=== PATIENT | male | born 1945 | race Caucasian/White ===

== ENCOUNTER 2019-07-03 08:02 | Outpatient (CLI) | payer MEDICARE, SELFPAY ==
--- NOTE | ~2019-07-03 | CT_ITS ---
EXAMINATION: CT abdomen pelvis w con DATE: 07/03/2019 08:37 INDICATION: Hematuria TECHNIQUE: Computed tomography (CT) of the abdomen and pelvis was performed with 100 mL Omnipaque-350 intravenous contrast. Automated exposure control and iterative reconstruction technique were employe d. The dose-length product was 1084.45 mGy-cm. COMPARISON: None FINDINGS: Calcified left lower lobe nodule and calcified paraesophageal lymph nodes consistent with old granulo matous disease. Heart size is normal. Atherosclerotic coronary artery calcification. No pericardial o r pleural effusion. Liver, gallbladder, spleen, pancreas and bilateral adrenal glands are normal. The re are atherosclerotic Calcination is along the gastroduodenal artery. 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 No other urolithiasis or hydronephrosis. There are a fe w phleboliths in the pelvis. Bladder is normal. Bowels including the appendix are normal. No free int raperitoneal gas or fluid. No pathologically enlarged abdominal or pelvic lymphadenopathy. Bipolar ty pe left hip hemiarthroplasty. Lumbar dextroscoliosis with moderate to severe spondylosis. There are b ridging osteophytes at multiple levels in the lower thoracic spine consistent with diffuse idiopathic skeletal hyperostosis (DISH). IMPRESSION: 1. 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 Reviewed, dictated and finalized at location A.
[2019-07-03 08:29] LABS: Estimated Glomerular Filt Rate > 60
== END 2019-07-03 08:03 | disposition home or self-care (01) ==
PROVIDERS: PCP Family Medicine; Visit Provider Family Medicine
DX: Q63.1 Lobulated, fused and horseshoe kidney (principal); N20.0 Calculus of kidney
CPT/HCPCS: 36415; 74177; Q9967

== ENCOUNTER 2019-07-20 09:31 | Outpatient (CLI) | payer MEDICARE, SELFPAY ==
[2019-07-20 11:08] LABS: Hematocrit 42.5 % (42.0-52.0); Hemoglobin 13.5 g/dL (14.0-18.0)
[2019-07-20 11:18] LABS: Prothrombin Time 13.1 Seconds (11.1-14.7)
[2019-07-20 11:19] LABS: Blood Urea Nitrogen 17 mg/dL (9-20); Calcium 8.8 mg/dL (8.4-10.2); Carbon Dioxide 30 mmol/L (22-30); Chloride 104 mmol/L (98-107); Estimated Glomerular Filt Rate > 60; Glucose 126 mg/dL (75-110); Partial Thromboplastin Time 28.8 SECONDS (22.3-36.8); Potassium 4.4 mmol/L (3.4-5.0); Sodium 140 mmol/L (137-145)
== END 2019-07-20 09:32 | disposition home or self-care (01) ==
PROVIDERS: Anesthesiology; PCP Family Medicine; Visit Provider Urology
DX: E11.65 Type 2 diabetes mellitus with hyperglycemia (principal); N20.0 Calculus of kidney; D64.9 Anemia, unspecified; R31.0 Gross hematuria
CPT/HCPCS: 36415; 80048; 85014; 85018; 85610; 85730; 87086; 87088

== ENCOUNTER 2019-07-21 05:46 | Outpatient (CLI) | payer MEDICARE, SELFPAY ==
[2019-07-21 18:34] LABS: SARS-CoV-2 RNA PCR Negative
== END 2019-07-21 05:47 | disposition home or self-care (01) ==
LOC: ANHCOVIDDT 05:46
PROVIDERS: PCP Family Medicine; Visit Provider Urology
DX: Z01.818 Encounter for other preprocedural examination (principal); Z11.59 Encounter for screening for other viral diseases
CPT/HCPCS: 87635; U0003

== ENCOUNTER 2019-07-23 02:52 | Day surgery (SDC) | payer MEDICARE, SELFPAY ==
[2019-07-17 15:17] VITALS: BMI 34.4
[2019-07-23] VITALS (8 sets, daily range): BP systolic 136–180; BP diastolic 66–95; PULSE 53–66; RESP 14–20; TEMP 36.4–36.8; O2SAT 98–99
--- NOTE | ~2019-07-23 | XR_ITS ---
EXAMINATION: XR abdomen/kub 1V DATE: 07/23/2019 09:35 INDICATION: Kidney stone. TECHNIQUE: A supine view of the abdomen on 2 radiographs was obtained. COMPARISON: CT abdomen and pelvis 07/03/2019 FINDINGS: There are no dilated loops of bowel. There are phleboliths in the pelvis. There are vascula r calcifications in right abdomen. There is an 11 mm stone in right kidney. There is a left hip bipol ar hemiarthroplasty. IMPRESSION: 1. 11 mm stone in right kidney. Reviewed, dictated and finalized at location A.
--- NOTE | 2019-07-23 07:08 | WPDHPUPDATE1 ---
History and Physical Update Update Date/Time: 07/23/19 07:08 History and Physical has been reviewed, including an updated exam of the patient. There are NO changes in the patient's condition. Risks, benefits, and alternatives have been discussed and questions answered. Patient agrees to proceed with procedure.
--- NOTE | 2019-07-23 09:59 | WPDANESEPPF ---
Anes - Initial Pre Proc Eval Procedure: Operation Date: 07/23/19 11:30 Proposed Procedures p Right Renal Extracorporeal Shock Wave Lithotripsy - Munir Mcdonnell MD s Flexible Cystoscopy - Munir Mcdonnell MD Date/Time: 07/23/19 09:59 Surgeon: Munir Mcdonnell MD Pre Op Diagnosis: Right Renal Stone Patient Data Age: 73 Gender: M Height: 5 ft 10 in Weight: 107.7 kg Allergies Allergy/AdvReac Type Severity Reaction Status Date / Time hydrochlorothiazide Allergy Mild headache Verified 07/23/19 09:43 [Zestoretic] lisinopril Allergy Mild headache Verified 07/23/19 09:43 Home Medications Medication Instructions Recorded Confirmed Type apixaban 5 mg tablet 5 mg PO BID 02/02/19 07/23/19 History finasteride 5 mg tablet 5 mg PO DAILY 02/02/19 07/23/19 History metformin 500 mg tablet,extended 500 mg PO DAILY 02/02/19 07/23/19 History release 24hr simvastatin 10 mg tablet 10 mg PO DAILY #90 tablet 02/25/19 07/23/19 Rx amiodarone 200 mg tablet 200 mg PO DAILY tablet 06/24/19 07/23/19 History docusate sodium 100 mg capsule 100 mg PO DAILY 06/24/19 07/23/19 History ferrous sulfate 325 mg (65 mg 325 mg PO DAILY 06/24/19 07/23/19 History iron) tablet hydrocodone 10 mg-acetaminophen 1 tablet PO Q12H PRN #60 tablet 06/24/19 07/23/19 Rx 325 mg tablet lisinopril 20 mg tablet 20 mg PO DAILY #90 tablet 06/24/19 07/23/19 Rx naproxen sodium 220 mg capsule 220 mg PO BID cap 06/24/19 07/23/19 History furosemide 40 mg tablet 40 mg PO QAM #90 tablet 07/08/19 07/23/19 Rx multivitamin 1 tablet PO DAILY 07/17/19 07/23/19 History Patient hx anesthesia problems: none Family hx anesthesia problems: none PMFSH Past Medical History Medical History History of femur fracture Hyperlipidemia Hypertension EMILI (obstructive sleep apnea) Quadriceps tendon rupture Surgical History Surgical History H/O arthroscopy of knee History of hip replacement History of knee replacement Family History Family History Father Diabetes mellitus, Onset Age: 66 Acute myocardial infarction, Onset Age: 66 Sibling Diabetes mellitus Family history of malignant neoplasm of breast in first degree relative Mother Family history of coronary artery disease, Onset Age: 95 Family history of congestive heart failure, Onset Age: 95 Social History Social History Smoking status: Never smoker Alcohol intake: current Anes - Eval Final PreProcedure Day of Procedure 07/23/19 09:59 Patient weight: obese Heart: regular rate and rhythm Lungs: decreased breath sounds Airway: Mallampati scale class III Neurological: other (alert) Last oral intake: >/= 8 hours ASA classification: III Emergent: no Anesthetic plan: proceed Anesthesia type and monitoring: general LMA and standard monitoring Informed Consent: The patient's anesthetic plan and its attendant risks and benefits were discussed with the patient/family/POA. Questions were solicited and answers provided to the satisfaction of the patient/family/POA.
[2019-07-23] MEDS: LACTATED RINGERS 1,000 ML 30 ML IV CONT ×2 (10:05→13:20)
[2019-07-23 10:14] LABS: Glucose Point of Care 115 (65-105)
--- NOTE | 2019-07-23 11:14 | SUR.PREOP ---
Resting without needs or complaints.
--- NOTE | 2019-07-23 11:38 | SUR.PREOP ---
Discussed delay probably about another hour with patient. Voices understanding.
[2019-07-23] MEDS: ceFAZolin 2 GM/D5W 50 ML 2 GM/50 ML BAG IVPB (12:15)
[2019-07-23] MEDS: LIDOCAINE HCL 2% GEL UROJET 10 ML PKG MUCOUS MEM (12:19)
[2019-07-23 13:19] LABS: Glucose Point of Care 103 (65-105)
--- NOTE | 2019-08-04 06:12 | P.OP_ITS ---
Procedure Note - Detailed Date of procedure: 08/04/19 Pre-op diagnosis: Right Renal Stone Post-op diagnosis: same Procedure performed: 1. Cystoscopy 2. Right ESWL Description of procedure: The patient was brought to the operative suite where he was placed in the supine position on the Dornier lithotripter table. Flexible cystoscopy was undertaken with a 16F flexible cystoscopy. There were no urethral strictures. The prostatic uretehral estimated lenght was 1.5cm. There was mildmoderate obstruction of the prostatic urethra with no median lobe enlargement. The bladder mucosa was normal and there was a single, orthotopic ureteral orifice bilaterally. The patient was then repositioned in the supine position with the focal point of the lithotriptor on a 10mm rightmid-ureteral calculus. A total of 2500 shocks were delivered at a power setting of 7. There appeared to be good fragmentation of the stone. The patient tolerated the procedure well and was taken to the recovery room in good condition. Anesthesia: GLMA Surgeon: Munir Mcdonnell MD Mechanical Assembler: None Estimated blood loss (mL): 0 Drains: No Packing: No Pathology: none sent Complications: No immediate complications Condition: stable Disposition: PACU
== END 2019-07-23 14:58 | disposition home or self-care (01) ==
PROVIDERS: PCP Family Medicine; Visit Provider Urology
PROC: (CPT 50590; principal; 2019-07-23 11:30)
PROC: 0TJB8ZZ Inspection of Bladder, Via Natural or Artificial Opening Endoscopic (ICD-10-PCS; CPT 52000; 2019-07-23 11:30)
DX: N20.0 Calculus of kidney (principal); I10 Essential (primary) hypertension; E78.5 Hyperlipidemia, unspecified; G47.33 Obstructive sleep apnea (adult) (pediatric); E66.9 Obesity, unspecified; Z68.34 Body mass index [BMI] 34.0-34.9, adult; Z79.84 Long term (current) use of oral hypoglycemic drugs; Z79.01 Long term (current) use of anticoagulants
CPT/HCPCS: 50590; 74018; 87635; A9270; J0690; J2405; J2704; J3010; J7030; J7120; U0003

== ENCOUNTER 2019-08-04 10:38 | Outpatient (CLI) | payer MEDICARE, SELFPAY ==
--- NOTE | ~2019-08-04 | XR_ITS ---
XR abdomen/kub 1V 08/04/2019 10:56 Indication: Right ureteral stone Procedure: KUB Comparison: 07/23/2019 Findings: No suspected urolithiasis. There are pelvic phleboliths. Bowel pattern nonobstructive. Mild dextroscoliosis with moderate lumbar spondylosis. There is a left femoral bipolar hemiarthroplasty. Impression: 1: No acute abdominal abnormality. Reviewed, dictated and finalized at location A. Impression: 1: No acute abdominal abnormality.
== END 2019-08-04 10:39 | disposition home or self-care (01) ==
LOC: ANHIMG 10:41
PROVIDERS: PCP Family Medicine; Visit Provider Urology
DX: N20.1 Calculus of ureter (principal)
CPT/HCPCS: 74018

== ENCOUNTER 2019-09-10 15:56 | Outpatient (CLI) | payer MEDICARE, SELFPAY ==
--- NOTE | ~2019-09-10 | XR_ITS ---
EXAMINATION: XR abdomen/kub 1V INDICATION: Gross hematuria TECHNIQUE: Supine views of the abdomen were obtained on 2 radiographs. COMPARISON: 08/04/2019 FINDINGS: Bowel contents project over the kidneys limiting sensitivity for renal stones. No urinary t ract calculi are identified. There are phleboliths of the pelvis. A moderate volume of colonic stool is present. Changes of left hip arthroplasty are noted. IMPRESSION: 1. No urinary tract calculi identified. Reviewed, dictated and finalized at location A.
== END 2019-09-10 15:57 | disposition home or self-care (01) ==
PROVIDERS: PCP Family Medicine; Visit Provider Nurse Practitioner Family
DX: R31.0 Gross hematuria (principal)
CPT/HCPCS: 74018

== ENCOUNTER 2019-11-14 12:08 | Emergency (ER) | payer MEDICARE, SELFPAY ==
[2019-11-14 12:26] VITALS: BP 138/97; PULSE 80; RESP 20; TEMP 36.7; O2SAT 97
[2019-11-14] MEDS: LIDOCAINE HCL 2% GEL UROJET 10 ML PKG MUCOUS MEM (13:58)
--- NOTE | 2019-11-14 14:04 | ED.MALEGU ---
HPI - Male Genitourinary General Chief complaint: Urogenital-Male Stated complaint: cant urinate Time Seen by Provider: 11/14/19 12:20 Source: patient and family Mode of arrival: ambulatory Limitations: no limitations History of Present Illness HPI Narrative: 74-year-old with a history of hypertension, BPH, arthritis here with complaints of lower abdominal pain, unable to urinate since 530 this morning. Patient states that he usually takes the Lasix in the morning which will help him to urinate however it still is unable to do. He complains of low back pain and lower abdominal pain. No history of fever or chills. He states that he sees Dr. Kecia Oden MD Complaint: other (unable to urinate) Onset (ago): hour(s) (4) Duration: constant Location: abdomen Severity: moderate Severity scale (1-10): 6 Exacerbating factors: none Related Data Home Medications Medication Instructions Recorded Confirmed metformin 500 mg tablet,extended 500 mg PO DAILY 02/02/19 08/12/19 release 24hr amiodarone 200 mg tablet 200 mg PO DAILY tablet 06/24/19 08/12/19 docusate sodium 100 mg capsule 100 mg PO DAILY 06/24/19 08/12/19 ferrous sulfate 325 mg (65 mg 325 mg PO DAILY 06/24/19 08/12/19 iron) tablet naproxen sodium 220 mg capsule 220 mg PO BID cap 06/24/19 08/12/19 multivitamin 1 tablet PO DAILY 07/17/19 08/12/19 Allergies Allergy/AdvReac Type Severity Reaction Status Date / Time hydrochlorothiazide Allergy Mild headache Verified 09/24/19 11:34 [Zestoretic] lisinopril Allergy Mild headache Verified 09/24/19 11:34 Review of Systems Review of Systems: All systems reviewed & are unremarkable except as noted in HPI and below Constitutional: Constitutional: Reports no additional constitutional complaints Eyes: Eyes: Reports no additional eye complaints ENT: Reports system reviewed and no additional complaints, except as documented Cardiovascular: Cardiovascular: Reports no additional cardiovascular complaints Respiratory: Respiratory: Reports no additional respiratory complaints Gastrointestinal: Gastrointestinal: Reports abdominal pain Genitourinary: Genitourinary: Reports oliguria Musculoskeletal: Musculoskeletal: Reports back pain Integumentary/Breasts: Skin/Breast: Reports system reviewed and no additional complaints, except as docu Neurologic: Reports system reviewed and no additional complaints, except as documented PMFSH Past Medical History Medical History History of femur fracture Hyperlipidemia Hypertension Kidney stone EMILI (obstructive sleep apnea) Quadriceps tendon rupture Surgical History Surgical History H/O arthroscopy of knee History of hip replacement History of knee replacement Family History Family History Father Diabetes mellitus, Onset Age: 66 Acute myocardial infarction, Onset Age: 66 Sibling Diabetes mellitus Family history of malignant neoplasm of breast in first degree relative Mother Family history of coronary artery disease, Onset Age: 95 Family history of congestive heart failure, Onset Age: 95 Social History Social History Smoking status: Never smoker Alcohol intake: current Exam Narrative: Exam Narrative: GENERAL: Well-appearing, well-nourished, and in no acute distress. HEAD: Normocephalic, atraumatic. EYES: PERRLA and EOMI. ENT: Nares clear, no rhinorrhea or epistaxis. Mucous membranes moist. NECK: Supple. CHEST: Clear to auscultation. No respiratory distress. HEART: Regular rate and rhythm. No murmur heard. Normal peripheral pulses. ABDOMEN: Soft, Supra Pubic tenderness, nondistended, normal active bowel sounds. EXTREMITIES: Normal range of motion. No edema. SKIN: Warm, dry, no rash. NEURO: No focal deficits. Alert and or
[2019-11-14 15:05] VITALS: BP 159/100; PULSE 61; RESP 16; O2SAT 98
== END 2019-11-14 15:08 | disposition home or self-care (01) ==
PROVIDERS: Emergency Provider Family Medicine; PCP Family Medicine
DX: N40.1 Benign prostatic hyperplasia with lower urinary tract symptoms (principal); R33.8 Other retention of urine; I10 Essential (primary) hypertension; M19.90 Unspecified osteoarthritis, unspecified site; G47.33 Obstructive sleep apnea (adult) (pediatric); E78.5 Hyperlipidemia, unspecified; Z87.442 Personal history of urinary calculi; Z79.84 Long term (current) use of oral hypoglycemic drugs; Z96.659 Presence of unspecified artificial knee joint; Z96.649 Presence of unspecified artificial hip joint
CPT/HCPCS: 51702; 99283

== ENCOUNTER → 2019-12-09 08:40 | Outpatient (CLI) | payer MEDICARE, SELFPAY ==
--- NOTE | ~2019-12-09 | XR_ITS ---
XR abdomen/kub 1V DATE: 12/09/2019 09:30 INDICATION: Gross hematuria TECHNIQUE: AP projection, 2 views COMPARISON: 09/10/2019 KUB FINDINGS: There is mild rotatory dextroscoliosis and multi-level degenerative disc disease of the lum bar spine. Diffuse idiopathic skeletal hyperostosis of the thoracic spine. Left bipolar hip prosthesis. There is a moderately large amount of feces in the colon; no bowel obstruction. The psoas shadows ar e intact. No visceromegaly or significant abnormal calcification is detected . IMPRESSION: Prominent amount of feces in colon; no bowel obstruction Reviewed, dictated and finalized at Location A. Reviewed, dictated and finalized at location B.
--- NOTE | ~2019-12-09 | CT_ITS ---
EXAMINATION: CT abdomen pelvis wo/w con DATE: 12/09/2019 09:30 INDICATION: Gross hematuria. Nausea, constipation, diarrhea. TECHNIQUE: Computed tomography (CT) of the abdomen and pelvis was performed without and subsequently with 130 cc Omnipaque 350 intravenous contrast. Automated exposure control and iterative reconstructi on technique were employed. Exam dose: 2298.94 mGy-cm total exam DLP. COMPARISON: 07/03/2019 CT abdomen pelvis 12/09/2019 KUB FINDINGS: The lung bases are clear of infiltrate or consolidation. Coronary artery calcification. Mild cardiomegaly. No pericardial or pleural effusion. The liver, gallbladder, bile ducts, spleen, pancreas, pancreatic duct and adrenal glands are unremark able. There is a horseshoe kidney. No renal mass lesion is noted. There is an 8.3 x 9.5 x 13.4 mm right ureteropelvic calculus (583 Hounsfield units) with prominent ri ght hydronephrosis. There is a nonobstructing 6 mm lower pole right renal calculus or collection of calculi. No other urinary tract calculus is noted. No left hydroureteronephrosis. There are prostate calcifications and prostate enlargement. The urinary bladder is evacuated and not optimally evaluated as a result. There is extensive streak artifact from left hip replacement, limiting evaluation of the lower pelvis . Normal appendix. There is a prominent amount of fecal material within the colon but no bowel obstruct ion, bowel wall thickening, pneumatosis or intraperitoneal free air. Normal caliber of the abdominal aorta. Is atherosclerotic calcification of the abdominal aorta and il iac and femoral arteries. Small fat-containing left inguinal hernia. Left bipolar hip prosthesis. 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 Diffuse osteopenia. IMPRESSION: 8.3 x 9.5 x 13.4 mm right ureteropelvic calculus with prominent right hydronephrosis Mild nonobstructive bilateral nephrolithiasis Horseshoe kidney Prostate calcifications, prostate enlargement Reviewed, dictated and finalized at Location A. Reviewed, dictated and finalized at location B. IMPRESSION: 8.3 x 9.5 x 13.4 mm right ureteropelvic calculus with prominent ri ght hydronephrosis Mild nonobstructive bilateral nephrolithiasis Horseshoe kidney Prostate calcifications, prostate enlargement
[2019-12-09 09:03] LABS: Estimated Glomerular Filt Rate 35
== END ==
PROVIDERS: Visit Provider Nurse Practitioner Adult Health
DX: R31.0 Gross hematuria (principal); N13.2 Hydronephrosis with renal and ureteral calculous obstruction; Q63.1 Lobulated, fused and horseshoe kidney
CPT/HCPCS: 74018; 74178; Q9967

== ENCOUNTER 2019-12-16 01:06 | Outpatient (CLI) | payer MEDICARE, SELFPAY ==
[2019-12-16 19:18] LABS: SARS-CoV-2 RNA PCR Negative
== END 2019-12-16 01:07 | disposition home or self-care (01) ==
LOC: ANHCOVIDDT 01:07
PROVIDERS: PCP Family Medicine; Visit Provider Urology
DX: Z01.812 Encounter for preprocedural laboratory examination (principal); Z20.828 Contact with and (suspected) exposure to other viral communicable diseases
CPT/HCPCS: 87635; C9803; U0003

== ENCOUNTER 2019-12-16 09:48 | Outpatient (CLI) | payer MEDICARE, SELFPAY ==
[2019-12-16 10:22] LABS: INR 1.2; Prothrombin Time 14.6 Seconds (11.1-14.7)
[2019-12-16 10:23] LABS: Partial Thromboplastin Time 32.6 SECONDS (22.3-36.8)
[2019-12-16 10:26] LABS: Anion Gap 9 mmol/L (8-16); Blood Urea Nitrogen 28 mg/dL (9-20); Calcium 8.6 mg/dL (8.4-10.2); Carbon Dioxide 28 mmol/L (22-30); Chloride 104 mmol/L (98-107); Estimated Glomerular Filt Rate 37; Glucose 133 mg/dL (75-110); Potassium 4.5 mmol/L (3.4-5.0); Sodium 141 mmol/L (137-145)
== END 2019-12-16 09:49 | disposition home or self-care (01) ==
LOC: ANHSURGERY 09:51
PROVIDERS: Anesthesiology; PCP Family Medicine; Visit Provider Urology
DX: E11.65 Type 2 diabetes mellitus with hyperglycemia (principal); N20.0 Calculus of kidney
CPT/HCPCS: 36415; 80048; 85610; 85730

== ENCOUNTER 2019-12-18 00:36 | Day surgery (SDC) | payer MEDICARE, SELFPAY ==
[2019-12-15 16:18] VITALS: BMI 33.7
[2019-12-18] VITALS (9 sets, daily range): BP systolic 145–187; BP diastolic 68–90; PULSE 50–58; RESP 16–20; TEMP 36.4; O2SAT 96–100
--- NOTE | ~2019-12-18 | XR_ITS ---
XR abdomen/kub 1V DATE: 12/18/2019 08:59 INDICATION: Preoperative evaluation for lithotripsy TECHNIQUE: AP projection, 2 views 12/09/2019 COMPARISON: CT abdomen pelvis FINDINGS: There is a moderately prominent amount fecal material within the colon but no evidence of b owel obstruction. The psoas shadows are intact. No reproducible urinary tract calcification is identified radiographically. There is rotatory dextroscoliosis and multilevel degenerative disc disease of the lumbar spine. There is iliolumbar ligament ossification on the left. Left bipolar hip prosthesis. IMPRESSION: No reproducible urinary tract calcification is identified radiographically; faintly calci fied or noncalcified urinary tract calculi are not excluded. Reviewed, dictated and finalized at Location A. Reviewed, dictated and finalized at location A. IMPRESSION: No reproducible urinary tract calcification is identified radiograp hically; faintly calcified or noncalcified urinary tract calculi are not exclud ed.
--- NOTE | 2019-12-18 07:05 | WPDHPUPDATE1 ---
History and Physical Update Update Date/Time: 12/18/19 07:05 History and Physical has been reviewed, including an updated exam of the patient. There are NO changes in the patient's condition. Risks, benefits, and alternatives have been discussed and questions answered. Patient agrees to proceed with procedure.
[2019-12-18] MEDS: LACTATED RINGERS 1,000 ML 30 ML IV CONT ×2 (09:35→11:49)
[2019-12-18 09:39] LABS: Glucose Point of Care 119 (65-105)
--- NOTE | 2019-12-18 09:39 | WPDANESEPPF ---
Anes - Initial Pre Proc Eval Procedure: Operation Date: 12/18/19 10:30 Proposed Procedures p Right Ureteral Extracorporeal Shock Wave Lithotripsy - Munir Mcdonnell MD s Cystoscopy, Possible Right Retrograde Pyelogram Possible Right Stent Placement - Munir Mcdonnell MD Date/Time: 12/18/19 09:39 Surgeon: Munir Mcdonnell MD Pre Op Diagnosis: right ureteral stone Patient Data Age: 74 Gender: M Height: 5 ft 10 in Weight: 106.8 kg Allergies Allergy/AdvReac Type Severity Reaction Status Date / Time hydrochlorothiazide Allergy Mild headache Verified 12/15/19 16:16 [Zestoretic] lisinopril Allergy Mild headache Verified 12/15/19 16:16 Home Medications Medication Instructions Recorded Confirmed Type metformin 500 mg tablet,extended 500 mg PO DAILY 02/02/19 12/15/19 History release 24hr simvastatin 10 mg tablet 10 mg PO DAILY #90 tablet 02/25/19 12/15/19 Rx amiodarone 200 mg tablet 200 mg PO DAILY tablet 06/24/19 12/15/19 History docusate sodium 100 mg capsule 100 mg PO DAILY 06/24/19 12/15/19 History ferrous sulfate 325 mg (65 mg 325 mg PO DAILY 06/24/19 12/15/19 History iron) tablet naproxen sodium 220 mg capsule 220 mg PO BID cap 06/24/19 12/15/19 History multivitamin 1 tablet PO DAILY 07/17/19 12/15/19 History finasteride 5 mg tablet 5 mg PO DAILY #90 tablet 08/05/19 12/15/19 Rx lisinopril 20 mg tablet 40 mg PO DAILY #90 tablet 08/27/19 12/15/19 Rx apixaban 5 mg tablet 5 mg PO BID #180 tablet 10/22/19 12/15/19 Rx furosemide 40 mg tablet 40 mg PO QAM #90 tablet 10/22/19 12/15/19 Rx hydrocodone 10 mg-acetaminophen 1 tablet PO Q12H PRN #60 tablet 11/30/19 12/15/19 Rx 325 mg tablet cephalexin 500 mg tablet 500 mg PO Q8H #21 tablet 12/15/19 12/15/19 Rx Patient hx anesthesia problems: none Family hx anesthesia problems: none PMFSH Past Medical History Medical History History of femur fracture Hyperlipidemia Hypertension Kidney stone EMILI (obstructive sleep apnea) Quadriceps tendon rupture Surgical History Surgical History H/O arthroscopy of knee History of hip replacement History of knee replacement Family History Family History Father Diabetes mellitus, Onset Age: 66 Acute myocardial infarction, Onset Age: 66 Sibling Diabetes mellitus Family history of malignant neoplasm of breast in first degree relative Mother Family history of coronary artery disease, Onset Age: 95 Family history of congestive heart failure, Onset Age: 95 Social History Social History Smoking status: Never smoker Second hand tobacco smoke exposure: No Alcohol intake: current Drinks per week: 1 Substance use: never Living arrangements: alone Spiritual care concerns: No Anes - Eval Final PreProcedure Day of Procedure 12/18/19 09:39 Patient weight: obese Heart: regular rate and rhythm Lungs: clear to auscultation Airway: Mallampati scale class III Neurological: alert and oriented Last oral intake: >/= 8 hours ASA classification: III Emergent: no Anesthetic plan: proceed Anesthesia type and monitoring: general LMA and standard monitoring Informed Consent: The patient's anesthetic plan and its attendant risks and benefits were discussed with the patient/family/POA. Questions were solicited and answers provided to the satisfaction of the patient/family/POA.
[2019-12-18] MEDS: ceFAZolin 2 GM/D5W 50 ML 2 GM/50 ML BAG IVPB (10:31)
[2019-12-18] MEDS: LIDOCAINE HCL 2% GEL UROJET 10 ML PKG MUCOUS MEM (10:48)
--- NOTE | 2019-12-18 11:17 | PM.PROC ---
Procedure Note - Detailed Date of procedure: 12/18/19 Pre-op diagnosis: right ureteral stone Post-op diagnosis: same Procedure performed: 1. Cysto, right retrograde pyelogram. 2. Right urteroscopy. 3. Right ESWL. 4. Right stent placement. Description of procedure: The patient was brought to the operative suite where he was placed in the supine position on the Dornier lithotripter table. Flexible cystoscopy was undertaken with a 16F flexible cystoscopy. There were no urethral strictures. The prostatic uretehral estimated lenght was 2.0cm. There was mild obstruction of the prostatic urethra with no median lobe enlargement. The bladder mucosa was normal and there was a single, orthotopic ureteral orifice bilaterally. A 0.035 glidewire was advanced into the renal pelvis under fluoroscopy. Retrograde pyelography demonstrated a filling defect in the right mid-ureter, not in the renal pelvis as expected. A 7.5F flexible ureteroscope was place to confirm that that was, indeed, his 1cm stone. A total of 3000 shocks were delivered at a power setting of 6. A 4.8F J-J ureteral stent was positioned with the proximal coil in the renal pelvis and the distal coil in the bladder. TThe patient tolerated the procedure well and was taken to the recovery room in good condition. Anesthesia: GLMA Surgeon: Munir Mcdonnell MD Drains: Yes (4.8F right ureteral stent) Packing: No Pathology: yes Complications: No immediate complications Condition: stable Disposition: PACU
[2019-12-18 12:01] LABS: Glucose Point of Care 134 (65-105)
--- NOTE | 2019-12-18 12:57 | SUR.PHASEII ---
C/O dizziness when moves. Denies any nausea or pain.
--- NOTE | 2019-12-18 14:36 | SUR.PHASEII ---
PT REPORTED HE FELT BETTER AFTER VOIDING.
== END 2019-12-18 14:05 | disposition home or self-care (01) ==
PROVIDERS: PCP Family Medicine; Visit Provider Urology
PROC: (CPT 50590; principal; 2019-12-18 10:30)
PROC: (CPT 52352; 2019-12-18 10:30)
DX: N20.1 Calculus of ureter (principal); I10 Essential (primary) hypertension; E78.5 Hyperlipidemia, unspecified; G47.33 Obstructive sleep apnea (adult) (pediatric); Z79.01 Long term (current) use of anticoagulants; Z79.84 Long term (current) use of oral hypoglycemic drugs; E66.9 Obesity, unspecified; Z68.33 Body mass index [BMI] 33.0-33.9, adult
CPT/HCPCS: 50590; 52332; 36415; 74018; 80048; 85610; 85730; 87635; A9270; C1769; C1887; C2617; C9803; J0690; J1100; J2405; J2704; J7030; J7120; Q9966; U0003

== ENCOUNTER 2020-01-01 13:01 | Outpatient (CLI) | payer MEDICARE, SELFPAY ==
--- NOTE | ~2020-01-01 | XR_ITS ---
XR abdomen/kub 1V 01/01/2020 13:26 Indication: Gross hematuria Procedure: KUB Comparison: Comparison to multiple prior studies sequentially, with oldest reviewed study dated 08/03. Findings: Bowel gas pattern is nonobstructive. Large amount of retained fecal material throughout the colon. There is a right internal ureteral stent in expected position. No definite renal stones are i dentified, although the kidneys are obscured by bowel content. There is a left hip arthroplasty. Mode rate lumbar spondylosis. Impression: 1: No acute abdominal abnormality. Right internal ureteral stent in expected position. Reviewed, dictated and finalized at location B. Impression: 1: No acute abdominal abnormality. Right internal ureteral stent in expected po sition.
== END 2020-01-01 13:02 | disposition home or self-care (01) ==
LOC: ANHIMG 13:07
PROVIDERS: PCP Family Medicine; Visit Provider Nurse Practitioner Adult Health
DX: R31.0 Gross hematuria (principal)
CPT/HCPCS: 74018

== ENCOUNTER 2020-01-05 18:47 | Inpatient (IN) | payer MEDICARE, SELFPAY ==
[2020-01-05] VITALS (9 sets, daily range): BP systolic 91–176; BP diastolic 54–76; PULSE 83–96; RESP 19–29; TEMP 37.4–37.9; O2SAT 94–97
--- NOTE | ~2020-01-05 | XR_ITS ---
EXAMINATION: XR chest 2V 01/05/2020 20:35 INDICATION: Fever. Generalized pain. Hypertension. PROCEDURE: AP and lateral views of the chest COMPARISON: No prior studies for comparison. FINDINGS: The lungs are clear. The cardiomediastinal silhouette is within normal limits. There are no pleural effusions. There is no pneumothorax suspected. Shallow inspiration with crowding of the pulmonary vessels. IMPRESSION: 1: NO ACUTE CARDIOPULMONARY DISEASE. Reviewed, dictated and finalized at location A.
--- NOTE | ~2020-01-05 | XR_ITS ---
EXAMINATION: XR retrograde pyelo w/stent RT DATE: 01/05/2020 23:29 INDICATION: Right internal ureteral stent placement TECHNIQUE: Fluoroscopic images from a right internal ureteral stent placement are submitted for sterling menendez 29 seconds of fluoroscopy time. 6 fluoroscopic images. FINDINGS: There is a right double-J internal ureteral stent projecting in expected position, with proximal [place] loop at the level of the renal pelvis and distal loop in the pelvis within the bladder lumen. IMPRESSION: 1. Right internal ureteral stent placement. Please refer to real-time procedural findings for rickie dee. Reviewed, dictated and finalized at location A. IMPRESSION: 1. Right internal ureteral stent placement. Please refer to real-time procedu ral findings for details.
--- NOTE | ~2020-01-05 | CT_ITS ---
EXAMINATION: CT abdomen pelvis w con DATE: 01/05/2020 20:29 INDICATION: Bilateral flank pain. History of kidney stones. TECHNIQUE: Computed tomography (CT) of the abdomen and pelvis was performed with 100 cc Omnipaque 350 intravenous contrast. The dose-length product was 1270.26 mGy-cm. Automated exposure control and ite rative reconstruction technique were employed. COMPARISON: CT dated 12/09/2019 FINDINGS: Lung bases are unremarkable. No significant pleural or pericardial effusion. Study limited by motion artifact. There is horseshoe kidney. There are bilateral renal stones in both moieties. There is moderate right hydroureteronephrosis secondary to distally obstructing ureteral stone measuring 9 mm greatest axial dimension, axial image 147. 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 Prostate gland is enlarged. The liver, spleen, pancreas, adrenal glands are unremarkable. There is moderate lumbar spondylosis. N o acute osseous abnormality. Nonobstructive bowel gas pattern. There is a left hip arthroplasty. IMPRESSION: 1. Distal right ureteral stone causing moderate hydroureteronephrosis. 2: Horseshoe kidney with renal stones on both moieties of the kidney. Reviewed, dictated and finalized at location A.
--- NOTE | 2020-01-05 19:10 | ED.GENADULT ---
HPI - General Adult General Chief complaint: Back Pain/Injury Stated complaint: abd pain Time Seen by Provider: 01/05/20 18:56 Source: patient and family History of Present Illness HPI narrative: 74-year-old male presents to emergency department for multiple complaints that started earlier this morning. Patient reports feeling nauseous, vomiting, lower abdominal pain, low back pain, and chills. Patient states he has had this in the past before, unknown cause. He has not take anything for his symptoms so far. No chest pain or shortness of breath at this time. Patient does have a history of stent placed due to kidney stone, and it was removed on . Related Data Home Medications Medication Instructions Recorded Confirmed metformin 500 mg tablet,extended 500 mg PO DAILY 02/02/19 01/06/20 release 24hr amiodarone 200 mg tablet 200 mg PO DAILY tablet 06/24/19 01/06/20 ferrous sulfate 325 mg (65 mg 325 mg PO DAILY 06/24/19 01/06/20 iron) tablet multivitamin 1 tablet PO DAILY 07/17/19 01/06/20 Allergies Allergy/AdvReac Type Severity Reaction Status Date / Time hydrochlorothiazide Allergy Mild headache Verified 01/05/20 19:41 [Zestoretic] Review of Systems Review of Systems: Narrative: CONSTITUTIONAL: Denies fever, chills, or sweats. EYES: Denies visual changes, redness, or discharge. ENT: Denies rhinorrhea, congestion, sore throat, or otalgia. CARDIOVASCULAR: Denies chest pain, palpitations, or edema. RESPIRATORY: Denies cough or dyspnea. GASTROINTESTINAL: Reports lower abdominal pain, nausea, and vomiting. GENITOURINARY: Denies dysuria or hematuria. SKIN: Denies rash or itching. MUSCULOSKELETAL: Low back pain. NEUROLOGIC: Denies headache, numbness, dizziness, or weakness. PSYCHIATRIC: Denies anxiety or depression. 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 Chronic pain syndrome Gastro-esophageal reflux disease without esophagitis History of femur fracture Hyperlipidemia Hypertension Kidney stone Lumbar spondylosis Obesity EMILI (obstructive sleep apnea) Paronychia Persistent atrial fibrillation Quadriceps tendon rupture Type 2 diabetes mellitus with hyperglycemia Surgical History Surgical History H/O arthroscopy of knee History of hip replacement History of knee replacement Family History Family History Father Diabetes mellitus, Onset Age: 66 Acute myocardial infarction, Onset Age: 66 Sibling Diabetes mellitus Family history of malignant neoplasm of breast in first degree relative Mother Family history of coronary artery disease, Onset Age: 95 Family history of congestive heart failure, Onset Age: 95 Social History Social History Smoking status: Never smoker Second hand tobacco smoke exposure: No Alcohol intake: current Drinks per week: 1 Substance use: never Gender identity (if verbalized by the patient): Male Sexual Orientation (if Verbalized by the Patient): Straight or Heterosexual Spiritual care concerns: No Exam Narrative: Exam Narrative: GENERAL: Well-appearing, well-nourished, and in no acute distress. HEAD: Normocephalic, atraumatic. EYES: PERRLA and EOMI. ENT: Nares clear, no rhinorrhea or epistaxis. Mucous membranes moist. NECK: Supple. CHEST: Clear to auscultation. No respiratory distress. HEART: Regular rate and rhythm. No murmur heard. Normal peripheral pulses. ABDOMEN: Mild lower abdominal TTP, nondistended EXTREMITIES: Normal range of motion. No edema. SKIN: Warm, dry, no rash. NEURO: No focal deficits. Alert and oriented x3. PSYCH: Mild distress Course Reevalua
[2020-01-05 19:40] LABS: Basophils Percent Auto 0.3 % (0.2-1.2); Eosinophils Percent Auto 0.2 % (0-4.4); Hematocrit 39.9 % (42.0-52.0); Hemoglobin 13.1 g/dL (14.0-18.0); Immature Granulocyte Absolute 0.21 K/mm3 (0.00-0.031); Immature Granulocyte Percent A 1.5 % (0-0.5); Lymphocytes Absolute Auto 0.78 K/mm3 (0.9-3.2); Lymphocytes Percent Auto 5.6 % (18.3-44.2); Mean Corpuscular HGB Conc 32.8 g/dl (32-36); Mean Corpuscular Hemoglobin 30.3 pg (26-34); Mean Corpuscular Volume 92.1 fl (80-100); Mean Platelet Volume 11.5 fl (7.4-10.4); Monocytes Absolute Auto 0.4 K/mm3 (0.1-0.6); Monocytes Percent Auto 2.5 % (2.6-8.5); Neutrophils Absolute Auto 12.6 K/mm3 (1.3-6.7); Neutrophils Percent Auto 89.9 % (45.5-73.1); Platelet Count Result 227 k/mm3 (150-375); Red Blood Count 4.33 M/mm3 (4.6-6.20); Red Cell Distribution Width 13.9 % (11.5-14.5)
[2020-01-05] MEDS: SODIUM CHLORIDE 0.9% IV 1,000 ML 999 ML IV CONT (19:42)
[2020-01-05] MEDS: ONDANSETRON INJ 4 MG/2 ML VIAL IV PUSH (19:43)
[2020-01-05] MEDS: KETOROLAC 15 MG/ML VIAL (*BKC) IV PUSH (19:43)
[2020-01-05 20:16] LABS: Lipase 60 U/L (23-300)
[2020-01-05 20:18] LABS: Alanine Aminotransferase 27 U/L (4-50); Albumin Level 3.6 g/dL (3.5-5.1); Alkaline Phosphatase 79 U/L (38-126); Anion Gap 7 mmol/L (8-16); Aspartate Amino Transferase 31 U/L (17-59); Bilirubin,Total 0.6 mg/dL (0.2-1.3); Blood Urea Nitrogen 38 mg/dL (9-20); Calcium 8.3 mg/dL (8.4-10.2); Carbon Dioxide 25 mmol/L (22-30); Chloride 103 mmol/L (98-107); Estimated CRCL calculation 40 ml/min; Estimated Glomerular Filt Rate 39; Glucose 188 mg/dL (75-110); Potassium 4.7 mmol/L (3.4-5.0); Sodium 135 mmol/L (137-145)
[2020-01-05 20:20] LABS: Estimated CRCL calculation 38 ml/min; Estimated Glomerular Filt Rate 37
[2020-01-05 20:22] LABS: Lactic Acid Reflex 2.5 mmol/L (0.7-2.1)
[2020-01-05 20:39] LABS: Add Urine Microscopic? YES; Appearance Urine Clear (Clear); Bilirubin Urine Negative (Negative); Blood Urine 3+ (Negative); Color Urine Yellow (Yellow); Glucose Urine UA Negative (Negative); Ketones Urine Negative (Negative); Leukocyte Esterase Ur Trace LEU/UL (Negative); Mucus Urine Rare /lpf; Nitrate Urine Negative (Negative); Protein Urine 1+ mg/dL (Negative); RBC Urine >75 /hpf (0-2); Specific Grav Ur 1.018 (1.001-1.035); Urobilinogen Urine Negative mg/dL (<2.0)
--- NOTE | 2020-01-05 21:09 | PC.NURSE ---
Patient confused and asking repetitive questions. Patient climbing to end of stretcher multiple times requiring assistance getting back up into bed. High fall risk and need to stay in bed for his safety explained to pt. Pt requesting more pain medication and stating he is going to leave. Pt appears confused. Pt assisted back into bed with assistance x2. This RN awaiting MD availability for new orders and direction.
--- NOTE | 2020-01-05 22:33 | WPDURCON ---
Assessment and Plan Assessment and plan (1) Right ureteral stone: Code(s): N20.1 - Calculus of ureter Status: Acute (2) Sepsis: Code(s): A41.9 - Sepsis, unspecified organism Status: Acute Additional Plan 74 year old diabetic man with right ureteral stone s/p ESWL and ureteroscopy with stent placement Tmax in ER 100.2, report of higher fevers at home and tachycardia with worsening confusion. Patient received cefepime and vancomycin in the ER. To OR for cystoscopy and right ureteral stent placement. Admit to Hospital Medicine vs. ICU pending clinical course. Wili Tavarez M.D. [facility] Consult Note HPI Date Seen: 01/05/20 Primary Care Provider: Ramón Cardoza MD Consult Narrative Narrative: Srikanth Patrick is a 74 year old male who underwent Right ESWL and right ureteroscopy with Dr. Mcdonnell on 12/18/2019 with ureteral stent placement. His ureteral stent was removed in clinic last . Since that time he has had flank pain which has progressively worsened. He and his (at the bedside) report that he has had fevers (thermometer registered as high per his ). He has had drive-heaving and nausea that has worsened over the course of the day. He reports his urine has been foul-smelling. His and ER nursing report that he has become progressively more confused over the course of his admission in the ER. Review of Systems Constitutional: Constitutional: Reports anorexia, Reports chills, Reports fatigue, Reports fever(s), Reports headache(s), Reports malaise and Reports night sweats Eyes: Eyes: Reports no additional eye complaints ENT: Reports Normal hearing present Cardiovascular: Cardiovascular: Reports no additional cardiovascular complaints Respiratory: Respiratory: Reports no additional respiratory complaints Gastrointestinal: Gastrointestinal: Reports abdominal pain, Reports nausea and Reports vomiting Genitourinary: Genitourinary: Reports urinary frequency and Reports urinary hesitancy Musculoskeletal: Musculoskeletal: Reports as per HPI Integumentary/Breasts: Skin/Breast: Reports system reviewed and no additional complaints, except as docu and Reports as per HPI Neurologic: Reports as per HPI Psychiatric: Psychiatric: Reports as per HPI Endocrine: Endocrine: Reports as per HPI Hematologic/Lymphatic: Hematologic/Lymphatic: Reports as per HPI Allergic/Immunologic: Allergic/Immunologic: Reports as per HPI [facility] Past Medical History Medical History (Updated 01/05/20 @ 22:41 by Kain Tavarez MD) 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 Chronic pain syndrome Gastro-esophageal reflux disease without esophagitis History of femur fracture Hyperlipidemia Hypertension Kidney stone Lumbar spondylosis Obesity EMILI (obstructive sleep apnea) Paronychia Persistent atrial fibrillation Quadriceps tendon rupture Type 2 diabetes mellitus with hyperglycemia Surgical History Surgical History H/O arthroscopy of knee History of hip replacement History of knee replacement Family History Family History Father Diabetes mellitus, Onset Age: 66 Acute myocardial infarction, Onset Age: 66 Sibling Diabetes mellitus Family history of malignant neoplasm of breast in first degree relative Mother Family history of coronary artery disease, Onset Age: 95 Family history of congestive heart failure, Onset Age: 95 Social History Social History Smoking status: Never smoker Second hand tobacco smoke exposure: No Alcohol intake: current Drinks per week: 1 Substance use: never Spiritual care concerns: No Meds Home Medications and Allergies Home Medications Medication Instructions Recorded Confirmed Type metformin 500 mg
--- NOTE | 2020-01-05 22:36 | WPDANESEPP ---
Anes - Eval Pre Procedure Procedure: Operation Date: 01/05/20 23:00 Proposed Procedures p Cysto, RPG, Stone Ext, Stent Placement - Kain Tavarez MD Date/Time: 01/05/20 22:36 Pre Op Diagnosis: abd pain Patient Data Age: 74 Gender: M Height: 1.78 m Weight: 102.06 kg Last Vital Signs Temp 37.9 C H 01/05/20 19:03 Pulse 83 01/05/20 19:03 Resp 28 H 01/05/20 19:03 BP 176/76 H 01/05/20 19:03 Pulse Ox 95 01/05/20 19:03 Allergies Allergy/AdvReac Type Severity Reaction Status Date / Time hydrochlorothiazide Allergy Mild headache Verified 01/05/20 19:41 [Zestoretic] lisinopril Allergy Mild headache Verified 01/05/20 19:41 Home Medications Medication Instructions Recorded Confirmed Type metformin 500 mg tablet,extended 500 mg PO DAILY 02/02/19 12/18/19 History release 24hr simvastatin 10 mg tablet 10 mg PO DAILY #90 tablet 02/25/19 12/18/19 Rx amiodarone 200 mg tablet 200 mg PO DAILY tablet 06/24/19 12/18/19 History docusate sodium 100 mg capsule 100 mg PO DAILY 06/24/19 12/18/19 History ferrous sulfate 325 mg (65 mg 325 mg PO DAILY 06/24/19 12/18/19 History iron) tablet naproxen sodium 220 mg capsule 220 mg PO BID cap 06/24/19 12/18/19 History multivitamin 1 tablet PO DAILY 07/17/19 12/18/19 History finasteride 5 mg tablet 5 mg PO DAILY #90 tablet 08/05/19 12/18/19 Rx lisinopril 20 mg tablet 40 mg PO DAILY #90 tablet 08/27/19 12/18/19 Rx apixaban 5 mg tablet 5 mg PO BID #180 tablet 10/22/19 12/18/19 Rx furosemide 40 mg tablet 40 mg PO QAM #90 tablet 10/22/19 12/18/19 Rx hydrocodone 10 mg-acetaminophen 1 tablet PO Q12H PRN #60 tablet 11/30/19 12/18/19 Rx 325 mg tablet cephalexin 500 mg tablet 500 mg PO Q8H #21 tablet 12/15/19 12/18/19 Rx cephalexin 500 mg PO Q8H #9 cap 12/18/19 Rx hydrocodone-acetaminophen 1 - 2 tablet PO Q6H PRN #20 tablet 12/18/19 Rx Laboratory Tests 01/05/20 01/05/20 01/05/20 19:27 19:33 19:59 WBC 14.0 K/mm3 H K/mm3 (4.5-10.0) RBC 4.33 M/mm3 L M/mm3 (4.6-6.20) Hgb 13.1 g/dL L g/dL (14.0-18.0) Hct 39.9 % L % (42.0-52.0) MCV 92.1 fl fl (80-100) MCH 30.3 pg pg (26-34) MCHC 32.8 g/dl g/dl (32-36) RDW 13.9 % % (11.5-14.5) Plt Count 227 k/mm3 k/mm3 (150-375) MPV 11.5 fl H fl (7.4-10.4) Immature Gran % (Auto) 1.5 % H % (0-0.5) Neut % (Auto) 89.9 % H % (45.5-73.1) Lymph % (Auto) 5.6 % L % (18.3-44.2) [place] % (Auto) 2.5 % L % (2.6-8.5) Eos % (Auto) 0.2 % % (0-4.4) Baso % (Auto) 0.3 % % (0.2-1.2) Lymph # (Auto) 0.78 K/mm3 L K/mm3 (0.9-3.2) [place] # (Auto) 0.4 K/mm3 K/mm3 (0.1-0.6) Eos # (Auto) 0.0 K/mm3 K/mm3 (0-0.3) Baso # (Auto) 0.0 K/mm3 K/mm3 (0.0-0.1) Abs Immat Gran (auto) 0.21 K/mm3 H K/mm3 (0.00-0.031) Absolute Neuts (auto) 12.6 K/mm3 H K/mm3 (1.3-6.7) Absolute Nucleated RBC 0.0 K/mm3 K/mm3 (0.0-0.012) Nucleated RBC % 0.0 % % (0.0-0.2) Sodium 135 mmol/L L mmol/L (137-145) Potassium 4.7 mmol/L mmol/L (3.4-5.0) Chloride 103 mmol/L mmol/L (98-107) Carbon Dioxide 25 mmol/L mmol/L (22-30) Anion Gap 7 mmol/L L mmol/L (8-16) BUN 38 mg/dL H D mg/dL (9-20) Creatinine 1.70 mg/dL H mg/dL (0.7-1.3) Estim Creat Clear Calc 40 ml/min ml/min Estimated GFR 39 L (59 - ) Glucose 188 mg/dL H mg/dL (75-110) Lactic Acid 2.5 mmol/L H mmol/L (0.7-2.1) Calcium 8.3 mg/dL L mg/dL (8.4-10.2) Total Bilirubin 0.6 mg/dL mg/dL (0.2-1.3) AST 31 U/L U/L (17-59) ALT 27 U/L U/L (4-50) Alkaline Phosphatase 79 U/L U/L (38-126) Total Protein 7.0 g/dL g/dL (6.3-8.2) Albumin 3.6 g/dL g/dL (3.5-5.1) Lipase
--- NOTE | 2020-01-05 22:38 | PM.IMHP ---
H&P: HPI History of Present Illness Date/Time: 01/05/20 22:38 Chief complaint: infected kidney stone Narrative: This is a pleasant diabetic 74 year old male with known history of multiple previous renal stones and a horseshoe kidney who presented to the hospital with a complaint of suprapubic pain, nausea, dry heaving, lower back pain, and chills since this morning. Associated symptoms include decreased urine output. He denies any chest pain, palpitations, cough, shortness of breath or wheezing. The patient was evaluated in the ER tonight and found to have moderate right hydroureteronephrosis secondary to distally obstructing ureteral stone measuring 9 mm. The patient was also found to be severely septic with fever, leukocytosis, tachypnea, tachycardia, and an elevated lactic acid. He was treated with IV fluid bolus, IV antiboitics, and Urology was consulted by ER provider. Urology is planning to take the patient to the OR tonight for stent placement. No other complaints. Review of Systems Review of Systems: All systems reviewed & are unremarkable except as noted in HPI and below PMFSH Past Medical History Medical History 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 Chronic pain syndrome Gastro-esophageal reflux disease without esophagitis History of femur fracture Hyperlipidemia Hypertension Kidney stone Lumbar spondylosis Obesity EMILI (obstructive sleep apnea) Paronychia Persistent atrial fibrillation Quadriceps tendon rupture Type 2 diabetes mellitus with hyperglycemia Surgical History Surgical History H/O arthroscopy of knee History of hip replacement History of knee replacement Family History Family History Father Diabetes mellitus, Onset Age: 66 Acute myocardial infarction, Onset Age: 66 Sibling Diabetes mellitus Family history of malignant neoplasm of breast in first degree relative Mother Family history of coronary artery disease, Onset Age: 95 Family history of congestive heart failure, Onset Age: 95 Social History Social History Smoking status: Never smoker Second hand tobacco smoke exposure: No Alcohol intake: current Drinks per week: 1 Substance use: never Gender identity (if verbalized by the patient): Male Sexual Orientation (if Verbalized by the Patient): Straight or Heterosexual Spiritual care concerns: No Meds Home Medications and Allergies Home Medications Medication Instructions Recorded Confirmed Type metformin 500 mg tablet,extended 500 mg PO DAILY 02/02/19 01/06/20 History release 24hr simvastatin 10 mg tablet 10 mg PO DAILY #90 tablet 02/25/19 01/06/20 Rx amiodarone 200 mg tablet 200 mg PO DAILY tablet 06/24/19 01/06/20 History docusate sodium 100 mg capsule 100 mg PO DAILY 06/24/19 12/18/19 History ferrous sulfate 325 mg (65 mg 325 mg PO DAILY 06/24/19 12/18/19 History iron) tablet naproxen sodium 220 mg capsule 220 mg PO BID cap 06/24/19 12/18/19 History multivitamin 1 tablet PO DAILY 07/17/19 12/18/19 History finasteride 5 mg tablet 5 mg PO DAILY #90 tablet 08/05/19 01/06/20 Rx lisinopril 20 mg tablet 40 mg PO DAILY #90 tablet 08/27/19 12/18/19 Rx apixaban 5 mg tablet 5 mg PO BID #180 tablet 10/22/19 01/06/20 Rx furosemide 40 mg tablet 40 mg PO QAM #90 tablet 10/22/19 01/06/20 Rx Allergies Allergy/AdvReac Type Severity Reaction Status Date / Time hydrochlorothiazide Allergy Mild headache Verified 01/05/20 19:41 [Zestoretic] lisinopril Allergy Mild headache Verified 01/05/20 19:41 Vital Signs Vital Signs - 24 hr 01/05/20 19:03 Temperature 37.9 C H Pulse Rate 83 Respiratory Rate 28 H Blood Pressure 176/76 H Pulse Oximetry 95 Exam Const: General: cooperative, a
--- NOTE | 2020-01-05 22:39 | PC.NURSE ---
Report called to [facility]. Pt updated on plan of care.
[2020-01-05 22:40] LABS: Reflex Lactic Acid Yes or No Add Lactic
--- NOTE | 2020-01-05 22:52 | WPDANESEFPP ---
Anes - Eval Final PreProcedure Day of Procedure 01/05/20 22:52 Patient weight: obese Heart: regular rate and rhythm Lungs: clear to auscultation Airway: Mallampati scale class II Neurological: alert and oriented Last oral intake: >/= 8 hours ASA classification: III Emergent: yes Anesthetic plan: proceed Anesthesia type and monitoring: general GIVS and standard monitoring Informed Consent: The patient's anesthetic plan and its attendant risks and benefits were discussed with the patient/family/POA. Questions were solicited and answers provided to the satisfaction of the patient/family/POA.
[2020-01-05 22:54] LABS: Glucose Point of Care 179 (65-105)
--- NOTE | 2020-01-05 23:07 | PC.NURSE ---
Pt to OR at [id number]
[2020-01-05] MEDS: LIDOCAINE HCL 2% GEL UROJET 10 ML PKG MUCOUS MEM (23:15)
--- NOTE | 2020-01-05 23:29 | P.OP_ITS ---
Procedure Note - Detailed Date of procedure: 01/05/20 Pre-op diagnosis: infected kidney stone Post-op diagnosis: same Procedure performed: 1. Cystoscopy and right ureteral stent placement. 2. Right retrograde pyelogram Description of procedure: After a discussion of the benefits, risks and alternatives the patient offered informed written consent. He was taken to the operating room and placed on the table in the supine position. Anesthesia was induced and he was transferred to the dorsal lithotomy position, he was prepped and draped in the standard sterile fashion. A call to order was made to confirm patient identity and proper procedure. A cystoscope was placed atraumatically and the right ureteral orifice was approached with the cystoscope. A 5F ureteral cathether was advanced to the orifice and a glide wire advanced into the ureter. The glide wire required significant manipulation to traverse the stone. The catheter was advanced to the proximal ureter and a gentle retrograde taken with moderate hydronephrosis noted. Urine was taken from the catheter for culture. The wire was replaced and over the wire a 6F variable length stent was advanced. There was a hydronephrotic drip noted. The scope was removed and an 18F Coude wa s placed. The patient was awoken from anesthesia having suffered no apparent complication. Anesthesia: MAC Surgeon: Kain Tavarez MD Estimated blood loss (mL): 5 Drains: Yes (18F Coude, 6F variable length) Condition: stable Disposition: PACU
[2020-01-05] MEDS: LACTATED RINGERS 1,000 ML 30 ML IV CONT ×2 (23:30)
[2020-01-06] VITALS (16 sets, daily range): BP systolic 100–125; BP diastolic 45–64; PULSE 53–92; RESP 16–21; TEMP 36.1–37; O2SAT 93–100
[2020-01-06 00:10] LABS: Glucose Point of Care 156 (65-105)
--- NOTE | 2020-01-06 00:30 | ADMGEN ---
This patient, Srikanth Patrick, was admitted to Medical Room 346-01. Patient/family oriented to hospital policies and general routines including ID bracelet, bed and alarms, visiting hours, pain management, procedures, bathroom and other care routines, personal items, smoking policy, room service/diet, and visiting hours. Information on how to activate the Rapid Response Team has been discussed. Patient/Family are encouraged to report perceived risks to care and to ask questions if they do not understand what they are told or what they should do.
[2020-01-06] MEDS: SODIUM CHLORIDE 0.9% IV 1,000 ML 140 ML IV CONT ×3 (05:35→20:28)
[2020-01-06 05:53] LABS: Lactic Acid 1.9 mmol/L (0.7-2.1)
[2020-01-06 07:39] LABS: Glucose Point of Care 158 (65-105)
--- NOTE | 2020-01-06 07:48 | WPDANESPN ---
Anes - Prog Note Post-Op Date/Time: 01/06/20 07:48 Cardiovascular status: normal Respiratory status: normal Airway patency: baseline Mental status: baseline Post-Op hydration status: normal Vital Signs: Last Vital Signs Temp 97.1 F L 01/06/20 06:33 Pulse 58 L 01/06/20 06:33 Resp 16 01/06/20 06:33 BP 101/61 01/06/20 06:33 Pulse Ox 95 01/06/20 06:33 Pain Score (VAS): 10 I/O: Intake & Output 01/05/20 01/05/20 01/06/20 15:59 23:59 07:59 Intake Total 1550 1000 Output Total 250 Balance 1550 750 Laboratory Tests 01/05/20 19:27 01/05/20 20:18 01/05/20 01/05/20 01/05/20 19:27 19:33 19:59 WBC 14.0 H RBC 4.33 L Hgb 13.1 L Hct 39.9 L MCV 92.1 MCH 30.3 MCHC 32.8 RDW 13.9 Plt Count 227 MPV 11.5 H Immature Gran % (Auto) 1.5 H Neut % (Auto) 89.9 H Lymph % (Auto) 5.6 L [place] % (Auto) 2.5 L Eos % (Auto) 0.2 Baso % (Auto) 0.3 Lymph # (Auto) 0.78 L [place] # (Auto) 0.4 Eos # (Auto) 0.0 Baso # (Auto) 0.0 Abs Immat Gran (auto) 0.21 H Absolute Neuts (auto) 12.6 H Absolute Nucleated RBC 0.0 Nucleated RBC % 0.0 Sodium 135 L Potassium 4.7 Chloride 103 Carbon Dioxide 25 Anion Gap 7 L BUN 38 H D Creatinine 1.70 H Estim Creat Clear Calc 40 Estimated GFR 39 L Glucose 188 H POC Capillary Glucose Lactic Acid 2.5 H Calcium 8.3 L Total Bilirubin 0.6 AST 31 ALT 27 Alkaline Phosphatase 79 Total Protein 7.0 Albumin 3.6 Lipase Urine Color Urine Appearance Urine pH Ur Specific [place] Urine Protein Urine Glucose (UA) Urine Ketones Ur Blood (Man) Urine Nitrate Urine Bilirubin Urine Urobilinogen Leukocyte Esterase Rfl Urine RBC Urine WBC Urine Mucus 01/05/20 01/05/20 01/05/20 19:59 19:59 20:18 WBC RBC Hgb Hct MCV MCH MCHC RDW Plt Count MPV Immature Gran % (Auto) Neut % (Auto) Lymph % (Auto) [place] % (Auto) Eos % (Auto) Baso % (Auto) Lymph # (Auto) [place] # (Auto) Eos # (Auto) Baso # (Auto) Abs Immat Gran (auto) Absolute Neuts (auto) Absolute Nucleated RBC Nucleated RBC % Sodium Potassium Chloride Carbon Dioxide Anion Gap BUN Creatinine 1.80 Estim Creat Clear Calc 38 Estimated GFR 37 L Glucose POC Capillary Glucose Lactic Acid Calcium Total Bilirubin AST ALT Alkaline Phosphatase Total Protein Albumin Lipase 60 Urine Color Yellow Urine Appearance Clear Urine pH 5.0 Ur Specific [place] 1.018 Urine Protein 1+ H Urine Glucose (UA) Negative Urine Ketones Negative Ur Blood (Man) 3+ H Urine Nitrate Negative Urine Bilirubin Negative Urine Urobilinogen Negative Leukocyte Esterase Rfl Trace H Urine RBC >75 H Urine WBC 10-15 H Urine Mucus Rare 01/05/20 01/06/20 01/06/20 22:51 00:08 05:20 WBC RBC Hgb Hct MCV MCH MCHC RDW Plt Count MPV Immature Gran % (Auto) Neut % (Auto) Lymph % (Auto) [place] % (Auto) Eos % (Auto) Baso % (Auto) Lymph # (Auto) [place] # (Auto) Eos # (Auto) Baso # (Auto) Abs Immat Gran (auto) Absolute Neuts (auto) Absolute Nucleated RBC Nucleated RBC % Sodium Potassium Chloride Carbon Dioxide Anion Gap BUN Creatinine Estim Creat Clear Calc Estimated GFR Glucose POC Capillary Glucose 179 H 156 H Lactic Acid 1.9 Calcium Total Bilirubin AST ALT Alkaline Phosphatase Total Protein Albumin Lipase Urine Color Urine Appearance Urine pH Ur Specific [place] Urine Protein Urine Glucose (UA) Urine Ketones Ur Blood (Man) Urine Nitrate Urine Bilirubin Urine Urobilinogen Leukocyte Esterase Rfl Urine RBC Urine WB
[2020-01-06 08:53] LABS: Hematocrit 35.7 % (42.0-52.0); Hemoglobin 11.6 g/dL (14.0-18.0); Mean Corpuscular HGB Conc 32.5 g/dl (32-36); Mean Corpuscular Hemoglobin 30.8 pg (26-34); Mean Corpuscular Volume 94.7 fl (80-100); Mean Platelet Volume 11.8 fl (7.4-10.4); Platelet Count Result 169 k/mm3 (150-375); Red Blood Count 3.77 M/mm3 (4.6-6.20); Red Cell Distribution Width 14.4 % (11.5-14.5)
[2020-01-06] MEDS: APIXABAN 5 MG TABLET PO ×2 (09:03→17:31)
[2020-01-06] MEDS: FINASTERIDE 5 MG TABLET PO (09:03)
[2020-01-06] MEDS: SIMVASTATIN 10 MG TABLET PO (09:03)
[2020-01-06] MEDS: AMIODARONE HCL 200 MG TABLET PO (09:04)
--- NOTE | 2020-01-06 09:07 | WPDUROPN2 ---
Progress Note: A&P Assessment and Plan (1) Hydroureteronephrosis: Code(s): N13.30 - Unspecified hydronephrosis Status: Acute Assessment and Plan: Creatinine is pending, will monitor. (2) Severe sepsis: Code(s): A41.9 - Sepsis, unspecified organism; R65.20 - Severe sepsis without septic shock Status: Acute Assessment and Plan: WBC doubled, likely a response to surgery/ongoing infection. COntinue IV antibiotics, tailor to cutlure results. Keep swift catheter in until discharge, then do a voiding trial. (3) Right ureteral stone: Code(s): N20.1 - Calculus of ureter Status: Acute Assessment and Plan: Will plan to do a ureteroscopy when infection has resolved. Patient will need to follow up with Dr. Mcdonnell in 1-2 weeks for a repeat culture and to discuss surgical planning. NO further intervention at this time. Subjective Subjective Date/Time Seen: 01/06/20 09:07 POD#1 Cystoscopy, right stent placement, retrograde pyelogram. Patient seems to be doing well, but WBC has doubled from 14.0 to 33.0. He is afebrile. Swift is draining to gravity. No Stent Pain. Review of Systems Cardiovascular: Cardiovascular: Denies chest pain Respiratory: Respiratory: Reports no additional respiratory complaints Gastrointestinal: Gastrointestinal: Denies abdominal pain, Denies nausea and Denies vomiting Genitourinary: Genitourinary: Denies hematuria Exam Resp: Effort & Inspection: normal respiratory effort Cardio: Rate: bradycardic GI: GI Palp: Yes Soft to palpation and No Tenderness to palpation present (GI) : General: Yes no CVA tenderness Urinary Catheter: Urinary Catheter: patent and draining and urine cloudy Extrem: General: no edema Objective Data Vital Signs Vital Signs: Vital Signs - 24 hr 01/05/20 19:03 01/05/20 22:09 01/05/20 22:15 Temperature 100.3 F H Pulse Rate 83 90 95 Respiratory Rate 28 H 24 H 29 H Blood Pressure 176/76 H 116/67 Pulse Oximetry 95 97 96 01/05/20 22:16 01/05/20 22:17 01/05/20 22:30 Temperature Pulse Rate 96 94 94 Respiratory Rate 19 20 22 H Blood Pressure 108/64 Pulse Oximetry 97 97 96 01/05/20 22:31 01/05/20 23:30 01/05/20 23:45 Temperature 99.4 F Pulse Rate 91 91 92 Respiratory Rate 22 H 25 H 27 H Blood Pressure 97/61 L 91/54 L 109/61 Pulse Oximetry 97 94 94 01/06/20 00:00 01/06/20 00:15 01/06/20 00:45 Temperature 98.6 F Pulse Rate 92 92 88 Respiratory Rate 21 H 20 20 Blood Pressure 101/57 L 102/56 L Pulse Oximetry 93 93 93 01/06/20 01:00 01/06/20 01:30 01/06/20 02:30 Temperature 98.4 F 98.4 F 97.8 F Pulse Rate 88 90 73 Respiratory Rate 16 18 18 Blood Pressure 101/45 L 100/46 L 100/48 L Pulse Oximetry 96 98 97 01/06/20 04:00 01/06/20 06:33 01/06/20 08:00 Temperature 97.1 F L Pulse Rate 66 58 L 59 L Respiratory Rate 16 Blood Pressure 101/61 Pulse Oximetry 95 01/06/20 08:33 01/06/20 09:04 Temperature 97.2 F L Pulse Rate 68 60 Respiratory Rate 18 Blood Pressure 105/64 Pulse Oximetry 99 Intake/Output Intake/Output: Intake & Output 01/03/20 01/04/20 01/05/20 01/06/20 23:59 23:59 23:59 23:59 Intake Total 1550 1480 Output Total 250 Balance 1550 1230 Meds/Results Medications: Active Medications Generic Name Dose Route Start Last Admin Trade Name Freq PRN Reason Stop Dose Admin Amiodarone HCl 200 mg 01/06/20 08:00 01/06/20 09:04 Amiodarone Hcl 200 Mg Tablet PO 200 mg DAILY@0800 VERITO Administration Apixaban 5 mg 01/06/20 09:00 01/06/20 09:03 Apixaban 5 Mg Tablet PO 5 mg BID VERITO Administration Finasteride 5 mg 01/06/20 09:00 01/06/20 09:03 Finasteride 5 Mg Tablet PO 5 mg DAILY VERITO Administration Furosemide 40 mg 01/06/20 09:00 Furosemide 40 Mg Tablet PO QAM VERITO Vancomycin HCl 1,500 mg in 500 mls @ 333.333 mls/hr 01/07/20 09:00 Vancomycin 1,500 Mg/D5w 500 Ml IVPB Q36H VERITO Sodium
[2020-01-06 09:08] LABS: Anion Gap 12 mmol/L (8-16); Blood Urea Nitrogen 41 mg/dL (9-20); Calcium 7.7 mg/dL (8.4-10.2); Carbon Dioxide 18 mmol/L (22-30); Chloride 108 mmol/L (98-107); Estimated CRCL calculation 34 ml/min; Estimated Glomerular Filt Rate 33; Glucose 194 mg/dL (75-110); Potassium 5.1 mmol/L (3.4-5.0); Sodium 138 mmol/L (137-145)
[2020-01-06 12:18] LABS: Glucose Point of Care 160 (65-105)
--- NOTE | 2020-01-06 13:52 | PM.IMPN ---
Progress Note: A&P Assessment and Plan (1) Complicated UTI (urinary tract infection): Code(s): N39.0 - Urinary tract infection, site not specified Status: Acute Assessment and Plan: Admit to med-surg, Continue IV vancomycin and IV Rocephin, renal dosed blood cultures x 2, + cocci chains, likely with Staph urine culture pending. (2) Severe sepsis: Code(s): A41.9 - Sepsis, unspecified organism; R65.20 - Severe sepsis without septic shock Status: Acute Assessment and Plan: Source of sepsis appears to be urinary. steroid taper dosing at home prior to admission fever at admission and now resolved tachycardia admission and now resolved positive blood cultures x2 urine cultures pending receiving IV vancomycin and IV Rocephin Monitor vital signs closely, IVFs as needed blood and urine cultures repeated after 48 hours, reflex lactic acid improved from 2.5 to 1.9. (3) Right ureteral stone: Code(s): N20.1 - Calculus of ureter Status: Acute Assessment and Plan: The patinet went to OR last night for stent placement. Urology has been consulted. urinary Smith catheter is in place and patent with patient producing urine output urine output is tea-colored receiving IV antibiotics and fluids monitoring renal function as well as CBC Continue Urology recommendations. (4) Hydroureteronephrosis: Code(s): N13.30 - Unspecified hydronephrosis Status: Acute Assessment and Plan: Continue Urology recommendations. (5) Leukocytosis: Code(s): D72.829 - Elevated white blood cell count, unspecified Status: Acute Assessment and Plan: Secondary to sepsis and UTI. Monitor CBCd. (6) Lactic acidosis: Code(s): E87.2 - Acidosis Status: Acute Assessment and Plan: Secondary to severe sepsis and UTI. improved lactic acid monitor acid-base status. (7) Type 2 diabetes mellitus with hyperglycemia: Code(s): E11.65 - Type 2 diabetes mellitus with hyperglycemia Status: Chronic Assessment and Plan: Accuchecks, SSI Coverage, hypoglycemic protocol. Resume home metformin when the patient is eating again. (8) Persistent atrial fibrillation: Code(s): I48.19 - Other persistent atrial fibrillation Status: Chronic Assessment and Plan: Continue amiodarone and Eliquis. (9) Gastro-esophageal reflux disease without esophagitis: Code(s): K21.9 - Gastro-esophageal reflux disease without esophagitis Status: Chronic Assessment and Plan: Continue PPI therapy. (10) Benign essential hypertension with target blood pressure below 140/90: Code(s): I10 - Essential (primary) hypertension Status: Chronic Assessment and Plan: Monitor blood pressure. Continue lisinopril. (11) Mixed hyperlipidemia: Code(s): E78.2 - Mixed hyperlipidemia Status: Chronic Assessment and Plan: Continue statin therapy. (12) Acute renal failure: Code(s): N17.9 - Acute kidney failure, unspecified Status: Acute Assessment and Plan: creatinine of 2.0 today, with a baseline creatinine of 1.0 in July of 2019 GFR of 33 today, with a baseline GFR of >60 in July of 2019 Acute renal failure likely obstructive and infective in nature, now that obstructing stone has been removed and infection is being treated, Anticipating renal function to improve. avoiding nephrotoxic agents holding naproxen renal dosing medications hemodynamically stable and maintaining maps greater than 65 and systolics greater than 100 and heart rate controlled home Lasix and lisinopril and metformin and simvastatin doses continued - will re-evaluate creatinine in the morning, if not improved through urological interventions and antibiotics, will need to hold these medications for further renal improvement. Subjective Date/time seen: 01/06/20 13:52 Srikanth was sitting up in a chair
[2020-01-06 17:16] LABS: Glucose Point of Care 128 (65-105)
[2020-01-06] MEDS: OXYBUTYNIN CHLORIDE 5 MG TABLET PO (17:31)
[2020-01-06 19:13] LABS: Hematocrit 34.8 % (42.0-52.0); Mean Corpuscular HGB Conc 31.6 g/dl (32-36); Mean Corpuscular Volume 94.8 fl (80-100); Mean Platelet Volume 11.7 fl (7.4-10.4); Platelet Count Result 180 k/mm3 (150-375); Red Blood Count 3.67 M/mm3 (4.6-6.20); Red Cell Distribution Width 14.6 % (11.5-14.5); White Blood Count 29.5 K/mm3 (4.5-10.0)
[2020-01-06 19:24] LABS: Alanine Aminotransferase 26 U/L (4-50); Albumin Level 3.4 g/dL (3.5-5.1); Alkaline Phosphatase 89 U/L (38-126); Anion Gap 7 mmol/L (8-16); Aspartate Amino Transferase 29 U/L (17-59); Bilirubin,Total 0.3 mg/dL (0.2-1.3); Blood Urea Nitrogen 45 mg/dL (9-20); Calcium 7.7 mg/dL (8.4-10.2); Carbon Dioxide 24 mmol/L (22-30); Chloride 107 mmol/L (98-107); Estimated CRCL calculation 36 ml/min; Estimated Glomerular Filt Rate 35; Glucose 174 mg/dL (75-110); Potassium 4.4 mmol/L (3.4-5.0); Sodium 138 mmol/L (137-145)
[2020-01-06 19:34] LABS: Band Neutrophils Percent 21 % (0-6); Lymphocytes Absolute Manual 1.47 K/mm3 (1.1-4.5); Monocytes Absolute Manual 1.18 K/mm3 (0.1-0.90); Monocytes Percent Manual 4 % (3-9); Neutrophils Absolute Manual 26.84 K/mm3 (1.3-6.7); Neutrophils Percent Manual 70 % (46-73); Platelet Estimate Adequate (Adequate); Total Cells Counted 100
[2020-01-06] MEDS: FUROSEMIDE 40 MG TABLET PO (20:30)
[2020-01-06 21:19] LABS: Glucose Point of Care 163 (65-105)
[2020-01-07] VITALS (9 sets, daily range): BP systolic 111–158; BP diastolic 51–71; PULSE 60–65; RESP 16–18; TEMP 36.7–37.4; O2SAT 95–99
[2020-01-07] MEDS: SODIUM CHLORIDE 0.9% IV 1,000 ML 140 ML IV CONT ×2 (03:28→12:34)
[2020-01-07 05:46] LABS: Hematocrit 34.6 % (42.0-52.0); Hemoglobin 11.2 g/dL (14.0-18.0); Mean Corpuscular HGB Conc 32.4 g/dl (32-36); Mean Corpuscular Hemoglobin 30.4 pg (26-34); Mean Corpuscular Volume 93.8 fl (80-100); Mean Platelet Volume 11.2 fl (7.4-10.4); Platelet Count Result 200 k/mm3 (150-375); Red Blood Count 3.69 M/mm3 (4.6-6.20); Red Cell Distribution Width 14.4 % (11.5-14.5); White Blood Count 24.4 K/mm3 (4.5-10.0)
[2020-01-07 05:48] LABS: Anion Gap 2 mmol/L (8-16); Blood Urea Nitrogen 35 mg/dL (9-20); Calcium 7.8 mg/dL (8.4-10.2); Carbon Dioxide 24 mmol/L (22-30); Chloride 111 mmol/L (98-107); Estimated CRCL calculation 45 ml/min; Estimated Glomerular Filt Rate 46; Glucose 138 mg/dL (75-110); Potassium 4.5 mmol/L (3.4-5.0); Sodium 137 mmol/L (137-145)
[2020-01-07 07:45] LABS: Glucose Point of Care 120 (65-105)
[2020-01-07] MEDS: FINASTERIDE 5 MG TABLET PO (08:25)
[2020-01-07] MEDS: APIXABAN 5 MG TABLET PO ×2 (08:25→18:09)
[2020-01-07] MEDS: AMIODARONE HCL 200 MG TABLET PO (08:26)
[2020-01-07] MEDS: SIMVASTATIN 10 MG TABLET PO (08:26)
[2020-01-07 11:43] LABS: Glucose Point of Care 203 (65-105)
[2020-01-07 12:48] LABS: Hemoglobin A1C 6.5 % (<5.7)
--- NOTE | 2020-01-07 16:45 | PM.IMPN ---
Progress Note: A&P Assessment and Plan (1) Complicated UTI (urinary tract infection): Code(s): N39.0 - Urinary tract infection, site not specified Status: Acute Assessment and Plan: Admit to med-surg, Continue IV vancomycin and IV Rocephin, renal dosed blood cultures x 2 are Enterococcus faecalis from aerobic & anaerobic bottles AND Serratia marcescens from aerobic & anaerobic bottles sensitivities remain pending no fevers noted for the past 24 hours, patient is not chilled urine culture pending. (2) Severe sepsis: Code(s): A41.9 - Sepsis, unspecified organism; R65.20 - Severe sepsis without septic shock Status: Acute Assessment and Plan: Source of sepsis appears to be urinary. steroid taper dosing at home prior to admission fever at admission and now resolved tachycardia admission and now resolved positive blood cultures x2 urine cultures pending receiving IV vancomycin and IV Rocephin Monitor vital signs closely, IVFs as needed blood and urine cultures repeated after 48 hours, reflex lactic acid improved from 2.5 to 1.9. (3) Right ureteral stone: Code(s): N20.1 - Calculus of ureter Status: Acute Assessment and Plan: The patinet went to OR at admission for stent placement. Urology has been consulted. urinary Smith catheter is in place and patent with patient producing urine output urine output is tea-colored receiving IV antibiotics and fluids monitoring renal function as well as CBC Continue Urology recommendations. (4) Hydroureteronephrosis: Code(s): N13.30 - Unspecified hydronephrosis Status: Acute Assessment and Plan: Continue Urology recommendations. (5) Leukocytosis: Code(s): D72.829 - Elevated white blood cell count, unspecified Status: Acute Assessment and Plan: Secondary to sepsis and UTI. Monitor CBCd. (6) Lactic acidosis: Code(s): E87.2 - Acidosis Status: Acute Assessment and Plan: Secondary to severe sepsis and UTI. improved lactic acid monitor acid-base status. (7) Type 2 diabetes mellitus with hyperglycemia: Code(s): E11.65 - Type 2 diabetes mellitus with hyperglycemia Status: Chronic Assessment and Plan: Accuchecks, SSI Coverage, hypoglycemic protocol. Resume home metformin when the patient is eating again. (8) Persistent atrial fibrillation: Code(s): I48.19 - Other persistent atrial fibrillation Status: Chronic Assessment and Plan: Continue amiodarone and Eliquis. (9) Gastro-esophageal reflux disease without esophagitis: Code(s): K21.9 - Gastro-esophageal reflux disease without esophagitis Status: Chronic Assessment and Plan: Continue PPI therapy. (10) Benign essential hypertension with target blood pressure below 140/90: Code(s): I10 - Essential (primary) hypertension Status: Chronic Assessment and Plan: Monitor blood pressure. Continue lisinopril. (11) Mixed hyperlipidemia: Code(s): E78.2 - Mixed hyperlipidemia Status: Chronic Assessment and Plan: Continue statin therapy. (12) Acute renal failure: Code(s): N17.9 - Acute kidney failure, unspecified Status: Acute Assessment and Plan: creatinine of 2.0 yesterday improved to 1.5 today with a baseline creatinine of 1.0 in July of 2019 GFR improving too, with a baseline GFR of >60 in July of 2019 continued IV fluids at 100 mL an hour, decreased from the 140 miles an hour Acute renal failure likely obstructive and infective in nature, now that obstructing stone has been removed and infection is being treated, Anticipating renal function to improve. avoiding nephrotoxic agents holding naproxen renal dosing medications hemodynamically stable and maintaining maps greater than 65 and systolics greater than 100 and heart rate controlled home Lasix and lisinopril and metformin
[2020-01-07 18:13] LABS: Glucose Point of Care 168 (65-105)
[2020-01-07] MEDS: SACCHAROMYCES BOULARDII 250 MG CAPSULE PO (18:38)
[2020-01-07] MEDS: OXYBUTYNIN CHLORIDE 5 MG TABLET PO (18:38)
[2020-01-07] MEDS: SODIUM CHLORIDE 0.9% IV 1,000 ML 100 ML IV CONT (20:25)
[2020-01-07] MEDS: FUROSEMIDE 40 MG TABLET PO (20:29)
[2020-01-07] MEDS: SENNA/DOCUSATE SODIUM TABLET 1 TAB PO (20:29)
[2020-01-07 21:14] LABS: Glucose Point of Care 215 (65-105)
[2020-01-08] VITALS (10 sets, daily range): BP systolic 156–161; BP diastolic 71–76; PULSE 53–74; RESP 16–18; TEMP 36–36.9; O2SAT 94–100
[2020-01-08 05:48] LABS: Hematocrit 34.9 % (42.0-52.0); Hemoglobin 11.3 g/dL (14.0-18.0); Mean Corpuscular HGB Conc 32.4 g/dl (32-36); Mean Corpuscular Hemoglobin 30.5 pg (26-34); Mean Corpuscular Volume 94.1 fl (80-100); Mean Platelet Volume 11.2 fl (7.4-10.4); Platelet Count Result 216 k/mm3 (150-375); Red Blood Count 3.71 M/mm3 (4.6-6.20); Red Cell Distribution Width 14.5 % (11.5-14.5); White Blood Count 16.2 K/mm3 (4.5-10.0)
[2020-01-08 06:00] LABS: Anion Gap 4 mmol/L (8-16); Blood Urea Nitrogen 24 mg/dL (9-20); Calcium 7.7 mg/dL (8.4-10.2); Carbon Dioxide 25 mmol/L (22-30); Chloride 111 mmol/L (98-107); Estimated CRCL calculation 56 ml/min; Estimated Glomerular Filt Rate 59; Glucose 137 mg/dL (75-110); Potassium 4.1 mmol/L (3.4-5.0); Sodium 140 mmol/L (137-145)
[2020-01-08] MEDS: SODIUM CHLORIDE 0.9% IV 1,000 ML 100 ML IV CONT (06:44)
--- NOTE | 2020-01-08 07:23 | WPDUROPN2 ---
Progress Note: A&P Assessment and Plan (1) Hydroureteronephrosis: Code(s): N13.30 - Unspecified hydronephrosis Status: Acute (2) Severe sepsis: Code(s): A41.9 - Sepsis, unspecified organism; R65.20 - Severe sepsis without septic shock Status: Acute (3) Right ureteral stone: Code(s): N20.1 - Calculus of ureter Status: Acute Assessment and Plan: Improved today - feeling better/fever and leukocytosis resolving. Urine culture: Serratia / Blood culture pending. Folling thorough treatment of this infection will likely need ureteroscopy with stone fragment extraction in a couple weeks (unless it passes spontaneously). Catheter can come out at anytime but I might suggest another day to give him time to recuperate. Subjective Subjective Date/Time Seen: 01/08/20 07:23 Review of Systems Cardiovascular: Cardiovascular: Denies chest pain, Denies lightheadedness, Denies palpitations and Denies dyspnea Respiratory: Respiratory: Denies dyspnea Gastrointestinal: Gastrointestinal: Denies diarrhea, Denies nausea and Denies vomiting Genitourinary: Genitourinary: Denies hematuria and Denies dysuria Endocrine: Endocrine: Denies palpitations Exam Const: General: no acute distress Resp: Effort & Inspection: normal respiratory effort GI: Inspection: non-distended GI Palp: No abdominal tenderness and No Guarding due to palpation present (GI) Auscultation: normal bowel sounds Objective Data Vital Signs Vital Signs: Vital Signs - 24 hr 01/07/20 08:26 01/07/20 12:00 01/07/20 14:10 Temperature 98.0 F Pulse Rate 64 62 62 Respiratory Rate 18 Blood Pressure 134/61 Pulse Oximetry 99 01/07/20 16:00 01/07/20 19:52 01/07/20 20:00 Temperature 98.1 F Pulse Rate 65 64 63 Respiratory Rate 18 Blood Pressure 158/71 H Pulse Oximetry 97 01/08/20 00:00 01/08/20 04:00 01/08/20 05:26 Temperature 98.4 F Pulse Rate 63 64 66 Respiratory Rate 16 Blood Pressure 156/71 H Pulse Oximetry 94 Intake/Output Intake/Output: Intake & Output 01/05/20 01/06/20 01/07/20 01/08/20 23:59 23:59 23:59 23:59 Intake Total 1550 5350 5020 1550 Output Total 800 3250 2850 Balance 1550 4550 1770 -1300 Meds/Results Medications: Active Medications Generic Name Dose Route Start Last Admin Trade Name Freq PRN Reason Stop Dose Admin Amiodarone HCl 200 mg 01/06/20 08:00 01/07/20 08:26 Amiodarone Hcl 200 Mg Tablet PO 200 mg DAILY@0800 VERITO Administration Apixaban 5 mg 01/06/20 09:00 01/07/20 18:09 Apixaban 5 Mg Tablet PO 5 mg BID VERITO Administration Bisacodyl 5 mg 01/07/20 15:51 Bisacodyl 5 Mg Tablet Ec PO ONCE PRN Constipation Calcium Carbonate 200 mg 01/07/20 15:47 Calcium Carbonate (Tums) 500 Mg (200 Mg Elemental) PO Q6H PRN Indigestion Dextrose 12.5 gm 01/07/20 12:02 Dextrose 50% 25 Gm/50 Ml Syringe IV PUSH PRN PRN Hypoglycemia Protocol Famotidine 20 mg 01/07/20 15:47 Famotidine 20 Mg Tablet PO Q12HR PRN GERD Finasteride 5 mg 01/06/20 09:00 01/07/20 08:25 Finasteride 5 Mg Tablet PO 5 mg DAILY VERITO Administration Furosemide 40 mg 01/06/20 21:00 01/07/20 20:29 Furosemide 40 Mg Tablet PO 40 mg HS VERITO Administration Glucagon 1 mg 01/07/20 12:02 Glucagon For Inj 1 Mg Vial IM PRN PRN Hypoglycemia Protocol Glucose 15 gm 01/07/20 12:02 Glucose Oral Gel 15 Gm Of Glucse In 37.5 Gm Tube PO PRN PRN Hypoglycemia Protocol Sodium Chloride 1,000 mls @ 100 mls/hr 01/06/20 05:30 01/08/20 06:44 Normal Saline Iv IV CONT 100 mls/hr .Q10H VERITO Administration Ceftriaxone Sodium/Dextrose 1 gm in 50 mls @ 100 mls/hr 01/06/20 20:00 01/07/20 20:58 Rocephin 1 Gm/D5w 50 Ml IVPB Infused Q24H VERITO Infusion Vancomycin HCl 1,500 mg in 500 mls @ 333.333 mls/hr 01/08/20 09:00 Vancomycin 1,500 Mg/D5w 500 Ml
--- NOTE | 2020-01-08 07:54 | PM.IMPN ---
Progress Note: A&P Assessment and Plan (1) Complicated UTI (urinary tract infection): Code(s): N39.0 - Urinary tract infection, site not specified Status: Acute Assessment and Plan: Admit to med-surg, Continue IV vancomycin and IV Rocephin, renal dosed urine and blood cultures x 2 are Enterococcus faecalis from aerobic & anaerobic bottles AND Serratia marcescens from aerobic & anaerobic bottles, sensitive to current IV antibiotic regimen sensitivities remain pending From a blood culture yet no fevers noted for the past 24 hours, patient is not chilled (2) Severe sepsis: Code(s): A41.9 - Sepsis, unspecified organism; R65.20 - Severe sepsis without septic shock Status: Acute Assessment and Plan: Source of sepsis appears to be urinary. steroid taper dosing at home prior to admission fever at admission and now resolved tachycardia admission and now resolved positive blood cultures x2 urine cultures pending receiving IV vancomycin and IV Rocephin Monitor vital signs closely, IVFs as needed blood and urine cultures repeated after 48 hours, reflex lactic acid improved from 2.5 to 1.9. resolved (3) Right ureteral stone: Code(s): N20.1 - Calculus of ureter Status: Acute Assessment and Plan: The patinet went to OR at admission for stent placement. Urology has been consulted. urinary Smith catheter is in place and patent with patient producing urine output urine output is tea-colored receiving IV antibiotics and fluids monitoring renal function as well as CBC Continue Urology recommendations. patient still has a stone that may pass on its own or urology may have to do some outpatient intervention patient is expected to follow-up closely with Urology after discharge (4) Hydroureteronephrosis: Code(s): N13.30 - Unspecified hydronephrosis Status: Acute Assessment and Plan: Continue Urology recommendations. see plan above for stone (5) Leukocytosis: Code(s): D72.829 - Elevated white blood cell count, unspecified Status: Acute Assessment and Plan: Secondary to sepsis and UTI. Monitor CBCd. improving every day white count down to 16.2 today from high of 24 no fevers (6) Lactic acidosis: Code(s): E87.2 - Acidosis Status: Acute Assessment and Plan: Secondary to severe sepsis and UTI. improved lactic acid monitor acid-base status. resolved (7) Type 2 diabetes mellitus with hyperglycemia: Code(s): E11.65 - Type 2 diabetes mellitus with hyperglycemia Status: Chronic Assessment and Plan: Accuchecks, SSI Coverage, hypoglycemic protocol. Resume home metformin when the patient is eating again. (8) Persistent atrial fibrillation: Code(s): I48.19 - Other persistent atrial fibrillation Status: Chronic Assessment and Plan: Continue amiodarone and Eliquis. (9) Gastro-esophageal reflux disease without esophagitis: Code(s): K21.9 - Gastro-esophageal reflux disease without esophagitis Status: Chronic Assessment and Plan: Continue PPI therapy. (10) Benign essential hypertension with target blood pressure below 140/90: Code(s): I10 - Essential (primary) hypertension Status: Chronic Assessment and Plan: Monitor blood pressure. Continue lisinopril. (11) Mixed hyperlipidemia: Code(s): E78.2 - Mixed hyperlipidemia Status: Chronic Assessment and Plan: Continue statin therapy. (12) Acute renal failure: Code(s): N17.9 - Acute kidney failure, unspecified Status: Acute Assessment and Plan: creatinine improved to 1.2 today from a high of 2.0 with a baseline creatinine of 1.0 in July of 2019 GFR improving too, with a baseline GFR of >60 in July of 2019 discontinued IV fluids at 100 mL an hour, oral intake reviewed through I and Os, and is quite adequate Acute renal f
[2020-01-08 08:36] LABS: Glucose Point of Care 205 (65-105)
[2020-01-08] MEDS: SACCHAROMYCES BOULARDII 250 MG CAPSULE PO ×2 (09:01→17:06)
[2020-01-08] MEDS: FINASTERIDE 5 MG TABLET PO (09:01)
[2020-01-08] MEDS: SIMVASTATIN 10 MG TABLET PO (09:01)
[2020-01-08] MEDS: PANTOPRAZOLE 40 MG TABLET PO (09:01)
[2020-01-08] MEDS: APIXABAN 5 MG TABLET PO ×2 (09:01→17:06)
[2020-01-08] MEDS: AMIODARONE HCL 200 MG TABLET PO (09:02)
[2020-01-08] MEDS: INSULIN ASPART (*BKC) 100 UNITS/ML SUB-Q (09:03)
[2020-01-08 11:37] LABS: Glucose Point of Care 170 (65-105)
[2020-01-08 16:32] LABS: Glucose Point of Care 116 (65-105)
[2020-01-08] MEDS: SENNA/DOCUSATE SODIUM TABLET 1 TAB PO (20:27)
[2020-01-08] MEDS: FUROSEMIDE 40 MG TABLET PO (20:27)
[2020-01-08 23:26] LABS: Glucose Point of Care 222 (65-105)
[2020-01-09] VITALS (8 sets, daily range): BP systolic 140–172; BP diastolic 64–85; PULSE 58–66; RESP 16; TEMP 36.4–36.8; O2SAT 97–100
[2020-01-09 07:45] LABS: Glucose Point of Care 120 (65-105)
[2020-01-09 08:15] LABS: Hematocrit 37.7 % (42.0-52.0); Hemoglobin 12.2 g/dL (14.0-18.0); Mean Corpuscular HGB Conc 32.4 g/dl (32-36); Mean Corpuscular Hemoglobin 30.2 pg (26-34); Mean Corpuscular Volume 93.3 fl (80-100); Mean Platelet Volume 11.7 fl (7.4-10.4); Platelet Count Result 222 k/mm3 (150-375); Red Blood Count 4.04 M/mm3 (4.6-6.20); Red Cell Distribution Width 14.1 % (11.5-14.5); White Blood Count 13.3 K/mm3 (4.5-10.0)
[2020-01-09 08:24] LABS: Anion Gap 5 mmol/L (8-16); Blood Urea Nitrogen 19 mg/dL (9-20); Calcium 8.5 mg/dL (8.4-10.2); Carbon Dioxide 28 mmol/L (22-30); Chloride 107 mmol/L (98-107); Estimated CRCL calculation 61 ml/min; Estimated Glomerular Filt Rate > 60; Glucose 132 mg/dL (75-110); Potassium 4.1 mmol/L (3.4-5.0); Sodium 140 mmol/L (137-145)
[2020-01-09] MEDS: APIXABAN 5 MG TABLET PO ×2 (08:47→17:26)
[2020-01-09] MEDS: FERROUS SULFATE 324 MG TABLET 325 MG PO (08:47)
[2020-01-09] MEDS: AMIODARONE HCL 200 MG TABLET PO (08:47)
[2020-01-09] MEDS: PANTOPRAZOLE 40 MG TABLET PO (08:48)
[2020-01-09] MEDS: FINASTERIDE 5 MG TABLET PO (08:48)
[2020-01-09] MEDS: metFORMIN HCL XR 500 MG TAB.SR.24H PO (08:48)
[2020-01-09] MEDS: SACCHAROMYCES BOULARDII 250 MG CAPSULE PO ×2 (08:48→17:26)
[2020-01-09] MEDS: SIMVASTATIN 10 MG TABLET PO (08:48)
[2020-01-09] MEDS: MULTIVITAMINS THERAPEUTIC TAB (*BKC) 1 TABLET PO (08:48)
[2020-01-09 08:56] LABS: Vancomycin Trough 7.3 ug/mL (10.0-20.0)
--- NOTE | 2020-01-09 10:44 | PM.IMPN ---
Progress Note: A&P Assessment and Plan (1) Enterococcal bacteremia: Code(s): R78.81 - Bacteremia; B95.2 - Enterococcus as the cause of diseases classified elsewhere Status: Acute Assessment and Plan: Day #4 Vancomycin Blood c/s from 01/07 still pending May discharge to complete 10-14 days total IV+PO antibiotics if negative blood culture (2) Complicated UTI (urinary tract infection): Code(s): N39.0 - Urinary tract infection, site not specified Status: Acute Assessment and Plan: Day #4 Vanc/ceftriaxone for enterococcus and serratia (3) Right ureteral stone: Code(s): N20.1 - Calculus of ureter Status: Acute Assessment and Plan: To f/u as outpatient for removal if not passed spontaneously via stent (4) Hydroureteronephrosis: Code(s): N13.30 - Unspecified hydronephrosis Status: Acute Assessment and Plan: Due to stone, stented (5) Acute renal failure: Qualifiers: Acute renal failure type: unspecified Qualified Code(s): N17.9 - Acute kidney failure, unspecified Code(s): N17.9 - Acute kidney failure, unspecified Status: Acute Assessment and Plan: Creatinine improved to 1.1 today from a high of 2.0 with a baseline creatinine of 1.0 in July of 2019 (6) Type 2 diabetes mellitus with hyperglycemia: Qualifiers: Diabetes mellitus intermodal dispatcher insulin use: unspecified residential insulin use status Qualified Code(s): E11.65 - Type 2 diabetes mellitus with hyperglycemia Code(s): E11.65 - Type 2 diabetes mellitus with hyperglycemia Status: Chronic Assessment and Plan: Continue current regimen (7) Persistent atrial fibrillation: Code(s): I48.19 - Other persistent atrial fibrillation Status: Chronic Assessment and Plan: Continue amiodarone and Eliquis. (8) Gastro-esophageal reflux disease without esophagitis: Code(s): K21.9 - Gastro-esophageal reflux disease without esophagitis Status: Chronic Assessment and Plan: Continue PPI therapy. (9) Benign essential hypertension with target blood pressure below 140/90: Code(s): I10 - Essential (primary) hypertension Status: Chronic Assessment and Plan: Monitor blood pressure. Continue lisinopril. (10) Mixed hyperlipidemia: Code(s): E78.2 - Mixed hyperlipidemia Status: Chronic Assessment and Plan: Continue statin therapy. Subjective Date/time seen: 01/09/20 10:44 Interval history: 01/08: moving about well with walker. Eating well. Denied pain. Urinary frequency. No dysuria. No hematuria. Some constipation. Loose stool after laxative. No abd pain. No cp or sob. Review of Systems Review of Systems: All systems reviewed & are unremarkable except as noted in HPI and below Exam Narrative: Exam Narrative: HEENT: PERRL, sclerae nonicteric, pharyngeal mucosa pink and intact NECK: No JVD CHEST: Clear to auscultation. Normal effort. HEART: NL S1/S2, regular, no murmur ABDOMEN: BS+, soft, nontender, no mass, no bruits EXTREMITIES: No cyanosis. Trace ankle edema NEUROLOGIC: CN intact and symmetric to inspection. MUSCULOSKELETAL: Tone and strength symmetric. Gait stable with walker PSYCH: Alert. Oriented to person, place, and time. Objective Data Vital Signs Vital Signs: Vital Signs - 24 hr 01/08/20 12:00 01/08/20 14:58 01/08/20 16:00 Temperature 96.8 F L Pulse Rate 58 L 53 L 74 Respiratory Rate 18 Blood Pressure 161/76 H Pulse Oximetry 100 01/08/20 20:16 01/08/20 20:30 01/09/20 00:00 Temperature 97.1 F L Pulse Rate 58 L 59 L 59 L Respiratory Rate 18 Blood Pressure 160/74 H Pulse Oximetry 98 01/09/20 04:00 01/09/20 04:42 01/09/20 05:23 Temperature 98.3 F Pulse Rate 58 L 66 Respiratory Rate 16 Blood Pressure 172/85 H 159/76 H Pulse Oximetry 97 01/09/20 08:00 01/09/20 08:47 Temperature Pulse Rate 62 6
[2020-01-09 11:38] LABS: Glucose Point of Care 136 (65-105)
[2020-01-09 16:42] LABS: Glucose Point of Care 127 (65-105)
[2020-01-09] MEDS: SENNA/DOCUSATE SODIUM TABLET 1 TAB PO (20:28)
[2020-01-09] MEDS: FUROSEMIDE 40 MG TABLET PO (20:28)
[2020-01-09 21:22] LABS: Glucose Point of Care 174 (65-105)
--- NOTE | 2020-01-10 01:44 | PC.NURSE ---
Daylight Savings Time For Daylight Savings Time Ending in the Fall - Clocks are moved back. For Daylight Savings Time Beginning in the Spring - Clocks are moved ahead. For [facility], the time of change occurs at 0200 hrs. Time is taken from the [employer] d[employer]. This entry on the patient's chart recognizes the change in time reflected during documentation. Example: 2 entries for vital signs may be charted for 0200 hrs.
[2020-01-10 03:59] VITALS: BP 159/87; PULSE 70; RESP 16; TEMP 36.1; O2SAT 98
[2020-01-10 05:52] LABS: Hematocrit 36.8 % (42.0-52.0); Hemoglobin 12.2 g/dL (14.0-18.0); Mean Corpuscular HGB Conc 33.2 g/dl (32-36); Mean Corpuscular Volume 90.6 fl (80-100); Mean Platelet Volume 11.1 fl (7.4-10.4); Platelet Count Result 266 k/mm3 (150-375); Red Blood Count 4.06 M/mm3 (4.6-6.20); Red Cell Distribution Width 13.7 % (11.5-14.5); White Blood Count 12.6 K/mm3 (4.5-10.0)
[2020-01-10 06:23] LABS: Anion Gap 7 mmol/L (8-16); Blood Urea Nitrogen 17 mg/dL (9-20); Calcium 8.4 mg/dL (8.4-10.2); Carbon Dioxide 28 mmol/L (22-30); Chloride 104 mmol/L (98-107); Estimated CRCL calculation 56 ml/min; Estimated Glomerular Filt Rate 59; Glucose 125 mg/dL (75-110); Potassium 3.6 mmol/L (3.4-5.0); Sodium 139 mmol/L (137-145)
[2020-01-10 07:57] LABS: Glucose Point of Care 105 (65-105)
[2020-01-10 08:34] VITALS: PULSE 57
[2020-01-10] MEDS: AMIODARONE HCL 200 MG TABLET PO (08:34)
[2020-01-10] MEDS: APIXABAN 5 MG TABLET PO (08:35)
[2020-01-10] MEDS: MULTIVITAMINS THERAPEUTIC TAB (*BKC) 1 TABLET PO (08:35)
[2020-01-10] MEDS: FERROUS SULFATE 324 MG TABLET 325 MG PO (08:35)
[2020-01-10] MEDS: PANTOPRAZOLE 40 MG TABLET PO (08:35)
[2020-01-10] MEDS: metFORMIN HCL XR 500 MG TAB.SR.24H PO (08:35)
[2020-01-10] MEDS: FINASTERIDE 5 MG TABLET PO (08:35)
[2020-01-10] MEDS: SACCHAROMYCES BOULARDII 250 MG CAPSULE PO (08:35)
[2020-01-10] MEDS: SIMVASTATIN 10 MG TABLET PO (08:36)
[2020-01-10 11:42] LABS: Glucose Point of Care 146 (65-105)
--- NOTE | 2020-01-10 13:50 | PM.DS ---
DS: Admitting Diagnosis Admitting Diagnosis Admitting Diagnosis: infected kidney stone DS: Discharge Diagnosis Discharge Diagnosis (1) Enterococcal bacteremia: Code(s): R78.81 - Bacteremia; B95.2 - Enterococcus as the cause of diseases classified elsewhere Status: Acute Assessment and Plan: Day #4 Vancomycin Blood c/s from 01/07 still pending May discharge to complete 10-14 days total IV+PO antibiotics if negative blood culture (2) Complicated UTI (urinary tract infection): Code(s): N39.0 - Urinary tract infection, site not specified Status: Acute Assessment and Plan: Day #4 Vanc/ceftriaxone for enterococcus and serratia (3) Right ureteral stone: Code(s): N20.1 - Calculus of ureter Status: Acute Assessment and Plan: To f/u as outpatient for removal if not passed spontaneously via stent (4) Hydroureteronephrosis: Code(s): N13.30 - Unspecified hydronephrosis Status: Acute Assessment and Plan: Due to stone, stented (5) Acute renal failure: Qualifiers: Acute renal failure type: unspecified Qualified Code(s): N17.9 - Acute kidney failure, unspecified Code(s): N17.9 - Acute kidney failure, unspecified Status: Acute Assessment and Plan: Creatinine improved to 1.1 today from a high of 2.0 with a baseline creatinine of 1.0 in July of 2019 (6) Type 2 diabetes mellitus with hyperglycemia: Qualifiers: Diabetes mellitus prison insulin use: unspecified distribution dispatcher insulin use status Qualified Code(s): E11.65 - Type 2 diabetes mellitus with hyperglycemia Code(s): E11.65 - Type 2 diabetes mellitus with hyperglycemia Status: Chronic Assessment and Plan: Continue current regimen (7) Persistent atrial fibrillation: Code(s): I48.19 - Other persistent atrial fibrillation Status: Chronic Assessment and Plan: Continue amiodarone and Eliquis. (8) Gastro-esophageal reflux disease without esophagitis: Code(s): K21.9 - Gastro-esophageal reflux disease without esophagitis Status: Chronic Assessment and Plan: Continue PPI therapy. (9) Benign essential hypertension with target blood pressure below 140/90: Code(s): I10 - Essential (primary) hypertension Status: Chronic Assessment and Plan: Monitor blood pressure. Continue lisinopril. (10) Mixed hyperlipidemia: Code(s): E78.2 - Mixed hyperlipidemia Status: Chronic Assessment and Plan: Continue statin therapy. DS: Summary Time Spent with Patient Time attestation: Total time spent providing and/or coordinating discharge services: Exam Narrative: Exam Narrative: HEENT: PERRL, sclerae nonicteric, pharyngeal mucosa pink and intact NECK: No JVD CHEST: Clear to auscultation. Normal effort. HEART: NL S1/S2, regular, no murmur ABDOMEN: BS+, soft, nontender, no mass, no bruits EXTREMITIES: No cyanosis. Trace ankle edema NEUROLOGIC: CN intact and symmetric to inspection. MUSCULOSKELETAL: Tone and strength symmetric. Gait stable with walker PSYCH: Alert. Oriented to person, place, and time. Const: General: cooperative, healthy appearing, no acute distress, alert, awake, acute distress, anxious and ill appearing; No comfortable or confusion Nutritional Appearance: well nourished, obese and overweight Orientation/consciousness: oriented to person, oriented to place, oriented to time, patient oriented x3 and No confusion Limitations: no limitations HENMT: Head: normal to inspection General nose exam: Normal external nose present Face and sinus: normal facial exam Mouth: Yes Normal oral and palatal mucosa present and Yes oropharynx normal Eyes: General: appearance normal, both eyes and all related structures Pupils: Equal, round and reactive pupils present EOM: EOMs intact bilaterally Neck: Neck: normal visual inspection, supple and no JVD Thyroid: th
== END 2020-01-10 15:25 | disposition home or self-care (01) | DRG 661 ==
LOC: ANHED 23:05 → ANH3MED 01-06 01:28
PROVIDERS: Nurse Practitioner Adult Health; Urology; Admitting Provider Family Medicine; Emergency Provider Emergency Medicine; PCP Family Medicine; Visit Provider Nurse Practitioner
PROC: 0T768DZ Dilation of Right Ureter with Intraluminal Device, Via Natural or Artificial Opening Endoscopic (ICD-10-PCS; CPT 52352; principal; 2020-01-05 23:00)
DX: N13.6 Pyonephrosis (principal); G47.33 Obstructive sleep apnea (adult) (pediatric); I10 Essential (primary) hypertension; E78.5 Hyperlipidemia, unspecified; I48.91 Unspecified atrial fibrillation; E11.65 Type 2 diabetes mellitus with hyperglycemia
CPT/HCPCS: 36415; 71046; 74177; 74420; 80048; 80053; 80202; 81001; 83036; 83605; 83690; 85025; 85027; 87040; 87077; 87086; 87088; 87186; 96365; 96367; 96375; 97110; 97116; 97161; 97165; 97530; 97535; 99285; A9270; C1758; C1769; C2617; J0692; J0696; J1815; J1885; J2405; J2704; J3010; J3370; J7030; J7120; Q9966; Q9967

== ENCOUNTER 2020-02-19 11:27 | Outpatient (CLI) | payer MEDICARE, SELFPAY ==
--- NOTE | 2020-02-19 11:30 | ECG_ITS ---
Measurements Intervals [place] Rate: 66 P: 38 [place]: 199 QRS: -9 QRSD: 98 T: 19 QT: 379 QTc: 398 Interpretive Statements SINUS RHYTHM ANTEROSEPTAL INFARCT, AGE INDETERMINATE CONSIDER INFERIOR INFARCT, AGE INDETERMINATE BASELINE ARTIFACT- I, II, AVR, AVL ABNORMAL ECG Electronically Signed On 02-19-2020 12:16:45 INDUSTRIAL HEALTH ENGINEER by Grady Mirza D.O.
[2020-02-19 12:07] LABS: Prothrombin Time 13.4 Seconds (11.1-14.7)
[2020-02-19 12:08] LABS: Partial Thromboplastin Time 28.7 SECONDS (22.3-36.8)
== END 2020-02-19 11:28 | disposition home or self-care (01) ==
PROVIDERS: Anesthesiology; PCP Family Medicine; Visit Provider Urology
DX: Z01.818 Encounter for other preprocedural examination (principal); I10 Essential (primary) hypertension; N17.9 Acute kidney failure, unspecified; R94.31 Abnormal electrocardiogram [ECG] [EKG]
CPT/HCPCS: 36415; 85610; 85730; 93005

== ENCOUNTER 2020-02-22 02:03 | Outpatient (CLI) | payer MEDICARE, SELFPAY ==
[2020-02-22 18:35] LABS: SARS-CoV-2 RNA PCR Negative
== END 2020-02-22 02:04 | disposition home or self-care (01) ==
LOC: ANHCOVIDDT 02:03
PROVIDERS: PCP Family Medicine; Visit Provider Urology
DX: Z01.812 Encounter for preprocedural laboratory examination (principal); Z20.828 Contact with and (suspected) exposure to other viral communicable diseases
CPT/HCPCS: 87635; C9803; U0003

== ENCOUNTER 2020-02-25 00:37 | Day surgery (SDC) | payer MEDICARE, SELFPAY ==
[2020-02-17 15:02] VITALS: BMI 32.2
--- NOTE | ~2020-02-25 | XR_ITS ---
EXAMINATION: XR stent kub - surgery DATE: 02/25/2020 14:31 INDICATION: Right internal ureteral stent placement TECHNIQUE: Fluoroscopic images from a right internal ureteral stent placement are submitted for sterling menendez 29 seconds of fluoroscopy time. FINDINGS: There is a right double-J internal ureteral stent projecting in expected position, with proximal [place] loop at the level of the renal pelvis and distal loop in the pelvis within the bladder lumen. IMPRESSION: 1. Right internal ureteral stent placement. Please refer to real-time procedural findings for rickie ls. Reviewed, dictated and finalized at location A. NCIAL INVESTMENT MANAGER IMPRESSION: 1. Right internal ureteral stent placement. Please refer to real-time procedu ral findings for details.
--- NOTE | 2020-02-25 06:31 | WPDHPUPDATE1 ---
History and Physical Update Update Date/Time: 02/25/20 06:31 History and Physical has been reviewed, including an updated exam of the patient. There are NO changes in the patient's condition. Risks, benefits, and alternatives have been discussed and questions answered. Patient agrees to proceed with procedure.
[2020-02-25 10:33] VITALS: BP 151/62; PULSE 67; RESP 16; TEMP 36.5; O2SAT 100
[2020-02-25] MEDS: LACTATED RINGERS 1,000 ML 30 ML IV CONT (10:51)
[2020-02-25 10:58] LABS: Glucose Point of Care 143 (65-105)
--- NOTE | 2020-02-25 12:29 | SUR.PREOP ---
discussed delay with patient.
--- NOTE | 2020-02-25 13:04 | SUR.PREOP ---
Updated patient on delay.
--- NOTE | 2020-02-25 13:09 | WPDANESEPPF ---
Anes - Initial Pre Proc Eval Procedure: Operation Date: 02/25/20 12:15 Proposed Procedures p Cystoscopy, Right Ureteroscopy, - Munir Mcdonnell MD s Holmium Laser Lithotripsy, Possible Right Stent Replacement - Munir Mcdonnell MD Date/Time: 02/25/20 13:09 Surgeon: Munir Mcdonnell MD Pre Op Diagnosis: right renal stones Patient Data Age: 74 Gender: M Height: 5 ft 10 in Weight: 101.4 kg Last Vital Signs Temp 36.5 C 02/25/20 10:33 Pulse 67 02/25/20 10:33 Resp 16 02/25/20 10:33 BP 151/62 H 02/25/20 10:33 Pulse Ox 100 02/25/20 10:33 Allergies Allergy/AdvReac Type Severity Reaction Status Date / Time hydrochlorothiazide AdvReac Mild headache Verified 02/17/20 14:53 [Zestoretic] Home Medications Medication Instructions Recorded Confirmed Type amiodarone 200 mg tablet 200 mg PO QAM tablet 06/24/19 02/25/20 History ferrous sulfate 325 mg (65 mg 325 mg PO DAILY 06/24/19 02/25/20 History iron) tablet multivitamin 1 tablet PO DAILY 07/17/19 02/25/20 History finasteride 5 mg tablet 5 mg PO DAILY #90 tablet 08/05/19 02/25/20 Rx apixaban 5 mg tablet 5 mg PO BID #180 tablet 10/22/19 02/25/20 Rx pantoprazole 40 mg PO QAM 90 Days #90 tablet 01/10/20 02/25/20 Rx hydrocodone 5 mg-acetaminophen 325 1 tablet PO Q6H PRN #60 tablet 01/18/20 02/25/20 Rx mg tablet lisinopril 20 mg tablet 20 mg PO DAILY #90 tablet 01/18/20 02/25/20 Rx simvastatin 10 mg tablet 10 mg PO DAILY #90 tablet 01/25/20 02/25/20 Rx docusate sodium [Stool Softener] 100 mg PO EVERY OTHER DAY 02/17/20 02/25/20 History furosemide 40 mg PO DAILY 02/17/20 02/25/20 History metformin 500 mg PO QAM 02/17/20 02/25/20 History Laboratory Tests 02/25/20 10:53 POC Capillary Glucose 143 mg/dl H mg/dl (65-105) Patient hx anesthesia problems: none Family hx anesthesia problems: none PMFSH Past Medical History Medical History 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 Chronic pain syndrome Gastro-esophageal reflux disease without esophagitis History of femur fracture Hyperlipidemia Hypertension Kidney stone Lumbar spondylosis Obesity EMILI (obstructive sleep apnea) Paronychia Persistent atrial fibrillation Quadriceps tendon rupture Type 2 diabetes mellitus with hyperglycemia Surgical History Surgical History H/O arthroscopy of knee History of hip replacement History of knee replacement Family History Family History Father Diabetes mellitus, Onset Age: 66 Acute myocardial infarction, Onset Age: 66 Sibling Diabetes mellitus Family history of malignant neoplasm of breast in first degree relative Mother Family history of coronary artery disease, Onset Age: 95 Family history of congestive heart failure, Onset Age: 95 Social History Social History Smoking status: Never smoker Second hand tobacco smoke exposure: No Alcohol intake: current Drinks per week: 1 Substance use: never Living arrangements: with family Gender identity (if verbalized by the patient): Male Spiritual care concerns: No Anes - Eval Final PreProcedure Day of Procedure 02/25/20 13:09 Patient weight: obese Heart: regular rate and rhythm Lungs: clear to auscultation Airway: Mallampati scale class II Neurological: alert and oriented Last oral intake: >/= 8 hours ASA classification: III Emergent: no Anesthetic plan: proceed Anesthesia type and monitoring: general LMA and standard monitoring Informed Consent: The patient's anesthetic plan and its attendant risks and benefits were discussed with the patient/family/POA. Questions were solicited and answers provided to the satisfaction of the patient/family/POA.
[2020-02-25] MEDS: ceFAZolin 2 GM/D5W 50 ML 2 GM/50 ML BAG IVPB (13:44)
[2020-02-25] MEDS: LIDOCAINE HCL 2% GEL UROJET 10 ML PKG MUCOUS MEM (13:55)
[2020-02-25 14:33] VITALS: BP 170/89; PULSE 76; RESP 16; TEMP 36.1; O2SAT 100
--- NOTE | 2020-02-25 14:42 | PM.PROC ---
Procedure Note - Detailed Date of procedure: 02/25/20 Pre-op diagnosis: right renal stones Post-op diagnosis: other (Right ureteral stone) Procedure performed: Cystoscopy, right ureteral stent removal/replacement, laser lithotripsy with stone extraction. Description of procedure: The patient was brought to the operative suite where he is prepped and draped in a routine sterile fashion while in the dorsal lithotomy position after the uneventful induction of a general LMA anesthetic. A 19F rigid cystoscope was placed in the bladder. There are no urethral strictures. His prostatic urethra measures, approximately, 2.0cm with no median lobe enlargement. The bladder mucosa was endoscopically normal without hyperemia or neoplasm. There was a single, orthotopic ureteral orifice bilaterally. The tip of the indwelling stent was grasped and a 0.035 glidewire was advanced into the right renal pelvis under fluoroscopy. The distal ureter was dilated with an 8F/10F ureteral dilator. Ureteroscopy was undertaken with a short tapered semi-rigid ureteroscope. Using a 273 micron holmium laser fiber a large 9mm right mid-ureteral stone (which had migrated from the kidney) was gractured into multiple tiny little pieces - all of which were removed with a 19F disposable Escape basket. Due to the extent of this manipulation I did place a 4.8F double-J ureteral stent. The proximal coil of the stent was confirmed to be in the renal pelvis and the distal coil in the bladder. The patient's bladder was emptied and he was taken to the recovery room having tolerated this procedure well. Anesthesia: GLMA Surgeon: Munir Mdconnell MD Urine output (mL): 0 Drains: Yes (4.8F right ureteral stent) Packing: No Pathology: yes (Right ureteral stone) Complications: No immediate complications Condition: stable Disposition: PACU
[2020-02-25 14:45] VITALS: BP 164/81; PULSE 76; RESP 19; O2SAT 100
[2020-02-25 15:00] VITALS: BP 140/86; PULSE 73; RESP 14; O2SAT 100
[2020-02-25 15:01] LABS: Glucose Point of Care 125 (65-105)
[2020-02-25 15:03] VITALS: BP 166/88; PULSE 74; RESP 14
[2020-02-25 15:30] VITALS: BP 158/90; PULSE 67; RESP 14
== END 2020-02-25 15:58 | disposition home or self-care (01) ==
PROVIDERS: PCP Family Medicine; Visit Provider Urology
PROC: (CPT 52352; principal; 2020-02-25 12:15)
PROC: (CPT 52356; 2020-02-25 12:15)
DX: N20.0 Calculus of kidney (principal); Z79.84 Long term (current) use of oral hypoglycemic drugs; N40.0 Benign prostatic hyperplasia without lower urinary tract symptoms; K21.9 Gastro-esophageal reflux disease without esophagitis; E78.5 Hyperlipidemia, unspecified; I10 Essential (primary) hypertension; M47.816 Spondylosis without myelopathy or radiculopathy, lumbar region; G47.33 Obstructive sleep apnea (adult) (pediatric); I48.19 Other persistent atrial fibrillation; E11.65 Type 2 diabetes mellitus with hyperglycemia; E66.9 Obesity, unspecified; Z68.32 Body mass index [BMI] 32.0-32.9, adult
CPT/HCPCS: 52356; 36415; 82365; 85610; 85730; 88300; 93005; A9270; C1769; C2617; J0690; J1100; J2405; J2704; J3010; J7120

== ENCOUNTER 2020-06-06 09:09 | Outpatient (CLI) | payer MEDICARE, SELFPAY ==
--- NOTE | ~2020-06-06 | XR_ITS ---
EXAMINATION: XR abdomen/kub 1V EXAM DATE: 06/06/2020 09:28 INDICATION: History of kidney stones. No current complaints. TECHNIQUE: Frontal projection(s) of the abdomen for interpretation. Comparison is made to prior exami nation from 01/01/2020. FINDINGS: There is moderate amount of colonic stool and gas. No small bowel dilation, nonobstructiv e bowel gas pattern. There are no suspicious calcifications identified. There is no organomegaly suspected. Mild to moderate lumbar dextroscoliosis. Moderate lumbar spondylosis. Left hip replaceme nt. Lung bases are clear. IMPRESSION: Unremarkable abdomen x-ray exam. Reviewed, dictated and finalized at location A.
== END 2020-06-06 09:10 | disposition home or self-care (01) ==
LOC: ANHIMG 09:13
PROVIDERS: PCP Family Medicine; Visit Provider Urology
DX: Z87.442 Personal history of urinary calculi (principal)
CPT/HCPCS: 74018

== ENCOUNTER 2020-11-07 07:59 | Outpatient (CLI) | payer MEDICARE, SELFPAY ==
--- NOTE | ~2020-11-07 | US_ITS ---
EXAMINATION: US art doppler w mary lou [facility] EXAM DATE: 11/07/2020 08:47 INDICATION: M79.605 - Pain in left leg. TECHNIQUE: Segmental pressures and plethysmographic and Doppler waveforms of the brachial and lower e xtremity arteries were obtained. There is no prior study for comparison. FINDINGS: Right and left brachial artery pressures of 142 mm Hg and 142 mm Hg, respectively, are concordant (no rmal difference <= 30 mmHg). RIGHT LEG: The ankle-brachial index (ANTONETTE) is 1.14 (normal >= 0.9-1). The great toe-brachial index (TBI) is 0.82 (normal >= 0.65). The lower extremity ratios, segmental pressure gradients as follows; Proximal superficial femoral artery:- Could not obtain ( mmHg). Distal superficial femoral artery: ----- 1.39 (198 mmHg). Popliteal: 1.32 (187 mmHg). Dorsalis pedis: 1.06 (151 mmHg). Posterior tibial: 1.14 (162 mmHg). (Normal gradients <= 20-30 mmHg between adjacent levels on the same leg or the same levels on the two legs). Arterial waveforms are biphasic through popliteal, monophas ic below. LEFT LEG: The ankle-brachial index (ANTONETTE) is 1.11 (normal >= 0.9-1). The great toe-brachial index (TBI) is 1.05 (normal >= 0.65). The lower extremity ratios, segmental pressure gradients as follows; Proximal superficial femoral artery:- Could not obtain ( mmHg). Distal superficial femoral artery: ----- Could not obtain ( mmHg). Popliteal: 1.31 (186 mmHg). Dorsalis pedis: 0.84 (119 mmHg). Posterior tibial: 1.11 (157 mmHg). (Normal gradients <= 20-30 mmHg between adjacent levels on the same leg or the same levels on the two legs). Arterial waveforms are biphasic through popliteal, monophas ic below. IMPRESSION: 1. Right ankle-brachial index 1.14, normal. 2. Left ankle-brachial index 1.11,. 3. Segmental pressures as above. Reviewed, dictated and finalized at location B.
== END 2020-11-07 08:00 | disposition home or self-care (01) ==
PROVIDERS: PCP Family Medicine; Visit Provider Physician Assistant
DX: M79.605 Pain in left leg (principal)
CPT/HCPCS: 93923

== ENCOUNTER 2020-11-18 12:04 | Outpatient (CLI) | payer MEDICARE, SELFPAY ==
--- NOTE | ~2020-11-18 | XR_ITS ---
EXAMINATION: XR tibia fibula LT 2V EXAM DATE: 11/18/2020 12:21 INDICATION: M79.606 - Pain in leg, unspecified . TECHNIQUE: Left tibia/fibula frontal and lateral projections obtained and reviewed. Comparison is mad e to prior examination from 07/11/2005, 11/27/2012. FINDINGS: There is chronic change of the left tibia with mild expansion of the diaphysis, thinning o f the cortex along the inner aspect, regions of sclerosis. 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 No evidence of superimposed pathological fracture. Left knee replacement hardware. IMPRESSION: Chronic benign-appearing left mid and distal tibial bone lesion without pathological fra cture. Reviewed, dictated and finalized at location A. IMPRESSION: Chronic benign-appearing left mid and distal tibial bone lesion wi thout pathological fracture.
== END 2020-11-18 12:05 | disposition home or self-care (01) ==
LOC: ANHIMG 12:07
PROVIDERS: PCP Family Medicine; Visit Provider Family Medicine
DX: M89.8X5 Other specified disorders of bone, thigh (principal)
CPT/HCPCS: 73590

== ENCOUNTER 2020-12-14 16:40 | Outpatient (CLI) | payer MEDICARE, SELFPAY ==
--- NOTE | ~2020-12-14 | US_ITS ---
EXAMINATION: US venous doppler [facility] EXAM DATE: 12/14/2020 17:08 INDICATION: R60.0 - Localized edema. TECHNIQUE: Multiple grayscale, color flow and Doppler images of the left lower extremity deep venous system were obtained and reviewed. There is no prior study for comparison. FINDINGS: The left common femoral, femoral and profunda veins demonstrate normal color flow, respirat ory variation, augmentation and compressibility. Compressibility, color flow confirmed within the le ft popliteal, posterior tibial, peroneal, and greater saphenous veins. IMPRESSION: 1. No left lower extremity deep venous thrombosis. Reviewed, dictated and finalized at location A.
== END 2020-12-14 16:41 | disposition home or self-care (01) ==
LOC: ANHIMG 16:46
PROVIDERS: PCP Family Medicine; Visit Provider Physician Assistant
DX: R60.0 Localized edema (principal)
CPT/HCPCS: 93971

== ENCOUNTER 2020-12-23 11:21 | Outpatient (CLI) | payer MEDICARE, SELFPAY ==
[2020-12-23 12:15] LABS: Alanine Aminotransferase 54 U/L (4-50); Albumin Level 4.6 g/dL (3.5-5.1); Alkaline Phosphatase 79 U/L (38-126); Anion Gap 10 mmol/L (8-16); Aspartate Amino Transferase 50 U/L (17-59); Bilirubin,Total 0.3 mg/dL (0.2-1.3); Blood Urea Nitrogen 32 mg/dL (9-20); Calcium 9.1 mg/dL (8.4-10.2); Carbon Dioxide 28 mmol/L (22-30); Chloride 103 mmol/L (98-107); Estimated Glomerular Filt Rate 45; Glucose 178 mg/dL (65-110); Potassium 4.5 mmol/L (3.4-5.0); Sodium 141 mmol/L (137-145)
== END 2020-12-23 11:22 | disposition home or self-care (01) ==
LOC: ANHLAB 11:22
PROVIDERS: PCP Family Medicine; Visit Provider Family Medicine
DX: N28.9 Disorder of kidney and ureter, unspecified (principal)
CPT/HCPCS: 36415; 80053

== ENCOUNTER 2020-12-28 08:23 | Outpatient (CLI) | payer MEDICARE, SELFPAY ==
--- NOTE | ~2020-12-28 | MR_ITS ---
EXAMINATION: MR lower leg LT wo/w con DATE: 12/28/2020 10:37 INDICATION: Painful distal tibial lesion with open wound, erythema and swelling TECHNIQUE: Magnetic resonance imaging (MRI) of the left lower leg was performed without and with 20 m L Multihance intravenous contrast. A marker was placed over the site of maximal pain. Sequences incl uded axial, sagittal and coronal T1-weighted FSE and fluid sensitive FSE STIR. Precontrast axial T1-w eighted FS FSE and post contrast axial and sagittal T1-weighted FS FSE were also obtained. COMPARISON: Radiographs dated 11/18/2020 and 07/11/2005 FINDINGS: Chronic expansile lesions demonstrating decreased T1, increased T2 signal and enhancement filling the medullary space along approximately 9 cm length of the tibial diaphysis centered at the junction of the mid and distal thirds. Second smaller lesion measuring approximately 3 cm underlying the anterior cortex of the metaphyseal region of the tibia. 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 Bone ma rrow signal is otherwise normal. No fracture. There is severe muscular atrophy of much of the soleus and gastrocnemius muscles. Otherwise relatively symmetric mild to moderate fatty atrophy of the muscu lature of the left calf and contralateral right calf. Asymmetric soft tissue swelling with diffuse arriaza bcutaneous edema without abnormal enhancement throughout the left lower leg with relatively mild subc utaneous edema about the inferior aspect of the contralateral right lower leg. No abscess or other ab normal fluid collections. The deep veins in the left lower limb enhance on the postcontrast images wi th no evident deep venous thrombosis. IMPRESSION: 1. Asymmetric nonspecific diffuse subcutaneous edema and swelling throughout the left lower leg witho ut evident abscess, acute osseous abnormality or [id number] deep venous thrombosis which could be related to cellulitis. 2. Chronic noncystic expansile bone lesions in the left tibia as detailed above, almost certainly anat ign given the lack of interval change on plain radiographs dated 2005 and 2020. 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 3. Fatty muscular atrophy of both calves, severe at the left soleus and gastrocnemius muscles likely related to chronic denervation change which could be related to diabetic neuropathy. Reviewed, dictated and finalized at location A. IMPRESSION: 1. Asymmetric nonspecific diffuse subcutaneous edema and swelling throughout th e left lower leg without evident abscess, acute osseous abnormality or below-th e-knee deep venous thrombosis which could be related to cellulitis. 2. Chronic noncystic expansile bone lesions in the left tibia as detailed above , almost certainly benign given the lack of interval change on plain radiograph s dated 2005 and 2020. 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 3. Fatty muscular atrophy of both calves, severe at the left soleus and gastroc nemius muscles likely related to chronic denervation change which could be rela lucina to diabetic neuropathy.
[2020-12-28 09:48] LABS: Estimated Glomerular Filt Rate 59
== END 2020-12-28 08:24 | disposition home or self-care (01) ==
PROVIDERS: PCP Family Medicine; Visit Provider Orthopaedic Surgery
DX: M79.662 Pain in left lower leg (principal)
CPT/HCPCS: 73720; A9577

== ENCOUNTER 2021-01-16 10:21 | Outpatient (CLI) | payer MEDICARE, SELFPAY ==
--- NOTE | ~2021-01-16 | NM_ITS ---
EXAMINATION: NM bone scan whole body DATE: 01/16/2021 14:17 INDICATION: Left lower leg pain. TECHNIQUE: 23 mCi Tc-99m HDP was administered intravenously. Delayed whole-body scintigrams were obt ained. COMPARISON: Left lower leg MRI 12/28/2020, left tibia and fibula radiographs 11/18/2020, 07/11/2005, CT abdomen and pelvis 01/05/2020 FINDINGS: There is increased activity in distal half of left tibial diaphysis correlating with an exp ansile lytic lesion on radiographs. There is a total left knee arthroplasty with increased activity a djacent to the femoral, patellar, and tibial components. There is joint-centimeters increased activit y in the shoulders, sternal clavicular joints, hands, right knee, and feet without radiographic lacy rison, likely osteoarthritis. There is increased activity in the spine correlating with spondylosis b y CT. There is a left hip hemiarthroplasty with increased activity adjacent to the femoral component. A horseshoe kidney is noted. IMPRESSION: 1. 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 2. Total left knee arthroplasty with increased activity adjacent to the components without abnormal c orrelate on left tibia and fibula radiographs from 11/18/2020. This finding has low specificity and ma y be normal. If the left knee is symptomatic, left knee radiographs are recommended. 3. Left hip hemiarthroplasty with increased activity adjacent to the femoral component. This finding has low specificity and may be normal. If the left hip is symptomatic, left hip radiographs are recom mended. Reviewed, dictated and finalized at location A. RETE SCULPTOR IMPRESSION: 1. Increased activity in distal half of left tibial diaphysis correlating with an expansile lytic lesion that has been present since 07/11/2005, most likely fib daniel dysplasia. 2. Total left knee arthroplasty with increased activity adjacent to the compone nts without abnormal correlate on left tibia and fibula radiographs from 021. This finding has low specificity and may be normal. If the left knee is sy mptomatic, left knee radiographs are recommended. 3. Left hip hemiarthroplasty with increased activity adjacent to the femoral co mponent. This finding has low specificity and may be normal. If the left hip is symptomatic, left hip radiographs are recommended.
== END 2021-01-16 10:22 | disposition home or self-care (01) ==
LOC: ANHIMG 10:25
PROVIDERS: PCP Family Medicine; Visit Provider Orthopaedic Surgery
DX: M79.662 Pain in left lower leg (principal)
CPT/HCPCS: 78306; A9561

== ENCOUNTER 2021-01-21 21:08 | Observation (INO) | payer MEDICARE, SELFPAY ==
[2021-01-21] VITALS (8 sets, daily range): BP systolic 108–141; BP diastolic 65–72; PULSE 60–65; RESP 12–17; TEMP 36.4; O2SAT 92–97
--- NOTE | ~2021-01-21 | CT_ITS ---
EXAMINATION: CT brain wo con INDICATION: Headache COMPARISON: None TECHNIQUE: Standard unenhanced head CT. The dose-length product (DLP) was 605.33 mGy-cm. The mA was a djusted according to patient size. Iterative reconstruction technique was employed. FINDINGS: There is no acute intraparenchymal hemorrhage. No evidence of mass lesion. No evidence of a cute infarction. There is mild periventricular and subcortical hypodensity probably related to small vessel ischemic disease. There is mild prominence of the sulci and ventricles related to cerebral atr ophy. Intracranial calcified cerebral atherosclerosis is noted. There are no extra-axial collections. There is no mass effect or midline shift. The orbits and soft tissues are unremarkable. There is mil d mucosal thickening of the paranasal sinuses. IMPRESSION: 1. No acute intracranial abnormality. 2. Age related findings. Reviewed, dictated and finalized at location A. SPECIALIST
--- NOTE | 2021-01-21 21:13 | ECG_ITS ---
Measurements Intervals [place] Rate: 61 P: 72 [place]: 219 QRS: 24 QRSD: 100 T: 44 QT: 411 QTc: 415 Interpretive Statements SINUS RHYTHM WITH FIRST DEGREE AV BLOCK ATRIAL PREMATURE COMPLEX BORDERLINE R WAVE PROGRESSION, ANTERIOR LEADS BASELINE WANDER- III ABNORMAL ECG Electronically Signed On 01-22-2021 7:15:12 CAN INTAKE WORKER by Grady Mirza D.O.
[2021-01-21 22:07] LABS: Basophils Percent Auto 0.2 % (0.2-1.2); Eosinophils Absolute Auto 0.3 K/mm3 (0-0.3); Eosinophils Percent Auto 2.6 % (0-4.4); Hemoglobin 12.2 g/dL (14.0-18.0); Immature Granulocyte Absolute 0.04 K/mm3 (0.00-0.031); Immature Granulocyte Percent A 0.4 % (0-0.5); Lymphocytes Absolute Auto 1.56 K/mm3 (0.9-3.2); Lymphocytes Percent Auto 16.1 % (18.3-44.2); Mean Corpuscular Hemoglobin 31.1 pg (26-34); Mean Corpuscular Volume 94.4 fl (80-100); Mean Platelet Volume 10.5 fl (7.4-10.4); Monocytes Absolute Auto 0.9 K/mm3 (0.1-0.6); Monocytes Percent Auto 9.1 % (2.6-8.5); Neutrophils Absolute Auto 6.9 K/mm3 (1.3-6.7); Neutrophils Percent Auto 71.6 % (45.5-73.1); Platelet Count Result 232 k/mm3 (150-375); Red Blood Count 3.92 M/mm3 (4.6-6.20); Red Cell Distribution Width 13.5 % (11.5-14.5); White Blood Count 9.7 K/mm3 (4.5-10.0)
[2021-01-21 22:17] LABS: Anion Gap 12 mmol/L (8-16); Blood Urea Nitrogen 47 mg/dL (9-20); Carbon Dioxide 23 mmol/L (22-30); Chloride 103 mmol/L (98-107); Estimated CRCL calculation 34 ml/min; Estimated Glomerular Filt Rate 33; Glucose 211 mg/dL (65-110); Potassium 3.9 mmol/L (3.4-5.0); Sodium 138 mmol/L (137-145)
[2021-01-21 22:25] LABS: NT Pro B Type Natriuretic Pept 82 pg/mL (5-100)
--- NOTE | 2021-01-21 23:01 | ED.GENADULT ---
HPI - General Adult General Chief complaint: Arrhythmia/Palpitations Stated complaint: blacked out Time Seen by Provider: 01/21/21 21:45 History of Present Illness HPI narrative: Patient 75-year-old gentleman who presents the emergency department with chief complaint of near syncopal episode. The patient states he was sitting down became feeling bad and noticed that his vision went away the patient states he felt as though he was going to pass out and then slowly his vision returned and he started to slowly feel little better. Patient reports recently he was started on gabapentin for peripheral neuropathy from diabetes patient states that his blood sugars have not been low reports no nausea no vomiting reports that a little bit of discomfort in his neck and upper chest. Patient denies defined chest pain with this Related Data Home Medications Medication Instructions Recorded Confirmed amiodarone 200 mg tablet 200 mg PO QAM tablet 06/24/19 01/13/21 ferrous sulfate 325 mg (65 mg 325 mg PO DAILY 06/24/19 12/14/20 iron) tablet multivitamin 1 tablet PO DAILY 07/17/19 12/14/20 docusate sodium [Stool Softener] 100 mg PO EVERY OTHER DAY 02/17/20 12/14/20 Allergies Allergy/AdvReac Type Severity Reaction Status Date / Time hydrochlorothiazide AdvReac Mild headache Verified 01/21/21 21:32 [Zestoretic] Review of Systems Review of Systems: A 10 system review of systems was completed on the patient and is negative except for what is stated in the HPI. Nursing and ancillary documentation was reviewed. [facility] Past Medical History Medical History Acute renal failure 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 Chronic pain syndrome Enterococcal bacteremia Gastro-esophageal reflux disease without esophagitis History of femur fracture Hyperlipidemia Hypertension Kidney stone Lactic acidosis Leukocytosis Lumbar spondylosis Obesity EMILI (obstructive sleep apnea) Paronychia Persistent atrial fibrillation Quadriceps tendon rupture Sepsis Severe sepsis Type 2 diabetes mellitus with hyperglycemia Surgical History Surgical History H/O arthroscopy of knee History of hip replacement History of knee replacement Family History Family History Father Diabetes mellitus, Onset Age: 66 Acute myocardial infarction, Onset Age: 66 Sibling Diabetes mellitus Family history of malignant neoplasm of breast in first degree relative Mother Family history of coronary artery disease, Onset Age: 95 Family history of congestive heart failure, Onset Age: 95 Social History Social History Second hand tobacco smoke exposure: No Alcohol intake: current Drinks per week: 1 Substance use: never Gender identity (if verbalized by the patient): Male Sexual Orientation (if Verbalized by the Patient): Straight or Heterosexual Spiritual care concerns: No Exam Narrative: GENERAL: Well-appearing, well-nourished, and in no acute distress. HEAD: Normocephalic, atraumatic. EYES: PERRLA and EOMI. ENT: Nares clear, no rhinorrhea or epistaxis. Mucous membranes moist. NECK: Supple. CHEST: Clear to auscultation. No respiratory distress. HEART: Regular rate and rhythm. No murmur heard. Normal peripheral pulses. ABDOMEN: Soft, nontender, nondistended, normal active bowel sounds. EXTREMITIES: Normal range of motion. No edema. SKIN: Warm, dry, no rash. NEURO: No focal deficits. Alert and oriented x3. PSYCH: Normal mood and affect. Course Vital Signs Vital signs: Vital Signs Temperature 36.4 C 01/21/21 21:10 Pulse Rate 64 01/21/21 21:10 Respiratory Rate 17 01/21/21 21:10 Blood Pressure 141/70 H 01/21/21 21:10 Pulse Oximetry
--- NOTE | 2021-01-21 23:12 | PC.NURSE ---
Called lab at [phone] spoke with Nay. Agreed to add hepatic, mg to green top in lab
[2021-01-21] MEDS: SODIUM CHLORIDE 0.9% IV 1,000 ML 999 ML IV CONT (23:18)
[2021-01-21 23:26] LABS: Alanine Aminotransferase 42 U/L (4-50); Albumin Level 4.1 g/dL (3.5-5.1); Alkaline Phosphatase 73 U/L (38-126); Aspartate Amino Transferase 49 U/L (17-59); Bilirubin,Total 0.5 mg/dL (0.2-1.3); Magnesium 2.3 mg/dL (1.6-2.3)
[2021-01-21 23:35] LABS: INR 1.1
[2021-01-21 23:36] LABS: Lactic Acid Reflex 1.6 mmol/L (0.7-2.1); Partial Thromboplastin Time 29.1 SECONDS (22.3-36.8)
[2021-01-22] VITALS (15 sets, daily range): BP systolic 124–183; BP diastolic 61–75; PULSE 54–588; RESP 12–20; TEMP 35.8–38.3; O2SAT 95–99; BMI 33.4
[2021-01-22 00:11] LABS: Troponin I < 0.012 ng/mL (0.000-0.034)
[2021-01-22 00:26] LABS: Add Urine Microscopic? YES; Appearance Urine Cloudy (Clear); Bacteria Urine 1+ /hpf; Bilirubin Urine Negative (Negative); Blood Urine 1+ (Negative); Color Urine Yellow (Yellow); Glucose Urine UA Negative (Negative); Ketones Urine Negative (Negative); Leukocyte Esterase Ur 2+ LEU/UL (Negative); Nitrate Urine Positive (Negative); Protein Urine Negative (Negative); Specific Grav Ur 1.015 (1.001-1.035); Squamous Epithelial Cell Urine Rare /hpf (Few); Urobilinogen Urine Negative mg/dL (<2.0); WBC Urine 31-50 /hpf
--- NOTE | 2021-01-22 00:36 | PM.IMHP ---
H&P: HPI History of Present Illness Date/Time: 01/22/21 00:36 Chief Complaint: Near syncope Narrative: This is a 75-year-old male with past medical history significant for hypertension, dyslipidemia, obesity, obstructive sleep apnea, chronic atrial fibrillation, type 2 diabetes mellitus, chronic kidney disease his currently an everyday smoker of about half a pack a day. Patient presented to emergency room after he had a near syncope episode while he was sitting this happen shortly after having dinner patient states that he was doing well all day today was preparing for winter to come doing some on [employer] work putting stuff away and felt his usual all day long. He denies any chills, any fevers, any rigors, any cough, any sputum production, no nausea ,no vomiting, no diarrhea, no pain or burning with urination. Preliminary workup was significant for a creatinine of 2 a BUN of 47 a urinalysis was significant for numerous wbc's present, a CT of the head did not show any acute abnormalities. Decision has been made to admit the patient for further assessment evaluation and treatment. Review of Systems Review of Systems: Near syncope Constitutional: Constitutional: Denies chills, Denies fatigue, Denies fever(s), Denies lethargy, Denies malaise, Denies night sweats and Denies weakness Eyes: Eyes: Reports change in vision (Blacking out) ENT: Denies dysphagia, Denies nasal congestion, Denies nasal discharge, Denies nasal obstruction and Denies odynophagia Cardiovascular: Cardiovascular: Denies chest pain, Denies irregular heart rhythm, Denies claudication, Denies radiating jaw, neck or arm pain, Denies palpitations, Denies dyspnea, Denies dyspnea on exertion and Denies orthopnea Comments: Near syncope Respiratory: Respiratory: Denies change in phlegm color, Denies chest congestion, Denies cough, Denies excessive phlegm production and Denies dyspnea Gastrointestinal: Gastrointestinal: Denies abdominal pain, Denies dyspepsia, Denies heartburn, Denies diarrhea, Denies nausea and Denies vomiting Genitourinary: Genitourinary: Denies dysuria Musculoskeletal: Musculoskeletal: Denies myalgias, Denies arthralgias and Denies joint swelling Comments: Left leg wound in the calf Integumentary/Breasts: Skin/Breast: Denies rash and Reports skin ulcer (Left calf) Neurologic: Denies vertigo, Denies dizziness, Denies syncope, Denies focal weakness and Denies Sensory deficit (Neuro) Psychiatric: Psychiatric: Reports no additional psychiatric complaints and Reports as per HPI Endocrine: Endocrine: Reports no additional endocrine complaints and Reports as per HPI Hematologic/Lymphatic: Hematologic/Lymphatic: Reports no additional hematologic/lymphatic complaints and Reports as per HPI Allergic/Immunologic: Allergic/Immunologic: Reports no additional allergic/immunologic complaints and Reports as per HPI [facility] Past Medical History Medical History (Updated 01/22/21 @ 05:18 by Keny Flowers MD) Acute renal failure 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 Chronic pain syndrome Enterococcal bacteremia Gastro-esophageal reflux disease without esophagitis History of femur fracture Hyperlipidemia Hypertension Kidney stone Lactic acidosis Leukocytosis Lumbar spondylosis Obesity EMILI (obstructive sleep apnea) Paronychia Persistent atrial fibrillation Quadriceps tendon rupture Sepsis Severe sepsis Type 2 diabetes mellitus with hyperglycemia Surgical History Surgical History H/O arthroscopy of knee History of hip replacement History of knee replacement Family History Family History Father Diabetes mellitus, Onset Age: 66 Acute myocardial infarction, Onset Age: 66 Sibling Diabetes mellitus Family history of malignant neoplasm of breast in first degree relative Mother Family history of
--- NOTE | 2021-01-22 02:29 | PC.NURSE ---
This patient, Srikanth Patrick, was admitted to 3 Med Surg Room 311-01 @0220. Patient/family oriented to hospital policies and general routines including ID bracelet, bed and alarms, visiting hours, pain management, procedures, bathroom and other care routines, personal items, smoking policy, room service/diet, and visiting hours. Information on how to activate the Rapid Response Team has been discussed. Patient/Family are encouraged to report perceived risks to care and to ask questions if they do not understand what they are told or what they should do.
[2021-01-22 06:33] LABS: Anion Gap 5 mmol/L (8-16); Blood Urea Nitrogen 43 mg/dL (9-20); Calcium 8.5 mg/dL (8.4-10.2); Carbon Dioxide 26 mmol/L (22-30); Chloride 107 mmol/L (98-107); Estimated CRCL calculation 40 ml/min; Estimated Glomerular Filt Rate 39; Glucose 141 mg/dL (65-110); Sodium 138 mmol/L (137-145)
[2021-01-22 07:02] LABS: Basophils Percent Auto 0.2 % (0.2-1.2); Eosinophils Absolute Auto 0.3 K/mm3 (0-0.3); Eosinophils Percent Auto 2.9 % (0-4.4); Hemoglobin 11.3 g/dL (14.0-18.0); Immature Granulocyte Absolute 0.03 K/mm3 (0.00-0.031); Immature Granulocyte Percent A 0.3 % (0-0.5); Lymphocytes Absolute Auto 2.48 K/mm3 (0.9-3.2); Mean Corpuscular HGB Conc 32.3 g/dl (32-36); Mean Corpuscular Hemoglobin 30.1 pg (26-34); Mean Corpuscular Volume 93.3 fl (80-100); Mean Platelet Volume 11.1 fl (7.4-10.4); Monocytes Absolute Auto 1.1 K/mm3 (0.1-0.6); Neutrophils Percent Auto 56.6 % (45.5-73.1); Platelet Count Result 227 k/mm3 (150-375); Red Blood Count 3.75 M/mm3 (4.6-6.20); Red Cell Distribution Width 13.8 % (11.5-14.5); White Blood Count 8.9 K/mm3 (4.5-10.0)
[2021-01-22] MEDS: SIMVASTATIN 10 MG TABLET PO (08:22)
[2021-01-22] MEDS: FINASTERIDE 5 MG TABLET BY MOUTH (08:22)
[2021-01-22] MEDS: AMIODARONE HCL 200 MG TABLET PO (08:22)
[2021-01-22] MEDS: PANTOPRAZOLE 40 MG TABLET BY MOUTH (08:22)
[2021-01-22] MEDS: FERROUS SULFATE 324 MG TABLET PO (08:22)
[2021-01-22] MEDS: APIXABAN 5 MG TABLET PO ×2 (08:22→17:08)
[2021-01-22] MEDS: HYDROcodone/acetaminophen (*CRX) 5-325 MG TABLET 2 TAB PO ×2 (08:24→21:44)
[2021-01-22 08:58] LABS: Hemoglobin A1C 6.3 % (<5.7)
[2021-01-22] MEDS: AMPICILLIN 1 GM/NS 50 ML 1 GM/50 ML BAG IVPB ×3 (10:19→21:17)
[2021-01-22 12:23] LABS: Glucose Point of Care 105 mg/dl (65-105)
--- NOTE | 2021-01-22 13:05 | PM.IMPN ---
Progress Note: A&P Assessment and Plan (1) Acute UTI: Code(s): N39.0 - Urinary tract infection, site not specified Status: Acute Assessment and Plan: History of UTI with bacteremia in the past showing growth of Enterococcus and serratia marcesscens. The patient was on IV Vancomycin and and Ceftriaxone during prior admission for treatment of both infections. The patient was admitted with very abnormal UA concerning for UTI and based on prior cultures will place him on IV Ampicillin and IV Ceftriaxone #1 Pending Urine Blood cultures were not initially checked on admission, will order Blood cultures now since he has a low grade temperature at 100.9F Continue monitoring and with supportive care (2) DANIEL (acute kidney injury): Code(s): N17.9 - Acute kidney failure, unspecified Status: Acute Assessment and Plan: Multifactorial reasons most likely from acute UTI infection vs dehydration from working outside and not hydrating well vs dehydration from IV Lasix vs patient with longstanding hypertension and diabetes and chronic kidney disease vs post obstructive uropathy with history of BPH Bladder scan showed patient holding 200 cc. Will continue with Finasteride and Add Flomax daily Orthostatics were positive from laying to sitting but the patient was asymptomatic IV fluids were started on admission but discontinued this morning, will order 500 cc fluids to be given due to fever and +ortho Continue monitoring renal function daily (3) Vasovagal near syncope: Code(s): R55 - Syncope and collapse Status: Acute Assessment and Plan: Most likely secondary to underlying acute infection and DANIEL and working outside causing dehdyration. Tele monitoring Troponin initially normal, will recheck troponin now since the patient said it felt like he was having a heart attack even though he did not have chest pain or SOB symptoms Monitor Orthostatics Continue monitoring symptoms will order PT/OT (4) Type 2 diabetes mellitus with hyperglycemia: Qualifiers: Diabetes mellitus jail insulin use: unspecified jail insulin use status Qualified Code(s): E11.65 - Type 2 diabetes mellitus with hyperglycemia Code(s): E11.65 - Type 2 diabetes mellitus with hyperglycemia Status: Chronic Assessment and Plan: Holding metformin due to DANIEL Continue glucose checks ACHS, Insulin sliding scale as needed, hypoglycemic protocol in place (5) Persistent atrial fibrillation: Code(s): I48.19 - Other persistent atrial fibrillation Status: Chronic Assessment and Plan: Rate controlled and anticoagulated Continue to monitor (6) Gastro-esophageal reflux disease without esophagitis: Code(s): K21.9 - Gastro-esophageal reflux disease without esophagitis Status: Chronic Assessment and Plan: Continue PPI (7) 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: Code(s): N40.0 - Benign prostatic hyperplasia without lower urinary tract symptoms Status: Acute Assessment and Plan: Continue finasteride and will add Flomax (8) Obesity: Code(s): E66.9 - Obesity, unspecified Status: Acute Assessment and Plan: Lifestyle and diet modifications Carb consistent diet (9) Chronic pain syndrome: Code(s): G89.4 - Chronic pain syndrome Status: Acute Assessment and Plan: Continue home meds Pain management Time Spent With Patient Time with patient: 25 - 35 minutes Subjective Date/time seen: 01/22/21 13:05 Interval history: Date of service 01/22/2021: patient reports feeling well and wants to go home. He states yesterday does not know what happened and thought he was having the big one . He thought he was having a heart attack when his vision went black with associated diaphoresis. He had never had similar symptoms before. Earlier that day he had been wor
[2021-01-22] MEDS: ACETAMINOPHEN 325 MG TABLET 650 MG PO (13:24)
[2021-01-22 14:16] LABS: Troponin I < 0.012 ng/mL (0.000-0.034)
[2021-01-22] MEDS: SODIUM CHLORIDE 0.9% IV 500 ML IV CONT (14:31)
[2021-01-22] MEDS: TAMSULOSIN HCL 0.4 MG CAPSULE PO (14:31)
[2021-01-22 16:52] LABS: Glucose Point of Care 147 mg/dl (65-105)
[2021-01-22] MEDS: GABAPENTIN 300 MG CAPSULE PO (21:19)
[2021-01-22 21:59] LABS: Glucose Point of Care 123 mg/dl (65-105)
[2021-01-23] VITALS: PULSE 55
[2021-01-23] MEDS: AMPICILLIN 1 GM/NS 50 ML 1 GM/50 ML BAG IVPB (02:10)
[2021-01-23 04:00] VITALS: PULSE 62
[2021-01-23 06:00] VITALS: BP 149/66; PULSE 55; RESP 18; TEMP 36.4; O2SAT 98
[2021-01-23 06:45] LABS: Basophils Percent Auto 0.4 % (0.2-1.2); Eosinophils Absolute Auto 0.4 K/mm3 (0-0.3); Eosinophils Percent Auto 5.3 % (0-4.4); Hematocrit 35.8 % (42.0-52.0); Hemoglobin 11.6 g/dL (14.0-18.0); Immature Granulocyte Absolute 0.03 K/mm3 (0.00-0.031); Immature Granulocyte Percent A 0.4 % (0-0.5); Lymphocytes Percent Auto 24.8 % (18.3-44.2); Mean Corpuscular HGB Conc 32.4 g/dl (32-36); Mean Corpuscular Hemoglobin 31.3 pg (26-34); Mean Corpuscular Volume 96.5 fl (80-100); Mean Platelet Volume 10.9 fl (7.4-10.4); Monocytes Absolute Auto 0.9 K/mm3 (0.1-0.6); Monocytes Percent Auto 11.6 % (2.6-8.5); Neutrophils Absolute Auto 4.4 K/mm3 (1.3-6.7); Neutrophils Percent Auto 57.5 % (45.5-73.1); Platelet Count Result 220 k/mm3 (150-375); Red Blood Count 3.71 M/mm3 (4.6-6.20); Red Cell Distribution Width 13.8 % (11.5-14.5); White Blood Count 7.7 K/mm3 (4.5-10.0)
[2021-01-23 06:59] LABS: Anion Gap 9 mmol/L (8-16); Blood Urea Nitrogen 25 mg/dL (9-20); Calcium 8.6 mg/dL (8.4-10.2); Carbon Dioxide 25 mmol/L (22-30); Chloride 105 mmol/L (98-107); Estimated CRCL calculation 56 ml/min; Estimated Glomerular Filt Rate 59; Glucose 118 mg/dL (65-110); Potassium 4.3 mmol/L (3.4-5.0); Sodium 139 mmol/L (137-145)
[2021-01-23 08:00] VITALS: PULSE 66
[2021-01-23 08:36] LABS: Glucose Point of Care 153 mg/dl (65-105)
[2021-01-23 09:57] VITALS: PULSE 72
[2021-01-23] MEDS: AMIODARONE HCL 200 MG TABLET PO (09:57)
[2021-01-23] MEDS: SIMVASTATIN 10 MG TABLET PO (09:58)
[2021-01-23] MEDS: TAMSULOSIN HCL 0.4 MG CAPSULE PO (09:58)
[2021-01-23] MEDS: FERROUS SULFATE 324 MG TABLET PO (09:59)
[2021-01-23] MEDS: APIXABAN 5 MG TABLET PO (09:59)
[2021-01-23] MEDS: PANTOPRAZOLE 40 MG TABLET BY MOUTH (09:59)
--- NOTE | 2021-01-23 11:27 | PM.DS ---
DS: Admitting Diagnosis Discharge Date 01/23/21 Admitting Diagnosis Near syncope/UTI DS: Discharge Diagnosis Discharge Diagnosis (1) Acute UTI: Code(s): N39.0 - Urinary tract infection, site not specified Status: Acute Assessment and Plan: the patient is a 75-year-old man with a history BPH, hypertension, dyslipidemia, diabetes, AFib, who presented to the emergency room after having an episode of near-syncope where his vision went black, with associated diaphoresis. Denies any actual syncopal episode but he became worried and came to the ER for further evaluation. Initial vitals showed elevated blood pressures 141/70, heart rate 64, afebrile, normal oxygenation on room air. Initial labs showed white blood cell count 9700, normal neutrophil count, normocytic anemia with a hemoglobin of 12, hematocrit 37%. Coags Negative. Elevated creatinine at 2.0, BUN at 47, lactic normal at 1.6. Normal LFTs. Negative troponin x2. Normal BNP. Urinalysis showed suspicion for UTI with positive nitrite, 2+ leukocyte esterase, WBCs 31-50. In the past the patient has had a history of bacteremia from UTI growing E coli and Serratia marcescens. he was admitted to the hospital on IV antibiotics and IV fluid hydration for UTI and dehydration. His creatinine improved with IV fluids. His urine culture grew Serratia marcescens with sensitivities to IV Rocephin. blood cultures are negative today. The patient is otherwise feeling well at this time. Orthostatics negative. Walking without any lightheadedness or dizziness. He is stable at this time to be discharged home to continue taking oral antibiotics for total of 10 days. Given probiotics to prevent diarrhea associated with antibiotic use. Will continue monitoring his blood cultures. Instructed him to follow-up primary care in 1 week. Return to ER warnings given. the patient understands and agrees the plan all questions answered. (2) DANIEL (acute kidney injury): Code(s): N17.9 - Acute kidney failure, unspecified Status: Acute Assessment and Plan: (3) Vasovagal near syncope: Code(s): R55 - Syncope and collapse Status: Acute Assessment and Plan: (4) Type 2 diabetes mellitus with hyperglycemia: Qualifiers: Diabetes mellitus intermediate manager insulin use: unspecified intermediate manager insulin use status Qualified Code(s): E11.65 - Type 2 diabetes mellitus with hyperglycemia Code(s): E11.65 - Type 2 diabetes mellitus with hyperglycemia Status: Chronic Assessment and Plan: (5) Persistent atrial fibrillation: Code(s): I48.19 - Other persistent atrial fibrillation Status: Chronic Assessment and Plan: (6) Gastro-esophageal reflux disease without esophagitis: Code(s): K21.9 - Gastro-esophageal reflux disease without esophagitis Status: Chronic Assessment and Plan: (7) 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: Code(s): N40.0 - Benign prostatic hyperplasia without lower urinary tract symptoms Status: Acute Assessment and Plan: (8) Obesity: Code(s): E66.9 - Obesity, unspecified Status: Acute Assessment and Plan: (9) Chronic pain syndrome: Code(s): G89.4 - Chronic pain syndrome Status: Acute Assessment and Plan: DS: Summary Hospital Course Hospital Course: See above Status at Discharge Cognitive/behavioral status at discharge: Stable, improved. Time Spent with Patient Time attestation: Total time spent providing and/or coordinating discharge services: 40 Time spent: Greater than 30 minutes Exam Narrative: General: 75-year-old man laying in bed and quickly sits up to the side of the bed when I walk in. Appears comfortable. In no acute distress. Skin: No jaundice or cyanosis. Good skin turgor. Neck: Full range of motion. Supple. Respiratory: Lungs are roxanne
[2021-01-23 11:56] LABS: Glucose Point of Care 123 mg/dl (65-105)
[2021-01-23 12:00] VITALS: PULSE 63
[2021-01-23] MEDS: FINASTERIDE 5 MG TABLET BY MOUTH (15:47)
== END 2021-01-23 14:00 | disposition home or self-care (01) ==
LOC: ANHED 01-22 00:43 → ANH3MEDSUR 01-22 01:50
PROVIDERS: Emergency Medicine; Physician Assistant; Admitting Provider Internal Medicine; Emergency Provider Emergency Medicine; PCP Family Medicine; Visit Provider Family Medicine
DX: N39.0 Urinary tract infection, site not specified (principal); N17.9 Acute kidney failure, unspecified; R55 Syncope and collapse; B96.89 Other specified bacterial agents as the cause of diseases classified elsewhere; E11.65 Type 2 diabetes mellitus with hyperglycemia; E86.0 Dehydration; N40.0 Benign prostatic hyperplasia without lower urinary tract symptoms; I10 Essential (primary) hypertension; K21.9 Gastro-esophageal reflux disease without esophagitis; D64.9 Anemia, unspecified; E78.5 Hyperlipidemia, unspecified; G47.33 Obstructive sleep apnea (adult) (pediatric); E11.42 Type 2 diabetes mellitus with diabetic polyneuropathy; I48.19 Other persistent atrial fibrillation; M47.816 Spondylosis without myelopathy or radiculopathy, lumbar region; G89.4 Chronic pain syndrome; R00.2 Palpitations; Z79.84 Long term (current) use of oral hypoglycemic drugs; Z79.01 Long term (current) use of anticoagulants; F17.210 Nicotine dependence, cigarettes, uncomplicated; E66.9 Obesity, unspecified; Z68.33 Body mass index [BMI] 33.0-33.9, adult
CPT/HCPCS: 36415; 70450; 80048; 80076; 81001; 82948; 83036; 83605; 83735; 83880; 84484; 85025; 85610; 85730; 87040; 87077; 87086; 87186; 93005; 96361; 96365; 96366; 96367; 96376; 97161; 97165; 99285; A9270; G0378; J0290; J0696; J7030; J7040

== ENCOUNTER 2021-02-08 09:30 | Outpatient (RCR) | payer MEDICARE, SELFPAY ==
[2021-01-13 09:30] VITALS: BMI 32.9
--- NOTE | 2021-01-20 11:00 | PCWOUND ---
WOCN NOTE patient did not show up for appointment. called, he stated he forgot and does not want to reschedule at this time. as he is going hunting. he will call when he gets back to reschedule.
== END 2021-03-31 12:08 | disposition home or self-care (01) ==
LOC: ANHWOC 09:30
PROVIDERS: PCP Family Medicine; Visit Provider Orthopaedic Surgery
DX: L97.909 Non-pressure chronic ulcer of unspecified part of unspecified lower leg with unspecified severity (principal)
CPT/HCPCS: 99212; 99213; G0463

== ENCOUNTER 2021-05-26 11:39 | Emergency (ER) | payer MEDICARE, SELFPAY ==
--- NOTE | ~2021-05-26 | XR_ITS ---
EXAMINATION:XR cervical spine 4-5V DATE: 05/26/2021 12:18 INDICATION: Right-sided neck pain after shoveling mild TECHNIQUE: AP, lateral, lateral swimmers and odontoid views of the cervical spine are provided. COMPARISON: None FINDINGS: 4 mm anterolisthesis C4 on C5. Odontoid is intact. Normal atlantoaxial interval. Vertebral body heig hts are normal. Moderate disc height loss at C5-C6 and mild disc height loss at C4-C5. Severe facet o steoarthritis on the right at C3-C4 through C5-C6 and moderate on the left at C3-C4 and C4-C5. Small posterior superior endplate osteophyte at C5 resulting in mild central canal stenosis at this level. Prevertebral soft tissues are normal. Visualized portions of the upper lungs are clear. Old posterol ateral left third-fifth rib fractures. IMPRESSION: 1. 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 Reviewed, dictated and finalized at location A. IMPRESSION: 1. Moderate cervical spondylosis with severe facet osteoarthritis on the right at C3-C4 through C5-C6.
[2021-05-26 11:49] VITALS: BP 151/85; PULSE 69; RESP 18; TEMP 36.4; O2SAT 97
--- NOTE | 2021-05-26 11:58 | ED.NECK ---
HPI - Neck Pain/Injury General Chief Complaint: Neck Pain/Injury Stated Complaint: STIFF NECK Time Seen by Provider: 05/26/21 11:58 Source: patient, RN notes reviewed and old records reviewed History of Present Illness HPI Narrative: 75 year old male presents to express care with complaints of pain to his right side of neck and right shoulder posteriorly and increases with movement of head to the right side. Patient states that he was sitting on the tailgate of truck yesterday using a shovel to put mulch into a wheel barrel and awoke today with terrible pain and spasms. Patient denies any radiation of pain down arms or any tingling or numbness in his arms or his hands.. Patient states that he took one of his pain pills but it has helped only a little bit.Patient does ambulate with a cane and states that he has arthritis MD complaint: neck pain and other (posterior right shoulder) Onset (ago): hour(s) (since yesterday evening) Place: home Severity: moderate and constant Severity scale (1-10): 6 Quality: sharp, aching and spasming Duration: constant Relieving factors: medication OTC/prescribed Exacerbating factors: movement of neck Context: other (shoveling while sitting) Treatments prior to arrival: prescription analgesic Related Data Home Medications Medication Instructions Recorded Confirmed amiodarone 200 mg tablet 200 mg PO QAM tablet 06/24/19 02/10/21 ferrous sulfate 325 mg (65 mg 325 mg PO DAILY 06/24/19 02/10/21 iron) tablet Eliquis 5 mg PO BID 01/22/21 02/10/21 hydrochlorothiazide 12.5 mg tablet 12.5 mg PO DAILY 02/10/21 02/10/21 Allergies Allergy/AdvReac Type Severity Reaction Status Date / Time hydrochlorothiazide AdvReac Mild headache Verified 02/10/21 10:23 [Zestoretic] Review of Systems Review of Systems: CONSTITUTIONAL: Denies fever, chills, or sweats. EYES: Denies visual changes, redness, or discharge. ENT: Denies rhinorrhea, congestion, sore throat, or otalgia. CARDIOVASCULAR: Denies chest pain, palpitations, or edema. RESPIRATORY: Denies cough or dyspnea. GASTROINTESTINAL: Denies abdominal pain, nausea, vomiting, or diarrhea. GENITOURINARY: Denies dysuria or hematuria. SKIN: Denies rash or itching. MUSCULOSKELETAL: Denies back pain, joint pain, or myalgia. NEUROLOGIC: Denies headache, numbness, or weakness. PSYCHIATRIC: Denies anxiety or depression. All systems reviewed & are unremarkable except as noted in HPI and below PMFSH Past Medical History Medical History Acute renal failure 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 Chronic pain syndrome Enterococcal bacteremia Gastro-esophageal reflux disease without esophagitis History of femur fracture Hyperlipidemia Hypertension Kidney stone Lactic acidosis Leukocytosis Lumbar spondylosis Obesity EMILI (obstructive sleep apnea) Paronychia Persistent atrial fibrillation Quadriceps tendon rupture Sepsis Severe sepsis Type 2 diabetes mellitus with hyperglycemia Surgical History Surgical History H/O arthroscopy of knee History of hip replacement History of knee replacement Family History Family History Father Diabetes mellitus, Onset Age: 66 Acute myocardial infarction, Onset Age: 66 Sibling Diabetes mellitus Family history of malignant neoplasm of breast in first degree relative Mother Family history of coronary artery disease, Onset Age: 95 Family history of congestive heart failure, Onset Age: 95 Social History Social History Second hand tobacco smoke exposure: No Alcohol intake: current Drinks per week: 2 Substance use: never Gender identity (if verbalized by the patient): Male Sexual Orientation (if Verbalized by the Patient): Straight or Heterosex
== END 2021-05-26 12:58 | disposition home or self-care (01) ==
PROVIDERS: Emergency Provider Registered Nurse; PCP Family Medicine
DX: M54.2 Cervicalgia (principal); E78.5 Hyperlipidemia, unspecified; I10 Essential (primary) hypertension; G47.33 Obstructive sleep apnea (adult) (pediatric); E11.9 Type 2 diabetes mellitus without complications; I48.19 Other persistent atrial fibrillation; M47.816 Spondylosis without myelopathy or radiculopathy, lumbar region; K21.9 Gastro-esophageal reflux disease without esophagitis; N40.0 Benign prostatic hyperplasia without lower urinary tract symptoms; Z96.659 Presence of unspecified artificial knee joint; Z96.49 Presence of other endocrine implants
CPT/HCPCS: 72050; 99213; G0463

== ENCOUNTER 2021-07-21 11:42 | Observation (INO) | payer MEDICARE, SELFPAY ==
[2021-07-21] VITALS (8 sets, daily range): BP systolic 116–144; BP diastolic 56–82; PULSE 56–66; RESP 14–22; TEMP 36.4–36.8; O2SAT 98–100; BMI 33.5
--- NOTE | ~2021-07-21 | XR_ITS ---
EXAMINATION: XR chest 1V portable INDICATION: Weakness TECHNIQUE: Portable AP chest at 1213 hours COMPARISON: 01/05/2020 FINDINGS: The lungs are free of acute opacities. There is no pleural effusion or pneumothorax. The ca rdiomediastinal silhouette is normal. Healed left rib fractures are noted. IMPRESSION: 1. No acute cardiopulmonary abnormality. Reviewed, dictated and finalized at location A.
--- NOTE | ~2021-07-21 | CT_ITS ---
EXAMINATION: CT brain wo con INDICATION: Headache COMPARISON: 01/21/2021 TECHNIQUE: Standard unenhanced head CT. The dose-length product (DLP) was 605.33 mGy-cm. The mA was a djusted according to patient size. Iterative reconstruction technique was employed. FINDINGS: There is no acute intraparenchymal hemorrhage. No evidence of mass lesion. No evidence of a cute infarction. There is mild periventricular and subcortical hypodensity probably related to small vessel ischemic disease. There is mild prominence of the sulci and ventricles related to cerebral atr ophy. Intracranial calcified cerebral atherosclerosis is noted. There are no extra-axial collections. There is no mass effect or midline shift. The orbits and soft tissues are unremarkable. The visualiz ed sinuses and mastoid air cells are well aerated. IMPRESSION: 1. No acute intracranial abnormality. 2. Age related findings. Reviewed, dictated and finalized at location A.
--- NOTE | ~2021-07-21 | US_ITS ---
US renal BI DATE: 07/22/2021 09:25 INDICATION: Worsening renal function TECHNIQUE: Real-time imaging of kidneys and urinary bladder COMPARISON: 01/05/2020 CT abdomen pelvis FINDINGS: 4 she kidney is again noted. No renal mass lesion or hydronephrosis is detected. The urinary bladder is evacuated and not evaluated. IMPRESSION: Horseshoe kidney; no renal mass lesion or hydronephrosis Reviewed, dictated and finalized at Location A. Reviewed, dictated and finalized at location A.
--- NOTE | 2021-07-21 11:46 | ECG_ITS ---
Measurements Intervals [place] Rate: 57 P: 76 HI: 216 QRS: -13 QRSD: 93 T: 48 QT: 394 QTc: 385 Interpretive Statements SINUS BRADYCARDIA WITH FIRST DEGREE AV BLOCK DELAYED PRECORDIAL R/S TRANSITION CONSIDER INFERIOR INFARCT, AGE INDETERMINATE ABNORMAL ECG Electronically Signed On 07-21-2021 11:58:02 CDT by Grady Mirza D.O.
[2021-07-21 11:58] LABS: Basophils Percent Auto 0.2 % (0.2-1.2); Eosinophils Absolute Auto 0.2 K/mm3 (0-0.3); Eosinophils Percent Auto 2.2 % (0-4.4); Hematocrit 39.9 % (42.0-52.0); Hemoglobin 12.8 g/dL (14.0-18.0); Immature Granulocyte Absolute 0.04 K/mm3 (0.00-0.031); Immature Granulocyte Percent A 0.4 % (0-0.5); Lymphocytes Absolute Auto 1.96 K/mm3 (0.9-3.2); Lymphocytes Percent Auto 20.2 % (18.3-44.2); Mean Corpuscular HGB Conc 32.1 g/dl (32-36); Mean Corpuscular Hemoglobin 30.4 pg (26-34); Mean Corpuscular Volume 94.8 fl (80-100); Mean Platelet Volume 10.6 fl (7.4-10.4); Monocytes Percent Auto 9.9 % (2.6-8.5); Neutrophils Absolute Auto 6.5 K/mm3 (1.3-6.7); Neutrophils Percent Auto 67.1 % (45.5-73.1); Platelet Count Result 244 k/mm3 (150-375); Red Blood Count 4.21 M/mm3 (4.6-6.20); Red Cell Distribution Width 14.4 % (11.5-14.5); White Blood Count 9.7 K/mm3 (4.5-10.0)
[2021-07-21 12:08] LABS: INR 1.3
[2021-07-21 12:09] LABS: Partial Thromboplastin Time 32.8 SECONDS (22.3-36.8)
--- NOTE | 2021-07-21 12:13 | ED.GENADULT ---
HPI - General Adult General Chief complaint: Weakness Stated complaint: nausea, arm pain, abdominal pain Time Seen by Provider: 07/21/21 12:06 Source: RN notes reviewed History of Present Illness HPI narrative: Patient presents emergency department from home for headache and nausea. Patient states he woke up and felt fine this morning took all of his morning meds she is approximately 2 hours ago he states he was walking when he began to feel generalized headache and nausea he also states that at that time he checked his blood pressure and was 100/50 and he became very concerned and immediately came to the emergency department for further evaluation patient states he is feeling better at this time still has a mild headache denies any fevers or chills chest pain cough abdominal pain vomiting diarrhea or any other symptoms Related Data Home Medications Medication Instructions Recorded Confirmed amiodarone 200 mg tablet 200 mg PO QAM tablet 06/24/19 07/20/21 ferrous sulfate 325 mg (65 mg 325 mg PO DAILY 06/24/19 07/20/21 iron) tablet Eliquis 5 mg PO BID 01/22/21 07/20/21 Allergies Allergy/AdvReac Type Severity Reaction Status Date / Time hydrochlorothiazide AdvReac Mild headache Verified 07/21/21 12:02 [Zestoretic] Review of Systems Review of Systems: Gen.: Denies fevers or chills Eyes: Denies eye pain or visual change ENT: Denies congestion Respiratory: Denies shortness of breath or cough CV: Denies chest pain or palpitations GI: Denies abdominal pain emesis or diarrhea reports nausea Musculoskeletal: Denies back pain or muscle pain Neuro: See HPI Skin: Denies rash Except as documented, all other systems reviewed and negative [facility] Past Medical History Medical History Acute renal failure 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 Chronic pain syndrome Enterococcal bacteremia Gastro-esophageal reflux disease without esophagitis History of femur fracture Hyperlipidemia Hypertension Kidney stone Lactic acidosis Leukocytosis Lumbar spondylosis Obesity EMILI (obstructive sleep apnea) Paronychia Persistent atrial fibrillation Quadriceps tendon rupture Sepsis Severe sepsis Type 2 diabetes mellitus with hyperglycemia Surgical History Surgical History H/O arthroscopy of knee History of hip replacement History of knee replacement Family History Family History Father Diabetes mellitus, Onset Age: 66 Acute myocardial infarction, Onset Age: 66 Sibling Diabetes mellitus Family history of malignant neoplasm of breast in first degree relative Mother Family history of coronary artery disease, Onset Age: 95 Family history of congestive heart failure, Onset Age: 95 Social History Social History Second hand tobacco smoke exposure: No Alcohol intake: current Drinks per week: 2 Substance use: never Gender identity (if verbalized by the patient): Male Sexual Orientation (if Verbalized by the Patient): Straight or Heterosexual Spiritual care concerns: No Exam Narrative: APPEARANCE: No acute distress, nontoxic, resting in bed EYES: EOMI, PERRL HEENT: Normocephalic, atraumatic, OMM RESPIRATORY: No respiratory distress Clear to auscultation bilaterally with no rhonchi wheezing or rales. CARDIOVASCULAR: Regular rate and rhythm without murmurs rubs or gallops. ABDOMINAL: Soft, nontender, nondistended, no rebound or guarding MUSCULOSKELETAl: Moves all extremities. No clubbing, cyanosis or edema. NEURO: Awake and alert x 3. Following commands, speech normal, no focal deficits SKIN:: Warm, dry. No rashes lesions or abrasions PSYCHIATRIC: Normal affect/mood, Course Course Emergency Course: Discussed with ROSETTA Salgado for Dr Weber
[2021-07-21 12:14] LABS: Alanine Aminotransferase 40 U/L (6-50); Albumin Level 4.3 g/dL (3.5-5.1); Alkaline Phosphatase 93 U/L (38-126); Anion Gap 9 mmol/L (8-16); Aspartate Amino Transferase 42 U/L (17-59); Bilirubin,Total 0.3 mg/dL (0.2-1.3); Blood Urea Nitrogen 53 mg/dL (9-20); Calcium 8.3 mg/dL (8.4-10.2); Carbon Dioxide 22 mmol/L (22-30); Chloride 104 mmol/L (98-107); Estimated CRCL calculation 36 ml/min; Estimated Glomerular Filt Rate 33; Glucose 185 mg/dL (65-110); Lipase 123 U/L (23-300); Potassium 4.4 mmol/L (3.4-5.0); Sodium 135 mmol/L (137-145)
[2021-07-21 12:25] LABS: Troponin I < 0.012 ng/mL (0.000-0.034)
[2021-07-21] MEDS: SODIUM CHLORIDE 0.9% IV 1,000 ML 999 ML IV CONT (12:34)
[2021-07-21 13:33] LABS: Influenza A QL RT-PCR Negative (Negative); Influenza B QL RT-PCR Negative (Negative); SARS-CoV-2 RNA PCR Negative
[2021-07-21 14:06] LABS: Appearance Urine Clear (Clear); Bilirubin Urine Negative (Negative); Blood Urine 1+ (Negative); Color Urine Yellow (Yellow); Glucose Urine UA Negative (Negative); Ketones Urine Negative (Negative); Leukocyte Esterase Ur 2+ LEU/UL (Negative); Nitrate Urine Negative (Negative); Protein Urine Negative (Negative); Urobilinogen Urine 0.2 mg/dL (<2.0)
[2021-07-21 14:08] LABS: Add Urine Microscopic? YES
[2021-07-21 14:14] LABS: Bacteria Urine Trace /hpf; RBC Urine 0-2 /hpf (0-2); Squamous Epithelial Cell Urine Rare /hpf (Few); WBC Urine 21-30 /hpf
[2021-07-21 14:37] LABS: Lactic Acid Reflex 1.4 mmol/L (0.7-2.0)
[2021-07-21 15:20] LABS: Troponin I < 0.012 ng/mL (0.000-0.034)
--- NOTE | 2021-07-21 17:31 | PC.NURSE ---
report given to floor rn, room not clean at this time
[2021-07-21 18:23] LABS: Troponin I < 0.012 ng/mL (0.000-0.034)
--- NOTE | 2021-07-21 18:30 | PM.IMHP ---
H&P: HPI History of Present Illness Date/Time: 07/21/21 18:30 Chief Complaint: Weakness. Narrative: This is a pleasant 75-year-old male with paroxysmal atrial fibrillation, congestive heart failure, hypertension, sleep apnea, GERD, anemia, diabetes, and chronic kidney disease who presented to the emergency department for evaluation of generalized weakness. He was in his usual state of health yesterday has had routine appoint with his primary care provider. However when he got up this morning he reports feeling generally weak with a diffuse frontal headache, dry cough, nausea, and loose stools x2. When he stood up to go to the bathroom he felt lightheaded and dizzy at which time he took his blood pressure which was reportedly in the 90s over 50s (per patient report he is typically in the 130s to 140 systolic). He thought perhaps that his glucose was low so he went to the kitchen and had a cup of coffee and a cookie however he did not feel better and in fact he continued to feel worse. He then decided to come in for evaluation but not before a took his morning medications, including his antihypertensives. He did not take metformin however because it was discontinued recently due to increasing creatinine. On arrival to the ER his blood pressure was 116/56 and his BUN and creatinine were noted to be even higher than what they were last month. He was given IV fluids with improvement his blood pressures and the patient overall feels a lot better though he is being admitted overnight for continue judicious IV fluid rehydration. Review of Systems Review of Systems: Twelve systems were reviewed. No fever, chills, or sweats. No sick contacts. He denies chest pain and shortness of breath. No syncope or near syncope. He denies dysuria and hematuria. Believes he passed a kidney stone within the last couple of weeks. Reports increasing GERD symptoms recently. No dark stools. Recently taken off of metformin due to increasing creatinine as detailed above. Patient states his glucose is typically 130 or below in the mornings. No blurry vision, polydipsia, or polyuria. Except as documented, all other systems were reviewed and are negative. [facility] Past Medical History Medical History (Updated 07/21/21 @ 23:03 by Naomi Driscoll PA-C) 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 Chronic pain syndrome Enterococcal bacteremia Gastro-esophageal reflux disease without esophagitis History of femur fracture Hyperlipidemia Hypertension Kidney stone Lumbar spondylosis Obstructive sleep apnea Paroxysmal atrial fibrillation Quadriceps tendon rupture Type 2 diabetes mellitus Surgical History Surgical History (Updated 07/21/21 @ 22:59 by Naomi Driscoll PA-C) History of arthroplasty of left knee History of arthroscopic knee surgery History of tonsillectomy History of total left hip arthroplasty Family History Family History Father Diabetes mellitus, Onset Age: 66 Acute myocardial infarction, Onset Age: 66 Sibling Diabetes mellitus Family history of malignant neoplasm of breast in first degree relative Mother Family history of coronary artery disease, Onset Age: 95 Family history of congestive heart failure, Onset Age: 95 Social History Social History (Updated 07/21/21 @ 23:00 by Naomi Driscoll PA-C) Social History: Surrogate decision maker: Gloria Patrick, spouse. Code status: Full code. Smoking status: Never smoker Second hand tobacco smoke exposure: No Alcohol intake: current Drinks per week: 2 Substance use: never Living arrangements: with family Occupation/Education: retired Spiritual care concerns: Yes Meds Home Medications and Allergies Home Medications Medication Instructions Recorded Confirmed Type amiodarone 200 mg tablet 200 mg PO QAM tablet 06/24/19 07/21/21 History ferrous sulfate 325 mg (65 mg 3
[2021-07-21] MEDS: SODIUM CHLORIDE 0.9% IV 1,000 ML 100 ML IV CONT (18:31)
[2021-07-22] MEDS: SODIUM CHLORIDE 0.9% IV 1,000 ML 100 ML IV CONT (04:10)
[2021-07-22 05:38] VITALS: BP 127/67; PULSE 60; RESP 14; TEMP 36.7; O2SAT 97
[2021-07-22 06:46] LABS: Basophils Percent Auto 0.4 % (0.2-1.2); Eosinophils Absolute Auto 0.4 K/mm3 (0-0.3); Eosinophils Percent Auto 3.9 % (0-4.4); Hematocrit 38.6 % (42.0-52.0); Hemoglobin 12.3 g/dL (14.0-18.0); Immature Granulocyte Absolute 0.05 K/mm3 (0.00-0.031); Immature Granulocyte Percent A 0.5 % (0-0.5); Lymphocytes Absolute Auto 1.97 K/mm3 (0.9-3.2); Lymphocytes Percent Auto 20.5 % (18.3-44.2); Mean Corpuscular HGB Conc 31.9 g/dl (32-36); Mean Corpuscular Hemoglobin 29.6 pg (26-34); Mean Platelet Volume 10.3 fl (7.4-10.4); Monocytes Percent Auto 10.1 % (2.6-8.5); Neutrophils Absolute Auto 6.2 K/mm3 (1.3-6.7); Neutrophils Percent Auto 64.6 % (45.5-73.1); Platelet Count Result 231 k/mm3 (150-375); Red Blood Count 4.15 M/mm3 (4.6-6.20); Red Cell Distribution Width 14.3 % (11.5-14.5); White Blood Count 9.6 K/mm3 (4.5-10.0)
[2021-07-22 07:07] LABS: Alanine Aminotransferase 37 U/L (6-50); Albumin Level 3.8 g/dL (3.5-5.1); Alkaline Phosphatase 74 U/L (38-126); Anion Gap 8 mmol/L (8-16); Aspartate Amino Transferase 40 U/L (17-59); Bilirubin,Total 0.5 mg/dL (0.2-1.3); Blood Urea Nitrogen 40 mg/dL (9-20); CRP < 0.5 mg/dL (<1.0); Carbon Dioxide 21 mmol/L (22-30); Chloride 109 mmol/L (98-107); Estimated CRCL calculation 48 ml/min; Estimated Glomerular Filt Rate 49; Glucose 131 mg/dL (65-110); Magnesium 2.5 mg/dL (1.6-2.3); Potassium 4.4 mmol/L (3.4-5.0); Sodium 138 mmol/L (137-145)
[2021-07-22 08:02] LABS: Glucose Point of Care 130 mg/dl (65-105)
[2021-07-22 08:14] VITALS: PULSE 60
[2021-07-22] MEDS: FERROUS SULFATE 324 MG TABLET PO (08:14)
[2021-07-22] MEDS: AMIODARONE HCL 200 MG TABLET PO (08:14)
[2021-07-22] MEDS: SIMVASTATIN 10 MG TABLET PO (08:15)
[2021-07-22] MEDS: PANTOPRAZOLE 40 MG TABLET BY MOUTH (08:15)
[2021-07-22] MEDS: APIXABAN 5 MG TABLET PO ×2 (08:15→17:09)
[2021-07-22] MEDS: FINASTERIDE 5 MG TABLET BY MOUTH (08:15)
[2021-07-22] MEDS: TAMSULOSIN HCL 0.4 MG CAPSULE BY MOUTH (08:15)
--- NOTE | 2021-07-22 11:54 | PCCCNOTE ---
On 07/20/21, the student, [Elizabeth Bruce], provided care and completed [facility] documentation on this patient. I have reviewed the student's documentation and agree with the findings.
[2021-07-22 12:01] LABS: Glucose Point of Care 125 mg/dl (65-105)
[2021-07-22 14:22] VITALS: BP 156/73; PULSE 58; RESP 18; TEMP 36.4; O2SAT 98
--- NOTE | 2021-07-22 14:24 | PM.DS ---
DS: Admitting Diagnosis Discharge Date July 22, 2021 Admitting Diagnosis Acute kidney injury with UTI DS: Discharge Diagnosis Discharge Diagnosis (1) Generalized weakness: Code(s): R53.1 - Weakness Status: Acute Assessment and Plan: Etiology not entirely clear. No focal deficits noted on exam today. He has been afebrile and blood pressures have been stable. White blood cell count is well within normal limits. BUN and creatinine are elevated from baseline and this could be causing his weakness. He has also had a headache, nausea, dry cough, and loose stools which could be seen with viral illness however is bedside influenza and COVID test were negative today and chest x-ray was unremarkable. UA was abnormal with 1+ leukocyte esterase, trace bacteria, and 21 to 30 wbc's though he does not really have symptoms suggesting UTI. With IV fluids he has improved. (2) Acute on chronic renal failure: Code(s): N17.9 - Acute kidney failure, unspecified; N18.9 - Chronic kidney disease, unspecified Status: Acute Assessment and Plan: I am not certain why his renal function is worsening. He maintains that he has been eating and drinking as per usual and he denies vomiting and diarrhea. Bladder scan pending to rule out urinary retention. Avoid nephrotoxic agents for now. Renal ultrasound ordered for a.m.. In the interim we will continue judicious with close monitoring of volume status. (3) Type 2 diabetes mellitus: Code(s): E11.9 - Type 2 diabetes mellitus without complications Status: Acute Assessment and Plan: Metformin recently discontinued due to worsening renal function. His random glucose today was bit over 180 and it looks like his most recent A1c was 7.5%. Initiate sliding scale insulin, Accu-Cheks, and hypoglycemic protocol. (4) Paroxysmal atrial fibrillation: Code(s): I48.0 - Paroxysmal atrial fibrillation Status: Acute Assessment and Plan: Currently sounds to be in a sinus rhythm. Continue amiodarone and apixaban. (5) Abnormal urinalysis: Code(s): R82.90 - Unspecified abnormal findings in urine Status: Acute Assessment and Plan: He denies urinary symptoms but he does think that he passed a kidney stone last week. Given his history, will continue with ceftriaxone, pending urine culture. (6) Hypertension: Code(s): I10 - Essential (primary) hypertension Status: Acute Assessment and Plan: Blood pressures reportedly low at home however they have been stable since arrival to the ER. His antihypertensives will be reviewed and resumed as appropriate. DS: Summary Hospital Course Reason for hospitalization: Generalized weakness Hospital Course: 75-year-old male with past medical history significant for paroxysmal atrial fibrillation, heart failure, hypertension, sleep apnea, chronic kidney disease, diabetes, GERD and anemia presenting with generalized weakness. Patient states he got up and felt ill. He had a headache with some nausea and diarrhea. He denied chest pain or shortness of breath. He thinks his blood pressure was a little low states the systolic was in the 90s we took it at home it is usually in the 130s to 140s. He thought maybe he had low blood sugars that he ate a cookie but he did feel any better. In the ER, he was found to have acute kidney injury with an abnormal urinalysis concerning for UTI. He was started on Rocephin. Of note, he had urosepsis in January 2021 with a culture that showed Serratia sensitive to 3rd generation cephalosporins. While in the hospital, he was given IV fluids and Rocephin and continued on his home medications. All symptoms resolved. His creatinine trended back down to baseline. He was discharged in good condition to complete a ten-day course of cefdinir. Status at Discharge Functional status at discharge: independent ambulation Overall status at discharge: patient is back to [facility]
[2021-07-22 16:56] LABS: Glucose Point of Care 106 mg/dl (65-105)
== END 2021-07-22 17:50 | disposition home or self-care (01) ==
LOC: ANHED 15:40 → ANH2MED 17:21
PROVIDERS: Emergency Medicine; Physician Assistant; Admitting Provider Internal Medicine; Emergency Provider Emergency Medicine; PCP Family Medicine; Visit Provider Student in an Organized Health Care Education/Training Program
DX: N17.9 Acute kidney failure, unspecified (principal); R53.1 Weakness; R82.90 Unspecified abnormal findings in urine; I48.19 Other persistent atrial fibrillation; I12.9 Hypertensive chronic kidney disease with stage 1 through stage 4 chronic kidney disease, or unspecified chronic kidney disease; N18.9 Chronic kidney disease, unspecified; E11.22 Type 2 diabetes mellitus with diabetic chronic kidney disease; E78.5 Hyperlipidemia, unspecified; E66.9 Obesity, unspecified; K21.9 Gastro-esophageal reflux disease without esophagitis; M47.816 Spondylosis without myelopathy or radiculopathy, lumbar region; N40.0 Benign prostatic hyperplasia without lower urinary tract symptoms; G47.33 Obstructive sleep apnea (adult) (pediatric); B96.89 Other specified bacterial agents as the cause of diseases classified elsewhere; Z79.01 Long term (current) use of anticoagulants; Z20.822 Contact with and (suspected) exposure to COVID-19; Z96.659 Presence of unspecified artificial knee joint; Z96.649 Presence of unspecified artificial hip joint; Z87.442 Personal history of urinary calculi
CPT/HCPCS: 36415; 70450; 71045; 76775; 80053; 81001; 82948; 83605; 83690; 83735; 84443; 84484; 85025; 85610; 85730; 86140; 87040; 87077; 87086; 87186; 87502; 93005; 96361; 96365; 99285; A9270; C9803; G0378; J0696; J7030; U0003; U0005

== ENCOUNTER 2021-09-08 17:23 | Emergency (ER) | payer MEDICARE, SELFPAY ==
[2021-09-08] VITALS (9 sets, daily range): BP systolic 143–146; BP diastolic 72–77; PULSE 54–63; RESP 16–22; TEMP 37; O2SAT 95–98
--- NOTE | ~2021-09-08 | CT_ITS ---
EXAMINATION: CT brain wo con INDICATION: Head injury COMPARISON: 07/21/2021 TECHNIQUE: Standard unenhanced head CT. The dose-length product (DLP) was 605.33 mGy-cm. The mA was a djusted according to patient size. Iterative reconstruction technique was employed. FINDINGS: There is no acute intraparenchymal hemorrhage. No evidence of mass lesion. No evidence of a cute infarction. There is mild periventricular and subcortical hypodensity probably related to small vessel ischemic disease. There is mild prominence of the sulci and ventricles related to cerebral atr ophy. Intracranial calcified cerebral atherosclerosis is noted. There are no extra-axial collections. There is no mass effect or midline shift. The orbits and soft tissues are unremarkable. There is mil d mucosal thickening of the paranasal sinuses. IMPRESSION: 1. No acute intracranial abnormality. 2. Age related findings. Reviewed, dictated and finalized at location F.
--- NOTE | ~2021-09-08 | XR_ITS ---
EXAMINATION: XR shoulder RT min 2V INDICATION: Right shoulder pain TECHNIQUE: Four views of the right shoulder are submitted. COMPARISON: None FINDINGS: Normal alignment. No fracture. There is moderate osteoarthritis of the acromioclavicular an d glenohumeral joints. Soft tissues are unremarkable. IMPRESSION: 1. Osteoarthritis without acute osseous abnormality Reviewed, dictated and finalized at location F.
--- NOTE | ~2021-09-08 | XR_ITS ---
EXAMINATION: XR humerus RT INDICATION: Right arm pain TECHNIQUE: Two views of the right humerus are obtained on four radiographs. COMPARISON: None available FINDINGS: There is a large area of soft tissue swelling overlying the lateral half of the distal laurence sade. No acute underlying osseous abnormality is identified. Alignment at the shoulder and elbow is no rmal. IMPRESSION: 1. Large area of soft tissue swelling overlying the distal right humerus, likely hematoma. No underly ing osseous abnormality. Reviewed, dictated and finalized at location F. IMPRESSION: 1. Large area of soft tissue swelling overlying the distal right humerus, likel y hematoma. No underlying osseous abnormality.
--- NOTE | ~2021-09-08 | CT_ITS ---
EXAMINATION: CT chest abdomen pelvis w con DATE: 09/08/2021 18:31 INDICATION: Right-sided pain and bruising TECHNIQUE: Transaxial computed tomographic images of the chest, abdomen, and pelvis were obtained aft er the administration of 100 cc of Omnipaque 300 intravenous contrast. The dose-length product (DLP) was 1963.23 mGy-cm. Automated exposure control and iterative reconstruction technique were employed. COMPARISON: 01/05/2020 FINDINGS: CHEST CT: There are small pleural effusions. Dependent atelectasis is noted. There are acute, minimally displac ed fractures of the right third through 10th ribs. There is a minute right-sided pneumothorax. There are healed left-sided rib fractures. No pathologically enlarged thoracic lymph nodes are identified. The heart size is normal. Calcified coronary artery atherosclerosis is noted. There is moderate thora cic spondylosis. ABDOMEN/PELVIS CT: The liver, spleen, gallbladder, and adrenal glands are normal. An 8 mm cystic lesion in the head of t he pancreas is stable since 2019. A horseshoe kidney is noted. No pathologically enlarged abdominal o r pelvic lymph nodes are identified. There is no free intraperitoneal gas or evidence of bowel obstru ction. The appendix is normal. There are changes of left hip arthroplasty. There is severe lumbar spo ndylosis. IMPRESSION: 1. Acute fractures of the right third through 10th ribs. 2. Minute right-sided pneumothorax. [facility]. 3. No acute findings of the abdomen and pelvis. 4. 8 mm cystic lesion in the head of the pancreas. The differential diagnosis includes pseudocyst, in traductal papillary mucinous neoplasm (IPMN), mucinous cystic neoplasm (MCN), and the less common ser ous cystadenoma and neuroendocrine tumor. Correlate for history of pancreatitis. Follow-up pancreas protocol MRI in two years is recommended Reviewed, dictated and finalized at location F. IMPRESSION: 1. Acute fractures of the right third through 10th ribs. 2. Minute right-sided pneumothorax. The above findings were discussed with Valeria Wilhelm in the Emergency Department at 1856 hours on 09/08/2021. 3. No acute findings of the abdomen and pelvis. 4. 8 mm cystic lesion in the head of the pancreas. The differential diagnosis i ncludes pseudocyst, intraductal papillary mucinous neoplasm (IPMN), mucinous cy stic neoplasm (MCN), and the less common serous cystadenoma and neuroendocrine tumor. Correlate for history of pancreatitis. Follow-up pancreas protocol MRI in two years is recommended
--- NOTE | 2021-09-08 17:36 | ED.FALL ---
HPI - Fall General Chief Complaint: Fall Stated Complaint: fell down hill Time Seen by Provider: 09/08/21 17:31 Source: patient Mode of arrival: ambulatory Limitations: no limitations History of Present Illness HPI Narrative: Patient is a 76-year-old male who presents the ED with report of a fall. Patient reports he was mowing the lawn with a riding mainspring winder with a wagon attached just prior to arrival. He states he hit an embankment with the wagon which caused the mainspring winder to tip. The patient fell off sideways, hitting his right sided chest against a landscaping timber and the mainspring winder partially fell on top of him. He states he did not hit his head or lose consciousness. Patient is on Eliquis due to atrial fibrillation. He complains of severe pain to his right upper lateral ribs/chest wall, with trouble taking a deep breath due to the pain. Also reports right shoulder pain. Denies pain in hips or legs. Denies significant abdominal pain. He was able to ambulate after the fall. Patient takes [place] at home as needed for chronic pain. Related Data Home Medications Medication Instructions Recorded Confirmed amiodarone 200 mg tablet 200 mg PO QAM 06/24/19 07/28/21 ferrous sulfate 325 mg (65 mg 325 mg PO DAILY 06/24/19 07/28/21 iron) tablet apixaban 5 mg tablet (Eliquis) 5 mg PO BID 01/22/21 07/28/21 gabapentin 300 mg tablet 300 mg PO DAILY 09/08/21 hydrochlorothiazide 12.5 mg tablet 12.5 mg PO DAILY 09/08/21 metformin 500 mg tablet 500 mg PO DAILY 09/08/21 09/08/21 Allergies Allergy/AdvReac Type Severity Reaction Status Date / Time hydrochlorothiazide AdvReac Mild headache Verified 07/25/21 13:58 [Zestoretic] Review of Systems Review of Systems: CONSTITUTIONAL: Denies fever. EYES: Denies visual changes. CARDIOVASCULAR: Denies chest pain. RESPIRATORY: Reports difficulty taking deep breath d/t chest wall pain. GASTROINTESTINAL: Denies abdominal pain, nausea, vomiting. MUSCULOSKELETAL: Reports pain to R lateral ribs/chest wall, R shoulder. NEUROLOGIC: Denies HI, LOC, headache, numbness, or weakness. All systems reviewed & are unremarkable except as noted in HPI and below PMFSH Past Medical History Medical History 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 Chronic pain syndrome Enterococcal bacteremia Gastro-esophageal reflux disease without esophagitis History of femur fracture Hyperlipidemia Hypertension Kidney stone Lumbar spondylosis Obstructive sleep apnea Paroxysmal atrial fibrillation Quadriceps tendon rupture Type 2 diabetes mellitus Surgical History Surgical History History of arthroplasty of left knee History of arthroscopic knee surgery History of tonsillectomy History of total left hip arthroplasty Family History Family History Father Diabetes mellitus, Onset Age: 66 Acute myocardial infarction, Onset Age: 66 Sibling Diabetes mellitus Family history of malignant neoplasm of breast in first degree relative Mother Family history of coronary artery disease, Onset Age: 95 Family history of congestive heart failure, Onset Age: 95 Social History Social History Social History: Surrogate decision maker: Gloria Baindexterjordonivan, spouse. Code status: Full code. Second hand tobacco smoke exposure: No Alcohol intake: current Drinks per week: 2 Substance use: never Spiritual care concerns: Yes Exam Narrative: GENERAL: Well appearing, well-nourished, non-toxic, in moderate acute distress. HEAD: Normocephalic, atraumatic. EYES: PERRL/EOMI, conjunctivae clear bilaterally. NECK: Supple. No adenopathy, no masses. RESPIRATORY: Airway patent, respirations nonlabored. Clear to auscultation bilaterally, no rales, rhonchi, wheez
[2021-09-08] MEDS: MORPHINE SULFATE (*CRX) 4 MG/ML INJ IV PUSH ×3 (17:51→22:12)
[2021-09-08] MEDS: ONDANSETRON INJ 4 MG/2 ML VIAL IV PUSH (17:52)
[2021-09-08 18:00] LABS: Basophils Percent Auto 0.3 % (0.2-1.2); Eosinophils Absolute Auto 0.4 K/mm3 (0-0.3); Eosinophils Percent Auto 2.6 % (0-4.4); Hematocrit 42.2 % (42.0-52.0); Hemoglobin 13.2 g/dL (14.0-18.0); Immature Granulocyte Percent A 1.5 % (0-0.5); Lymphocytes Absolute Auto 3.77 K/mm3 (0.9-3.2); Lymphocytes Percent Auto 28.5 % (18.3-44.2); Mean Corpuscular HGB Conc 31.3 g/dl (32-36); Mean Corpuscular Hemoglobin 29.7 pg (26-34); Mean Platelet Volume 10.6 fl (7.4-10.4); Monocytes Absolute Auto 1.3 K/mm3 (0.1-0.6); Monocytes Percent Auto 9.4 % (2.6-8.5); Neutrophils Absolute Auto 7.6 K/mm3 (1.3-6.7); Neutrophils Percent Auto 57.7 % (45.5-73.1); Platelet Count Result 239 k/mm3 (150-375); Red Blood Count 4.44 M/mm3 (4.6-6.20); Red Cell Distribution Width 14.5 % (11.5-14.5); White Blood Count 13.2 K/mm3 (4.5-10.0)
[2021-09-08 18:11] LABS: Alanine Aminotransferase 87 U/L (6-50); Albumin Level 4.5 g/dL (3.5-5.1); Alkaline Phosphatase 86 U/L (38-126); Anion Gap 10 mmol/L (8-16); Aspartate Amino Transferase 128 U/L (17-59); Bilirubin,Total 0.5 mg/dL (0.2-1.3); Blood Urea Nitrogen 43 mg/dL (9-20); Calcium 8.5 mg/dL (8.4-10.2); Carbon Dioxide 23 mmol/L (22-30); Chloride 108 mmol/L (98-107); Estimated CRCL calculation 32 ml/min; Estimated Glomerular Filt Rate 31; Glucose 150 mg/dL (65-110); Potassium 4.4 mmol/L (3.4-5.0); Sodium 141 mmol/L (137-145)
--- NOTE | 2021-09-08 18:39 | ECG_ITS ---
Measurements Intervals [place] Rate: 62 P: 55 [place]: 217 QRS: -5 QRSD: 91 T: 29 QT: 393 QTc: 400 Interpretive Statements SINUS RHYTHM WITH FIRST DEGREE AV BLOCK CONSIDER INFERIOR INFARCT, AGE INDETERMINATE ABNORMAL ECG Electronically Signed On 09-08-2021 20:00:50 CDT by Grady Mirza D.O.
[2021-09-08] MEDS: SODIUM CHLORIDE 0.9% IV 500 ML 999 ML IV CONT (19:19)
[2021-09-08 20:06] LABS: Appearance Urine Clear (Clear); Bilirubin Urine Negative (Negative); Blood Urine 1+ (Negative); Color Urine Yellow (Yellow); Glucose Urine UA Negative (Negative); Ketones Urine Negative (Negative); Leukocyte Esterase Ur 3+ LEU/UL (Negative); Nitrate Urine Negative (Negative); Protein Urine Negative (Negative); Urobilinogen Urine 0.2 mg/dL (<2.0)
[2021-09-08 20:18] LABS: Bacteria Urine Trace /hpf; Mucus Urine Rare /lpf; WBC Urine >75 /hpf
[2021-09-08 20:34] LABS: Add Urine Microscopic? YES
== END 2021-09-08 22:22 | disposition short-term general hospital (02) ==
PROVIDERS: Physician Assistant; Emergency Provider Emergency Medicine; PCP Family Medicine
DX: J93.9 Pneumothorax, unspecified (principal); S22.41XA Multiple fractures of ribs, right side, initial encounter for closed fracture; N39.0 Urinary tract infection, site not specified; I10 Essential (primary) hypertension; E78.5 Hyperlipidemia, unspecified; I48.0 Paroxysmal atrial fibrillation; E11.9 Type 2 diabetes mellitus without complications; W30.89XA Contact with other specified agricultural machinery, initial encounter
CPT/HCPCS: 36415; 70450; 71260; 73030; 73060; 74177; 80053; 81001; 85025; 87086; 87088; 93005; 96361; 96365; 96375; 96376; 99285; J0696; J2270; J2405; J7040; Q9967

== ENCOUNTER 2022-05-03 15:58 | Emergency (ER) | payer MEDICARE, SELFPAY ==
--- NOTE | ~2022-05-03 | XR_ITS ---
EXAMINATION: XR chest 2V DATE: 05/03/2022 17:15 INDICATION: Shortness of breath and chest pain. TECHNIQUE: Frontal and lateral views of the chest were obtained. COMPARISON: Chest single view 07/21/2021, chest CT 09/08/2021 FINDINGS: There is mild atelectasis in right midlung zone. Right-sided pleural thickening is noted. N o pleural effusion or pneumothorax. The heart size is normal. There is mild chronic anterior wedging of multiple midthoracic vertebral bodies. There are multiple old healed bilateral rib fractures. IMPRESSION: 1. Mild atelectasis in right midlung zone. Reviewed, dictated and finalized at location A. 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
[2022-05-03 16:39] VITALS: BP 162/82; PULSE 77; RESP 16; TEMP 36.6; O2SAT 98
--- NOTE | 2022-05-03 16:47 | ECG_ITS ---
Measurements Intervals [place] Rate: 72 P: 64 [place]: 191 QRS: -22 QRSD: 88 T: 28 QT: 371 QTc: 407 Interpretive Statements SINUS RHYTHM ANTERIOR MYOCARDIAL INFARCTION , PROBABLY OLD [40+ ms Q WAVE AND/OR ST/T ABNORMALITY IN V3/V4] INFERIOR MYOCARDIAL INFARCTION , PROBABLY OLD [40+ ms Q WAVE AND/OR ST/T ABNORMALITY IN II/aVF] COMPARED TO ECG 09/08/2021 19:22:46 LOSS OF PRECORDIAL R-WAVE VOLTAGE IS NOTED Electronically Signed On 05-04-2022 15:07:05 [employer]E WORKER by Devin Villanueva M.D.
[2022-05-03 17:17] LABS: Basophils Percent Auto 0.2 % (0.2-1.2); Eosinophils Absolute Auto 0.1 K/mm3 (0-0.3); Eosinophils Percent Auto 1.3 % (0-4.4); Hematocrit 43.5 % (42.0-52.0); Immature Granulocyte Absolute 0.03 K/mm3 (0.00-0.031); Immature Granulocyte Percent A 0.3 % (0-0.5); Lymphocytes Absolute Auto 1.18 K/mm3 (0.9-3.2); Lymphocytes Percent Auto 12.6 % (18.3-44.2); Mean Corpuscular HGB Conc 32.2 g/dl (32-36); Mean Corpuscular Volume 93.1 fl (80-100); Mean Platelet Volume 10.2 fl (7.4-10.4); Monocytes Absolute Auto 0.9 K/mm3 (0.1-0.6); Monocytes Percent Auto 9.5 % (2.6-8.5); Neutrophils Absolute Auto 7.1 K/mm3 (1.3-6.7); Neutrophils Percent Auto 76.1 % (45.5-73.1); Platelet Count Result 243 k/mm3 (150-375); Red Blood Count 4.67 M/mm3 (4.6-6.20); Red Cell Distribution Width 15.3 % (11.5-14.5); White Blood Count 9.4 K/mm3 (4.5-10.0)
[2022-05-03 17:25] LABS: Alanine Aminotransferase 33 U/L (6-50); Albumin Level 4.3 g/dL (3.5-5.1); Alkaline Phosphatase 97 U/L (38-126); Anion Gap 4 mmol/L (8-16); Aspartate Amino Transferase 32 U/L (17-59); Bilirubin,Total 0.6 mg/dL (0.2-1.3); Blood Urea Nitrogen 20 mg/dL (9-20); Calcium 8.7 mg/dL (8.4-10.2); Carbon Dioxide 27 mmol/L (22-30); Chloride 105 mmol/L (98-107); Estimated CRCL calculation 64 ml/min; Estimated Glomerular Filt Rate > 60; Glucose 114 mg/dL (65-110); Lipase 49 U/L (23-300); Potassium 3.9 mmol/L (3.4-5.0); Sodium 136 mmol/L (137-145)
[2022-05-03 17:28] LABS: INR 1.1; Prothrombin Time 13.8 Seconds (11.1-14.7)
[2022-05-03 17:29] LABS: Partial Thromboplastin Time 31.5 SECONDS (22.3-36.8)
[2022-05-03 17:40] LABS: Troponin I < 0.012 ng/mL (0.000-0.034)
[2022-05-03 19:39] VITALS: BP 158/86; PULSE 69; RESP 18; O2SAT 98
[2022-05-03 20:43] LABS: Troponin I < 0.012 ng/mL (0.000-0.034)
[2022-05-03 22:00] VITALS: BP 151/66
--- NOTE | 2022-05-03 22:13 | ED.RECABL ---
HPI - Recheck/Abnormal Lab/Rx General Chief Complaint: Recheck/Abnormal Lab/Rx Stated Complaint: htn Time Seen by Provider: 05/03/22 21:59 History of Present Illness HPI narrative: Patient is a 76-year-old male with a history of hypertension here for evaluation of elevated blood pressure readings at home today. Patient states he checks his blood pressure daily and usually runs in the 130s 140s systolic. Today he noticed that his systolic blood pressure was in the 160s which is abnormal for him, prompting his ED evaluation. He has been compliant with his antihypertensives which include lisinopril and hydrochlorothiazide. He denies any unilateral weakness, visual changes, headaches, slurred speech, facial droop, chest pain. he states that he has chronic acid reflux which he takes pantoprazole, is still having an burning sensation in his esophagus today. No nausea, vomiting, fevers or chills. BP upon time of my evaluation is 151/66. Related Data Home Medications Medication Instructions Recorded Confirmed amiodarone 200 mg tablet 200 mg PO QAM 06/24/19 03/15/22 ferrous sulfate 325 mg (65 mg 325 mg PO DAILY 06/24/19 03/15/22 iron) tablet hydrochlorothiazide 12.5 mg tablet 12.5 mg PO DAILY 09/08/21 03/15/22 apixaban 5 mg tablet (Eliquis) 5 mg PO BID 03/15/22 03/15/22 finasteride 5 mg tablet 5 mg PO DAILY 03/15/22 03/15/22 lisinopril 20 mg tablet 20 mg PO DAILY 03/15/22 03/15/22 pantoprazole 40 mg tablet,delayed 40 mg PO DAILY 03/15/22 03/15/22 release simvastatin 10 mg tablet 10 mg PO DAILY 03/15/22 03/15/22 tamsulosin 0.4 mg capsule 0.4 mg PO DAILY 03/15/22 03/15/22 Allergies Allergy/AdvReac Type Severity Reaction Status Date / Time gabapentin AdvReac Intermediate Unverified 05/03/22 16:49 Review of Systems Review of Systems: Gen.: Denies fevers or chills Eyes: Denies eye pain or visual change ENT: Denies congestion Respiratory: Denies shortness of breath or cough CV: Denies chest pain or palpitations GI: Denies abdominal pain nausea, emesis or diarrhea : denies burning, urgency, frequency or hematuria Musculoskeletal: Denies back pain or muscle pain Neuro: Denies numbness, tingling, weakness or focal weakness Skin: Denies rash Except as documented, all other systems reviewed and negative [facility] Past Medical History Medical History 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 Chronic pain syndrome Enterococcal bacteremia Gastro-esophageal reflux disease without esophagitis History of femur fracture Hyperlipidemia Hypertension Kidney stone Lumbar spondylosis Obstructive sleep apnea Paroxysmal atrial fibrillation Quadriceps tendon rupture Type 2 diabetes mellitus Surgical History Surgical History History of arthroplasty of left knee History of arthroscopic knee surgery History of tonsillectomy History of total left hip arthroplasty Family History Family History Father Diabetes mellitus, Onset Age: 66 Acute myocardial infarction, Onset Age: 66 Sibling Diabetes mellitus Family history of malignant neoplasm of breast in first degree relative Mother Family history of coronary artery disease, Onset Age: 95 Family history of congestive heart failure, Onset Age: 95 Social History Social History (Updated 03/15/22 @ 09:30 by Aminah Lancaster MA) Social History: Surrogate decision maker: Gloria Patrick, spouse. Code status: Full code. Caffeine-none Smoking status: Never smoker Second hand tobacco smoke exposure: No Alcohol intake: current Drinks per week: 2 Alcohol use details: occasionally-beer Substance use: never Lack of Transportation: YES Lack of Food: Never True Current Housing: I Have Housing Concerned About Future Housing: No Difficulty Paying
[2022-05-03 23:43] VITALS: BP 155/69; PULSE 74; RESP 18; TEMP 36.6; O2SAT 99
== END 2022-05-03 23:44 | disposition home or self-care (01) ==
PROVIDERS: Emergency Medicine; Emergency Provider Physician Assistant; PCP Family Medicine
DX: I10 Essential (primary) hypertension (principal); I48.0 Paroxysmal atrial fibrillation; E11.9 Type 2 diabetes mellitus without complications; E78.5 Hyperlipidemia, unspecified; N40.0 Benign prostatic hyperplasia without lower urinary tract symptoms; K21.9 Gastro-esophageal reflux disease without esophagitis; G47.33 Obstructive sleep apnea (adult) (pediatric); G89.4 Chronic pain syndrome; Z87.442 Personal history of urinary calculi; Z79.01 Long term (current) use of anticoagulants; Z96.652 Presence of left artificial knee joint; Z96.642 Presence of left artificial hip joint
CPT/HCPCS: 36415; 71046; 80053; 83690; 84484; 85025; 85610; 85730; 93005; 99284; A9270

== ENCOUNTER → 2022-11-07 09:56 | Outpatient (CLI) | payer MEDICARE, SELFPAY ==
--- NOTE | ~2022-11-07 | XR_ITS ---
Left foot Technique: AP and lateral views were obtained. Clinical History: Injury Findings: No acute fracture or dislocation is seen. Osseous alignment is anatomic. Joint spaces are p reserved without erosive or degenerative change. Soft tissues are unremarkable. Impression: No fracture or dislocation seen. Reviewed, dictated and finalized at location . Impression: No fracture or dislocation seen.
== END ==
PROVIDERS: PCP Family Medicine; Visit Provider Nurse Practitioner Family
DX: S99.922A Unspecified injury of left foot, initial encounter (principal); X58.XXXA Exposure to other specified factors, initial encounter
CPT/HCPCS: 73620

== ENCOUNTER 2023-04-25 10:20 | Outpatient (CLI) | payer MEDICARE, SELFPAY ==
[2023-04-25 18:33] LABS: Kit Draw Collected
== END 2023-04-25 10:21 | disposition home or self-care (01) ==
LOC: ANHGOSHLAB 10:22
PROVIDERS: PCP Family Medicine; Visit Provider Family Medicine
DX: E11.9 Type 2 diabetes mellitus without complications (principal); E78.2 Mixed hyperlipidemia
CPT/HCPCS: 36415

== ENCOUNTER 2023-05-17 16:46 | Emergency (ER) | payer MEDICARE, SELFPAY ==
[2023-05-17 17:04] VITALS: BP 100/48; PULSE 86; RESP 16; TEMP 36.6; O2SAT 97
--- NOTE | 2023-05-17 17:04 | ECG_ITS ---
Measurements Intervals [place] Rate: 80 P: 55 IN: 198 QRS: 2 QRSD: 108 T: 33 QT: 362 QTc: 419 Interpretive Statements SINUS RHYTHM ATRIAL PREMATURE COMPLEX DELAYED PRECORDIAL R/S TRANSITION CONSIDER INFERIOR INFARCT, AGE INDETERMINATE BASELINE ARTIFACT- I, III, AVR, AVL, AVF ABNORMAL ECG COMPARED TO ECG 05/03/2022 17:00:55 NO SIGNIFICANT CHANGES Electronically Signed On 05-20-2023 13:13:18 CDT by Grady Mirza D.O.
--- NOTE | 2023-05-17 17:06 | ED.GENADULT ---
HPI - General Adult General Chief complaint: Dizziness Stated complaint: WEAKNESS/DIZZY/UPSET STOMACH/DIARRHEA Time Seen by Provider: 05/17/23 16:58 Source: patient, RN notes reviewed and old records reviewed Mode of arrival: ambulatory Limitations: no limitations History of Present Illness HPI narrative: 77-year-old male presents to the [facility] with complaints of 3 days of generalized weakness, dizziness, abdominal pain and diarrhea. Patient states he has been incontinent of diarrhea, having to wear depends. Patient has a history of a colon resection, AFib, diabetes, hypertension, GERD Patient looks acutely ill, pale in appearance. Onset (ago): day(s) (2-3) Related Data Home Medications Medication Instructions Recorded Confirmed amiodarone 200 mg tablet 200 mg PO QAM 06/24/19 05/17/23 ferrous sulfate 325 mg (65 mg 325 mg PO DAILY 06/24/19 05/17/23 iron) tablet hydrochlorothiazide 12.5 mg tablet 12.5 mg PO DAILY 09/08/21 05/17/23 Allergies Allergy/AdvReac Type Severity Reaction Status Date / Time gabapentin AdvReac Intermediate Unknown Verified 05/17/23 17:04 Review of Systems Review of Systems: All systems reviewed & are unremarkable except as noted in HPI and below Constitutional: Constitutional: Reports as per HPI, Reports body ache(s), Reports fatigue, Reports lethargy and Reports weakness Eyes: Eyes: Reports no additional eye complaints ENT: Reports system reviewed and no additional complaints, except as documented Cardiovascular: Cardiovascular: Reports no additional cardiovascular complaints, Denies chest pain and Denies dyspnea Respiratory: Respiratory: Reports no additional respiratory complaints, Denies chest congestion, Denies cough and Denies dyspnea Gastrointestinal: Gastrointestinal: Reports as per HPI, Reports abdominal pain, Reports diarrhea, Reports nausea and Denies vomiting Musculoskeletal: Musculoskeletal: Reports no additional musculoskeletal complaints Integumentary/Breasts: Skin/Breast: Reports system reviewed and no additional complaints, except as docu Neurologic: Reports as per HPI and Reports dizziness Psychiatric: Psychiatric: Reports no additional psychiatric complaints Allergic/Immunologic: Allergic/Immunologic: Reports no additional allergic/immunologic complaints [facility] Past Medical History Medical History 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 Chronic pain syndrome Enterococcal bacteremia Gastro-esophageal reflux disease without esophagitis History of femur fracture Hyperlipidemia Hypertension Kidney stone Lumbar spondylosis Obstructive sleep apnea Paroxysmal atrial fibrillation Quadriceps tendon rupture Type 2 diabetes mellitus Surgical History Surgical History History of arthroplasty of left knee History of arthroscopic knee surgery History of tonsillectomy History of total left hip arthroplasty Family History Family History Father Diabetes mellitus, Onset Age: 66 Acute myocardial infarction, Onset Age: 66 Sibling Diabetes mellitus Family history of malignant neoplasm of breast in first degree relative Mother Family history of coronary artery disease, Onset Age: 95 Family history of congestive heart failure, Onset Age: 95 Social History Social History Social History: Surrogate decision maker: Gloria Patrick, spouse. Code status: Full code. Caffeine-none Smoking status: Never smoker Second hand tobacco smoke exposure: No Alcohol intake: current Drinks per week: 2 Alcohol use details: occasionally-beer Substance use: never Lack of Transportation: YES Lack of Food: Never True Current Housing: I Have Housing Concerned About Future Housing: No Difficult
[2023-05-17 17:07] LABS: Glucose Point of Care 143 mg/dl (65-105)
[2023-05-17 17:15] VITALS: BP 133/68; PULSE 75; RESP 18; O2SAT 96
[2023-05-17 17:16] VITALS: BP 133/68; PULSE 79; RESP 18; TEMP 36.8; O2SAT 95
== END 2023-05-17 17:24 | disposition short-term general hospital (02) ==
PROVIDERS: Emergency Provider Nurse Practitioner Family; PCP Family Medicine
DX: R10.84 Generalized abdominal pain (principal); R53.1 Weakness; R42 Dizziness and giddiness; E11.9 Type 2 diabetes mellitus without complications; I10 Essential (primary) hypertension; I48.0 Paroxysmal atrial fibrillation
CPT/HCPCS: 82948; 93005; 99215; G0463

== ENCOUNTER 2023-05-17 17:53 | Emergency (ER) | payer MEDICARE, SELFPAY ==
--- NOTE | ~2023-05-17 | XR_ITS ---
EXAMINATION: XR chest 2V DATE: 05/17/2023 18:53 INDICATION: Weakness. TECHNIQUE: Frontal and lateral views of the chest were obtained. COMPARISON: Chest 2 views 05/03/2022 FINDINGS: There is mild atelectasis in right mid and lower lung zones. No pleural effusion or pneumot horax. The heart size is normal. There are old healed rib fractures bilaterally. IMPRESSION: 1. Mild atelectasis in right mid and lower lung zones. Reviewed, dictated and finalized at location E. 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
--- NOTE | ~2023-05-17 | CT_ITS ---
EXAMINATION: CT abdomen pelvis w con DATE: 05/17/2023 19:41 INDICATION: Abdominal pain. Diarrhea. TECHNIQUE: Computed tomography (CT) of the abdomen and pelvis was performed with 100 mL Omnipaque 350 intravenous contrast. Automated exposure control and iterative reconstruction technique were employe d. The dose-length product was 872.87 mGy-cm. COMPARISON: CT abdomen and pelvis 09/08/2021 FINDINGS: The visualized portions of the lung bases demonstrate mild atelectasis. A calcified left marcelo ng nodule and calcified mediastinal lymph nodes are consistent with old granulomatous disease. There is a trace right pleural effusion with right-sided pleural thickening. There are old healed right rib fractures. The heart size is normal. There are coronary artery calcifications. No pericardial effusi on. The liver is normal. There is a 7 mm hyperdense mass in the spleen, likely benign. There is a chr onic 13 mm cyst in the pancreas, likely benign. The adrenal glands are normal. 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 There is a 5 mm cyst in right k idney. There is a 2 mm stone in left kidney. The prostate is mildly enlarged. There is a left inguina l hernia containing fat. There is liquid stool in the colon correlating with the symptom of diarrhea. There are changes of right hemicolectomy. There are no pathologically enlarged lymph nodes. There is calcified atherosclerosis of the aorta and many of the other arteries. There is small ventral hernia s containing fat. There is a bipolar left hip hemiarthroplasty. There are old healed fractures of the superior and inferior pubic rami. There is lumbar dextroscoliosis and severe spondylosis. IMPRESSION: 1. Small ventral hernias containing fat. 2. Left inguinal hernia containing fat. Reviewed, dictated and finalized at location E. TER
--- NOTE | 2023-05-17 17:57 | ECG_ITS ---
Measurements Intervals [place] Rate: 72 P: 33 ND: 202 QRS: 3 QRSD: 100 T: 38 QT: 366 QTc: 402 Interpretive Statements SINUS RHYTHM DELAYED PRECORDIAL R/S TRANSITION CONSIDER INFERIOR INFARCT, AGE INDETERMINATE ABNORMAL ECG COMPARED TO ECG 05/17/2023 17:02:15 NO SIGNIFICANT CHANGES Electronically Signed On 05-21-2023 12:50:18 CDT by Grady Mirza D.O.
[2023-05-17 18:15] VITALS: BP 123/70; PULSE 78; RESP 16; O2SAT 98
[2023-05-17 18:19] LABS: Basophils Percent Auto 0.2 % (0.2-1.2); Hematocrit 44.5 % (42.0-52.0); Immature Granulocyte Absolute 0.04 K/mm3 (0.00-0.031); Immature Granulocyte Percent A 0.3 % (0-0.5); Lymphocytes Absolute Auto 1.18 K/mm3 (0.9-3.2); Lymphocytes Percent Auto 9.1 % (18.3-44.2); Mean Corpuscular HGB Conc 31.5 g/dl (32-36); Mean Corpuscular Hemoglobin 29.9 pg (26-34); Mean Corpuscular Volume 94.9 fl (80-100); Mean Platelet Volume 10.5 fl (7.4-10.4); Monocytes Absolute Auto 1.1 K/mm3 (0.1-0.6); Monocytes Percent Auto 8.3 % (2.6-8.5); Neutrophils Absolute Auto 10.6 K/mm3 (1.3-6.7); Neutrophils Percent Auto 82.1 % (45.5-73.1); Platelet Count Result 180 k/mm3 (150-375); Red Blood Count 4.69 M/mm3 (4.6-6.20); Red Cell Distribution Width 14.8 % (11.5-14.5)
[2023-05-17 18:28] LABS: Alanine Aminotransferase 35 U/L (6-50); Albumin Level 4.1 g/dL (3.5-5.1); Alkaline Phosphatase 59 U/L (38-126); Anion Gap 11 mmol/L (8-16); Aspartate Amino Transferase 31 U/L (17-59); Bilirubin,Total 0.5 mg/dL (0.2-1.3); Blood Urea Nitrogen 38 mg/dL (9-20); Calcium 8.8 mg/dL (8.4-10.2); Carbon Dioxide 15 mmol/L (22-30); Chloride 113 mmol/L (98-107); Estimated CRCL calculation 32 ml/min; Estimated Glomerular Filt Rate 32; Glucose 146 mg/dL (65-110); Potassium 4.1 mmol/L (3.4-5.0); Sodium 139 mmol/L (137-145)
--- NOTE | 2023-05-17 18:32 | ED.WEAKNESS ---
HPI - Weakness General Chief complaint: Weakness Stated complaint: weakness, diarrhea x days Time Seen by Provider: 05/17/23 18:29 Source: patient and family () Mode of arrival: ambulatory Limitations: no limitations History of Present Illness HPI Narrative: Patient presents with generalized weakness and diarrhea 4 days duration. He notes that his stool has been runny, initially brown and turning he darker brown/black and green. Stool has been watery. He denies any fevers. has had a headache and kids have had sore throats but otherwise not similar symptoms. He has been nauseated but denies any vomiting. He was recently restarted on metformin after being diagnosed with prediabetes. This is a medication that he previously took but then was taken off of. He is complaining of abdominal pain with this. He has a history of a bowel resection September 11, [address] [facility]. This was secondary to appears to have been obstruction secondary to opiates which he was taking due to 8 broken ribs leading up to they event. He still occasionally follows up with his surgeon but did not require a colostomy. The course was complicated by infection and lung issues and he spent 27 days in the hospital. Related Data Home Medications Medication Instructions Recorded Confirmed amiodarone 200 mg tablet 200 mg PO QAM 06/24/19 05/17/23 ferrous sulfate 325 mg (65 mg 325 mg PO DAILY 06/24/19 05/17/23 iron) tablet hydrochlorothiazide 12.5 mg tablet 12.5 mg PO DAILY 09/08/21 05/17/23 Allergies Allergy/AdvReac Type Severity Reaction Status Date / Time gabapentin AdvReac Intermediate Unknown Verified 05/17/23 17:04 [facility] Past Medical History Medical History (Updated 05/17/23 @ 23:02 by Angie Laureano MD) 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 Chronic pain syndrome Enterococcal bacteremia Gastro-esophageal reflux disease without esophagitis History of femur fracture Hyperlipidemia Hypertension Kidney stone Lumbar spondylosis Multiple rib fractures Obstructive sleep apnea Paroxysmal atrial fibrillation Prediabetes Quadriceps tendon rupture Type 2 diabetes mellitus Surgical History Surgical History (Updated 05/17/23 @ 22:57 by Angie Laureano MD) History of arthroplasty of left knee History of arthroscopic knee surgery History of bowel resection 09/11/2021 ([facility]) History of laparotomy 09/11/2021 ([facility]) History of tonsillectomy History of total left hip arthroplasty Family History Family History Father Diabetes mellitus, Onset Age: 66 Acute myocardial infarction, Onset Age: 66 Sibling Diabetes mellitus Family history of malignant neoplasm of breast in first degree relative Mother Family history of coronary artery disease, Onset Age: 95 Family history of congestive heart failure, Onset Age: 95 Social History Social History Social History: Surrogate decision maker: Gloria Patrick, spouse. Code status: Full code. Caffeine-none Smoking status: Never smoker Second hand tobacco smoke exposure: No Alcohol intake: current Drinks per week: 2 Alcohol use details: occasionally-beer Substance use: never Lack of Transportation: YES Lack of Food: Never True Current Housing: I Have Housing Concerned About Future Housing: No Difficulty Paying Gas/Electric Bills: No Difficulty Paying for Meds: No Currently Unemployed: No Education: Trade/Vocational Certificate Difficulty w/ Childcare or Family Care: No Living arrangements: with family Occupation/Education: retired Spiritual care concerns: Yes Exam Narrative: GENERAL: Well-appearing, well-nourished, and in no acute distress. HEAD: Normocephalic, atraumatic. EYES: Non injected, non icteric ENT: Nares clear, no rhinorrhea or epistaxis
[2023-05-17 18:39] LABS: Troponin I < 0.012 ng/mL (0.000-0.034)
[2023-05-17 18:49] LABS: Lipase 29 U/L (23-300)
[2023-05-17 18:54] LABS: Influenza A QL RT-PCR Negative (Negative); Influenza B QL RT-PCR Negative (Negative); RSV RNA, RT-PCR Negative (Negative); SARS-CoV-2 RNA PCR Negative (Negative)
[2023-05-17] MEDS: ONDANSETRON INJ 4 MG/2 ML VIAL IV PUSH (19:18)
[2023-05-17 19:25] VITALS: BP 110/59; PULSE 68; RESP 15; TEMP 36.9; O2SAT 96
[2023-05-17 19:42] LABS: Appearance Urine Cloudy (Clear); Bacteria Urine None Seen /hpf; Bilirubin Urine Negative (Negative); Blood Urine 1+ (Negative); Color Urine Yellow (Yellow); Glucose Urine UA Negative (Negative); Hyaline Casts Urine Present /lpf; Ketones Urine Negative (Negative); Leukocyte Esterase Ur Negative LEU/UL (Negative); Nitrate Urine Negative (Negative); Non Pathogenic Casts >20; Protein Urine 1+ mg/dL (Negative); Specific Grav Ur 1.019 (1.001-1.035); Squamous Epithelial Cell Urine Occasional /hpf (Few); Urobilinogen Urine 0.2 mg/dL (<2.0); WBC Urine 0-5 /hpf
[2023-05-17 19:43] LABS: Add Urine Microscopic? YES
[2023-05-17] MEDS: SODIUM CHLORIDE 0.9% IV 1,000 ML 999 ML IV CONT (19:50)
--- NOTE | 2023-05-17 20:01 | ECG_ITS ---
Rate HI QRSd QT QTc P QRS T Severity 72 281 96 383 419 43 9 42 Abnormal ECG SINUS RHYTHM WITH FIRST DEGREE AV BLOCK CONSIDER INFERIOR INFARCT, AGE INDETERMINATE BORDERLINE ST-T WAVE ABNORMALITY- ANTEROLAT/HIGH LAT LEADS BASELINE ARTIFACT- I, II, AVR, AVL, AVF, V1-V6 ABNORMAL ECG Electronically Signed On 05-18-2023 7:27:01 MANAGER PUBLISHING by Grady Mirza D.O. COMPARED TO ECG 05/17/2023 18:01:29 FIRST DEGREE AV BLOCK NOW PRESENT MTDD
[2023-05-17 20:52] LABS: Magnesium 2.1 mg/dL (1.6-2.3)
[2023-05-17 21:54] LABS: Anion Gap 9 mmol/L (8-16); Blood Urea Nitrogen 37 mg/dL (9-20); Calcium 8.1 mg/dL (8.4-10.2); Carbon Dioxide 13 mmol/L (22-30); Chloride 114 mmol/L (98-107); Estimated CRCL calculation 37 ml/min; Estimated Glomerular Filt Rate 39; Glucose 121 mg/dL (65-110); Potassium 3.9 mmol/L (3.4-5.0); Sodium 136 mmol/L (137-145)
[2023-05-17 22:30] VITALS: BP 114/50; PULSE 67; RESP 15; O2SAT 97
== END 2023-05-17 22:32 | disposition home or self-care (01) ==
PROVIDERS: Emergency Medicine; Emergency Provider Student in an Organized Health Care Education/Training Program; PCP Family Medicine
DX: R19.7 Diarrhea, unspecified (principal); D72.829 Elevated white blood cell count, unspecified; R31.29 Other microscopic hematuria; I44.0 Atrioventricular block, first degree; Z20.822 Contact with and (suspected) exposure to COVID-19; R73.03 Prediabetes; I10 Essential (primary) hypertension; I48.0 Paroxysmal atrial fibrillation; E78.5 Hyperlipidemia, unspecified; N40.0 Benign prostatic hyperplasia without lower urinary tract symptoms; G89.4 Chronic pain syndrome; G47.33 Obstructive sleep apnea (adult) (pediatric); K21.9 Gastro-esophageal reflux disease without esophagitis; Z96.652 Presence of left artificial knee joint; Z96.642 Presence of left artificial hip joint; Z87.442 Personal history of urinary calculi; Z90.49 Acquired absence of other specified parts of digestive tract; Z79.84 Long term (current) use of oral hypoglycemic drugs; Z79.01 Long term (current) use of anticoagulants; K43.9 Ventral hernia without obstruction or gangrene; K40.90 Unilateral inguinal hernia, without obstruction or gangrene, not specified as recurrent
CPT/HCPCS: 36415; 71046; 74177; 80048; 80053; 81001; 82948; 83690; 83735; 84484; 85025; 87637; 93005; 96361; 96374; 99284; J2405; J7030; Q9967

== ENCOUNTER 2023-05-27 11:39 | Outpatient (CLI) | payer MEDICARE, SELFPAY ==
[2023-05-27 13:04] LABS: Appearance Urine Clear (Clear); Bacteria Urine 3+ /hpf; Bilirubin Urine Negative (Negative); Blood Urine 1+ (Negative); Color Urine Yellow (Yellow); Glucose Urine UA Negative (Negative); Ketones Urine Negative (Negative); Leukocyte Esterase Ur Trace LEU/UL (Negative); Nitrate Urine Positive (Negative); Protein Urine Negative (Negative); RBC Urine 0-2 /hpf (0-2); Specific Grav Ur 1.009 (1.001-1.035); Squamous Epithelial Cell Urine None Seen /hpf (Few); Urobilinogen Urine 0.2 mg/dL (<2.0)
[2023-05-27 13:04] LABS: Alanine Aminotransferase 40 U/L (6-50); Albumin Level 3.8 g/dL (3.5-5.1); Alkaline Phosphatase 107 U/L (38-126); Anion Gap 1 mmol/L (8-16); Aspartate Amino Transferase 56 U/L (17-59); Bilirubin,Total 0.5 mg/dL (0.2-1.3); Blood Urea Nitrogen 21 mg/dL (9-20); Calcium 8.8 mg/dL (8.4-10.2); Carbon Dioxide 31 mmol/L (22-30); Chloride 107 mmol/L (98-107); Estimated Glomerular Filt Rate 58; Glucose 123 mg/dL (65-110); Potassium 3.8 mmol/L (3.4-5.0); Sodium 139 mmol/L (137-145)
[2023-05-27 13:12] LABS: Add Urine Microscopic? YES
== END 2023-05-27 11:40 | disposition home or self-care (01) ==
LOC: ANHGOSHLAB 11:40
PROVIDERS: PCP Family Medicine; Visit Provider Nurse Practitioner
DX: R31.9 Hematuria, unspecified (principal); R19.7 Diarrhea, unspecified
CPT/HCPCS: 36415; 80053; 87077; 87086; 87088; 87186

== ENCOUNTER 2023-08-22 10:19 | Outpatient (CLI) | payer MEDICARE, SELFPAY ==
[2023-08-22 15:33] LABS: Alanine Aminotransferase 34 U/L (6-50); Albumin Level 4.3 g/dL (3.5-5.1); Alkaline Phosphatase 100 U/L (38-126); Anion Gap 7 mmol/L (4-12); Aspartate Amino Transferase 67 U/L (17-59); Bilirubin,Total 0.4 mg/dL (0.2-1.3); Blood Urea Nitrogen 28 mg/dL (9-20); Carbon Dioxide 25 mmol/L (22-30); Chloride 109 mmol/L (98-107); Cholesterol 147 mg/dL (0-200); Estimated Glomerular Filt Rate 53; Glucose 116 mg/dL (65-110); HDL Direct 36 mg/dL; Potassium 4.8 mmol/L (3.4-5.0); Sodium 141 mmol/L (137-145); Triglycerides 288 mg/dL (<150)
[2023-08-22 15:44] LABS: LDL Cholesterol Direct 71 mg/dL
[2023-08-22 16:07] LABS: Creatinine Urine 118.1 mg/dL
[2023-08-22 16:12] LABS: MALB Creatinine Ratio 32.7 mg/g (0-30); Microalbumin Urine Random 38.6 mg/L (0-16.7)
[2023-08-22 18:54] LABS: Hemoglobin A1C 6.4 % (<5.7)
== END 2023-08-22 10:20 | disposition home or self-care (01) ==
PROVIDERS: PCP Family Medicine; Visit Provider Nurse Practitioner
DX: E78.5 Hyperlipidemia, unspecified (principal); E11.9 Type 2 diabetes mellitus without complications
CPT/HCPCS: 36415; 80053; 80061; 82043; 83036

== ENCOUNTER 2023-10-25 12:52 | Emergency (ER) | payer MEDICARE, SELFPAY ==
[2023-10-25] VITALS (10 sets, daily range): BP systolic 127–149; BP diastolic 58–77; PULSE 68–80; RESP 14–21; TEMP 36.6; O2SAT 96–100
--- NOTE | ~2023-10-25 | XR_ITS ---
XR chest 1V portable Ordering provider: Jerome Napier MD History: 78 years Male with . cp . Comparison: October 25, 2023 FINDINGS: MEDIASTINUM: The cardiac silhouette is slightly enlarged. Congestive eliot. LUNGS: No effusions or pneumothorax. Bilateral alveolar and interstitial opacification suggestive of pneumonia. Underlying pulmonary edema is not excluded. OTHER: No free air under the diaphragm. Old healed fractures in the left hemithorax. Healing fracture s in the right thorax. IMPRESSION: Bilateral pneumonia. Underlying pulmonary edema is not excluded. Reviewed, dictated and finalized at location A.
--- NOTE | ~2023-10-25 | XR_ITS ---
EXAMINATION: XR chest 2V DATE: 10/25/2023 13:56 INDICATION: Chest pain. TECHNIQUE: Frontal and lateral views of the chest were obtained. COMPARISON: Chest 2 views 05/17/2023 FINDINGS: There is mild atelectasis in right lower lobe. No pleural effusion or pneumothorax. The hea rt size is normal. There are old healed rib fractures bilaterally. IMPRESSION: 1. Mild atelectasis in right lower lobe. Reviewed, dictated and finalized at location A.
--- NOTE | 2023-10-25 12:57 | ECG_ITS ---
Test Date: 2023-10-25 13:00:37 Measurements Intervals [place] Rate: 76 P: 60 SC: 198 QRS: -14 QRSD: 101 T: 28 QT: 352 QTc: 397 Interpretive Statements SINUS RHYTHM INFERIOR MYOCARDIAL INFARCTION , PROBABLY OLD [40+ ms Q WAVE AND/OR ST/T ABNORMALITY IN II/aVF] ABNORMAL ECG No previous ECG available for comparison Electronically Signed On 10-25-2023 15:11:14 CDT by Devin Villanueva M.D.
[2023-10-25 13:11] LABS: Hematocrit 39.6 % (42.0-52.0); Hemoglobin 12.8 g/dL (14.0-18.0); Red Blood Count 4.17 M/mm3 (4.6-6.20); White Blood Count 8.7 K/mm3 (4.5-10.0)
[2023-10-25 13:12] LABS: Basophils Percent Auto 0.2 % (0.2-1.2); Eosinophils Absolute Auto 0.1 K/mm3 (0-0.3); Eosinophils Percent Auto 0.8 % (0-4.4); Immature Granulocyte Absolute 0.03 K/mm3 (0.00-0.031); Immature Granulocyte Percent A 0.3 % (0-0.5); Lymphocytes Absolute Auto 1.72 K/mm3 (0.9-3.2); Lymphocytes Percent Auto 19.8 % (18.3-44.2); Mean Corpuscular HGB Conc 32.3 g/dl (32-36); Mean Corpuscular Hemoglobin 30.7 pg (26-34); Mean Platelet Volume 10.7 fl (7.4-10.4); Monocytes Absolute Auto 1.1 K/mm3 (0.1-0.6); Monocytes Percent Auto 12.4 % (2.6-8.5); Neutrophils Absolute Auto 5.8 K/mm3 (1.3-6.7); Neutrophils Percent Auto 66.5 % (45.5-73.1); Platelet Count Result 208 k/mm3 (150-375); Red Cell Distribution Width 13.9 % (11.5-14.5)
[2023-10-25 13:21] LABS: Alanine Aminotransferase 31 U/L (6-50); Albumin Level 4.2 g/dL (3.5-5.1); Alkaline Phosphatase 84 U/L (38-126); Anion Gap 12 mmol/L (4-12); Aspartate Amino Transferase 33 U/L (17-59); Bilirubin,Total 0.7 mg/dL (0.2-1.3); Blood Urea Nitrogen 30 mg/dL (9-20); Calcium 8.8 mg/dL (8.4-10.2); Carbon Dioxide 22 mmol/L (22-30); Chloride 104 mmol/L (98-107); Estimated CRCL calculation 42 ml/min; Estimated Glomerular Filt Rate 45; Glucose 176 mg/dL (65-110); Lipase 76 U/L (23-300); Potassium 4.7 mmol/L (3.4-5.0); Sodium 138 mmol/L (137-145)
[2023-10-25 13:28] LABS: INR 1.1; Prothrombin Time 14.8 Seconds (11.1-14.7)
[2023-10-25 13:29] LABS: Partial Thromboplastin Time 33.2 Seconds (22.3-36.8)
[2023-10-25 13:32] LABS: Troponin I < 0.012 ng/mL (0.000-0.034)
--- NOTE | 2023-10-25 15:52 | ED.CHESTPAIN ---
HPI - Chest Pain General Chief Complaint: Chest Pain Stated Complaint: chest pain Time Seen by Provider: 10/25/23 15:16 History of Present Illness HPI narrative: 78-year-old male presenting to the emergency department for evaluation for pleuritic chest pain. Patient states he was working outside but was not exerting himself when he had onset substernal chest pain. Patient states the pain is worsened with deep inspiration. Patient denies any falls or injuries. Patient denies any recent coughs colds or fevers. Patient denies any history of coronary artery disease. Patient's last stress test was approximately 10 years ago. Related Data Home Medications Medication Instructions Recorded Confirmed amiodarone 200 mg tablet 200 mg PO QAM 06/24/19 08/29/23 ferrous sulfate 325 mg (65 mg 325 mg PO DAILY 06/24/19 08/29/23 iron) tablet Allergies Allergy/AdvReac Type Severity Reaction Status Date / Time gabapentin AdvReac Intermediate Unknown Verified 08/29/23 12:08 Review of Systems Review of Systems: All systems reviewed & are unremarkable except as noted in HPI and below PMFSH Past Medical History Medical History 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 Chronic pain syndrome Enterococcal bacteremia Gastro-esophageal reflux disease without esophagitis History of femur fracture Hyperlipidemia Hypertension Kidney stone Lumbar spondylosis Multiple rib fractures Obstructive sleep apnea Paroxysmal atrial fibrillation Prediabetes Quadriceps tendon rupture Type 2 diabetes mellitus Surgical History Surgical History History of arthroplasty of left knee History of arthroscopic knee surgery History of bowel resection 09/11/2021 ([facility]) History of laparotomy 09/11/2021 ([facility]) History of tonsillectomy History of total left hip arthroplasty Family History Family History Father Diabetes mellitus, Onset Age: 66 Acute myocardial infarction, Onset Age: 66 Sibling Diabetes mellitus Family history of malignant neoplasm of breast in first degree relative Mother Family history of coronary artery disease, Onset Age: 95 Family history of congestive heart failure, Onset Age: 95 Social History Social History Social History: Surrogate decision maker: Gloria Patrick, spouse. Code status: Full code. Caffeine-none Smoking status: Never smoker Second hand tobacco smoke exposure: No Alcohol intake: current Drinks per week: 2 Alcohol use details: occasionally-beer Substance use: never Lack of Transportation: YES Lack of Food: Never True Current Housing: I Have Housing Concerned About Future Housing: No Difficulty Paying Gas/Electric Bills: No Difficulty Paying for Meds: No Currently Unemployed: No Education: Trade/Vocational Certificate Difficulty w/ Childcare or Family Care: No Living arrangements: with family Occupation/Education: retired Spiritual care concerns: Yes Exam Narrative: APPEARANCE: Well appearing, no pain, no distress, well-nourished. HEAD: normocephalic, atraumatic. EYES: PERRLA/EOMI, conjunctivae clear. NOSE: Normal no drainage EARS:TMS clear with good light reflex. THROAT: Pharynx clear, no exudate. NECK: Supple. No adenopathy, no masses. RESPIRATORY: Airway patent, respirations nonlabored. Clear to auscultation bilaterally, no rales, rhonchi, wheezing. CARDIOVASCULAR: Regular rate and rhythm without murmurs rubs or gallops. ABDOMINAL: Soft, nontender, nondistended, normal bowel sounds MUSCULOSKELETAL: Moves all extremities. Strength/ROM intact, No edema, No calf tenderness. NEURO: Alert. Cranial nerves II through XII intact. Grossly intact SKIN: Warm, dry. Normal Color
[2023-10-25] MEDS: KETOROLAC 15 MG/ML VIAL (*BKC) IV PUSH (16:12)
[2023-10-25] MEDS: HYDROcodone/acetaminophen (*CRX) 5-325 MG TABLET 1 TAB PO (16:12)
[2023-10-25 16:48] LABS: Troponin I < 0.012 ng/mL (0.000-0.034)
[2023-10-25 16:52] LABS: D Dimer 0.39 ug/mL (<0.48)
[2023-10-25] MEDS: AZITHROMYCIN 250 MG TABLET 500 MG PO (17:10)
[2023-10-25] MEDS: AMOXICILLIN/CLAVULANATE K 875-125 MG TAB 1 TABLET PO (17:10)
== END 2023-10-25 18:24 | disposition home or self-care (01) ==
PROVIDERS: Emergency Provider Emergency Medicine; PCP Family Medicine
DX: J18.9 Pneumonia, unspecified organism (principal); I48.0 Paroxysmal atrial fibrillation; I10 Essential (primary) hypertension; E11.9 Type 2 diabetes mellitus without complications; E78.5 Hyperlipidemia, unspecified; N40.0 Benign prostatic hyperplasia without lower urinary tract symptoms; G47.33 Obstructive sleep apnea (adult) (pediatric); Z87.442 Personal history of urinary calculi; Z96.652 Presence of left artificial knee joint; Z96.642 Presence of left artificial hip joint; Z90.49 Acquired absence of other specified parts of digestive tract; R94.31 Abnormal electrocardiogram [ECG] [EKG]
CPT/HCPCS: 36415; 71045; 71046; 80053; 83690; 84484; 85025; 85380; 85610; 85730; 93005; 96374; 99284; A9270; J1885

== ENCOUNTER 2023-11-13 08:51 | Outpatient (CLI) | payer MEDICARE, SELFPAY ==
--- NOTE | ~2023-11-13 | XR_ITS ---
Clinical Indication: Pneumonia PA and lateral views of the chest: Comparison: 10/25/2023 Findings: There is mild haziness in the right upper lobe and bilateral lung bases.. Cardiomediastina l silhouette is stable. Bones and soft tissues are unremarkable. Impression: Mild haziness right upper lobe and bilateral lung bases. Correlate for multifocal pneumonia. Reviewed, dictated and finalized at location . Impression: Mild haziness right upper lobe and bilateral lung bases. Correlate for multifoc al pneumonia.
== END 2023-11-13 08:52 | disposition home or self-care (01) ==
LOC: GOSHIMG 08:55
PROVIDERS: PCP Thoracic Surgery (Cardiothoracic Vascular Surgery); Visit Provider Nurse Practitioner
DX: J18.9 Pneumonia, unspecified organism (principal)
CPT/HCPCS: 71046

== ENCOUNTER 2023-12-09 14:35 | Outpatient (CLI) | payer MEDICARE, SELFPAY ==
--- NOTE | ~2023-12-09 | CT_ITS ---
CT Scan of the Chest without Contrast: Clinical Indication: Pneumonia Technique: Contiguous sections were acquired throughout the chest without intravenous contrast. Dose reduction technique was used on this scan by utilizing automated exposure control and iterative recon struction technique. The dose-length product (DLP) was 460.55 mGy-cm. COMPARISON: 09/08/2021 Findings: There is no evidence of any significant mediastinal, hilar or axillary lymphadenopathy. Coronary edith ry calcifications are present. No pericardial effusion. Minimal right pleural effusion present. No left pleural effusion. Stable 4 mm posterior right apical pulmonary nodule. Probable rounded right basilar atelectasis and a dditional scarring. Images through the upper abdomen reveal no abnormalities. Old, healed bilateral rib fracture deformit ies are noted. Impression: Minimal right pleural effusion with probable focal rounded right basilar atelectasis and additional r ight basilar scarring. Stable 4 mm right apical pulmonary nodule. Reviewed, dictated and finalized at [facility]. Impression: Minimal right pleural effusion with probable focal rounded right basilar atelec tasis and additional right basilar scarring. Stable 4 mm right apical pulmonary nodule.
== END 2023-12-09 14:36 | disposition home or self-care (01) ==
PROVIDERS: PCP Family Medicine; Visit Provider Family Medicine
DX: J18.9 Pneumonia, unspecified organism (principal); R91.1 Solitary pulmonary nodule
CPT/HCPCS: 71250

== ENCOUNTER 2023-12-30 14:32 | Outpatient (CLI) | payer MEDICARE, SELFPAY ==
[2023-12-30 16:59] LABS: Hematocrit 42.1 % (42.0-52.0); Hemoglobin 13.5 g/dL (14.0-18.0); Mean Corpuscular HGB Conc 32.1 g/dl (32-36); Mean Corpuscular Hemoglobin 30.6 pg (26-34); Mean Corpuscular Volume 95.5 fl (80-100); Mean Platelet Volume 11.4 fl (7.4-10.4); Platelet Count Result 211 k/mm3 (150-375); Red Blood Count 4.41 M/mm3 (4.6-6.20); Red Cell Distribution Width 14.2 % (11.5-14.5)
[2023-12-30 17:15] LABS: Alanine Aminotransferase 35 U/L (6-50); Albumin Level 4.2 g/dL (3.5-5.1); Alkaline Phosphatase 104 U/L (38-126); Anion Gap 9 mmol/L (4-12); Aspartate Amino Transferase 43 U/L (17-59); Bilirubin,Total 0.5 mg/dL (0.2-1.3); Blood Urea Nitrogen 22 mg/dL (9-20); Calcium 8.7 mg/dL (8.4-10.2); Carbon Dioxide 24 mmol/L (22-30); Chloride 105 mmol/L (98-107); Cholesterol 160 mg/dL (0-200); Estimated Glomerular Filt Rate 53; Glucose 134 mg/dL (65-110); HDL Direct 40 mg/dL; Potassium 4.1 mmol/L (3.4-5.0); Sodium 138 mmol/L (137-145); Triglycerides 241 mg/dL (<150)
[2023-12-30 17:19] LABS: LDL Cholesterol Direct 74 mg/dL
[2023-12-30 18:14] LABS: Hemoglobin A1C 6.7 % (<5.7)
== END 2023-12-30 14:33 | disposition home or self-care (01) ==
LOC: ANHGOSHLAB 14:33
PROVIDERS: PCP Family Medicine; Visit Provider Nurse Practitioner
DX: E11.9 Type 2 diabetes mellitus without complications (principal); Z00.00 Encounter for general adult medical examination without abnormal findings
CPT/HCPCS: 36415; 80053; 80061; 83036; 84443; 85027

== ENCOUNTER 2024-04-20 12:31 | Outpatient (CLI) | payer MEDICARE, SELFPAY ==
--- OUTSIDE RECORDS SUMMARY | 2024-04-20 12:45 | XMS_ITS | Encounter Summary ---
Author Organization [facility] Address [address] [place] [address] Care Team Providers Care Stem Processing Machine Operator Name Role Phone Nadege Cardoza MD Primary Care Provider [phone] Encounter Details Date Type Department Care Team (Late st Contact Info) Description 06/11/2023 Lab Requisition [facility] - DermPath Lab [address] [place] [address] Zackery Quinonez MD [facility] DERMATOLOGY [address] [place] [phone] Neoplasm of uncertain behavior of skin Social History Tobacco Use Types Packs/Day Years Used Date Smoking Tobacco: Never Assessed Sex and Gender Information Value Date Recorded Sex Assigned at Not on file Gender Identity Not on file Sexual Orientation Not on file documented as of this encounter Plan of Treatment Not on file documented as of this encounter Procedures Procedure Name Priority Date/Time Associated Diagnosis Comments DERMATOPATHOLOGY Routine 06/11/2023 3:33 AM CDT Neoplasm of uncertain behavior of skin documented in this encounter Results * DERMATOPATHOLOGY (06/11/2023 3:33 AM CDT) Case Report Dermatopathology Report Case: [id number] Authorizing Provider: Zackery Quinonez MD Collected: 06/11/2023 03:33 AM Ordering Location: [facility] - Received: 06/12/2023 12:43 PM DermPath Lab Pathologist: Selena Abraham MD Specimen: Skin, left forearm 1:23 PM CDT DERMATOPATHOLOGY LABORATORY Final Diagnosis Specimen A. 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 The specimen consists of a shave biopsy measuring 15x9x4 mm. Jar 0. 1:23 PM CDT DERMATOPATHOLOGY LABORATORY Microscopic Description Specimen A. SKIN, left forearm: The epidermis is marked acanthotic and shows parakeratosis, full thickness disorderly maturation of keratinocytes, mitoses at different levels, and dyskeratotic cells. Prominent adnexal extension of the lesion is seen. 1:23 PM CDT DERMATOPATHOLOGY LABORATORY Disclaimer An external and internal positive and negative controls are appropriate for the histochemical, immunohistochemical and immunofluorescence stain(s) in this case (if any), except where stated explicitly. The performance characteristics of the stain(s) cited in this report were developed and its performance characteristic determined by the Dermatopathology Laboratory at [facility], directed by Dr. Alexis Gay. These tests need not be, and therefore are not, approved by the [place] Food and Drug Administration. The tests are used for clinical purposes. Billing Codes Specimen Charges Stain Charges 67615 1 1:23 PM CDT DERMATOPATHOLOGY LABORATORY Embedded Images 1:23 PM CDT DERMATOPATHOLOGY LABORATORY Pathology/Cytolo gy TISSUE SPECIMEN FROM SKIN / Unknown 06/11/2023 3:33 AM CDT 06/12/2023 12:43 PM CDT Zackery Quinonez MD LAB - PATHOLOGY/CYTO LOGY ORDERABLES DERMATOPATHOLOGY LABORATORY [facility] - Department of Dermatology [facility] Medicine [address] [place] [address], [address] [phone] documented in this encounter Visit Diagnoses Diagnosis Neoplasm of uncertain behavior of skin documented in this encounter Care Teams Stem Processing Machine Operator Relationship Specialty Start Date End Date Nadege Cardoza MD [address] [place] [address] PCP - General 03/01/20 documented as of this encounter
--- OUTSIDE RECORDS SUMMARY | 2024-04-20 12:45 | XMS_ITS | Encounter Summary ---
Author Organization [facility] Address [address] [place] [address] Care Team Providers Care Operating Room Tech Name Role Phone Nadege Cardoza MD Primary Care Provider [phone] Encounter Details Date Type Department Care Team (Late st Contact Info) Description 07/23/2022 Lab Requisition [facility] - DermPath Lab [address] [place] [address] Zackery Quinonez MD [facility] DERMATOLOGY [address] [place] [phone] Social History Tobacco Use Types Packs/Day Years Used Date Smoking Tobacco: Never Assessed Sex and Gender Information Value Date Recorded Sex Assigned at Not on file Gender Identity Not on file Sexual Orientation Not on file documented as of this encounter Plan of Treatment Not on file documented as of this encounter Procedures Procedure Name Priority Date/Time Associated Diagnosis Comments DERMATOPATHOLOGY Routine 07/20/2022 3:33 AM CDT documented in this encounter Results * DERMATOPATHOLOGY (07/20/2022 3:33 AM CDT) Case Report Dermatopathology Report Case: [id number] Authorizing Provider: Zackery Quinonez MD Collected: 07/20/2022 03:33 AM Ordering Location: [facility] DermPath Lab Received: 07/23/2022 12:59 PM Pathologist: Janusz Gay MD Specimen: Skin, left elbow 3 7:10 PM CDT DERMATOPATHOLOGY LABORATORY Final Diagnosis Specimen A. SKIN, left elbow: PIGMENTED SEBORRHEIC KERATOSIS (L82.1) 3 7:10 PM CDT DERMATOPATHOLOGY LABORATORY Clinical History BCC vs. ISK vs. Melanoma 3 7:10 PM T DERMATOPATHOLOGY LABORATORY Gross Description Specimen A: Received is one formalin filled container labeled with the patient's name and designated left elbow. The specimen consists of a shave biopsy measuring 11x9x1 mm. Jar 0. 3 7:10 PM T DERMATOPATHOLOGY LABORATORY Microscopic Description Specimen A. SKIN, left elbow: Sections show an acanthotic lesion composed of relatively uniform keratinocytes. There is hyperkeratosis and pseudo horn cysts. Pigment is present in the keratinocytes composing this tumor. 3 7:10 PM T DERMATOPATHOLOGY LABORATORY Disclaimer An external and internal positive and negative controls are appropriate for the histochemical, immunohistochemical and immunofluorescence stain(s) in this case (if any), except where stated explicitly. The performance characteristics of the stain(s) cited in this report were developed and its performance characteristic determined by the Dermatopathology Laboratory at [facility], directed by Dr. Alexis Gay. These tests need not be, and therefore are not, approved by the [place] Food and Drug Administration. The tests are used for clinical purposes. Billing Codes Specimen Charges Stain Charges 05027 1 3 7:10 PM CDT DERMATOPATHOLOGY LABORATORY Embedded Images 3 7:10 PM CDT DERMATOPATHOLOGY LABORATORY Pathology/Cytolo gy TISSUE SPECIMEN FROM SKIN / Unknown 07/20/2022 3:33 AM CDT 07/23/2022 12:59 PM CDT Zackery Quinonez MD LAB - PATHOLOGY/CYTO LOGY ORDERABLES DERMATOPATHOLOGY LABORATORY [facility] - Department of Dermatology [facility] Medicine [address] [place] [address], [address] [phone] documented in this encounter Visit Diagnoses Not on filedocumented in this encounter Care Teams Operating Room Tech Relationship Specialty Start Date End Date Nadege Cardoza MD [address] [place] [address] PCP - General 03/01/20 documented as of this encounter
--- OUTSIDE RECORDS SUMMARY | 2024-04-20 12:45 | XMS_ITS | Referral Summary ---
Author Organization [facility] Address [address] [place] [id number] Care Team Providers Care Health And Physical Education Professor Name Role Phone Isa Ahmadi DO Primary Care Provider [phone] Encounters Date Type Department Care Team Description 04/17/2024 Telephone [facility] [address] [id number] Virginie Gaviria, B.A. 04/17/2024 10:30 AM ASSEMBLER BRAZER Office Visit Arrhythmia [facility] [address] [facility] [address] [place] [id number] Jose G Weber MD Cardiac arrhythmia, unspecified cardiac arrhythmia type (Primary Dx); Persistent atrial fibrillation (HCC) 03/27/2024 10:13 AM ASSEMBLER BRAZER - 03/27/2024 11:59 PM ASSEMBLER BRA[employer]ER Hospital Encounter [facility] [address] [address] Lung nodule Discharge Disposition: Discharge to home or self care from Last 3 Months Allergies No known active allergies Medications finasteride (PROSCAR) 5 mg tablet Take 1 tablet (5 mg total) by mouth daily Active furosemide (LASIX) 40 mg tablet Take 1 tablet (40 mg total) by mouth daily Active aqzxgobu-bdx-emu ic-vit K-lycop 400-20-370 mcg tablet Take by mouth daily. Active ferrous sulfate 325 mg (65 mg of elemental iron) tabletIndication s:Iron Deficiency Anemia Take 1 tablet (325 mg total) by mouth daily with breakfast Active apixaban (ELIQUIS) 5 mg tablet Take 1 tablet (5 mg total) by mouth 2 (two) times a day 56 tablet 0 Active tamsulosin (FLOMAX) 0.4 mg extended release capsule 1 Active ramelteon (ROZEREM) 8 mg tabletIndication s:Sleep-Onset Insomnia Take 1 tablet (8 mg total) by mouth nightly 30 tablet 2 Active Additional Information Patient not taking.Reported on 09/26/2023 acetaminophen (TYLENOL) 500 mg tabletIndication s:Pain Take 1 tablet (500 mg total) by mouth every 6 (six) hours as needed for pain Active HYDROcodone-acet aminophen (NORCO) 5-325 mg per tabletIndication s:Pain Take 1 tablet by mouth every 6 (six) hours as needed Active potassium gluconate 500 mg (83 mg) tablet Take by mouth A ctive lisinopriL (PRINIVIL,ZESTRI L) 40 mg tablet [address] (PROTONIX) 40 mg EC tablet 3 Active amiodarone (PACERONE) 200 mg tabletIndication s:Atrial fibrillation, unspecified type (HCC) TAKE 1 TABLET BY MOUTH DAILY 100 tablet 2 4 Active metFORMIN (GLUCOPHAGE) 500 mg tablet 4 Active Active Problems Patient Care Coordination No te Formatting of this note migh t be different from the original. Referring provider: Aria Rice NP Mr. Srikanth Patrick is a 76 year old with an empyema. Patient initially presented to an outside hospital emergency room after he fell and was ran over by his lawnmower. On presentation he was having right arm pain and chest pain. He was found to have right-sided 3 through 10 rib fractures and a right arm hematoma. On 09/17/2021 the patient. On 09/24/2019 the patient underwent a CT of the chest/abdomen/pelvis which noted a mildly increased size of a small/moderate right pleural effusion. There was increasing pleural enhancement/thickening, raising the possibility of an empyema. On 09/25/2021 the patient underwent a right-sided ultrasound-guided thoracentesis in which 80 mL of serosanguineous drainage was removed. Pleural culture showed no growth to date. He was discharged home from the hospital on IV antibiotics for treatment of complicated MSSA bacteremia with unknown source. On 10/19/2021 the patient underwent a chest CT which showed findings compatible with chronic right pleuritis which may be due to chronic findings due to displaced right rib fracture or secondary to previous hemo thorax. There was interval decrease in size of a right pleural effusion. There was new mild pulmonary edema. He completed 4 weeks of IV cefazolin on 10/22/2021. He was switched to p.o. doxycycline for 3 weeks. On 11/09/2019 the patient underwent a chest CT with contrast which showed interval decrease in size of the loculated thick-walled right-sided pleural effusion with persistent tiny foci of gas adjacent atelectasis. There was no acute findings. He is currently following with Infectious Disease. They want to see if we think the empyema needs to be drained or if there is any surgical intervention. Cultures from the empyema remain with no growth. Patient presents today for further surgical evaluation. Problem Noted Date Diagnosed Date Persistent atrial fibrillation 10/21/2022 Assessment & Plan (04/17/2024 10:56 AM ASSEMBLER BRAZER): Symptomatic persistent atrial fibrillation, recurrent despite ongoing amiodarone therapy. Following his last cardioversion, the patient maintained sinus rhythm for a prolonged period of time. I therefore recommended that he undergo repeat cardioversion. If he experiences recurrence, catheter ablation or pacemaker/AVNA are both options. 12-lead ECG today does not demonstrate any changes that would prohibit continued use of amiodarone. We will continue the patient on the same dose and schedule. As long as the patient continues on this medication, an ECG should be performed at least every 6 months to monitor for toxicity. Liver function tests and thyroid function tests should be performed at least every 6 months, an assessment of pulmonary function will be needed yearly. The patient has a [id number] score of 4 (annualized risk of stroke 4%). I have therefore recommended continued anticoagulation for thromboprophylaxis. Typical follow-up is 1 month post cardioversion. Assessment & Plan (05/02/2023 5:09 PM ASSEMBLER BRAZER): Symptomatic persistent atrial fibrillation, presently managed with amiodarone. I will not make any changes at this time. 12-lead ECG today does not demonstrate any changes that would prohibit continued use of amiodarone. We will continue the patient on the same dose and schedule. As long as the patient continues on this medication, an ECG should be performed at least every 6 months to monitor for toxicity. Liver function tests and thyroid function tests should be performed at least every 6 months, an assessment of pulmonary function will be needed yearly. The patient has a [id number] score of 4 (annualized risk of stroke 4%). I have therefore recommended continued anticoagulation for thromboprophylaxis. The patient will follow-up with me in 12 months for an office visit and twelve- lead ECG. Assessment & Plan (10/21/2022 12:03 PM CDT): Symptomatic persistent atrial fibrillation, presently managed with amiodarone. I will not make any changes at this time. 12-lead ECG today does not demonstrate any changes that would prohibit continued use of amiodarone. We will continue the patient on the same dose and schedule. As long as the patient continues on this medication, an ECG should be performed at least every 6 months to monitor for toxicity. Liver function tests and thyroid function tests should be performed at least every 6 months, an assessment of pulmonary function will be needed yearly. The patient has a [id number] score of 4 (annualized risk of stroke 4%). I have therefore recommended continued anticoagulation for thromboprophylaxis. The patient will follow-up with me in 6 months for an office visit and twelve- lead ECG. On amiodarone therapy 10/21/2022 Anticoagulation management encounter 10/21/2022 Nausea 11/10/2021 Empyema lung (CMS/HCC) 10/27/2021 Assessment & Plan (09/18/2022 9:28 PM CDT): - Remains off Doxycycline and continues to do well. He self discontinued Doxycycline back in 2021. - He continues to follow closely with Dr. Stubbs for evaluation of empyema. He is scheduled to follow back with him on 09/13/22. - Per previous evaluation with Dr. Stubbs for the empyema, given lack of clear symptomatology, radiologic improvement, and stable to improving clinical status, he would recommend observation. - Previous CT chest from 02/12/22 revealed minimal right pleural effusion had decreased compared to 11/08/2021. No pleural effusion on the left. A new 6 mm pulmonary nodule in the posteromedial left lower lobe was found. Plan was to have repeat imaging in [address] Stubbs. - Imaging was completed on 08/17/22. Imaging revealed resolution of previous 0.6 cm left lower lobe nodule suggesting inflammatory nature. No change in the right upper lobe nodules since 02/12/22 and 09/17/21. No change with right sided pleural thickening versus minimal effusion with adjacent probable rounded atelectasis. Multiple healed right sided rib fractures. No new or enlarging pulmonary nodules. - Cultures from empyema from 09/25/21 with NG (final). - No labs today. He is no longer on antibiotic and there is no concern for ongoing infection - At this time will not plan to restart Doxycycline as he has no symptoms concerning for infection and repeat imaging with continued improvement with no new or enlarging nodules - Moving forward pt may follow with ID as needed. - We discussed culture results, risk of recurrent infection, signs/symptoms of recurrent infection, and to contact ID clinic with any questions or concerns Assessment & Plan (03/21/2022 10:54 AM ASSEMBLER BRAZER): - Since last visit patient self discontinued Doxycycline. - He has continued to follow closely with Dr. Stubbs for evaluation of empyema. - Per evaluation with Dr. Stubbs for the empyema, given lack of clear symptomatology, radiologic improvement, stable to improving clinical status, would recommend observation. - CT chest from 02/12/22 revealed minimal right pleural effusion has decreased compared to 11/08/2021. No pleural effusion on the left. New 6 mm pulmonary nodule posteromedial left lower lobe was found. Will have repeat imaging in [address] Stubbs. - Cultures from empyema with NG (final). - No labs today. He is no longer on antibiotics and no concern for ongoing infection - At this time will not plan to restart Doxycycline as he has no symptoms concerning for infection and imaging continues to show decrease in right pleural effusion. - Will have patient follow back in 6 months if overall he continues to do well can then follow with ID as needed moving forward. - Discussed with patient the rational for treatment, culture results, risk of recurrent infection, signs/symptoms of recurrent infection, and to contact ID clinic with any questions or concerns Assessment & Plan (11/10/2021 12:26 PM CDT): - Continues on Doxycycline 100 mg BID - Previously completed 4 weeks of IV Cefazolin 2 grams every 8 hours with a stop date of 10/22/21 for treatment of complicated MSSA bacteremia (unknown source), right empyema, and presumed infected hematomas. - CT chest W contrast from 10/19/21 revealed interval decreased size of right pleural effusion. Following this imaging plan was to transition to PO Doxycycline x [address] Chest to assess empyema. - Doxycycline was started on 10/23/21. - Repeat CT chest was completed today following this appointment. Imaging/results reviewed prior to signing of this note. - CT chest from today (11/08/21) revealed loculated right pleural effusion with persistent tiny focus of gas is decreased in size since prior CT dated 10/19/2021. The focus of gas is mildly decreased in size. - Discussed and reviewed imaging with attending. Will plan to continue Doxycycline at this time. - He is scheduled to follow with Dr. Stubbs on 11/23/21. Referral to CTS was ordered last ID visit for evaluation of empyema to see if it if felt based on imaging if it needs to be drained, or if there is need for any surgical intervention. - Cultures from empyema with NG (final). - Labs today: CBC/BMP - Will plan to have patient follow-up in 2 months with ID - If no intervention with CTS is recommended will then plan to repeat CT Chest W Contrast to assess empyema. - Will wait to hear back from CTS with their recommendations following visit on 11/23/21. - If a CT chest needs to be ordered, patient asks that he please receive a script for Benadryl 50 mg (1 tablet) and Zofran 4 mg (2 tabs) so that he can take the Benadryl and one Zofran prior to imaging and can have one remaining Zofran for that evening if he experiences nausea. Does not have an allergy but previously experience severe nausea following imaging. - For imaging today Zofran and Benadryl were sent to ID pharmacy. When I spoke with she stated that patient did well and had no nausea and felt fine following imaging. - Discussed with patient the rational for treatment, culture results, risk of recurrent infection, signs/symptoms of recurrent infection, and to contact ID clinic with any questions or concerns Assessment & Plan (10/27/2021 1:09 PM CDT): - Continues on IV Cefazolin 2 grams every 8 hours for treatment of complicated MSSA bacteremia (unknown source), right empyema, and presumed infected hematomas. Initial plan was to treat x 4 weeks pending repeat imaging. - CT chest W contrast from 10/19/21 revealed interval decreased size of right pleural effusion. Correlation with pleural fluid/culture is recommended to exclude empyema. - Will plan to complete the 4 weeks of IV Cefazolin with a stop date of 10/22/21 and then switch to PO Doxycycline 100 mg BID x [address] chest to assess empyema. - Will start the Doxycycline on 10/23/21. Script sent to local pharmacy. - Will reach out to [facility] regarding recent CT chest imaging from 10/19/21 and thoughts regarding empyema and repeat imaging as they had ordered a chest XR. - Will plan to place referral to CTS for evaluation of empyema to see if it if felt based on imaging if it needs to be drained, or if there is need for any surgical intervention. Cultures from empyema remain NG. - Will continue IV Cefazolin with a firm stop on 10/22/21. PICC line may be removed by home health - Follow-up in [address] chest. - Discussed with patient the rational for treatment, culture results, risk of recurrent infection, signs/symptoms of recurrent infection, and to contact ID clinic with any questions or concerns - Doxycycline causes photosensitivity and patients should be advised to monitor sun exposure, including increased use of skin-protective clothing and sunscreen, and avoidance of tanning. Doxycycline may result in GI upset. In order to minimize the risk of esophageal ulceration, patients should be advised to take the medication with 8 ounces of water and remain sitting for 30 minutes after taking the pill. Rarely, doxycycline can be associated with pancreatitis, pseudotumor cerebri, elevated LFTs, esophageal ulceration, black tongue syndrome (reversible fungus infection that goes away with drug discontinuation). Divalent cations should be administered 4 hours before or after doxycycline if they are necessary. Hypokalemia 10/27/2021 Assessment & Plan (11/10/2021 12:09 PM CDT): - Patient reports that he never did fern picker the potassium supplements. stated they thought that there was an issue with their insurance and it was not covered. - He is taking an OTC supplement he states that is potassium - Labs today reveal that his potassium level is 3.5. Assessment & Plan (10/27/2021 1:11 PM CDT): - 10/16/21 inpatient ID called regarding potassium level of 3.1 - He was prescribed 20 meq of po potassium chloride for hypokalemia. He was to fern picker and take that night or tomorrow with plan to follow-up in ID on 10/19, with recheck of potassium level. - As of today his potassium level remained 3.1 - He states that he never picked up the potassium to take. - His diarrhea has improved. Overall feeling well. No chest pain or reported palpitations. - Labs today: CMP - Discussed that I would like for him to take the potassium as his previous level was on the lower side. is with patient today, states they will fern picker prescription on the way home. 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 male with PMH of Afib on AC, HTN, DM, EMILI who presented as a polytrauma after he fell. ID consulted for MSSA BSI. Patient presented to [facility] on 09/08 after polytrauma due to fall onto his right side on a wooden terrace with mower falling over him. In the ED CT showed right rib fractures, small apical pneumothorax and RUE hematoma. Labs showed DANIEL and leukocytosis 15. He was transferred to [facility] for trauma evaluation. He was admitted to SICU for pain control with thoracic T6-7 epidural local anesthetic infusion placed on 09/11 . Exam was notable for large right arm hematoma, bruising of right shoulder, chest, back and pain on aspiration. 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 In addition he was found to have MSSA BSI on blood cultures from 09/17. CT of right arm 09/17 showed mild soft tissue edema in RUE without organized fluid collection. Epidural was discontinued on 09/18. Given concern for infected RUE hematoma he had US 09/19 that showed 8cm fluid collection most compatible with hematoma. He was taken back to OR on 09/19 and underwent re exploration, ileocolonic anastomosis with abd closure and I&D of RUE. He was found to have old hematoma without signs of cellulitis or purulence noted, cultures sent which remain NGTD. He was on vanc, cefepime and flagyl. Cefepime and flagyl continued 4 days postop op for IAI coverage and vancomycin switched to cefazolin on 09/19 for MSSA BSI. Bcx + through 09/20, clear from 09/22 to date. TTE and MALCOLM negative for IE. R empyema s/p partial drainage 09/25, cx NGTD. Recommendations: - Continue on oxacillin 2g IV q4h. Alternately for simplicity for dosing, could switch to cefazolin 2g IV q8h. Duration will be 4 weeks from 09/25-10/22, will repeat imaging on ID f/u to ensure empyema and hematoma are improving. - PICC placement. - CBC with dif, CMP weekly. - ID will sign off. See summary of recommendations for details. 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 Multiple closed fractures of ribs of right side 09/09/2021 Traumatic hematoma of right upper arm 09/09/2021 Pneumothorax, right 09/09/2021 Chronic pain of left knee 09/09/2021 Type 2 diabetes mellitus wit hout complication, with no history of insulin use ([facility]) 09/09/2021 Closed fracture of multiple ribs of right side, initial encounter 09/09/2021 Ileus ([facility]) 09/08/2021 Overview (09/18/2021): Added automatically from request for surgery [id number] Atrial fibrillation, chronic ([facility]) 7 Assessment & Plan (02/27/2017 12:52 PM ASSEMBLER BRAZER): Impression Atrial fibrillation. Early recurrence after cardioversion and unsuccessful cardioversion more recently. Patient has been on amiodarone though may have had insufficient duration of loading thus far. I discussed the option of a rhythm control versus rate control strategy. At this juncture we will proceed with a rhythm control strategy and after some additional amiodarone loading and plan for cardioversion. Facilitated techniques in the EP lab may be required. If sinus rhythm can be restored, then we will assess the time till recurrence as well as symptom improvement. It is possible that a rate control strategy may be preferable Hypertension. Risk risk factor for stroke. Agree with anticoagulation. Encounter for therapeutic drug level monitoring. Satisfactory EKG on amiodarone Sleep apnea. On CPAP. Diabetes. Plan Continue anticoagulation and amiodarone Cardioversion in the EP lab Obstructive sleep apnea 10/18/2016 Essential hypertension 10/18/2016 Chronic anticoagulation 10/18/2016 Diabetes mellitus with peripheral vascular disea se 10/18/2016 Hyperlipidemia LDL goal <70 10/18/2016 Acute pain due to trauma Acute respiratory insufficiency Social History Tobacco Use Types Packs/Day Years Used Date Smoking Tobacco: Never Smokeless Tobacco: Never Tobacco Cessation:Counseling Given: Not Answered Alcohol Use Standard Drinks/Week Comments Yes 1 (1 standard drink = 0.6 oz pur e alcohol) AUDIT-C Answer Date Recorded Frequency of Alcohol Consumption Not on file 09/26/2023 Q2: How many drinks containi ng alcohol do you have on a typical day when you are drinking? 1 or 2 09/26/2023 Q3: How often do you have si x or more drinks on one occasion? Less than monthly 09/26/2023 Sex and Gender Information Value Date Recorded Sex Assigned at Not on file Legal Sex Male 1:50 PM CDT Gender Identity Not on file Sexual Orientation Not on file Last Filed Vital Signs Vital Sign Reading Time Taken Comments Blood Pressure 126/68 04/17/2024 10:38 AM ASSEMBLER BRAZER Pulse 83 04/17/2024 10:38 AM ASSEMBLER BRAZER Temperature 36.5 C (97.7 F) 09/26/2023 9:26 AM CDT Respiratory Rate 18 09/26/2023 9:26 AM CDT Oxygen Saturation 95% 09/26/2023 9:26 AM CDT Inhaled Oxygen Concentration - - Weight 106.1 kg (234 lb) 04/17/2024 10:38 AM ASSEMBLER BRAZER Height 172.7 cm (5' 8 ) 04/17/2024 10:38 AM ASSEMBLER BRAZER Body Mass Index 35.58 04/17/2024 10:38 AM ASSEMBLER BRAZER Plan of Treatment Not on file Procedures Procedure Name Priority Date/Time Associated Diagnosis Comments ECG 12-LEAD Routine 04/17/2024 10:35 AM ASSEMBLER BRAZER Cardiac arrhythmia, unspecified cardiac arrhythmia type POCT CREATININE FOR CONTRAST EVALUATION Routine 03/27/2024 10:[address] CHEST W CONTRAST Schedule Routine, Read Routine (OP Routine) 03/27/2024 10:30 AM ASSEMBLER BRAZER Lung nodule EGFR Routine 04/16/2022 11:12 AM ASSEMBLER BRAZER assisted current use of amiodarone LIPID PANEL Routine 11/20/2016 8:13 AM CDT from Last 3 Months or Most Recently Relevant to Health Maintenance Results * ECG 12 lead (04/17/2024 10:35 AM ASSEMBLER BRAZER) us Jose G Weber MD ECG ORDERABLES Final R esult * POCT creatinine for contrast evaluation (03/27/2024 10:31 AM ASSEMBLER BRAZER) Creatinine POC 1.30 0.80 - 1.30 mg/dL Comment:Testing performed by : [facility], [address] [place] [address], [place]., [address] Blood 03/27/2024 10:3 1 AM ASSEMBLER BRAZER 03/27/2024 10:31 AM ASSEMBLER BRAZER us Neli Collier MD POINT OF CA RE TEST ORDERABLES Final Result [facility] [id number] [facility] Department [place] [address] * CT Chest W Contrast (03/27/2024 10:30 AM ASSEMBLER BRAZER) Anatomical Region Laterality Modality Body N/A Computed Tomogra phy 03/30/2024 12:1 9 AM ASSEMBLER BRAZER Narrative 03/30/2024 12:25 AM ASSEMBLER BRAZER EXAM DESCRIPTION: CT CHEST W CONTRAST REASON FOR STUDY: lung nodule 6 month lung nodule f/u. No complaints. TECHNIQUE: CT scan of the chest performed with intravenous contrast using helical scanning technique with dynamic intravenous contrast injection. Reconstructed coronal and sagittal MPR images reviewed. All images stored on PACS. Automated exposure control was used as a dose optimization technique for this examination. CONTRAST TYPE/DOSE: 100mL of IOVERSOL 350 MG IODINE/ML INTRAVENOUS SYRINGE injected via intravenous COMPARISON: 09/20/2023 FINDINGS: LUNGS: Trace right pleural effusion.. Nodular and linear opacities in the right lung base grossly stable. Lungs otherwise clear. Trachea and major airways patent. HEART/MEDIASTINUM/BRISEYDA: Heart size normal. Coronary artery calcification. Normal enlarged lymph node. Thoracic inlet unremarkable. UPPER ABDOMEN: Proximal transverse colon anastomosis unremarkable. MUSCULOSKELETAL: Anterior and posterior marginal osteophytosis with some central canal stenosis in the mid thoracic spine again noted. Old right rib deformities. Shoulder arthritis. CHEST WALL: Unremarkable. IMPRESSION: No new/enlarging or suspicious nodule identified. Chronic findings as above. THIS IS AN ELECTRONICALLY VERIFIED FINAL REPORT 03/30/2024 12:25 AM - Electronically signed by Faustino Royal M.D. AR: RANDY Report ID: [id number] Reading Location: [id number] Procedure Note Faustino Royal MD - 03/30/2024 EXAM DESCRIPTION: CT CHEST W CONTRAST REASON FOR STUDY: lung nodule 6 month lung nodule f/u. No complaints. TECHNIQUE: CT scan of the chest performed with intravenous contrast using helical scanning technique with dynamic intravenous contrast injection. Reconstructed coronal and sagittal MPR images reviewed. All images storedon PACS. Automated exposure control was used as a dose optimizationtechnique for this examination. CONTRAST TYPE/DOSE: 100mL of IOVERSOL 350 MG IODINE/ML INTRAVENOUS SYRINGE injected via intravenous COMPARISON: 09/20/2023 FINDINGS: LUNGS: Trace right pleural effusion.. Nodular and linear opacities inthe right lung base grossly stable. Lungs otherwise clear. Trachea and major airways patent. HEART/MEDIASTINUM/BRISEYDA: Heart size normal. Coronary arterycalcification. Normal enlarged lymph node. Thoracic inlet unremarkable. UPPER ABDOMEN: Proximal transverse colon anastomosis unremarkable. MUSCULOSKELETAL: Anterior and posterior marginal osteophytosis with some central canal stenosis in the mid thoracic spine again noted. Old rightrib deformities. Shoulder arthritis. CHEST WALL: Unremarkable. IMPRESSION: No new/enlarging or suspicious nodule identified. Chronic findings as above. THIS IS AN ELECTRONICALLY VERIFIED FINAL REPORT 03/30/2024 12:25 AM - Electronically signed by Faustino Royal M.D. AR: RANDY Report ID: [id number] Reading Location: [place] [address] Foster Stubbs MD IMG CT PROCEDURES Final Result * eGFR (04/16/2022 11:12 AM ASSEMBLER BRAZER) eGFR 64 mL/min/1. 73 m2 [facility] Comment: Interpretive Data Reference Interval Normal >/= 90 mL/min/1.73m2 Mildly decreased* 60 - 89 mL/min/1.73m2 Mildly to moderately decreased 45 - 59 mL/min/1.73m2 Moderately to severely decreased 30 - 44 mL/min/1.73m2 Severely decreased 15 - 29 mL/min/1.73m2 Kidney Failure < 15 mL/min/1.73m2 *Relative to young adult level Estimated glomerular filtration rate is determined by the 2020 CKD-EPI equation recommended by the National Kidney Foundation (A Unifying Approach to GFR Estimation: Recommendations of the NKF-ASK Task Force on Reassessing the Inclusion of Race in Diagnosing Kidney Disease, JASN 2020). The CKD-EPI equation should not be used for patients with unstable renal function and has not been validated in children and those over 70. Current interpretive data was last reviewed 2021. Blood 04/16/2022 11:1 2 AM ASSEMBLER BRAZER 04/16/2022 11:12 AM ASSEMBLER BRAZER Karen Cruz VASCULAR PHYSICIAN LAB BLOOD ORDERABLES Final Result [facility] [address] Department [place] [address] * Lipid panel (11/20/2016 8:13 AM CDT) SCRIBED Cholesterol, Total 180 N/A - N/A EXTERNAL LAB SCRIBED HDL 73 N/A - N/A EXTERNAL LAB SCRIBED LDL 79 N/A - N/A EXTERNAL LAB SCRIBED Triglycerides 181 N/A - N/A EXTERNAL LAB Blood specimen (specimen) Historical Provider LAB BLOOD ORDERABLES Edit ed Result - Final EXTERNAL LAB from Last 3 Months or Most Recently Relevant to Health Maintenance Additional Health Concerns Infection Onset Date Last Indicated C. difficile 10/11/2021 10/11/2021 Insurance MEDICARE SOLUTIONS MEDICARE SOLUTIONS Member Subscriber Plan / Payer (Ef fective 2022-Present) Name:Srikanth Patrick Relation to Subscriber:Self Name:Srikanth Patrick Payer ID:[id number] ([facility]) Type:[facility] MEDICARE Address: [place] [id number] MEDICARE SOLUTIONS MDCR HMO REF Advance Directives For more information, please contact: [phone] * Full Code (Latest Code Status on File) Date Activated Date Inactivated Comments 09/17/2021 9:52 AM 10/04/2021 9:49 PM * Full Code Date Activated Date Inactivated Comments 09/09/2021 4:36 AM 09/17/2021 9:52 AM Care Teams Health And Physical Education Professor Relationship Specialty Start Date End Date Isa Ahmadi DO PCP - General Family Medicine 11/23/21
--- OUTSIDE RECORDS SUMMARY | 2024-04-20 12:45 | XMS_ITS | Patient Health Summary ---
Author Organization [facility] Address [address] [facility] [place] [address] Care Team Providers Care Metal Mover Name Role Phone Nadege Cardoza MD Primary Care Provider Note from [facility],non-owned Affiliates and Associated Physician Practices is amultiple site organization consisting of ambulatory clinics and hospital sitesin [place], [place], [place] and [place]. This disclosure is being madepursuant to the Care Everywhere program and may not contain all information available regarding this patient. Last updated 17.[facility] Social History Tobacco Use Types Packs/Day Years Used Date Smoking Tobacco: Never Assessed Sex and Gender Information Value Date Recorded Sex Assigned at Not on file Gender Identity Not on file Sexual Orientation Not on file Procedures * DERMATOPATHOLOGY(Performed 06/11/2023) Performed for Neoplasm of uncertain behavior of skin * DERMATOPATHOLOGY(Performed 07/20/2022) Results * DERMATOPATHOLOGY (06/11/2023 3:33 AM CDT) Only the most recent of2 resultswithin the time period is included. Case Report Dermatopathology Report Case: [id number] Authorizing Provider: Zackery Quinonez MD Collected: 06/11/2023 03:33 AM Ordering Location: [facility] - Received: 06/12/2023 12:43 PM DermPath Lab [...] characteristic determined by the Dermatopathology Laboratory at [facility], directed by Dr. Alexis Gay. These tests need not be, and therefore are not, approved by the [place] Food and Drug Administration. The tests are used for clinical purposes. Billing Codes Specimen Charges Stain Charges 83343 1 1:23 PM CDT DERMATOPATHOLOGY LABORATORY Embedded Images 1:23 PM CDT DERMATOPATHOLOGY LABORATORY Pathology/Cytolo gy TISSUE SPECIMEN FROM SKIN / Unknown 06/11/2023 3:33 AM CDT 06/12/2023 12:43 PM CDT Zackery Quinonez MD LAB - PATHOLOGY/CYTO LOGY ORDERABLES DERMATOPATHOLOGY LABORATORY [facility] - Department of Dermatology [facility] Medicine [address] [place] [address], [address] [phone] Care Teams Metal Mover Relationship Specialty Start Date End Date Nadege Cardoza MD [address] [place], [place] [id number] PCP - General 03/01/20
--- OUTSIDE RECORDS SUMMARY | 2024-04-20 12:45 | XMS_ITS | Clinical Summary ---
Author Organization [facility] Address [address] [place] [phone] Care Team Providers Care Major Assembler Name Role Phone Isa Ahmadi DO Primary Care Provider [phone] Allergies No known active allergies Medications finasteride (PROSCAR) 5 mg tablet Take 1 tablet (5 mg total) by mouth daily Active furosemide (LASIX) 40 mg tablet Take 1 tablet (40 mg total) by mouth daily Active hbmzcrta-zha-ijm ic-vit K-lycop 400-20-370 mcg tablet Take by [...] 10/21/2022 Assessment & Plan (04/17/2024 10:56 AM WAD IMPREGNATOR): Symptomatic persistent atrial fibrillation, recurrent despite ongoing [...] be needed yearly. The patient has a JPO1JZ5-WTRh score of 4 (annualized risk of stroke 4%). I have therefore recommended continued anticoagulation for thromboprophylaxis. Typical follow-up is 1 month post cardioversion. Assessment & Plan (05/02/2023 5:09 PM WAD IMPREGNATOR): Symptomatic persistent atrial fibrillation, presently managed with [...] be needed yearly. The patient has a GIP0ZO6-OMTh score of 4 (annualized risk of stroke [...] be needed yearly. The patient has a UWB0RS4-YKLp score of 4 (annualized risk of stroke [...] well. He self discontinued Doxycycline back in November/December of 2021. - He continues to follow closely [...] concerns Assessment & Plan (03/21/2022 10:54 AM WAD IMPREGNATOR): - Since last visit patient self discontinued [...] - Patient reports that he never did case picker the potassium supplements. stated they thought [...] potassium chloride for hypokalemia. He was to case picker and take that night or tomorrow [...] is with patient today, states they will case picker prescription on the way home. Closed [...] consulted for MSSA BSI. Patient presented to [facility] on 09/08 after polytrauma due to fall onto his right side on a wooden terrace with mower falling over him. In the ED CT showed right rib fractures, small apical pneumothorax and RUE hematoma. Labs showed DANIEL and leukocytosis 15. He was transferred to [facility] for trauma evaluation. He was admitted to SICU for pain control with thoracic T6-7 epidural local anesthetic infusion placed on 09/11 . Exam was notable for large right arm hematoma, bruising of right shoulder, chest, back and pain on aspiration. 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 CT of right arm 7/10 showed mild soft tissue edema in RUE [...] complication, with no history of insulin use ([facility]) 09/09/2021 Closed fracture of multiple ribs of right side, initial encounter 09/09/2021 Ileus ([facility]) 09/08/2021 Overview (09/18/2021): Added automatically from request for surgery [id number] Atrial fibrillation, chronic ([facility]) 7 Assessment & Plan (02/27/2017 12:52 PM WAD IMPREGNATOR): Impression Atrial fibrillation. Early recurrence after cardioversion [...] pain due to trauma Acute respiratory insufficiency Encounters Date Type Department Care Team Description 04/17/2024 10:30 AM WAD IMPREGNATOR [facility] [address] [address] Jose G Weber MD Cardiac arrhythmia, unspecified cardiac arrhythmia type (Primary Dx); Persistent atrial fibrillation (HCC) 04/17/2024 Telephone [facility] [address] [address] Virginie Gaviria BJessi 03/27/2024 10:13 AM WAD IMPREGNATOR - 03/27/2024 11:59 PM WAD IMPREGNATOR Hospital Encounter [facility] Medical Office Building [address] [address] Lung nodule Discharge Disposition: Discharge to home or self care from Last 3 Months Surgical History Surgery Date Site/Laterality Comments REPLACEMENT TOTAL KNEE Left REPLACEMENT TOTAL HIP LATERAL POSITION Le ft TONSILLECTOMY KNEE CARTILAGE SURGERY Right US GUIDED THORACENTESIS 09/25/2021 N/A EXCHANGE PICC LINE 09/28/2021 Left COLON SURGERY Medical History Medical History Date Comments Hypertension Hyperlipidemia Arthritis Cholelithiasis Atrial fibrillation (CMS/HCC) (HCC) Diabetes mellitus (HCC) Chronic kidney disease Bradycardia 2023 Family History Medical History Relation Name Comments Diabetes Father Heart attack Father Hyperlipidemia Father Heart attack Mother Heart disease Mother Breast cancer Sister 1 Diabetes Sister 1 Stroke Sister 1 Breast cancer Sister 2 Brain cancer Sister 3 Relation Name Status Comments Father (Age 65) Mother (Age 95) Sister 1 Alive Sister 2 Alive Sister 3 Social History Tobacco Use Types Packs/Day Years [...] on file Sexual Orientation Not on file Obstetrics History Last Filed Vital Signs Vital Sign Reading Time Taken Comments Blood Pressure 126/68 04/17/2024 10:38 AM WAD IMPREGNATOR Pulse 83 04/17/2024 10:38 AM WAD IMPREGNATOR Temperature 36.5 C (97.7 F) 09/26/2023 9:26 AM CDT Respiratory Rate 18 09/26/2023 9:26 AM CDT Oxygen Saturation 95% 09/26/2023 9:26 AM CDT Inhaled Oxygen Concentration - - Weight 106.1 kg (234 lb) 04/17/2024 10:38 AM WAD IMPREGNATOR Height 172.7 cm (5' 8 ) 04/17/2024 10:38 AM WAD IMPREGNATOR Body Mass Index 35.58 04/17/2024 10:38 AM WAD IMPREGNATOR Plan of Treatment Health Maintenance Due Date Last Done Comments Albumin Creatinine Ratio, Urine 1945 Depression Screening 1945 Hemoglobin A1C 1943 Dilated Eye Exam 1943 Foot Exam 1945 Pneumococcal vaccine 65+ (1 of 2 - PCV) 08/13/1949 DTaP/Tdap/Td Vaccine (1 - Tdap) 08/13/1954 Hepatitis B Screening 08/13/1961 Zoster Vaccine (1 of 2) 08/13/1993 Well Visit 65+ 08/13/2008 Lipid Panel 11/20/2017 11/20/2016 Fall Risk Assessment 10/03/2022 10/03/2021 eGFR 04/16/2023 04/16/2022, 0803/2021, 10/19/2021, Additional history exists Influenza Vaccine (#1) 2023 Procedures Procedure Name Priority Date/Time Associated Diagnosis Comments ECG 12-LEAD Routine 04/17/2024 10:35 AM WAD IMPREGNATOR Cardiac arrhythmia, unspecified cardiac arrhythmia type POCT CREATININE FOR CONTRAST EVALUATION Routine 03/27/2024 10:[address] CHEST W CONTRAST Schedule Routine, Read Routine (OP Routine) 03/27/2024 10:30 AM WAD IMPREGNATOR Lung nodule EGFR Routine 04/16/2022 11:12 AM WAD IMPREGNATOR assistant terminal manager current use of amiodarone LIPID PANEL Routine 11/20/2016 8:13 AM CDT from Last 3 Months or Most Recently Relevant to Health Maintenance Results * ECG 12 lead (04/17/2024 10:35 AM WAD IMPREGNATOR) us Jose G Weber MD ECG ORDERABLES Final R esult * POCT creatinine for contrast evaluation (03/27/2024 10:31 AM WAD IMPREGNATOR) Creatinine POC 1.30 0.80 - 1.30 mg/dL Comment:Testing performed by : [facility], [address] [place] [address]., [id number] Blood 03/27/2024 10:3 1 AM WAD IMPREGNATOR 03/27/2024 10:31 AM WAD IMPREGNATOR us Neli Collier MD POINT OF CA RE TEST ORDERABLES Final Result [facility] [address] [facility] Department [place] [address] * CT Chest W Contrast (03/27/2024 10:30 AM WAD IMPREGNATOR) Anatomical Region Laterality Modality Body N/A Computed Tomogra phy 03/30/2024 12:1 9 AM WAD IMPREGNATOR Narrative 03/30/2024 12:25 AM WAD IMPREGNATOR EXAM DESCRIPTION: CT CHEST W CONTRAST REASON [...] Faustino Royal M.D. AR: RANDY Report ID: [id number] Reading Location: [place] [address] Procedure Note Faustino Royal MD - 03/30/2024 [...] Faustino Royal M.D. AR: RANDY Report ID: [id number] Reading Location: [place] [address] us Foster Stubbs MD IMG CT PROCEDURES Final Result * eGFR (04/16/2022 11:12 AM WAD IMPREGNATOR) eGFR 64 mL/min/1. 73 m2 [facility] Comment: Interpretive Data Reference Interval Normal >/= [...] reviewed 2021. Blood 04/16/2022 11:1 2 AM WAD IMPREGNATOR 04/16/2022 11:12 AM WAD IMPREGNATOR us Karen Cruz NP LAB BLOOD ORDERABLES Final Result [facility] [address] Department of [employer] [place] [address] * Lipid panel (11/20/2016 8:13 AM CDT) [...] 10/11/2021 10/11/2021 Insurance MEDICARE SOLUTIONS MEDICARE SOLUTIONS MEDICARE SOLUTIONS [facility] MDCR HMO REF Advance Directives For more information, please contact: [phone] * Full Code (Latest Code Status on File) Date Activated Date Inactivated Comments 09/17/2021 9:52 AM 10/04/2021 9:49 PM * Full Code Date Activated Date Inactivated Comments 09/09/2021 4:36 AM 09/17/2021 9:52 AM Care Teams Major Assembler Relationship Specialty Start Date End Date Isa Ahmadi DO PCP - General Family Medicine 11/23/21
--- OUTSIDE RECORDS SUMMARY | 2024-04-20 12:45 | XMS_ITS | Encounter Summary ---
Author Organization [facility] Address [address] [facility] [address] [place] [address] Phone Care Team Providers Care Farrowing Worker Name Role Phone Nadege Cardoza MD Primary Care Provider [phone] Elissa Ballesteros MD Primary Care Provider + Isa Ahmadi DO Primary Care Provider [phone] Encounter Details Date Type Department Care Team (Late st Contact Info) Description 09/19/2021 Documentation [facility] [address] [facility] Advanced Medicine 12th [place] [address] [place] [address] Ja Davis MD [address] [facility] [place] [address] Social History Tobacco Use Types Packs/Day Years Used Date Smoking Tobacco: Never Smokeless Tobacco: Never Alcohol Use Standard Drinks/Week Comments Yes 1 (1 standard drink = 0.6 oz pur e alcohol) Sex and Gender Information Value Date Recorded Sex Assigned at Not on file Legal Sex Male 1:50 PM CDT Gender Identity Not on file Sexual Orientation Not on file documented as of this encounter Plan of Treatment Not on file documented as of this encounter Visit Diagnoses Not on filedocumented in this encounter Additional Health Concerns Infection Onset Date Last Indicated Resolved Time C. difficile 10/11/2021 10/11/2021 documented as of this encounter Care Teams Farrowing Worker Relationship Specialty Start Date End Date Nadege Cardoza MD [address] [place] [address] PCP - General Family Medicine 10/09/16 10/25/21 Elissa Ballesteros MD [address] [place] [address] PCP - General Family Medicine 10/26/21 11/22/21 Isa Ahmadi DO [address] [place] [address] PCP - General [facility] 11/23/21 documented as of this encounter
--- OUTSIDE RECORDS SUMMARY | 2024-04-20 12:45 | XMS_ITS | Referral Summary ---
Author Organization [facility] Address [address] [facility] [place] [address] Care Team Providers Care Motel Front Desk Clerk Name Role Phone Nadege Cardoza MD Primary Care Provider [phone] Source Comments [facility],non-owned Affiliates and Associated Physician Practices is amultiple site organization consisting of ambulatory clinics and hospital sitesin [place], [place], [place] and [place]. This disclosure is being madepursuant to the Care Everywhere program and may not contain all information available regarding this patient. Last updated 17.[facility] Social History Tobacco Use Types Packs/Day Years Used Date Smoking Tobacco: Never Assessed Sex and Gender Information Value Date Recorded Sex Assigned at Not on file Gender Identity Not on file Sexual Orientation Not on file Plan of Treatment Not on file Care Teams Motel Front Desk Clerk Relationship Specialty Start Date End Date Nadege Cardoza MD [address] [place] [address] PCP - General 03/01/20
--- OUTSIDE RECORDS SUMMARY | 2024-04-20 12:45 | XMS_ITS | Clinical Summary ---
Author Organization [facility] Address [address] [facility] [place] [address] Care Team Providers Care Fur Feeder Name Role Phone Nadege Cardoza MD Primary Care Provider [phone] Source Comments [facility],non-owned Affiliates and Associated Physician Practices is amultiple site organization consisting of ambulatory clinics and hospital sitesin [place], [place], [place] and [place]. This disclosure is being madepursuant to the Care Everywhere program and may not contain all information available regarding this patient. Last updated 17.[facility] [employer] Social History Tobacco Use Types Packs/Day Years Used Date Smoking Tobacco: Never Assessed Sex and Gender Information Value Date Recorded Sex Assigned at Not on file Gender Identity Not on file Sexual Orientation Not on file Plan of Treatment Health Maintenance Due Date Last Done Comments DTAP/TDAP/TD VACCINES (1 - Tdap) 08/13/1962 PNEUMOCOCCAL VACCINE 50+ (1 of 1 - PCV) 08/13/1993 ZOSTER VACCINE (1 of 2) 08/13/1993 Respiratory Syncytial Virus (RSV) Vaccine Pt: or over 60 yrs (1 - 1-dose 75+ series) 08/13/2018 COVID-19 VACCINE (2023-2 5 season) 2023 INFLUENZA VACCINE (#1) 2023 DEPRESSION SCREENING 03/11/2024 MEDICARE AWV CALENDAR YEAR 2024 HEPATITIS B VACCINE Aged Out No longe r eligible based on patient's age to complete this topic HIB VACCINE Aged Out No longer eligi ble based on patient's age to complete this topic HPV VACCINE Aged Out No longer eligi ble based on patient's age to complete this topic MENINGOCOCCAL (Group B) VACCINE Aged Out No longer eligible based on patient's age to complete this topic MENINGOCOCCAL VACCINE Aged Out No ondina justin eligible based on patient's age to complete this topic Care Teams Fur Feeder Relationship Specialty Start Date End Date Nadege Cardoza MD [address] [place] [address] PCP - General 03/01/20
[2024-04-20 18:46] LABS: Hematocrit 45.8 % (42.0-52.0); Hemoglobin 14.8 g/dL (14.0-18.0); Mean Corpuscular HGB Conc 32.3 g/dl (32-36); Mean Corpuscular Hemoglobin 30.3 pg (26-34); Mean Corpuscular Volume 93.9 fl (80-100); Mean Platelet Volume 11.7 fl (7.4-10.4); Platelet Count Result 199 k/mm3 (150-375); Red Blood Count 4.88 M/mm3 (4.6-6.20); Red Cell Distribution Width 14.6 % (11.5-14.5); White Blood Count 7.8 K/mm3 (4.5-10.0)
[2024-04-20 19:12] LABS: Alanine Aminotransferase 36 U/L (6-50); Alkaline Phosphatase 97 U/L (38-126); Anion Gap 7 mmol/L (4-12); Aspartate Amino Transferase 38 U/L (17-59); Bilirubin,Total 0.5 mg/dL (0.2-1.3); Blood Urea Nitrogen 23 mg/dL (9-20); Calcium 8.8 mg/dL (8.4-10.2); Carbon Dioxide 32 mmol/L (22-30); Chloride 103 mmol/L (98-107); Cholesterol 138 mg/dL (0-200); Estimated Glomerular Filt Rate 56; Glucose 123 mg/dL (65-110); HDL Direct 41 mg/dL; Potassium 4.8 mmol/L (3.4-5.0); Sodium 142 mmol/L (137-145); Triglycerides 127 mg/dL (<150)
[2024-04-20 19:24] LABS: LDL Cholesterol Direct 76 mg/dL
[2024-04-20 19:31] LABS: Hemoglobin A1C 7.1 % (<5.7)
[2024-04-20 19:33] LABS: Creatinine Urine 143.4 mg/dL
[2024-04-20 19:52] LABS: Microalbumin Urine Random 335.6 mg/L (0-16.7)
== END 2024-04-20 12:32 | disposition home or self-care (01) ==
LOC: ANHGOSHLAB 12:32
PROVIDERS: PCP Family Medicine; Visit Provider Nurse Practitioner
DX: E11.65 Type 2 diabetes mellitus with hyperglycemia (principal); E78.2 Mixed hyperlipidemia; I48.0 Paroxysmal atrial fibrillation
CPT/HCPCS: 36415; 80053; 80061; 82043; 83036; 85027

== ENCOUNTER 2024-07-15 14:59 | Outpatient (CLI) | payer MEDICARE, SELFPAY ==
--- NOTE | ~2024-07-15 | US_ITS ---
EXAM: RENAL ULTRASOUND HISTORY: R80.9 - Proteinuria, unspecified COMPARISON: None. Reference is made to a CT examination of the abdomen and pelvis dated 05/17/2023 FINDINGS: RIGHT KIDNEY: 9.3 x 5.2 x 5.6 cm. The parenchyma of the right kidney is unremarkable in both caliber and in echogenicity. No hydronephrosis or bulky renal calculi. LEFT KIDNEY: 11.3 x 4.1 x 4.2 cm No hydronephrosis or renal calculi. The parenchyma of the left kidney is unremarkable in both caliber and in echogenicity. BLADDER: Decompressed, limiting its evaluation. IMPRESSION: No hydronephrosis or renal calculi, as detailed above. Reviewed, dictated and finalized at location A.
== END 2024-07-15 15:00 | disposition home or self-care (01) ==
LOC: GOSHIMG 14:59
PROVIDERS: PCP Family Medicine; Visit Provider Internal Medicine Nephrology
DX: R80.9 Proteinuria, unspecified (principal); I10 Essential (primary) hypertension; E11.9 Type 2 diabetes mellitus without complications
CPT/HCPCS: 76775

== ENCOUNTER 2024-08-13 08:47 | Outpatient (CLI) | payer MEDICARE, SELFPAY ==
--- OUTSIDE RECORDS SUMMARY | 2024-08-13 09:05 | XMS_ITS | Encounter Summary ---
Author Organization [facility] Address [address] [facility] [place] [address] Care Team Providers Care Outsole Leveler Name Role Phone Nadege Cardoza MD Primary Care Provider [phone] Encounter Details Date Type Department Care Team (Late st Contact Info) Description 06/11/2023 Lab Requisition [facility] - DermPath Lab [address] [facility] [place] [id number] Zackery Quinonez MD [facility] DERMATOLOGY [address] [place] [phone] Neoplasm of uncertain behavior of skin Social History Tobacco Use Types Packs/Day Years Used Date Smoking Tobacco: Never Assessed Sex and Gender Information Value Date Recorded Sex Assigned at Not on file Legal Sex Male 3:12 PM CITY MANAGER Gender Identity Not on file Sexual Orientation Not on file documented as of this encounter Plan of Treatment Not on file documented as of this encounter Procedures Procedure Name Priority Date/Time Associated Diagnosis Comments DERMATOPATHOLOGY Routine 06/11/2023 3:33 AM CDT Neoplasm of uncertain behavior of skin documented in this encounter Results * DERMATOPATHOLOGY (06/11/2023 3:33 AM CDT) Case Report Dermatopathology Report Case: [id number] Authorizing Provider: Zackery Quinonez MD Collected: 06/11/2023 03:33 AM Ordering Location: [facility] - Received: 06/12/2023 12:43 PM DermPath Lab Pathologist: Selena Abraham MD Specimen: Skin, left forearm 1:23 PM CDT DERMATOPATHOLOGY LABORATORY Final Diagnosis Specimen A. 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 Alexis Gay. These tests need not be, and therefore are not, approved by the [place] Food and Drug Administration. The tests are used for clinical purposes. Billing Codes Specimen Charges Stain Charges 85008 1 1:23 PM CDT DERMATOPATHOLOGY LABORATORY Embedded Images 1:23 PM CDT DERMATOPATHOLOGY LABORATORY Pathology/Cytolo gy TISSUE SPECIMEN FROM SKIN / Unknown 06/11/2023 3:33 AM CDT 06/12/2023 12:43 PM CDT Zackery Quinonez MD LAB - PATHOLOGY/CYTOLOGY ORDE UNIQUE Final Result DERMATOPATHOLOGY LABORATORY [facility] - Department of Dermatology [address], [address] [phone] documented in this encounter Visit Diagnoses Diagnosis Neoplasm of uncertain behavior of skin documented in this encounter Care Teams Outsole Leveler Relationship Specialty Start Date End Date Nadege Cardoza MD [address] [place] [address] PCP - General 03/01/20 documented as of this encounter
--- OUTSIDE RECORDS SUMMARY | 2024-08-13 09:05 | XMS_ITS | Clinical Summary ---
Author Organization [facility] Address [address] [place] [address] Care Team Providers Care Chart Changer Name Role Phone Nadege Cardoza MD Primary Care Provider [phone] Source Comments [facility],non-owned Affiliates and Associated Physician Practices is amultiple site organization consisting of ambulatory clinics and hospital sitesin [place], [place], [place] and [place]. This disclosure is being madepursuant to the Care Everywhere program and may not contain all information available regarding this patient. Last updated 17.[facility] [employer] Social History Tobacco Use Types Packs/Day Years Used Date Smoking Tobacco: Never Assessed Sex and Gender Information Value Date Recorded Sex Assigned at Not on file Legal Sex Male 3:12 PM [employer] Gender Identity Not on file Sexual Orientation Not on file Plan of Treatment Health Maintenance Due Date Last Done Comments DTAP/TDAP/TD VACCINES (1 - Tdap) 08/13/1962 PNEUMOCOCCAL VACCINE 50+ (1 of 1 - PCV) 08/13/1993 ZOSTER VACCINE (1 of 2) 08/13/1993 Respiratory Syncytial Virus (RSV) Vaccine Pt: or over 60 yrs (1 - 1-dose 75+ series) 08/13/2018 COVID-19 VACCINE ( - 2023-2 5 season) 2023 DEPRESSION SCREENING 03/11/2024 MEDICARE AWV CALENDAR YEAR 2024 INFLUENZA VACCINE (Season Ended) 2024 HEPATITIS B VACCINE Aged Out No longe r eligible based on patient's age to complete this topic HIB VACCINE Aged Out No longer eligi ble based on patient's age to complete this topic HPV VACCINE Aged Out No longer eligi ble based on patient's age to complete this topic MENINGOCOCCAL (Group B) VACC INE SHARED DECISION-MAKING Aged Out No longer eligibl e based on patient's age to complete this topic MENINGOCOCCAL GROUPS A/C/Y/W VACCINE Aged Out No longer eligible b ased on patient's age to complete this topic Insurance MANAGED MEDICARE ADV MEDICARE [facility] MANAGED MEDICARE ADV [facility] MANAGED MEDICARE ADV [place] MED[place] [facility] MANAGED MEDICARE ADV [place] MED[place]ARE Care Teams Chart Changer Relationship Specialty Start Date End Date Nadege Cardoza MD [address] [place] [id number] PCP - General 03/01/20
--- OUTSIDE RECORDS SUMMARY | 2024-08-13 09:05 | XMS_ITS | Referral Summary ---
Author Organization [facility] Address [address] [place] [phone] Care Team Providers Care Advanced Manufacturing Associate Name Role Phone Isa Ahmadi DO Primary Care Provider [phone]- [phone] Encounters Date Type Department Care Team Description 08/05/2024 10:40 AM CDT Anesthesia Event [facility] [address] [place] [address] [phone] Chente Young MD 08/05/2024 9:52 AM CDT - 08/05/2024 11:59 PM CDT Hospital Encounter [facility] [address] [place] [address] [phone] Matt Solorio MD Persistent atrial fibrillation (HCC) (Primary Dx); Cardiac arrhythmia, unspecified cardiac arrhythmia type Discharge Disposition: Discharge to home or self care 07/24/2024 [facility]phone [facility] [address] [place] [address] [phone] Karen Cruz NP 07/24/2024 9:15 AM CDT Office Visit [facility] [address] [place] [address] [phone] Karen Cruz NP Cardiac arrhythmia, unspecified cardiac arrhythmia type (Primary Dx) 06/30/2024 Telephone [facility] [address] [place] [phone] Karen Cruz NP Scheduling Appointments 06/30/2024 10:26 AM CDT Anesthesia Event [address] [phone] Matt Weston DO Guernsey, Timothy Joseph, CRNA 06/30/2024 7:51 AM CDT - 06/30/2024 11:59 PM CDT Hospital Encounter [address] [phone] Darling, Tankman, MD Bonner, Iam Karimi MD Discharge Disposition: Discharge to home or self care 06/30/2024 9:55 AM CDT - 06/30/2024 12:15 PM CDT Surgery [address] [phone] Jose G Weber MD ABLATION ATRIAL FIBRILLATION (A-FIB) VIA PULMONARY VEIN ISOLATION [id number] 06/30/2024 7:47 AM CDT - 06/30/2024 4:49 PM CDT Hospital Encounter [address] [phone] Jose G Weber MD Persistent atrial fibrillation (HCC) Discharge Disposition: Discharge to home or self care from Last 3 Months Allergies No known active allergies Medications finasteride (PROSCAR) 5 mg tablet Take 1 tablet (5 mg total) by mouth daily Active furosemide (LASIX) 40 mg tablet Take 1 tablet (40 mg total) by mouth daily Active embzwtyg-ecd-kl lic-vit K-lycop 400-20-370 mcg tablet Take by mouth daily MEN'S DAILY Active ferrous sulfate 325 mg (65 mg of elemental iron) tabletIndicatio ns:Iron Deficiency Anemia Take 1 tablet (325 mg total) by mouth daily with breakfast Active apixaban (ELIQUIS) 5 mg tablet Take 1 tablet (5 mg total) by mouth 2 (two) times a day 56 tablet 0 Active tamsulosin (FLOMAX) 0.4 mg extended release capsule Take 1 capsule (0.4 mg total) by mouth daily 1 Active acetaminophen (TYLENOL) 500 mg tabletIndicatio ns:Pain Take 1 tablet (500 mg total) by mouth every 6 (six) hours as needed for pain Active HYDROcodone-fadia taminophen (NORCO) 5-325 mg per tabletIndicatio ns:Pain Take 1 tablet by mouth every 6 (six) hours as needed Active lisinopriL (PRINIVIL,ZESTR IL) 40 mg tablet Take 1 tablet (40 mg total) by mouth daily [address] (PROTONIX) 40 mg EC tablet Take 1 tablet (40 mg total) by mouth daily 3 Active metFORMIN (GLUCOPHAGE) 500 mg tablet Take 1 tablet (500 mg total) by mouth 2 (two) times a day 4 Active simvastatin (ZOCOR) 10 mg tablet Take 1 tablet (10 mg total) by mouth nightly Active latanoprost (XALATAN) 0.005 % ophthalmic solution Administer 1 drop into both eyes nightly 5 Active chlorpheniramin e/dextromethorp (CORICIDIN HBP COUGH AND COLD ORAL) Take 1 tablet by mouth every 6 (six) hours as needed Active Active Problems Patient Care Coordination No te Formatting of this note migh t be different from the original. Referring provider: Aria Rice NP Mr. Julio Espinoza is a 76 year old with an [...] 10/21/2022 Assessment & Plan (04/17/2024 10:56 AM CATERING COOK): Symptomatic persistent atrial fibrillation, recurrent despite ongoing [...] be needed yearly. The patient has a ATI9SO2-TVDi score of 4 (annualized risk of stroke 4%). I have therefore recommended continued anticoagulation for thromboprophylaxis. Typical follow-up is 1 month post cardioversion. Assessment & Plan (05/02/2023 5:09 PM CATERING COOK): Symptomatic persistent atrial fibrillation, presently managed with [...] be needed yearly. The patient has a OVI6VJ6-ZDPk score of 4 (annualized risk of stroke [...] be needed yearly. The patient has a QBH2PT6-WLAr score of 4 (annualized risk of stroke 4%). I have therefore recommended continued anticoagulation for thromboprophylaxis. The patient will follow-up with me in 6 months for an office visit and twelve- lead ECG. 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 stated they thought that [...] potassium chloride for hypokalemia. He was to fruit picker machine operator and take that night or tomorrow with [...] is with patient today, states they will fruit picker machine operator prescription on the way home. Closed fracture of neck of femur 10/27/2021 Enthesopathy of hip region 10/27/2021 Fracture with [...] consulted for MSSA BSI. Patient presented to [facility] on 09/08 after polytrauma due to fall onto his right side on a wooden terrace with mower falling over him. In the ED CT showed right rib fractures, small apical pneumothorax and RUE hematoma. Labs showed DANIEL and leukocytosis 15. He was transferred to [facility] for trauma evaluation. He was admitted [...] complication, with no history of insulin use 09/09/2021 Closed fracture of multiple ribs of right side, initial encounter 09/09/2021 Ileus 09/08/2021 Overview (09/18/2021): Added automatically from request for surgery [id number] Atrial fibrillation, chronic 10/18/2016 Assessment & Plan (02/27/2017 12:52 PM CATERING COOK): Impression Atrial fibrillation. Early recurrence after cardioversion [...] pur e alcohol) AUDIT-C Answer Date Recorded Q1: How often do you have a drink containing alc ohol? 2-4 times a month 06/30/2024 Q2: How many drinks containi ng alcohol do you have on a typical day when you are drinking? 1 or 2 06/30/2024 Q3: How often do you have si x or more drinks on one occasion? Less than monthly 06/30/2024 Personal Safety Answer Date Recorded Have you ever been in or are you currently in a harmful physical or emotional relationship or is someone making you feel afraid or unsafe? Denies 08/05/2024 Sex and Gender Information Value Date Recorded Sex Assigned at Not on file Legal Sex Male 1:50 PM CDT Gender Identity Not on file Sexual Orientation Not on file Last Filed Vital Signs Vital Sign Reading Time Taken Comments Blood Pressure 130/85 08/05/2024 11:20 AM CDT Pulse 75 08/05/2024 11:20 AM CDT Temperature 36.1 C (97 F) 06/30/2024 12:32 PM CDT Respiratory Rate 19 08/05/2024 11:20 AM CDT Oxygen Saturation 95% 08/05/2024 11:20 AM CDT Inhaled Oxygen Concentration - - Weight 102.1 kg (225 lb) 08/05/2024 10:29 AM CDT Height 175.3 cm (5' 9) 08/05/2024 10:29 AM CDT Body Mass Index 33.23 08/05/2024 10:29 AM CDT Plan of Treatment Not on file Medical Devices Implanted Type Area Burlapper Device Identifier Shelf Expiration Date Model / Serial / Lot [employer] Device Vascular Closure Vascade Mvp Xl 10-12fr Venous Strl [id number] - [id number] - [id number] Implanted:Qty: 1 on 06/30/2024 by Jose G Weber MD at [facility] Vascular Closure Device [employer] 02/17/2026 [id number] / [id number] / [id number] [employer] Vascade Mvp 6-12fr Venous Closure [id number] - [id number] - [id number] Implanted:Qty: 1 on 06/30/2024 by Jose G Weber MD at [facility] Vascular Closure Device [employer] 05/13/2026 [id number]-[id number] 0U / [id number] / [id number] [employer] Vascade Mvp 6-12fr Venous Closure [id number] - [id number] - [id number] Implanted:Qty: 1 on 06/30/2024 by Jose G Weber MD at [facility] Vascular Closure Device [employer] 04/20/2026 800-612C-1 [id number] / [id number] / [id number] Procedures Procedure Name Priority Date/Time Associated Diagnosis Comments TRANSESOPHAGEAL ECHO ([facility]) W DOPPLER/CF W CARDIOVERSION Routine 08/05/2024 11:32 AM CDT Cardiac arrhythmia, unspecified cardiac arrhythmia type TRANSESOPHAGEAL ECHO ([facility]OCLM) WO DOPPLER/CF W CARDIOVERSION W CONTRAST Routine 08/05/2024 11:23 AM CDT Persistent atrial fibrillation (HCC) TRANSESOPHAGEAL ECHO ([place]) WO DOPPLER/CF W CARDIOVERSION Routine 08/05/2024 11:23 AM CDT Persistent atrial fibrillation (HCC) TRANSESOPHAGEAL ECHO ([place]) W LTD DOPPLER/CF W CARDIOVERSION W CONTRAST Routine 08/05/2024 11:23 AM CDT Persistent atrial fibrillation (HCC) TRANSESOPHAGEAL ECHO ([place]) W LTD DOPPLER/CF W CARDIOVERSION Routine 08/05/2024 11:23 AM CDT Persistent atrial fibrillation (HCC) TRANSESOPHAGEAL ECHO ([place]) W DOPPLER/CF W CARDIOVERSION W CONTRAST Routine 08/05/2024 11:23 AM CDT Persistent atrial fibrillation (HCC) TRANSESOPHAGEAL ECHO ([place]) W DOPPLER/CF W CARDIOVERSION Routine 08/05/2024 11:23 AM CDT Persistent atrial fibrillation (HCC) ECG 12-LEAD Routine 08/05/2024 9:24 AM CDT ECG 12-LEAD Routine 07/24/2024 9:13 AM CDT Cardiac arrhythmia, unspecified cardiac arrhythmia type POCT GLUCOSE DEVICE Routine 06/30/2024 1 2:37 PM CDT LEFT VENTRICLE PACING AND RECORDING Routine 06/30/2024 12:08 PM CDT Persistent atrial fibrillation (HCC) ELECTROPHYSIOLOGIC EVALUATION (EPS) / ATRIAL FIBRILLATION ABLATION VIA PULMONARY VEIN ISOLATION Routine 06/30/2024 12:08 PM CDT Persistent atrial fibrillation (HCC) POCT ACTIVATED CLOTTING TIME, HIGH RANGE Routine 06/30/2024 11:44 AM CDT POCT ACTIVATED CLOTTING TIME, HIGH RANGE Routine 06/30/2024 11:32 AM CDT POCT ACTIVATED CLOTTING TIME, HIGH RANGE Routine 06/30/2024 11:19 AM CDT TRANSESOPHAGEAL ECHO ([place]) W DOPPLER/CF WO CONTRAST Routine 06/30/2024 11:02 AM CDT OR AN PROCEDURE PLACEHOLDER Routine 06/30/2024 10:38 AM CDT OR AN ELECTIVE ENDOTRACHEAL AIRWAY Routine 06/30/2024 10:38 AM CDT EGFR STAT 06/30/2024 8:45 AM CDT DIFFERENTIAL AUTO STAT 06/30/2024 8: 45 AM CDT B CHECK SAMPLE STAT 06/30/2024 8:45 AM CDT BASIC METABOLIC PANEL STAT 06/30/2024 8:45 AM CDT CBC WITH AUTO DIFFERENTIAL STAT 06/30/2024 8:45 AM CDT ECG 12-LEAD Routine 06/30/2024 8:33 AM CDT TYPE AND SCREEN STAT 06/30/2024 8:33 AM CDT LIPID PANEL Routine 11/20/2016 8:13 AM CDT from Last 3 Months or Most Recently Relevant to Health Maintenance Results * TRANSESOPHAGEAL ECHO ([facility]) W DOPPLER/CF W CARDIOVERSION (08/05/2024 11:32 AM CDT) Estimated EF 50-55 % CONS SCIMAGE Anatomical Region Laterality Modality Echocardiography 08/05/2024 10:3 2 AM CDT Narrative 08/12/2024 5:04 PM CDT [facility] [address] [place] [address] TRANSESOPHAGEAL ECHOCARDIOGRAM Patient Name: JULIO ESPINOZA : 1945 (78y 11m) Gender: M Study Date: 08/05/2024 10:32:57 AM Ht(Inch): 71 Wt(Lb): 225 BSA: 2.26 Education Reporter: FRANKY Location: [facility] Order Provider: KAREN CRUZ BMI: 31.38 BP: 144/74 Ref Provider: KAREN CRUZ - PROCEDURES: Transesophageal Echo Report: Transesophageal echocardiogram including 2D imaging, spectral doppler and color doppler was performed in the cardiac catheterization laboratory. The procedure was monitored with automatic blood pressure monitoring, ECG tracings, and pulse oximetry. Sedation was achieved by anesthesia using Propofol IV. The transesophageal probe was placed in the esophagus posterior to the heart without any complications. The patient tolerated the procedure well. INDICATIONS: I49.9 Cardiac arrhythmia, unspecified. MEASUREMENTS: 2D/MM Value Range Estimated EF 50-55 % 2D/MM Value Range - FINDINGS: Study Quality: The study was technically adequate. BP: Blood pressure: 144/74 mmHg. Left Ventricle: Low normal global left ventricular systolic function. Ejection Fraction is estimated to be 50-55 %. Normal left ventricular cavity size. Mild concentric left ventricular hypertrophy. Right Ventricle: Normal right ventricular size. Normal right ventricular systolic function. Left Atrium: There is mild enlargement of the left atrium. No left atrial thrombus. LA Appendage: No JUAN thrombus seen. Right Atrium: The right atrium is normal in size. Atrial Septum: Normal atrial septum. Saline contrast study negative for R to L shunt. Mitral Valve: Grossly normal appearing mitral valve. Mild mitral valve regurgitation. Aortic Valve: There is normal aortic valve cusp separation. Trileaflet aortic valve. There is no aortic regurgitation. No aortic stenosis. Tricuspid Valve: Grossly normal appearing tricuspid valve. TR envelope inadequate to estimate RVSP. Pulmonic Valve: Grossly normal appearing pulmonic valve. Pericardium: Normal appearing pericardium. Aorta: Normal aortic root size. CONCLUSIONS: 1. Low normal global left ventricular systolic function. Ejection Fraction is estimated to be 50-55 %. Normal left ventricular cavity size. Mild concentric left ventricular hypertrophy. 2. Normal right ventricular size. Normal right ventricular systolic function. 3. There is mild enlargement of the left atrium. No left atrial thrombus. 4. No JUAN thrombus seen. 5. Direct current cardioversion was performed successfully resulting in religion of sinus rhythm. Electronically Signed By: Matt Solorio MD [facility] 08/12/2024 5:03:45 PM CDT Procedure Note Matt Solorio MD - 08/12/2024 [address] [place] [address] TRANSESOPHAGEAL ECHOCARDIOGRAM Patient Name: JULIO ESPINOZA : 1945 (78y 11m) Gender: M Study Date: 08/05/2024 10:32:57 AM Ht(Inch): 71 Wt(Lb): 225 BSA: 2.26 Education Reporter: Location: [facility] Order Provider: KAREN CRUZ BMI: 31.38 BP: 144/74 Ref Provider: KAREN CRUZ - PROCEDURES: Transesophageal Echo Report: Transesophageal echocardiogram including 2Dimaging, spectral doppler and color doppler was performed in the cardiaccatheterization laboratory. The procedure was monitored with automatic blood pressuremonitoring, ECG tracings, and pulse oximetry. Sedation was achieved by anesthesia usingPropofol IV. The transesophageal probe was placed in the esophagus posterior to the heartwithout any complications. The patient tolerated the procedure well. INDICATIONS: I49.9 Cardiac arrhythmia, unspecified. MEASUREMENTS: 2D/MM Value Range Estimated EF 50-55 % 2D/MM Value Range - FINDINGS: Study Quality: The study was technically adequate. BP: Blood pressure: 144/74 mmHg. Left Ventricle: Low normal global left ventricular systolic function.Ejection Fraction is estimated to be 50-55 %. Normal left ventricular cavity size. Mildconcentric left ventricular hypertrophy. Right Ventricle: Normal right ventricular size. Normal right ventricularsystolic function. Left Atrium: There is mild enlargement of the left atrium. No left atrialthrombus. LA Appendage: No JUAN thrombus seen. Right Atrium: The right atrium is normal in size. Atrial Septum: Normal atrial septum. Saline contrast study negative for Rto L shunt. Mitral Valve: Grossly normal appearing mitral valve. Mild mitral valveregurgitation. Aortic Valve: There is normal aortic valve cusp separation. Trileafletaortic valve. There is no aortic regurgitation. No aortic stenosis. Tricuspid Valve: Grossly normal appearing tricuspid valve. TR envelopeinadequate to estimate RVSP. Pulmonic Valve: Grossly normal appearing pulmonic valve. Pericardium: Normal appearing pericardium. Aorta: Normal aortic root size. CONCLUSIONS: 1. Low normal global left ventricular systolic function. Ejection Fractionis estimated to be 50-55 %. Normal left ventricular cavity size. Mild concentric leftventricular hypertrophy. 2. Normal right ventricular size. Normal right ventricular systolicfunction. 3. There is mild enlargement of the left atrium. No left atrialthrombus. 4. No JUAN thrombus seen. 5. Direct current cardioversion was performed successfully resulting inrestoration of sinus rhythm. Electronically Signed By: Matt Solorio MD [facility] 08/12/2024 5:03:45 PM CDT Karen Cruz NP CV ECHO PROCEDURES Final R esult * TRANSESOPHAGEAL ECHO ([facility]) W DOPPLER/CF W CARDIOVERSION, TRANSESOPHAGEAL ECHO ([facility]) W DOPPLER/CF W CARDIOVERSION W CONTRAST, TRANSESOPHAGEAL ECHO ([place]) W LTD DOPPLER/CF W CARDIOVERSION, TRANSESOPHAGEAL ECHO ([facility]) W LTD DOPPLER/CF W CARDIOVERSION W CONTRAST, TRANSESOPHAGEAL ECHO ([place]) WO DOPPLER/CF W CARDIOVERSION, TRANSESOPHAGEAL ECHO ([facility]) WO DOPPLER/CF W CARDIOVERSION W CONTRAST (08/05/2024 11:23 AM CDT) Anatomical Region Laterality Modality Echocardiography Narrative 08/05/2024 11:23 AM CDT Matt Solorio MD 08/05/2024 11:24 AM Transesophageal Echocardiogram ([facility]) with Possible Cardioversion Date/Time: 08/05/2024 11:23 AM Performed by: Matt Solorio MD Authorized by: Matt Solorio MD Consent: Verbal consent obtained. Written consent obtained Risks and benefits: risks, benefits and alternatives were discussed Consent given by: patient Patient understanding: patient states understanding of the procedure being performed Patient consent: the patient's understanding of the procedure matches consent given Procedure consent: procedure consent matches procedure scheduled Relevant documents: relevant documents present and verified Test results: test results available and properly labeled Imaging studies: imaging studies available Required items: required blood products, implants, devices, and special equipment available Patient identity confirmed: verbally with patient, arm band and hospital-assigned identification number Time out: Immediately prior to procedure a time out was called to verify the correct patient, procedure, equipment, lab support technician and site/side marked as required. Sedation: Patient sedated: yes Sedatives: propofol Vitals: Vital signs were monitored during sedation. Patient tolerance: patient tolerated the procedure well with no immediate complications Comments: Indication: Persistent atrial fibrillation Procedure details: After sedation was administered, a transesophageal echocardiogram probe was successfully advanced into the patient's esophagus and stomach. No left atrial or left atrial appendage thrombus was identified. While still sedated, 200 joules of synchronized energy was delivered, restoring sinus rhythm. us Matt Solorio MD CV ECHO PROCEDURES Final Re sult * ECG 12 lead (08/05/2024 9:24 AM CDT) 08/05/2024 9:24 AM CDT Narrative [facility] - 08/06/2024 7:53 AM CDT Vent Rate: 93 bpm RR Interval: 645 msec OR Interval: 0 msec QRS Duration: 94 msec QT Interval: 339 msec QTC Interval: 389 msec P-R-T Lamont: 0 - 17 - 24 degrees IMPRESSION: ATRIAL FIBRILLATION ABNORMAL RHYTHM ECG Electronically Signed By: Matt Solorio MD [facility] us Matt Solorio MD ECG ORDERABLES Final Resul t Performing Organization Address City/[facility] Co de Phone Number [facility] * ECG 12 lead (07/24/2024 9:13 AM CDT) us Karen Cruz FRAME RUNNER ECG ORDERABLES Final Resu lt * POCT glucose (06/30/2024 12:37 PM CDT) [facility] Glucose, POC 158 70 - 199 mg/dL Comment: For Glucose values <35 mg/dl when Hematocrit is >60 mg/dl,the test may not accurately detect significant hypoglycemia,and testing in the Laboratory should be considered if clinically indicated. POC Performer [id number] [facility] Blood 06/30/2024 12:3 7 PM CDT 06/30/2024 12:37 PM CDT us Jose G Weber MD LAB POCT ORDERABLES - D EVICE Final Result Performing Organization Address [facility] Co de Phone Number [facility] [address] Department [place] [address] * ELECTROPHYSIOLOGIC EVALUATION (EPS) / ATRIAL FIBRILLATION ABLATION VIA PULMONARY VEIN ISOLATION, LEFT VENTRICLE PACING AND RECORDING (06/30/2024 12:08 PM CDT) Anatomical Region Laterality Modality X-Ray Angiograph y us Jose G Weber MD CV ELECTROPHYSIOLOGY OR OCS Final Result * (ABNORMAL) POC Activated Clotting Time, High Range (06/30/2024 11:44 AM CDT) [facility] ACT 363(H) 87 - 138 sec POC Performer [id number] [facility] Blood 06/30/2024 11:4 4 AM CDT 06/30/2024 11:44 AM CDT Jose G Weber MD LAB BLOOD ORDERABLES Fi nal Result Performing Organization Address [facility] Co de Phone Number [facility] [address] [facility] [employer] [place] [address] * (ABNORMAL) POC Activated Clotting Time, High Range (06/30/2024 11:32 AM CDT) ACT 286(H) 87 - 138 sec POC Performer [id number] [facility] Blood 06/30/2024 11:3 2 AM CDT 06/30/2024 11:32 AM CDT us Jose G Weber MD LAB BLOOD ORDERABLES Fi nal Result Performing Organization Address [facility] Co de Phone Number [facility] [address] Department of [employer] [place] [address] * (ABNORMAL) POC Activated Clotting Time, High Range (06/30/2024 11:19 AM CDT) ACT 253(H) 87 - 138 sec POC Performer [id number] [facility] Blood 06/30/2024 11:1 9 AM CDT 06/30/2024 11:19 AM CDT us Jose G Weber MD LAB BLOOD ORDERABLES Fi nal Result Performing Organization Address [facility] Co de Phone Number [facility] [address] [facility] [place] [place] [address] * TRANSESOPHAGEAL ECHO ([facility]) W DOPPLER/CF WO CONTRAST (06/30/2024 11:02 AM CDT) LV EF 60-65 % CONS SCIMAGE Anatomical Region Laterality Modality Echocardiography 06/30/2024 9:44 AM CDT Narrative 06/30/2024 5:30 PM CDT [facility] [address] [place] [address] TRANSESOPHAGEAL ECHOCARDIOGRAM Patient Name: JULIO ESPINOZA P : 1945 (78y 10m) Gender: M Study Date: 06/30/2024 09:44:15 AM Ht(Inch): 68 Wt(Lb): 228 BSA: 2.23 Education Reporter: AELNA Location: [facility] Order Provider: Gus BMI: 34.66 BP: 160/96 Ref Provider: - PROCEDURES: Transesophageal Echo Report: Transesophageal echocardiogram including 2D imaging, spectral doppler and color doppler was performed in the cardiac catheterization laboratory. The procedure was monitored with automatic blood pressure monitoring, ECG tracings, and pulse oximetry. Sedation was achieved by anesthesia using Propofol IV. The transesophageal probe was placed in the esophagus posterior to the heart without any complications. The patient tolerated the procedure well. INDICATIONS: Atrial fibrillation. MEASUREMENTS: 2D/MM Value Range Estimated EF 60-65 % 2D/MM Value Range - FINDINGS: BP: Blood pressure: 160/96 mmHg. Left Ventricle: Normal global and regional left ventricular systolic function. Ejection Fraction is estimated to be 60-65 %. Right Ventricle: Normal right ventricular size. Normal right ventricular systolic function. Left Atrium: There is mild enlargement of the left atrium. LA Appendage: No JUAN thrombus seen. Right Atrium: The right atrium is normal in size. Atrial Septum: Normal atrial septum. Mitral Valve: Normal appearance of the mitral valve. Mild mitral valve regurgitation. Aortic Valve: Trileaflet aortic valve. There is trace aortic valve regurgitation. Tricuspid Valve: Normal appearance and function with trace (physiologic) regurgitation of the tricuspid valve. Pulmonic Valve: Normal pulmonic valve appearance and function with trace (physiologic) regurgitation. Pericardium: Normal pericardium with no significant pericardial effusion. Aorta: Normal caliber aortic root. Ascending aorta is normal in size. CONCLUSIONS: 1. Normal global and regional left ventricular systolic function. Ejection Fraction is estimated to be 60-65 %. 2. Normal right ventricular size. Normal right ventricular systolic function. 3. There is mild enlargement of the left atrium. 4. No JUAN thrombus seen. Electronically Signed By: Iam Bonner [facility] Card 06/30/2024 5:29:56 PM CDT Procedure Note Iam Bonner MD - 06/30/2024 [facility] [address] [place] [address] TRANSESOPHAGEAL ECHOCARDIOGRAM Patient Name: JULIO ESPINOZA P : 1945 (78y 10m) Gender: M Study Date: 06/30/2024 09:44:15 AM Ht(Inch): 68 Wt(Lb): 228 BSA: 2.23 Education Reporter: Location: [facility] Order Provider: Gus BMI: 34.66 BP: 160/96 Ref Provider: - PROCEDURES: Transesophageal Echo Report: Transesophageal echocardiogram including 2Dimaging, spectral doppler and color doppler was performed in the cardiaccatheterization laboratory. The procedure was monitored with automatic blood pressuremonitoring, ECG tracings, and pulse oximetry. Sedation was achieved by anesthesia usingPropofol IV. The transesophageal probe was placed in the esophagus posterior to the heartwithout any complications. The patient tolerated the procedure well. INDICATIONS: Atrial fibrillation. MEASUREMENTS: 2D/MM Value Range Estimated EF 60-65 % 2D/MM Value Range - FINDINGS: BP: Blood pressure: 160/96 mmHg. Left Ventricle: Normal global and regional left ventricular systolicfunction. Ejection Fraction is estimated to be 60-65 %. Right Ventricle: Normal right ventricular size. Normal right ventricularsystolic function. Left Atrium: There is mild enlargement of the left atrium. LA Appendage: No JUAN thrombus seen. Right Atrium: The right atrium is normal in size. Atrial Septum: Normal atrial septum. Mitral Valve: Normal appearance of the mitral valve. Mild mitral valveregurgitation. Aortic Valve: Trileaflet aortic valve. There is trace aortic valveregurgitation. Tricuspid Valve: Normal appearance and function with trace (physiologic)regurgitation of the tricuspid valve. Pulmonic Valve: Normal pulmonic valve appearance and function with trace(physiologic) regurgitation. Pericardium: Normal pericardium with no significant pericardialeffusion. Aorta: Normal caliber aortic root. Ascending aorta is normal in size. CONCLUSIONS: 1. Normal global and regional left ventricular systolic function. EjectionFraction is estimated to be 60-65 %. 2. Normal right ventricular size. Normal right ventricular systolicfunction. 3. There is mild enlargement of the left atrium. 4. No JUAN thrombus seen. Electronically Signed By: Iam Bonner [facility] Card 06/30/2024 5:29:56 PM CDT Tankman Darling CARTER CV ECHO PROCEDURE S Final Result * OR AN ELECTIVE ENDOTRACHEAL AIRWAY, OR AN PROCEDURE PLACEHOLDER (06/30/2024 10:38 AM CDT) Rory Talavera CRNA - 06/30/2024 10:38 AM CDT Rory Dhaliwal CRNA 06/30/2024 10:39 AM Airway Patient location: OR Urgency: elective Date/time: 06/30/2024 10:36 AM Indications for airway management: anesthesia Difficult airway: no Staff: Supervising provider: Matt Weston DO Placed by: OFFICE MACHINE INSTALLER: Rory Dhaliwal CRNA Emergent airway documentation: Risks and benefits discussed: yes Consent obtained: yes Consent given by: patient Airway prep: Preoxygenated: yes Patient position: sniffing Mask difficulty assessment: 0 - not attempted Sedation level during airway: GA Final airway details: Final airway type: endotracheal airway Tube type: ETT ETT size: 8.0 mm Cuffed: yes Technique used for successful ETT placement: video laryngoscopy Devices/Methods used in placement: stylet Insertion site: oral Blade type: Abdifatah Video blade type: Mejias Blade size: 3 Cormack-Lehane (video): grade I - full view of glottis Cuff volume: 9 mL Cuff inflated with: air ETT to lips: 24 cm Placement verified by: auscultation and CO2 detection Airway secured with: silk tape Number of attempts: 1 Additional comments: RSI due to patient's URI/GERD. Grade 1 view with Mejias x3 blade. Easy, atraumatic intubation. Matt Weston DO ANESTHESIA ORDERABLES Fi nal Result * eGFR (06/30/2024 8:45 AM CDT) eGFR 65 >=60 mL/min/1. 73 m2 Comment: Interpretive Data Reference Interval Normal >/= [...] interpretive data was last reviewed 2021. Blood 06/30/2024 8:45 AM CDT 06/30/2024 8:45 AM CDT us Jose G Weber MD LAB BLOOD ORDERABLES Fi nal Result [facility] [address] Department [place] [address] * (ABNORMAL) Differential, auto (06/30/2024 8:45 AM CDT) Neutrophil abs 5.66 1.50 - 6.50 K/cumm Imm gran abs 0.05 0.00 - 0.10 K/cumm [facility] Lymphocyte abs 2.54 0.80 - 3.30 K/cumm [facility] Monocyte abs 0.87(H) 0.20 - 0.80 K/cumm [facility] Eosinophil abs 0.15 0.00 - 0.50 K/cumm [facility] Basophil abs 0.03 0.00 - 0.10 K/cumm [facility] Neutrophil pct 60.9 % [facility] Comment: Interpretive Data Percent cell count reference ranges are not reported, since discordance with absolute values may lead to misinterpretation of CBC data. Current Interpretive Data was last revised on 2017. Imm gran pct 0.5 % [facility] Comment: Interpretive Data Percent cell count reference ranges are not reported, since discordance with absolute values may lead to misinterpretation of CBC data. Current Interpretive Data was last revised on 2017. Lymphocyte pct 27.3 % [facility] Comment: Interpretive Data Percent cell count reference ranges are not reported, since discordance with absolute values may lead to misinterpretation of CBC data. Current Interpretive Data was last revised on 2017. Monocyte pct 9.4 % [facility] Comment: Interpretive Data Percent cell count reference ranges are not reported, since discordance with absolute values may lead to misinterpretation of CBC data. Current Interpretive Data was last revised on 2017. Eosinophil pct 1.6 % [facility] Comment: Interpretive Data Percent cell count reference ranges are not reported, since discordance with absolute values may lead to misinterpretation of CBC data. Current Interpretive Data was last revised on 2017. Basophil pct 0.3 % [facility] Comment: Interpretive Data Percent cell count reference ranges are not reported, since discordance with absolute values may lead to misinterpretation of CBC data. Current Interpretive Data was last revised on 2017. Blood 06/30/2024 8:45 AM CDT 06/30/2024 8:45 AM CDT Jose G Weber MD LAB BLOOD ORDERABLES Fi nal Result Performing Organization Address [facility] Co de Phone Number [facility] [address] [email or web address] [address] * Check Sample (06/30/2024 8:45 AM CDT) Pathologist [facility] ABO Rh O Positive MBC HCLL OTHER 06/30/2024 8:45 AM CDT 06/30/2024 8:48 AM CDT Jose G Weber MD LAB BLOOD ORDERABLES Fi nal Result Performing Organization Address [facility] de Phone Number [facility] [address] [email or web address] [address] MBC * (ABNORMAL) CBC with auto differential (06/30/2024 8:45 AM CDT) Pathologist [facility] WBC 9.30 3.80 - 9.90 K/cumm Hgb 14.3 13.0 - 17.5 g/dL [facility] Hct 44.3 38.9 - 50.3 % [facility] Plt 224 150 - 400 K/cumm [facility] MPV 11.2 9.1 - 12.3 fL [facility] RBC 4.76 4.30 - 5.80 M/cumm [facility] MCV 93.1 81.3 - 96.4 fL [facility] MCH 30.0 27.1 - 33.3 pg [facility] MCHC 32.3 32.3 - 35.7 g/dL [facility] RDW CV 14.5 11.1 - 14.9 % [facility] RDW SD 49.5(H) 35.7 - 48.1 fL [facility] NRBC abs 0.00 0.00 - 0.01 K/cumm [facility] Blood 06/30/2024 8:45 AM CDT 06/30/2024 8:45 AM CDT Jose G Weber MD LAB BLOOD ORDERABLES Fi nal Result Performing Organization Address [facility] Co de Phone Number [facility] [address] Department [place] [employer] [place] [address] * Basic metabolic panel (06/30/2024 8:45 AM CDT) Pathologist [facility] Sodium 141 135 - 145 mmol/L Potassium, pl 4.1 3.3 - 4.9 mmol/L [facility] Chloride 105 97 - 110 mmol/L [facility] CO2 24 22 - 32 mmol/L [facility] Anion gap 12 2 - 15 mmol/L [facility] BUN 22 6 - 25 mg/dL [facility] Creatinine 1.14 0.80 - 1.30 mg/dL [facility] Glucose 124 70 - 199 mg/dL [facility] Comment: Interpretive Data Fasting glucose >/= 126 mg/dl is diagnostic for diabetes. Fasting is defined as no caloric intake for at least 8 hours. Fasting glucose between 100 mg/dl to 125 mg/dl is diagnostic of prediabetes. In a patient with classic symptoms of hyperglycemia or hyperglycemic crisis, a random glucose >/= 200 mg/dl is diagnostic for diabetes. In the absence of unequivocal hyperglycemia, results should be confirmed by repeat testing. The classification and Diagnosis of Diabetes Diabetes Care 2021; 46: S19-S40. Current interpretive data was last revised 2022. Calcium 8.6 8.5 - 10.3 mg/dL [facility] Blood 06/30/2024 8:45 AM CDT 06/30/2024 8:45 AM CDT Jose G Weber MD LAB BLOOD ORDERABLES Fi nal Result Performing Organization Address [facility]/ZIP Co de Phone Number [facility] [address] Department [place] [address] * ECG 12 lead (06/30/2024 8:33 AM CDT) 06/30/2024 8:33 AM CDT Narrative [facility] - 06/30/2024 9:13 AM CDT Vent Rate: 93 bpm RR Interval: 640 msec OR Interval: 0 msec QRS Duration: 98 msec QT Interval: 359 msec QTC Interval: 410 msec P-R-T Lamont: 0 - 10 - 29 degrees IMPRESSION: ATRIAL FIBRILLATION ABNORMAL RHYTHM ECG Electronically Signed By: Matt Stephens MD PhD Jose G Weber MD ECG ORDERABLES Final R esult [facility] * Type and screen (06/30/2024 8:33 AM CDT) ABO Rh O Positive Maya, indirect Negative [facility] Blood 06/30/2024 8:33 AM CDT 06/30/2024 8:51 AM CDT Narrative [facility] - 06/30/2024 9:35 AM CDT Has the patient had Daratumumab or Isatuximab in the past 6 months?->Unknown Jose G Weber MD LAB BLOOD BANK TEST ORD ERABLES Final Result [facility] [address] Department [place] [address] * Lipid panel (11/20/2016 8:13 AM CDT) SCRIBED Cholesterol, Total 180 N/A - N/A EXTERNAL LAB SCRIBED HDL 73 N/A - N/A EXTERNAL LAB SCRIBED LDL 79 N/A - N/A EXTERNAL LAB SCRIBED Triglycerides 181 N/A - N/A EXTERNAL LAB Blood specimen (specimen) us Historical Provider LAB BLOOD ORDERABLES Edit ed Result - Final EXTERNAL LAB from Last 3 Months or Most Recently Relevant to Health Maintenance Insurance MEDICARE ADVANTAGE Member Subscriber Plan / Payer (Ef fective 2022-Present) Name:Julio Espinoza Relation to Subscriber:Self Name:Julio Espinoza Payer ID:[id number] (NAIC) Type:[facility] MEDICARE Address: [place] [id number] MEDICARE ADVANTAGE [facility] MEDICARE ADVANTAGE [facility] MDCR HMO REF Advance Directives For more information, please contact: [phone] * Full Code (Latest Code Status on File) Date Activated Date Inactivated Comments 09/17/2021 9:52 AM 10/04/2021 9:49 PM * Full Code Date Activated Date Inactivated Comments 09/09/2021 4:36 AM 09/17/2021 9:52 AM Care Teams Advanced Manufacturing Associate Relationship Specialty Start Date End Date Isa Ahmadi DO PCP - General Family Medicine 11/23/21
--- OUTSIDE RECORDS SUMMARY | 2024-08-13 09:05 | XMS_ITS | Encounter Summary ---
Author Organization [facility] Address [address] [address] [place] [address] Phone Care Team Providers Care Pole Peeler Name Role Phone Nadege Cardoza MD Primary Care Provider [phone] Elissa Ballesteros MD Primary Care Provider + Isa Ahmadi DO Primary Care Provider [phone] Encounter Details Date Type Department Care Team (Late st Contact Info) Description 09/19/2021 Documentation [facility] [address] [facility] Advanced Medicine 12th [place] [address] [place] [address] Ja Davis MD [address] [facility] [place] [address] Social History Tobacco Use Types Packs/Day Years [...] Indicated Resolved Time C. difficile 10/11/2021 10/11/2021 06/30/2024 9:30 AM CDT documented as of this encounter Care Teams Pole Peeler Relationship Specialty Start Date End Date Nadege Cardoza MD [address] [place], [place] [id number] PCP - General Family Medicine 10/09/16 10/25/21 Elissa Ballesteros MD [address] [place], [place] [id number] PCP - General Family Medicine 10/26/21 11/22/21 Isa Ahmadi DO [address] [place], [place] [id number] PCP - General Family Medicine 11/23/21 documented as of this encounter
--- OUTSIDE RECORDS SUMMARY | 2024-08-13 09:05 | XMS_ITS | Clinical Summary ---
Author Organization [facility] Address [address] [place] [phone] Care Team Providers Care Integrated Logistics Operations Manager Name Role Phone Isa Ahmadi DO Primary Care Provider [phone] Allergies No known active allergies Medications finasteride (PROSCAR) 5 mg tablet Take 1 tablet (5 mg total) by mouth daily Active furosemide (LASIX) 40 mg tablet Take 1 tablet (40 mg total) by mouth daily Active mpbfiogk-sah-fo lic-vit K-lycop 400-20-370 mcg tablet Take by [...] 10/21/2022 Assessment & Plan (04/17/2024 10:56 AM TURKEY CLEANER): Symptomatic persistent atrial fibrillation, recurrent despite ongoing [...] be needed yearly. The patient has a SYG1VX0-EYMs score of 4 (annualized risk of stroke 4%). I have therefore recommended continued anticoagulation for thromboprophylaxis. Typical follow-up is 1 month post cardioversion. Assessment & Plan (05/02/2023 5:09 PM TURKEY CLEANER): Symptomatic persistent atrial fibrillation, presently managed with [...] be needed yearly. The patient has a DCG0LG6-GQLx score of 4 (annualized risk of stroke [...] be needed yearly. The patient has a OUG8DN4-CQTh score of 4 (annualized risk of stroke [...] concerns Assessment & Plan (03/21/2022 10:54 AM TURKEY CLEANER): - Since last visit patient self discontinued [...] - Patient reports that he never did pick pulling machine operator the potassium supplements. stated they [...] potassium chloride for hypokalemia. He was to pick pulling machine operator and take that night or [...] is with patient today, states they will pick pulling machine operator prescription on the way home. [...] consulted for MSSA BSI. Patient presented to [facility] on 09/08 after polytrauma due to fall onto his right side on a wooden terrace with mower falling over him. In the ED CT showed right rib fractures, small apical pneumothorax and RUE hematoma. Labs showed DANIEL and leukocytosis 15. He was transferred to [facility] for trauma evaluation. He was admitted to [...] off. See summary of recommendations for details. 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 Early recurrence after cardioversion [...] Description 08/05/2024 10:40 AM CDT Anesthesia Event [facility] [address] [place] [phone] Chente Young MD 08/05/2024 9:52 AM CDT - 08/05/2024 11:59 PM CDT Hospital Encounter [facility] [address] [place] [phone] Matt Solorio MD Persistent atrial fibrillation (HCC) (Primary Dx); Cardiac arrhythmia, unspecified cardiac arrhythmia type Discharge Disposition: Discharge to home or self care 07/24/2024 9:15 AM CDT Office [facility] [address] [place] [address] [place] [phone] Karen Cruz NP Cardiac arrhythmia, unspecified cardiac arrhythmia type (Primary Dx) 07/24/2024 Telephone [facility] [address] [place] [phone] Karen Cruz NP 06/30/2024 10:26 AM CDT Anesthesia Event [facility] [address] [place] [phone] Matt Weston DO Guernsey, Timothy Joseph, CRNA 06/30/2024 9:55 AM CDT - 06/30/2024 12:15 PM CDT Surgery [facility] [address] [place] [phone] Jose G Weber MD ABLATION ATRIAL FIBRILLATION (A-FIB) VIA PULMONARY VEIN ISOLATION [id number] 06/30/2024 7:51 AM CDT - 06/30/2024 11:59 PM CDT Hospital Encounter [facility] [address] [place] [phone] Darling, Necktie Centralizing Machine Operator, Iam Godinez MD Discharge Disposition: Discharge to home or self care 06/30/2024 7:47 AM CDT - 06/30/2024 4:49 PM CDT Hospital Encounter [facility] [address] [place] [phone] Jose G Weber MD Persistent atrial fibrillation (HCC) Discharge Disposition: Discharge to home or self care 06/30/2024 [facility] [address] [facility] [address] [place] [phone] Karen Cruz NP Scheduling Appointments from Last 3 Months Surgical History Surgery Date Site/Laterality Comments REPLACEMENT TOTAL KNEE Left REPLACEMENT TOTAL HIP LATERA L POSITION Left TONSILLECTOMY KNEE CARTILAGE SURGERY Right US GUIDED THORACENTESIS 09/25/2021 N/A EXCHANGE PICC LINE 09/28/2021 Left COLON SURGERY CARDIAC ELECTROPHYSIOLOGY PROCEDURE 06/30/2024 N/A Procedure: ABLATION ATRIAL FIBRILLATION (A-FIB) VIA PULMONARY VEIN ISOLATION [id number]; Surgeon: Jose G Weber MD; Location: [facility] CARDIAC MIXING MACHINE OPERATOR; Service: Cardiovascular; Laterality: N/A; Medical devices from this surgery are in the Medical Devices section. CARDIAC ELECTROPHYSIOLOGY PROCEDURE 06/30/2024 N/A Procedure: LEFT VENTRICLE PACING AND RECORDING [id number]; Surgeon: Jose G Weber MD; Location: [facility] CARDIAC MIXING MACHINE OPERATOR; Service: Cardiovascular; Laterality: N/A; Medical devices from this surgery are in the Medical Devices section. Medical History Medical History Date Comments Hypertension Hyperlipidemia Arthritis Cholelithiasis Atrial fibrillation (HCC) Diabetes mellitus (HCC) Chronic kidney disease [...] 08/05/2024 10:29 AM CDT Plan of Treatment Health Maintenance Due Date Last Done Comments Albumin Creatinine Ratio, Urine 1945 Depression Screening 1945 Hemoglobin A1C 1945 Dilated Eye Exam 1945 Foot Exam 1945 DTaP/Tdap/Td Vaccine (1 - Tdap) 08/13/1954 Hepatitis B Screening 08/13/1961 Pneumococcal vaccine 65+ (1 of 2 - PCV) 08/13/1962 Zoster Vaccine (1 of 2) 08/13/1993 Well Visit 65+ 08/13/2008 Lipid Panel 11/20/2017 11/20/2016 Influenza Vaccine (Season Ended) 2024 eGFR 06/30/2025 06/30/2024, 04/11, 04/16/2022, Additional history exists Fall Risk Assessment 08/05/2025 08/05/2024 Medical Devices Implanted Type Area Diamond Grader Device Identifier Shelf Expiration Date Model / Serial / Lot [employer] Device Vascular Closure Vascade Mvp Xl 10-12fr Venous Strl [id number] - [id number] - [id number] Implanted:Qty: 1 on 06/30/2024 by Jose G Weber MD at [facility] Vascular Closure Device [employer] 02/17/2026 [id number] / [id number] / [id number] [employer] Vascade Mvp 6-12fr Venous Closure [id number] - [id number] - [id number] Implanted:Qty: 1 on 06/30/2024 by Jose G Weber MD at [facility] Vascular Closure Device [employer] 05/13/2026 800-612C-1 0U / [id number] / [id number] [employer] Vascade Mvp 6-12fr Venous Closure [id number] - [id number] - [id number] Implanted:Qty: 1 on 06/30/2024 by Jose G Weber MD at [facility] Vascular Closure Device [employer] 04/20/2026 800-612C-1 0U / [id number] / [id number] Procedures Procedure Name Priority Date/Time Associated Diagnosis Comments TRANSESOPHAGEAL ECHO (M[place]M) W DOPPLER/CF W CARDIOVERSION Routine 08/05/2024 11:32 AM CDT Cardiac arrhythmia, unspecified cardiac arrhythmia type TRANSESOPHAGEAL ECHO ([place]) WO DOPPLER/CF W CARDIOVERSION W CONTRAST Routine [...] WO CONTRAST Routine 06/30/2024 11:02 AM CDT VA AN PROCEDURE PLACEHOLDER Routine 06/30/2024 10:38 AM CDT VA AN ELECTIVE ENDOTRACHEAL AIRWAY Routine 06/30/2024 10:38 AM CDT EGFR STAT 06/30/2024 8:45 AM CDT DIFFERENTIAL AUTO STAT 06/30/2024 8:4 5 AM CDT B CHECK SAMPLE STAT 06/30/2024 [...] AM CDT Narrative 08/12/2024 5:04 PM CDT [facility] [address] [place] [address] TRANSESOPHAGEAL ECHOCARDIOGRAM Patient Name: JULIO ESPINOZA : 1945 (78y 11m) Gender: M Study Date: 08/05/2024 10:32:57 AM Ht(Inch): 71 Wt(Lb): 225 BSA: 2.26 Automobile Carpets Molder: FRANKY Location: [facility] Order Provider: KAREN CRUZ [...] current cardioversion was performed successfully resulting in sabianist of sinus rhythm. Electronically Signed By: Matt Solorio MD [facility] 08/12/2024 5:03:45 PM CDT Procedure Note Matt Solorio MD - 08/12/2024 [place] [address] [place] [address] TRANSESOPHAGEAL ECHOCARDIOGRAM Patient Name: JULIO ESPINOZA : 1945 (78y 11m) Gender: M Study Date: 08/05/2024 10:32:57 AM Ht(Inch): 71 Wt(Lb): 225 BSA: 2.26 Automobile Carpets Molder: Location: [facility] Order Provider: KAREN CRUZ BMI: 31.38 BP: [...] rhythm. Electronically Signed By: Matt Solorio MD [facility] 08/12/2024 5:03:45 PM CDT Karen Cruz [...] Solorio MD 08/05/2024 11:24 AM Transesophageal Echocardiogram ([place]) with Possible Cardioversion Date/Time: 08/05/2024 11:23 AM [...] to verify the correct patient, procedure, equipment, support worker and site/side marked as required. Sedation: Patient [...] AM CDT) 08/05/2024 9:24 AM CDT Narrative [facility] - 08/06/2024 7:53 AM CDT Vent Rate: 93 bpm RR Interval: 645 msec VA Interval: 0 msec QRS Duration: 94 msec QT Interval: 339 msec QTC Interval: 389 msec P-R-T [place]: 0 - 17 - 24 degrees IMPRESSION: ATRIAL FIBRILLATION ABNORMAL RHYTHM ECG Electronically Signed By: Matt Solorio MD [facility] us Matt Solorio MD ECG ORDERABLES Final Resul t Performing Organization Address City/[facility] [address]/[facility] Co de Phone Number [facility] * ECG 12 lead (07/24/2024 9:13 AM CDT) us Karen Cruz NP ECG ORDERABLES Final Resu lt * POCT glucose (06/30/2024 12:37 PM CDT) Glucose, POC 158 70 - 199 mg/dL Comment: For Glucose values <35 mg/dl when Hematocrit is >60 mg/dl,the test may not accurately detect significant hypoglycemia,and testing in the Laboratory should be considered if clinically indicated. POC Performer [id number] [facility] Blood 06/30/2024 12:3 7 PM CDT 06/30/2024 12:37 PM CDT us Jose G Weber MD LAB POCT ORDERABLES - D EVICE Final Result Performing Organization Address [facility] [address]/[facility] Co de Phone Number [facility] [address] Department [place] [address] * ELECTROPHYSIOLOGIC EVALUATION (EPS) / ATRIAL FIBRILLATION ABLATION VIA PULMONARY VEIN ISOLATION, LEFT VENTRICLE PACING AND RECORDING (06/30/2024 12:08 PM CDT) Anatomical Region Laterality Modality X-Ray Angiograph y us Jose G Weber MD CV ELECTROPHYSIOLOGY VA OCS Final Result * (ABNORMAL) POC Activated Clotting Time, High Range (06/30/2024 11:44 AM CDT) ACT 363(H) 87 - 138 sec POC Performer [id number] [facility] Blood 06/30/2024 11:4 4 AM CDT 06/30/2024 11:44 AM CDT us Jose G Weber MD LAB BLOOD ORDERABLES Fi nal Result Performing Organization Address [facility] [address]/[facility] Co de Phone Number [facility] [address] [facility] [place] [address] * (ABNORMAL) POC Activated Clotting Time, High Range (06/30/2024 11:32 AM CDT) ACT 286(H) 87 - 138 sec POC Performer [id number] [facility] Blood 06/30/2024 11:3 2 AM CDT 06/30/2024 11:32 AM CDT us Jose G Weber MD LAB BLOOD ORDERABLES Fi nal Result Performing Organization Address [facility] [address]/[facility] Co de Phone Number [facility] [address] [facility] [place] [address] * (ABNORMAL) POC Activated Clotting Time, High Range (06/30/2024 11:19 AM CDT) ACT 253(H) 87 - 138 sec POC Performer [id number] [facility] Blood 06/30/2024 11:1 9 AM CDT 06/30/2024 11:19 AM CDT us Jose G Weber MD LAB BLOOD ORDERABLES Fi nal Result Performing Organization Address [facility] [address]/[facility] Co de Phone Number [facility] [address] [facility] [place] [address] * TRANSESOPHAGEAL ECHO ([place]) W DOPPLER/CF WO CONTRAST (06/30/2024 11:02 AM CDT) [facility] LV EF 60-65 % CONS SCIMAGE Anatomical Region Laterality Modality Echocardiography 06/30/2024 9:44 AM CDT Narrative 06/30/2024 5:30 PM CDT [facility] [address] [place] [address] TRANSESOPHAGEAL ECHOCARDIOGRAM Patient Name: JULIO ESPINOZA P : 1945 (78y 10m) Gender: M Study Date: 06/30/2024 09:44:15 AM Ht(Inch): 68 Wt(Lb): 228 BSA: 2.23 Automobile Carpets Molder: ALEAN Location: [facility] Order Provider: Gus BMI: 34.66 BP: 160/96 [...] thrombus seen. Electronically Signed By: Iam Bonner [facility] Card 06/30/2024 5:29:56 PM CDT Procedure Note Iam Bonner MD - 06/30/2024 [facility] [address] [place] [address] TRANSESOPHAGEAL ECHOCARDIOGRAM Patient Name: JULIO ESPINOZA P : 1945 (78y 10m) Gender: M Study Date: 06/30/2024 09:44:15 AM Ht(Inch): 68 Wt(Lb): 228 BSA: 2.23 Automobile Carpets Molder: Location: [facility] Order Provider: Gus BMI: 34.66 BP: 160/96 [...] thrombus seen. Electronically Signed By: Iam Bonner [facility] Card 06/30/2024 5:29:56 PM CDT us Necktie Centralizing Machine Operator Darling CARTER CV ECHO PROCEDURE S Final Result * VA AN ELECTIVE ENDOTRACHEAL AIRWAY, VA AN PROCEDURE PLACEHOLDER (06/30/2024 10:38 AM CDT) Rory Talavera CRNA - 06/30/2024 10:38 AM CDT Rory Dhaliwal CRNA 06/30/2024 10:39 AM Airway Patient location: OR Urgency: elective Date/time: 06/30/2024 10:36 AM Indications for airway management: anesthesia Difficult airway: no Staff: Supervising provider: Matt Weston DO Placed by: FRIT COATER: Rory Dhaliwal CRNA Emergent airway documentation: Risks [...] MD LAB BLOOD ORDERABLES Fi nal Result [facility] [address] Department [place] [address] * (ABNORMAL) Differential, auto (06/30/2024 8:45 AM CDT) Neutrophil abs 5.66 1.50 - 6.50 K/cumm Imm gran abs 0.05 0.00 - 0.10 K/cumm [facility] Lymphocyte abs 2.54 0.80 - 3.30 K/cumm [facility] Monocyte abs 0.87(H) 0.20 - 0.80 K/cumm [facility] Eosinophil abs 0.15 0.00 - 0.50 K/cumm [facility] Basophil abs 0.03 0.00 - 0.10 K/cumm [facility] Neutrophil pct 60.9 % [facility] Comment: Interpretive Data Percent cell count reference ranges are not reported, since discordance with absolute values may lead to misinterpretation of CBC data. Current Interpretive Data was last revised on 2017. Imm gran pct 0.5 % [facility] Comment: Interpretive Data Percent cell count reference ranges are not reported, since discordance with absolute values may lead to misinterpretation of CBC data. Current Interpretive Data was last revised on 2017. Lymphocyte pct 27.3 % [facility] Comment: Interpretive Data Percent cell count reference ranges are not reported, since discordance with absolute values may lead to misinterpretation of CBC data. Current Interpretive Data was last revised on 2017. Monocyte pct 9.4 % [facility] Comment: Interpretive Data Percent cell count reference ranges are not reported, since discordance with absolute values may lead to misinterpretation of CBC data. Current Interpretive Data was last revised on 2017. Eosinophil pct 1.6 % [facility] Comment: Interpretive Data Percent cell count reference ranges are not reported, since discordance with absolute values may lead to misinterpretation of CBC data. Current Interpretive Data was last revised on 2017. Basophil pct 0.3 % [facility] Comment: Interpretive Data Percent cell count reference ranges are not reported, since discordance with absolute values may lead to misinterpretation of CBC data. Current Interpretive Data was last revised on 2017. Blood 06/30/2024 8:45 AM CDT 06/30/2024 8:45 AM CDT Jose G Weber MD LAB BLOOD ORDERABLES Fi nal Result Performing Organization Address [facility] Co de Phone Number [facility] [address] [facility] [place] [address] * Check Sample (06/30/2024 8:45 AM CDT) ABO Rh O Positive MBC HCLL OTHER 06/30/2024 8:45 AM CDT 06/30/2024 8:48 AM CDT Jose G Weber MD LAB BLOOD ORDERABLES Fi nal Result Performing Organization Address [facility] de Phone Number [facility] [address] [facility] [place] [address] MBC * (ABNORMAL) CBC with auto differential (06/30/2024 8:45 AM CDT) WBC 9.30 3.80 - 9.90 K/cumm Hgb 14.3 13.0 - 17.5 g/dL [facility] Hct 44.3 38.9 - 50.3 % [facility] Plt 224 150 - 400 K/cumm [facility] MPV 11.2 9.1 - 12.3 fL [facility] RBC 4.76 4.30 - 5.80 M/cumm [facility] MCV 93.1 81.3 - 96.4 fL [facility] MCH 30.0 27.1 - 33.3 pg [facility] MCHC 32.3 32.3 - 35.7 g/dL [facility] RDW CV 14.5 11.1 - 14.9 % [facility] RDW SD 49.5(H) 35.7 - 48.1 fL [facility] NRBC abs 0.00 0.00 - 0.01 K/cumm [facility] Blood 06/30/2024 8:4 5 AM CDT 06/30/2024 8:45 AM CDT Jose G Weber MD LAB BLOOD ORDERABLES Fi nal Result Performing Organization Address [facility] Co de Phone Number [facility] [address] [place] [address] * Basic metabolic panel (06/30/2024 8:45 AM CDT) [facility] Sodium 141 135 - 145 mmol/L Potassium, pl 4.1 3.3 - 4.9 mmol/L [facility] Chloride 105 97 - 110 mmol/L [facility] CO2 24 22 - 32 mmol/L [facility] Anion gap 12 2 - 15 mmol/L [facility] BUN 22 6 - 25 mg/dL [facility] Creatinine 1.14 0.80 - 1.30 mg/dL [facility] Glucose 124 70 - 199 mg/dL [facility] Comment: Interpretive Data Fasting glucose >/= 126 [...] 2022. Calcium 8.6 8.5 - 10.3 mg/dL [facility] Blood 06/30/2024 8:45 AM CDT 06/30/2024 8:45 AM CDT Jose G Weber MD LAB BLOOD ORDERABLES Fi nal Result Performing Organization Address [facility] Co de Phone Number [facility] [address] [place] [address] * ECG 12 lead (06/30/2024 8:33 AM CDT) 06/30/2024 8:33 AM CDT Narrative [facility] - 06/30/2024 9:13 AM CDT Vent Rate: 93 bpm RR Interval: 640 msec VA Interval: 0 msec QRS Duration: 98 msec QT Interval: 359 msec QTC Interval: 410 msec P-R-T [place]: 0 - 10 - 29 degrees IMPRESSION: ATRIAL FIBRILLATION ABNORMAL RHYTHM ECG Electronically Signed By: Matt Stephens MD PhD Jose G Weber MD ECG ORDERABLES Final R esult Performing Organization Address [facility] Co de Phone Number [facility] * Type and screen (06/30/2024 8:33 AM CDT) ABO Rh O Positive Maya, indirect Negative [facility] Blood 06/30/2024 8:33 AM CDT 06/30/2024 8:51 AM CDT Narrative [facility] - 06/30/2024 9:35 AM CDT Has the patient had Daratumumab or Isatuximab in the past 6 months?->Unknown Jose G Weber MD LAB BLOOD BANK TEST ORD ERABLES Final Result Performing Organization Address [facility] Co de Phone Number [facility] [address] Department [place] [address] * Lipid panel (11/20/2016 8:13 AM CDT) [...] Relevant to Health Maintenance Insurance MEDICARE ADVANTAGE MEDICARE ADVANTAGE MEDICARE ADVANTAGE [facility] MDCR HMO REF Advance Directives For more information, please contact: [phone] * Full Code (Latest Code Status on File) Date Activated Date Inactivated Comments 09/17/2021 9:52 AM 10/04/2021 9:49 PM * Full Code Date Activated Date Inactivated Comments 09/09/2021 4:36 AM 09/17/2021 9:52 AM Care Teams Integrated Logistics Operations Manager Relationship Specialty Start Date End Date Isa Ahmadi DO PCP - General Family Medicine 11/23/21
--- OUTSIDE RECORDS SUMMARY | 2024-08-13 09:06 | XMS_ITS | Encounter Summary ---
Author Organization [facility] Address [address] [place] [place] [address] Care Team Providers Care Lounge Car Attendant Name Role Phone Nadege Cardoza MD Primary Care Provider [phone] Encounter Details Date Type Department Care Team (Late st Contact Info) Description 07/23/2022 Lab Requisition 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 Received: 07/23/2022 12:59 PM Pathologist: Janusz Gay MD Specimen: Skin, left elbow 3 7:10 PM CDT DERMATOPATHOLOGY LABORATORY Final Diagnosis Specimen A. SKIN, left elbow: PIGMENTED SEBORRHEIC KERATOSIS (L82.1) 3 7:10 PM CDT DERMATOPATHOLOGY LABORATORY at 1910 CDT Clinical History BCC vs. ISK vs. Melanoma 3 7:10 PM CDT DERMATOPATHOLOGY LABORATORY Gross Description Specimen A: Received is one formalin filled container labeled with the patient's name and designated left elbow. The specimen consists of a shave biopsy measuring 11x9x1 mm. Jar 0. 3 7:10 PM CDT DERMATOPATHOLOGY LABORATORY Microscopic Description Specimen A. SKIN, left elbow: Sections show an acanthotic lesion composed of relatively uniform keratinocytes. There is hyperkeratosis and pseudo horn cysts. Pigment is present in the keratinocytes composing this tumor. 3 7:10 PM CDT DERMATOPATHOLOGY LABORATORY Disclaimer An external and internal positive and negative controls are appropriate for the histochemical, immunohistochemical and immunofluorescence stain(s) in this case (if any), except where stated explicitly. The performance characteristics of the stain(s) cited in this report were developed and its performance characteristic determined by the Dermatopathology Laboratory at [facility], directed by Dr. Alexis Gay. These tests need not be, and therefore are not, approved by the [place] Food and Drug Administration. The tests are used for clinical purposes. Billing Codes Specimen Charges Stain Charges 35609 1 3 7:10 PM CDT DERMATOPATHOLOGY LABORATORY Embedded Images 3 7:10 PM CDT DERMATOPATHOLOGY LABORATORY Pathology/Cytolo gy TISSUE SPECIMEN FROM SKIN / Unknown 07/20/2022 3:33 AM CDT 07/23/2022 12:59 PM CDT us Zackery Quinonez MD LAB - PATHOLOGY/CYTOLOGY JOSE CALHOUN Final Result DERMATOPATHOLOGY LABORATORY [facility] - Department of Dermatology [address], [address] [phone] documented in this encounter Visit Diagnoses Not on filedocumented in this encounter Care Teams Lounge Car Attendant Relationship Specialty Start Date End Date Nadege Cardoza MD [address] [place], [place] [id number] PCP - General 03/01/20 documented as of this encounter
[2024-08-13 13:08] LABS: Hemoglobin 14.3 g/dL (14.0-18.0); Mean Corpuscular HGB Conc 31.1 g/dl (32-36); Mean Corpuscular Hemoglobin 30.2 pg (26-34); Mean Corpuscular Volume 97.3 fl (80-100); Platelet Count Result 184 k/mm3 (150-375); Red Blood Count 4.73 M/mm3 (4.6-6.20); Red Cell Distribution Width 15.1 % (11.5-14.5); White Blood Count 8.2 K/mm3 (4.5-10.0)
[2024-08-13 13:38] LABS: Alanine Aminotransferase 34 U/L (6-50); Albumin Level 4.1 g/dL (3.5-5.1); Alkaline Phosphatase 111 U/L (38-126); Anion Gap 11 mmol/L (4-12); Aspartate Amino Transferase 60 U/L (17-59); Bilirubin,Total 0.4 mg/dL (0.2-1.3); Blood Urea Nitrogen 27 mg/dL (9-20); Carbon Dioxide 22 mmol/L (22-30); Chloride 108 mmol/L (98-107); Cholesterol 150 mg/dL (0-200); Estimated Glomerular Filt Rate 56; Glucose 130 mg/dL (65-110); HDL Direct 39 mg/dL; LDL Cholesterol Direct 62 mg/dL; Potassium 4.3 mmol/L (3.4-5.0); Sodium 141 mmol/L (137-145); Total Protein 7.6 g/dL (6.3-8.2); Triglycerides 248 mg/dL (<150)
[2024-08-13 14:25] LABS: Hemoglobin A1C 6.3 % (<5.7)
[2024-08-13 15:00] LABS: Microalbumin Urine Random 238.5 mg/L (0-16.7)
[2024-08-13 16:48] LABS: Iron 55 ug/dL (49-181); Percent Iron Saturation 17 % (20-50)
== END 2024-08-13 08:48 | disposition home or self-care (01) ==
PROVIDERS: PCP Family Medicine; Visit Provider Nurse Practitioner
DX: E78.2 Mixed hyperlipidemia (principal); E61.1 Iron deficiency; I48.19 Other persistent atrial fibrillation; E11.65 Type 2 diabetes mellitus with hyperglycemia
CPT/HCPCS: 36415; 80053; 80061; 82043; 83036; 83540; 83550; 85027

== ENCOUNTER 2024-09-10 09:57 | Outpatient (CLI) | payer MEDICARE, SELFPAY ==
--- OUTSIDE RECORDS SUMMARY | 2024-09-10 10:06 | XMS_ITS | Encounter Summary ---
Author Organization [facility] Address [address] [address] Care Team Providers Care Pile Fabric Knitter Name Role Phone Nadege Cardoza MD Primary Care Provider [phone] Encounter Details Date Type Department Care Team (Late st Contact Info) Description 06/11/2023 Lab Requisition [facility] - DermPath Lab [address] [facility] [place] [phone] Zackery Quinonez MD [facility] DERMATOLOGY [address] [place] [phone] Neoplasm of uncertain behavior of skin Social History Tobacco Use Types Packs/Day Years Used Date Smoking Tobacco: Never Assessed Sex and Gender Information Value Date Recorded Sex Assigned at Not on file Legal Sex Male 3:12 PM AIR MARSHAL Gender Identity Not on file Sexual Orientation Not on file documented as of this encounter Plan of Treatment Not on file documented as of this encounter Procedures Procedure Name Priority Date/Time Associated Diagnosis Comments DERMATOPATHOLOGY Routine 06/11/2023 3:33 AM CDT Neoplasm of uncertain behavior of skin documented in this encounter Results * DERMATOPATHOLOGY (06/11/2023 3:33 AM CDT) Case Report Dermatopathology Report Case: [id number] Authorizing Provider: Zackery Quinonez MD Collected: 06/11/2023 03:33 AM Ordering Location: [facility] - Received: 06/12/2023 12:43 PM DermPath Lab [...] characteristic determined by the Dermatopathology Laboratory at [facility], directed by Dr. Alexis Gay. These tests need not be, and therefore are not, approved by the [place] Food and Drug Administration. The tests are used for clinical purposes. Billing Codes Specimen Charges Stain Charges 87515 1 1:23 PM CDT DERMATOPATHOLOGY LABORATORY Embedded Images 1:23 PM CDT DERMATOPATHOLOGY LABORATORY Pathology/Cytolo gy TISSUE SPECIMEN FROM SKIN / Unknown 06/11/2023 3:33 AM CDT 06/12/2023 12:43 PM CDT Zackery Quinonez MD LAB - PATHOLOGY/CYTOLOGY ORDE UNIQUE Final Result DERMATOPATHOLOGY LABORATORY [facility] - Department of Dermatology [address], [address] [phone] documented in this encounter Visit Diagnoses Diagnosis Neoplasm of uncertain behavior of skin documented in this encounter Care Teams Pile Fabric Knitter Relationship Specialty Start Date End Date Nadege Cardoza MD [address] [place] [address] PCP - General 03/01/20 documented as of this encounter
--- OUTSIDE RECORDS SUMMARY | 2024-09-10 10:06 | XMS_ITS | Clinical Summary ---
Author Organization [facility] Address [address] [facility] [place] [address] Care Team Providers Care Appeals Nurse Name Role Phone Nadege Cardoza MD Primary Care Provider [phone] Source Comments [facility],non-owned Affiliates and Associated Physician Practices is amultiple site organization consisting of ambulatory clinics and hospital sitesin [place], [place], [place] and [place]. This disclosure is being madepursuant to the Care Everywhere program and may not contain all information available regarding this patient. Last updated 17.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
--- OUTSIDE RECORDS SUMMARY | 2024-09-10 10:06 | XMS_ITS | Encounter Summary ---
Author Organization [facility] Address [address] [place] [address] Care Team Providers Care Tool Crib Attendant Name Role Phone Nadege Cardoza MD Primary Care Provider [phone] Encounter Details Date Type Department Care Team (Late st Contact Info) Description 07/23/2022 Lab Requisition [facility] - DermPath Lab [address] [facility], [place] [address] Zackery Quinonez MD [facility] DERMATOLOGY [address] [place] [phone] Social History Tobacco Use Types Packs/Day Years Used Date Smoking Tobacco: Never Assessed Sex and Gender Information Value Date Recorded Sex Assigned at Not on file 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 Gender Identity Not on file Sexual Orientation Not on file documented as of this encounter Plan of Treatment Not on file documented as of this encounter Procedures Procedure Name Priority Date/Time Associated Diagnosis Comments DERMATOPATHOLOGY Routine 07/20/2022 3:33 AM CDT documented in this encounter Results * DERMATOPATHOLOGY (07/20/2022 3:33 AM CDT) Case Report Dermatopathology Report Case: [id number] Authorizing Provider: Zackery Quinonez MD Collected: 07/20/2022 03:33 AM Ordering Location: [facility] DermPath Lab Received: 07/23/2022 12:59 PM Pathologist: [...] characteristic determined by the Dermatopathology Laboratory at [facility], directed by Dr. Alexis Gay. These tests need not be, and therefore are not, approved by the [place] Food and Drug Administration. The tests are used for clinical purposes. Billing Codes Specimen Charges Stain Charges 49812 1 3 7:10 PM CDT DERMATOPATHOLOGY LABORATORY Embedded Images 3 7:10 PM CDT DERMATOPATHOLOGY LABORATORY Pathology/Cytolo gy TISSUE SPECIMEN FROM SKIN / Unknown 07/20/2022 3:33 AM CDT 07/23/2022 12:59 PM CDT us Zackery Quinonez MD LAB - PATHOLOGY/CYTOLOGY JOSE CALHOUN Final Result DERMATOPATHOLOGY LABORATORY [facility] - Department of Dermatology [address] [phone] documented in this encounter Visit Diagnoses Not on filedocumented in this encounter Care Teams Tool Crib Attendant Relationship Specialty Start Date End Date Nadege Cardoza MD [address] [place], [place] [id number] PCP - General 03/01/20 documented as of this encounter
--- OUTSIDE RECORDS SUMMARY | 2024-09-10 10:06 | XMS_ITS | Clinical Summary ---
Author Organization [facility] Address [address] [place] [phone] Care Team Providers Care Slope Runner Name Role Phone Isa Ahmadi DO Primary Care Provider [phone] Allergies No known active allergies Medications finasteride (PROSCAR) 5 mg tablet Take 1 tablet (5 mg total) by mouth daily Active furosemide (LASIX) 40 mg tablet Take 1 tablet (40 mg total) by mouth daily Active ssgzkkyh-bwe-iv lic-vit K-lycop 400-20-370 mcg tablet Take by [...] 10/21/2022 Assessment & Plan (04/17/2024 10:56 AM EXHIBITS MANAGER): Symptomatic persistent atrial fibrillation, recurrent despite ongoing [...] be needed yearly. The patient has a CED3WZ7-TAGx score of 4 (annualized risk of stroke 4%). I have therefore recommended continued anticoagulation for thromboprophylaxis. Typical follow-up is 1 month post cardioversion. Assessment & Plan (05/02/2023 5:09 PM EXHIBITS MANAGER): Symptomatic persistent atrial fibrillation, presently managed with [...] be needed yearly. The patient has a FUQ9ZT6-MPCt score of 4 (annualized risk of stroke [...] be needed yearly. The patient has a KLM5UL5-XQLi score of 4 (annualized risk of stroke [...] concerns Assessment & Plan (03/21/2022 10:54 AM EXHIBITS MANAGER): - Since last visit patient self discontinued [...] - Patient reports that he never did miner pick the potassium supplements. stated they thought that [...] potassium chloride for hypokalemia. He was to miner pick and take that night or tomorrow with [...] is with patient today, states they will miner pick prescription on the way home. Closed fracture [...] consulted for MSSA BSI. Patient presented to [facility] on 09/08 after polytrauma due to fall onto his right side on a wooden terrace with mower falling over him. In the ED CT showed right rib fractures, small apical pneumothorax and RUE hematoma. Labs showed DANIEL and leukocytosis 15. He was transferred to [facility] for trauma evaluation. He was admitted to [...] off. See summary of recommendations for details. [place] syndrome 09/18/2021 Multiple closed fractures of ribs of right side 09/09/2021 Traumatic hematoma of right upper arm 09/09/2021 Pneumothorax, right 09/09/2021 Chronic pain of left knee 09/09/2021 Type 2 diabetes mellitus wit hout complication, with no history of insulin use 09/09/2021 Closed fracture of multiple ribs of right side, initial encounter 09/09/2021 Ileus 09/08/2021 Overview (09/18/2021): Added automatically from request for surgery [id number] Atrial fibrillation, chronic 10/18/2016 Assessment & Plan (02/27/2017 12:52 PM EXHIBITS MANAGER): Impression Atrial fibrillation. Early recurrence after cardioversion [...] Encounters Date Type Department Care Team Description 09/03/2024 10:15 AM CDT Office Visit [facility] [address], [place] [phone] Karen Cruz NP Cardiac arrhythmia, unspecified cardiac arrhythmia type (Primary Dx) 09/01/2024 Telephone [facility] [address] [facility] [address] [place] [phone] Chris Kline RMA 09/01/2024 Orders Only [facility] [address] [facility] [address] [place] [phone] Foster Stubbs MD Lung nodule (Primary Dx) 08/05/2024 10:40 AM CDT Anesthesia Event [facility] [address] [place] [phone] Chente Young MD 08/05/2024 9:52 AM CDT - 08/05/2024 11:59 PM CDT Hospital Encounter [facility] [address] [place] [phone] Matt Solorio MD Persistent atrial fibrillation (HCC) (Primary Dx); Cardiac arrhythmia, unspecified cardiac arrhythmia type Discharge Disposition: Discharge to home or self care 07/24/2024 9:15 AM CDT Office Visit [facility] [address] [place] [phone] Karen Cruz NP Cardiac arrhythmia, unspecified cardiac arrhythmia type (Primary Dx) 07/24/2024 Telephone [facility] [address] [place] [phone] Karen Cruz NP 06/30/2024 10:26 AM CDT Anesthesia Event [facility] [address] [phone] Matt Weston DO Guernsey, Timothy Joseph, CRNA 06/30/2024 9:55 AM CDT - 06/30/2024 12:15 PM CDT Surgery [facility] [address] [phone] Jose G Weber MD ABLATION ATRIAL FIBRILLATION (A-FIB) VIA PULMONARY VEIN ISOLATION [id number] 06/30/2024 7:51 AM CDT - 06/30/2024 11:59 PM CDT Hospital Encounter [facility] [address] [phone] Darling Lining Marker, MD Bonner, Iam Karimi MD Discharge Disposition: Discharge to home or self care 06/30/2024 7:47 AM CDT - 06/30/2024 4:49 PM CDT Hospital Encounter [facility] [address] [place] [phone] Jose G Weber MD Persistent atrial fibrillation (HCC) Discharge Disposition: Discharge to home or self care 06/30/2024 Telephone [facility] [address] [place] [phone] Karen Cruz NP Scheduling Appointments from Last 3 Months Surgical History Surgery Date Site/Laterality Comments REPLACEMENT TOTAL KNEE Left REPLACEMENT TOTAL HIP LATERA L POSITION Left TONSILLECTOMY KNEE CARTILAGE SURGERY Right US GUIDED THORACENTESIS 09/25/2021 N/A EXCHANGE PICC LINE 09/28/2021 Left COLON SURGERY CARDIAC ELECTROPHYSIOLOGY PROCEDURE 06/30/2024 N/A Procedure: ABLATION ATRIAL FIBRILLATION (A-FIB) VIA PULMONARY VEIN ISOLATION 24584; Surgeon: Jose G Weber MD; Location: [facility] CARDIAC STRAIGHTEDGE WORKER; Service: Cardiovascular; Laterality: N/A; Medical devices from this surgery are in the Medical Devices section. CARDIAC ELECTROPHYSIOLOGY PROCEDURE 06/30/2024 N/A Procedure: LEFT VENTRICLE PACING AND RECORDING 94185; Surgeon: Jose G Weber MD; Location: [facility] CARDIAC STRAIGHTEDGE WORKER; Service: Cardiovascular; Laterality: N/A; Medical devices from [...] Sign Reading Time Taken Comments Blood Pressure 140/80 09/03/2024 10:17 AM CDT Pulse 68 09/03/2024 10:17 AM CDT Temperature 36.1 C (97 F) 06/30/2024 12:32 PM CDT Respiratory Rate 19 08/05/2024 11:20 AM CDT Oxygen Saturation 95% 08/05/2024 11:20 AM CDT Inhaled Oxygen Concentration - - Weight 102.5 kg (226 lb) 09/03/2024 10:17 AM CDT Height 175.3 cm (5' 9) 09/03/2024 10:17 AM CDT Body Mass Index 33.37 09/03/2024 10:17 AM CDT Plan of Treatment Health Maintenance [...] 08/13/2008 Lipid Panel 11/20/2017 11/20/2016 Influenza Vaccine (#1) 2024 eGFR 06/30/2025 06/30/2024, 04/11, 04/16/2022, Additional history exists Fall Risk Assessment 08/05/2025 08/05/2024 Medical Devices Implanted Type Area Mortgage Loan Reviewer Device Identifier Shelf Expiration Date Model / Serial / Lot [employer] Device Vascular Closure Vascade Mvp Xl 10-12fr Venous Strl [id number] - [id number] - [id number] Implanted:Qty: 1 on 06/30/2024 by Jose G Weber MD at [facility] Vascular Closure Device [employer] 02/17/2026 [id number] / [id number] / [id number] [employer] Vascade Mvp 6-12fr Venous Closure [id number] - [id number] - [id number] Implanted:Qty: 1 on 06/30/2024 by Jose G Weber MD at [facility] Vascular Closure Device [employer] 05/13/2026 800-612C-1 0U / [id number] / [id number] [employer] Vascade Mvp 6-12fr Venous Closure [id number] - [id number] - [id number] Implanted:Qty: 1 on 06/30/2024 by Jose G Weber MD at [facility] Vascular Closure Device [employer] 04/20/2026 800-612C-1 0U / [id number] / [id number] Procedures Procedure Name Priority Date/Time Associated Diagnosis Comments ECG 12-LEAD Routine 09/03/2024 10:30 AM CDT Cardiac arrhythmia, unspecified cardiac arrhythmia type TRANSESOPHAGEAL ECHO ([place]) W DOPPLER/CF W CARDIOVERSION [...] WO CONTRAST Routine 06/30/2024 11:02 AM CDT FL AN PROCEDURE PLACEHOLDER Routine 06/30/2024 10:38 AM CDT FL AN ELECTIVE ENDOTRACHEAL AIRWAY Routine 06/30/2024 10:38 [...] Health Maintenance Results * ECG 12 lead (09/03/2024 10:30 AM CDT) Karen Cruz NP ECG ORDERABLES Final Resu lt * TRANSESOPHAGEAL ECHO ([place]) W DOPPLER/CF W CARDIOVERSION (08/05/2024 11:32 AM CDT) Estimated EF 50-55 % CONS SCIMAGE Anatomical Region Laterality Modality Echocardiography 08/05/2024 10:3 2 AM CDT Narrative 08/12/2024 5:04 PM CDT [facility] [address] [place] [address] TRANSESOPHAGEAL ECHOCARDIOGRAM Patient Name: JULIO ESPINOZA : 1945 (78y 11m) Gender: M Study Date: 08/05/2024 10:32:57 AM Ht(Inch): 71 Wt(Lb): 225 BSA: 2.26 Lead Bi Developer: FRANKY Location: [facility] Order Provider: KAREN CRUZ BMI: [...] current cardioversion was performed successfully resulting in nondenominational of sinus rhythm. Electronically Signed By: Matt Solorio MD [facility] 08/12/2024 5:03:45 PM CDT Procedure Note Matt Solorio MD - 08/12/2024 [facility] [address] [place] [address] TRANSESOPHAGEAL ECHOCARDIOGRAM Patient Name: JULIO ESPINOZA : 1945 (78y 11m) Gender: M Study Date: 08/05/2024 10:32:57 AM Ht(Inch): 71 Wt(Lb): 225 BSA: 2.26 Lead Bi Developer: FRANKY Location: [facility] Order Provider: KAREN CRUZ [...] rhythm. Electronically Signed By: Matt Solorio MD [facility] 08/12/2024 5:03:45 PM CDT Karen Cruz NP [...] Modality Echocardiography Narrative 08/05/2024 11:23 AM CDT aMtt Solorio MD 08/05/2024 11:24 AM Transesophageal Echocardiogram [...] to verify the correct patient, procedure, equipment, underwriting support manager and site/side marked as required. Sedation: Patient [...] AM CDT) 08/05/2024 9:24 AM CDT Narrative [facility] - 08/06/2024 7:53 AM CDT Vent Rate: 93 bpm RR Interval: 645 msec FL Interval: 0 msec QRS Duration: 94 msec QT Interval: 339 msec QTC Interval: 389 msec P-R-T [place]: 0 - 17 - 24 degrees IMPRESSION: ATRIAL FIBRILLATION ABNORMAL RHYTHM ECG Electronically Signed By: Matt Solorio MD [facility] us Matt Solorio MD ECG ORDERABLES Final Resul t [facility] * ECG 12 lead (07/24/2024 9:13 AM CDT) us Karen Cruz NP ECG ORDERABLES Final Resu lt * POCT glucose (06/30/2024 12:37 PM CDT) Glucose, POC 158 70 - 199 mg/dL Comment: For Glucose values <35 mg/dl when Hematocrit is >60 mg/dl,the test may not accurately detect significant hypoglycemia,and testing in the Laboratory should be considered if clinically indicated. POC Performer [id number] [facility] Blood 06/30/2024 12:3 7 PM CDT 06/30/2024 12:37 PM CDT us Jose G Weber MD LAB POCT ORDERABLES - D EVICE Final Result Performing Organization Address [facility] Co de Phone Number [facility] [address] [facility] [email or web address] [address] * ELECTROPHYSIOLOGIC EVALUATION (EPS) / ATRIAL FIBRILLATION ABLATION VIA PULMONARY VEIN ISOLATION, LEFT VENTRICLE PACING AND RECORDING (06/30/2024 12:08 PM CDT) Anatomical Region Laterality Modality X-Ray Angiograph y us Jose G Weber MD CV ELECTROPHYSIOLOGY FL OCS Final Result * (ABNORMAL) POC Activated Clotting Time, High Range (06/30/2024 11:44 AM CDT) ACT 363(H) 87 - 138 sec POC Performer [id number] [facility] Blood 06/30/2024 11:4 4 AM CDT 06/30/2024 11:44 AM CDT us Jose G Weber MD LAB BLOOD ORDERABLES Fi nal Result Performing Organization Address [facility] Co de Phone Number [facility] [address] [email or web address] [address] * (ABNORMAL) POC Activated Clotting Time, High Range (06/30/2024 11:32 AM CDT) ACT 286(H) 87 - 138 sec POC Performer [id number] [facility] Blood 06/30/2024 11:3 2 AM CDT 06/30/2024 11:32 AM CDT Jose G Weber MD LAB BLOOD ORDERABLES Fi nal Result Performing Organization Address City/[facility]/ZIP Co de Phone Number [facility] [address] [email or web address] [address] * (ABNORMAL) POC Activated Clotting Time, High Range (06/30/2024 11:19 AM CDT) ACT 253(H) 87 - 138 sec POC Performer [id number] [facility] Blood 06/30/2024 11:1 9 AM CDT 06/30/2024 11:19 AM CDT us Jose G Weber MD LAB BLOOD ORDERABLES Fi nal Result [facility] [address] Department [place] [address] * TRANSESOPHAGEAL ECHO ([place]) W DOPPLER/CF WO CONTRAST (06/30/2024 11:02 AM CDT) Pathologist [facility] LV EF 60-65 % CONS SCIMAGE Anatomical Region Laterality Modality Echocardiography 06/30/2024 9:44 AM CDT Narrative 06/30/2024 5:30 PM CDT [facility] [address] [place] [address] TRANSESOPHAGEAL ECHOCARDIOGRAM Patient Name: JULIO ESPINOZA P : 1945 (78y 10m) Gender: M Study Date: 06/30/2024 09:44:15 AM Ht(Inch): 68 Wt(Lb): 228 BSA: 2.23 Lead Bi Developer: ALENA Location: [facility] Order Provider: Gus BMI: 34.66 [...] thrombus seen. Electronically Signed By: Iam Bonner [facility] Card 06/30/2024 5:29:56 PM CDT Procedure Note Iam Bonner MD - 06/30/2024 [facility] [address] [place] [address] TRANSESOPHAGEAL ECHOCARDIOGRAM Patient Name: JULIO ESPINOZA P : 1945 (78y 10m) Gender: M Study Date: 06/30/2024 09:44:15 AM Ht(Inch): 68 Wt(Lb): 228 BSA: 2.23 Lead Bi Developer: ALENA Location: [facility] Order Provider: Gus BMI: 34.66 [...] thrombus seen. Electronically Signed By: Iam Bonner [facility] Card 06/30/2024 5:29:56 PM CDT Lining Marker Darling CARTER CV ECHO PROCEDURE S Final Result * FL AN ELECTIVE ENDOTRACHEAL AIRWAY, FL AN PROCEDURE PLACEHOLDER (06/30/2024 10:38 AM CDT) Narrative Rory Dhaliwal CRNA - 06/30/2024 10:38 AM CDT Rory Dhaliwal CRNA 06/30/2024 10:39 AM Airway Patient location: OR Urgency: elective Date/time: 06/30/2024 10:36 AM Indications for airway management: anesthesia Difficult airway: no Staff: Supervising provider: Matt Weston DO Placed by: NANOTECHNOLOGY TECHNICIAN: Rory Dhaliwal CRNA Emergent airway documentation: Risks [...] of Race in Diagnosing Kidney Disease, JASN 202). The CKD-EPI equation should not be used for patients with unstable renal function and has not been validated in children and those over 70. Current interpretive data was last reviewed 2021. Blood 06/30/2024 8:45 AM CDT 06/30/2024 8:45 AM CDT us Jose G Weber MD LAB BLOOD ORDERABLES Fi nal Result [facility] [address] Department [place] [address] * (ABNORMAL) Differential, auto (06/30/2024 8:45 AM CDT) Neutrophil abs 5.66 1.50 - 6.50 K/cumm Imm gran abs 0.05 0.00 - 0.10 K/cumm [facility] Lymphocyte abs 2.54 0.80 - 3.30 K/cumm [facility] Monocyte abs 0.87(H) 0.20 - 0.80 K/cumm [facility] Eosinophil abs 0.15 0.00 - 0.50 K/cumm [facility] Basophil abs 0.03 0.00 - 0.10 K/cumm [facility] Neutrophil pct 60.9 % [facility] Comment: Interpretive Data Percent cell count reference ranges are not reported, since discordance with absolute values may lead to misinterpretation of CBC data. Current Interpretive Data was last revised on 2017. Imm gran pct 0.5 % [facility] Comment: Interpretive Data Percent cell count reference ranges are not reported, since discordance with absolute values may lead to misinterpretation of CBC data. Current Interpretive Data was last revised on 2017. Lymphocyte pct 27.3 % [facility] Comment: Interpretive Data Percent cell count reference ranges are not reported, since discordance with absolute values may lead to misinterpretation of CBC data. Current Interpretive Data was last revised on 2017. Monocyte pct 9.4 % [facility] Comment: Interpretive Data Percent cell count reference ranges are not reported, since discordance with absolute values may lead to misinterpretation of CBC data. Current Interpretive Data was last revised on 2017. Eosinophil pct 1.6 % [facility] Comment: Interpretive Data Percent cell count reference ranges are not reported, since discordance with absolute values may lead to misinterpretation of CBC data. Current Interpretive Data was last revised on 2017. Basophil pct 0.3 % [facility] Comment: Interpretive Data Percent cell count reference ranges are not reported, since discordance with absolute values may lead to misinterpretation of CBC data. Current Interpretive Data was last revised on 2017. Blood 06/30/2024 8:45 AM CDT 06/30/2024 8:45 AM CDT Jose G Weber MD LAB BLOOD ORDERABLES Fi nal Result Performing Organization Address [facility] Co de Phone Number [place] [phone] [facility] [email or web address] [address] * Check Sample (06/30/2024 8:45 AM CDT) ABO Rh O Positive MBC HCLL OTHER 06/30/2024 8:45 AM CDT 06/30/2024 8:48 AM CDT Jose G Weber MD LAB BLOOD ORDERABLES Fi nal Result Performing Organization Address [facility] Co de Phone Number [facility] [address] Department [email or web address] [place] [address] MBC * (ABNORMAL) CBC with auto differential (06/30/2024 8:45 AM CDT) [facility] WBC 9.30 3.80 - 9.90 K/cumm Hgb 14.3 13.0 - 17.5 g/dL [facility] Hct 44.3 38.9 - 50.3 % [facility] Plt 224 150 - 400 K/cumm [facility] MPV 11.2 9.1 - 12.3 fL [facility] RBC 4.76 4.30 - 5.80 M/cumm [facility] MCV 93.1 81.3 - 96.4 fL [facility] MCH 30.0 27.1 - 33.3 pg [facility] MCHC 32.3 32.3 - 35.7 g/dL [facility] RDW CV 14.5 11.1 - 14.9 % [facility] RDW SD 49.5(H) 35.7 - 48.1 fL [facility] NRBC abs 0.00 0.00 - 0.01 K/cumm [facility] Blood 06/30/2024 8:45 AM CDT 06/30/2024 8:45 AM CDT us Jose G Weber MD LAB BLOOD ORDERABLES Fi nal Result [facility] [address] Department [place] [address] * Basic metabolic panel (06/30/2024 8:45 AM CDT) [facility] Sodium 141 135 - 145 mmol/L Potassium, pl 4.1 3.3 - 4.9 mmol/L [facility] Chloride 105 97 - 110 mmol/L [facility] CO2 24 22 - 32 mmol/L [facility] Anion gap 12 2 - 15 mmol/L [facility] BUN 22 6 - 25 mg/dL [facility] Creatinine 1.14 0.80 - 1.30 mg/dL [facility] Glucose 124 70 - 199 mg/dL [facility] Comment: Interpretive Data Fasting glucose [...] 2022. Calcium 8.6 8.5 - 10.3 mg/dL [facility] Blood 06/30/2024 8:45 AM CDT 06/30/2024 8:45 AM CDT Jose G Weber MD LAB BLOOD ORDERABLES Fi nal Result Performing Organization Address [facility] Co de Phone Number [facility] [address] [place] [address] * ECG 12 lead (06/30/2024 8:33 AM CDT) 06/30/2024 8:33 AM CDT Narrative [facility] - 06/30/2024 9:13 AM CDT Vent Rate: 93 bpm RR Interval: 640 msec FL Interval: 0 msec QRS Duration: 98 msec QT Interval: 359 msec QTC Interval: 410 msec P-R-T [place]: 0 - 10 - 29 degrees IMPRESSION: ATRIAL FIBRILLATION ABNORMAL RHYTHM ECG Electronically Signed By: Matt Stephens MD PhD us Jose G Weber MD ECG ORDERABLES Final R esult Performing Organization Address [facility] Co de Phone Number [facility] [employer] [facility] * Type and screen (06/30/2024 8:33 AM CDT) ABO Rh O Positive Maya, indirect Negative [facility] Blood 06/30/2024 8:33 AM CDT 06/30/2024 8:51 AM CDT Narrative [facility] - 06/30/2024 9:35 AM CDT Has the patient had Daratumumab or Isatuximab in the past 6 months?->Unknown us Jose G Weber MD LAB BLOOD BANK TEST ORD ERABLES Final Result [facility] [address] [place] [address] * Lipid panel (11/20/2016 8:13 AM CDT) [...] Relevant to Health Maintenance Insurance MEDICARE ADVANTAGE [facility] MEDICARE ADVANTAGE [employer] MEDICARE ADVANTAGE [facility] HMO REF ([address] [address] Advance Directives For more information, please contact: [phone] * Full Code (Latest Code Status on File) Date Activated Date Inactivated Comments 09/17/2021 9:52 AM 10/04/2021 9:49 PM * Full Code Date Activated Date Inactivated Comments 09/09/2021 4:36 AM 09/17/2021 9:52 AM Care Teams Slope Runner Relationship Specialty Start Date End Date Isa Ahmadi DO PCP - General Family Medicine 11/23/21
--- OUTSIDE RECORDS SUMMARY | 2024-09-10 10:06 | XMS_ITS | Encounter Summary ---
Author Organization [facility] Address [address] [facility] [address] [place] [address] Phone Care Team Providers Care Mallet And Die Cutter Name Role Phone Nadege Cardoza MD Primary Care Provider [phone] Elissa Ballesteros MD Primary Care Provider + Isa Ahmadi DO Primary Care Provider [phone] Encounter Details Date Type Department Care Team (Late st Contact Info) Description 09/19/2021 Documentation [facility] Gastroenterology [address] [facility] 12th [place] [address] [place] [address] Ja Davis MD [address] [facility] [place] [address] Social History Tobacco Use Types Packs/Day Years [...] documented as of this encounter Care Teams Mallet And Die Cutter Relationship Specialty Start Date End Date Nadege Cardoza MD [address] [place], [place] [id number] PCP - General Family Medicine 10/09/16 10/25/21 Elissa Ballesteros MD [address] [place], [place] [id number] PCP - General Family Medicine 10/26/21 11/22/21 Isa Ahmadi DO [address] [place], [place] [id number] PCP - General Family Medicine 11/23/21 documented as of this encounter
--- OUTSIDE RECORDS SUMMARY | 2024-09-10 10:06 | XMS_ITS | Referral Summary ---
Author Organization [facility] Address [address] [place] [phone] Care Team Providers Care Can Dragger Name Role Phone Isa Ahmadi DO Primary Care Provider [phone] Encounters Date Type Department Care Team Description 09/03/2024 10:15 AM CDT Office [facility] [address] [place] [address] [place] [address] [phone] Karen Cruz NP Cardiac arrhythmia, unspecified cardiac arrhythmia type (Primary Dx) 09/01/2024 Telephone [facility] [address] [place] [address] [place] [phone] Chris Kline RMA 09/01/2024 Orders Only [facility] Surgery [address] [place] [address] [place] [phone] Foster Stubbs MD Lung nodule (Primary Dx) 08/05/2024 10:40 AM CDT Anesthesia Event [facility] [address] [place] [phone] Chente Young MD 08/05/2024 9:52 AM CDT - 08/05/2024 11:59 PM CDT Hospital Encounter [facility] [address] [place] [phone] Matt Solorio MD Persistent atrial fibrillation (HCC) (Primary Dx); Cardiac arrhythmia, unspecified cardiac arrhythmia type Discharge Disposition: Discharge to home or self care 07/24/2024 Telephone [facility] [address] [place] [phone] Karen Cruz NP 07/24/2024 9:15 AM CDT Office Visit [facility] [address] [place] [phone] Karen Cruz NP Cardiac arrhythmia, unspecified cardiac arrhythmia type (Primary Dx) 06/30/2024 Telephone [facility] [address] [place] [address] [phone] Karen Cruz NP Scheduling Appointments 06/30/2024 10:26 AM CDT Anesthesia Event [facility] [address] [place] [address] [phone] Matt Weston DO [place]ern[place], Timothy Joseph, CRNA 06/30/2024 7:51 AM CDT - 06/30/2024 11:59 PM CDT Hospital Encounter [facility] [address] [phone] Darling, Ecommerce Merchandising Manager, MD Bonner, Iam Karimi MD Discharge Disposition: Discharge to home or self care 06/30/2024 9:55 AM CDT - 06/30/2024 12:15 PM CDT Surgery [facility] [address] [phone] Jose G Weber MD ABLATION ATRIAL FIBRILLATION (A-FIB) VIA PULMONARY VEIN ISOLATION [id number] 06/30/2024 7:47 AM CDT - 06/30/2024 4:49 PM CDT Hospital Encounter [facility] [address] [phone] Jose G Weber MD Persistent atrial fibrillation (HCC) Discharge Disposition: Discharge to home or self care from Last 3 Months Allergies No known active allergies Medications finasteride (PROSCAR) 5 mg tablet Take 1 tablet (5 mg total) by mouth daily Active furosemide (LASIX) 40 mg tablet Take 1 tablet (40 mg total) by mouth daily Active usyewgyn-neq-qt lic-vit K-lycop 400-20-370 mcg tablet Take by [...] 10/21/2022 Assessment & Plan (04/17/2024 10:56 AM ATHLETIC MONITOR): Symptomatic persistent atrial fibrillation, recurrent despite ongoing [...] be needed yearly. The patient has a HGQ7ME6-NHOb score of 4 (annualized risk of stroke 4%). I have therefore recommended continued anticoagulation for thromboprophylaxis. Typical follow-up is 1 month post cardioversion. Assessment & Plan (05/02/2023 5:09 PM ATHLETIC MONITOR): Symptomatic persistent atrial fibrillation, presently managed with [...] be needed yearly. The patient has a PQS9AB6-PAEl score of 4 (annualized risk of stroke [...] be needed yearly. 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 stated [...] potassium chloride for hypokalemia. He was to bean picker machine operator and take that night [...] is with patient today, states they will bean picker machine operator prescription on the way [...] consulted for MSSA BSI. Patient presented to [facility] on 09/08 after polytrauma due to fall onto his right side on a wooden terrace with mower falling over him. In the ED CT showed right rib fractures, small apical pneumothorax and RUE hematoma. Labs showed DANIEL and leukocytosis 15. He was transferred to [facility] for trauma evaluation. He was admitted to [...] (09/18/2021): Added automatically from request for surgery [id number] Atrial fibrillation, chronic 10/18/2016 Assessment & Plan (02/27/2017 12:52 PM ATHLETIC MONITOR): Impression Atrial fibrillation. Early recurrence after cardioversion [...] 09/03/2024 10:17 AM CDT Plan of Treatment Not on file Medical Devices Implanted Type Area Car Wiper Device Identifier Shelf Expiration Date Model / Serial / Lot [employer] Device Vascular Closure Vascade Mvp Xl 10-12fr Venous Strl [id number] - [id number] - [id number] Implanted:Qty: 1 on 06/30/2024 by Jose G Weber MD at [facility] Vascular Closure Device [employer] 02/17/2026 [id number] / [id number] / [id number] [employer] Vascade Mvp 6-12fr Venous Closure [id number] - [id number] - [id number] Implanted:Qty: 1 on 06/30/2024 by Jose G Weber MD at [facility] Vascular Closure Device [employer] 05/13/2026 [id number]-[id number] 0U / [id number] / [id number] [employer] Vascade Mvp 6-12fr Venous Closure [id number] - [id number] - [id number] Implanted:Qty: 1 on 06/30/2024 by Jose G Weber MD at [facility] Vascular Closure Device [employer] 04/20/2026 [id number]-[id number] [id number] / [id number] / [id number] Procedures Procedure Name Priority Date/Time Associated [...] WO CONTRAST Routine 06/30/2024 11:02 AM CDT [place] AN PROCEDURE PLACEHOLDER Routine 06/30/2024 10:38 AM CDT [place] AN ELECTIVE ENDOTRACHEAL AIRWAY Routine 06/30/2024 10:38 [...] ECG 12 lead (09/03/2024 10:30 AM CDT) us Karen Cruz FILL PLANT OPERATOR ECG ORDERABLES Final Resu lt * TRANSESOPHAGEAL ECHO (MALCOLM) W DOPPLER/CF W CARDIOVERSION (08/05/2024 11:32 AM CDT) Estimated EF 50-55 % CONS SCIMAGE Anatomical Region Laterality Modality Echocardiography 08/05/2024 10:3 2 AM CDT Narrative 08/12/2024 5:04 PM CDT [address] [place] [address] TRANSESOPHAGEAL ECHOCARDIOGRAM Patient Name: JULIO ESPINOZA : 1945 (78y 11m) Gender: M Study Date: 08/05/2024 10:32:57 AM Ht(Inch): 71 Wt(Lb): 225 BSA: 2.26 Customer Energy Specialist: FRANKY Location: [facility] Order Provider: KAREN CRUZ [...] current cardioversion was performed successfully resulting in anabaptist of sinus rhythm. Electronically Signed By: Matt Solorio MD [facility] 08/12/2024 5:03:45 PM CDT Procedure Note Matt Solorio MD - 08/12/2024 [address] [place] [address] TRANSESOPHAGEAL ECHOCARDIOGRAM Patient Name: JULIO ESPINOZA : 1945 (78y 11m) Gender: M Study Date: 08/05/2024 10:32:57 AM Ht(Inch): 71 Wt(Lb): 225 BSA: 2.26 Customer Energy Specialist: Location: [facility] Order Provider: KAREN CRUZ BMI: [...] rhythm. Electronically Signed By: Matt Solorio MD [facility] 08/12/2024 5:03:45 PM CDT us Karen Cruz NP CV ECHO PROCEDURES Final [...] to verify the correct patient, procedure, equipment, litigation support analyst and site/side marked as required. Sedation: Patient [...] synchronized energy was delivered, restoring sinus rhythm. Matt Solorio MD CV ECHO PROCEDURES Final Re sult * ECG 12 lead (08/05/2024 9:24 AM CDT) 08/05/2024 9:24 AM CDT Narrative [facility] - 08/06/2024 7:53 AM CDT Vent Rate: 93 bpm RR Interval: 645 msec [place] Interval: 0 msec QRS Duration: 94 msec QT Interval: 339 msec QTC Interval: 389 msec P-R-T [place]: 0 - 17 - 24 degrees IMPRESSION: ATRIAL FIBRILLATION ABNORMAL RHYTHM ECG Electronically Signed By: Mtat Solorio MD [facility] Matt Solorio MD ECG ORDERABLES Final Resul t [facility] * ECG 12 lead (07/24/2024 9:13 AM CDT) Karen Cruz NP ECG ORDERABLES Final Resu lt * POCT glucose (06/30/2024 12:37 PM CDT) Glucose, POC 158 70 - 199 mg/dL Comment: For Glucose values <35 mg/dl when Hematocrit is >60 mg/dl,the test may not accurately detect significant hypoglycemia,and testing in the Laboratory should be considered if clinically indicated. POC Performer [id number] CECELIA [facility] Blood 06/30/2024 12:3 7 PM CDT 06/30/2024 12:37 PM CDT Jose G eWber MD LAB POCT ORDERABLES - D EVICE Final Result Performing Organization Address [facility] Co de Phone Number [facility] [address] [facility] [place] [address] * ELECTROPHYSIOLOGIC EVALUATION (EPS) / ATRIAL FIBRILLATION ABLATION VIA PULMONARY VEIN ISOLATION, LEFT VENTRICLE PACING AND RECORDING (06/30/2024 12:08 PM CDT) Anatomical Region Laterality Modality X-Ray Angiograph y Jose G Weber MD CV ELECTROPHYSIOLOGY [place] OCS Final Result * (ABNORMAL) POC Activated Clotting Time, High Range (06/30/2024 11:44 AM CDT) ACT 363(H) 87 - 138 sec POC Performer [id number] [facility] Blood 06/30/2024 11:4 4 AM CDT 06/30/2024 11:44 AM CDT Jose G Weber MD LAB BLOOD ORDERABLES Fi nal Result Performing Organization Address [facility] Co de Phone Number [facility] [address] Department [place] [address] * (ABNORMAL) POC Activated Clotting Time, High Range (06/30/2024 11:32 AM CDT) ACT 286(H) 87 - 138 sec POC Performer [id number] [facility] Blood 06/30/2024 11:3 2 AM CDT 06/30/2024 11:32 AM CDT Jose G Weber MD LAB BLOOD ORDERABLES Fi nal Result Performing Organization Address City/[facility]/ZIP Co de Phone Number [facility] [address] Department [place] [address] * (ABNORMAL) POC Activated Clotting Time, High Range (06/30/2024 11:19 AM CDT) ACT 253(H) 87 - 138 sec POC Performer [id number] [facility] Blood 06/30/2024 11:1 9 AM CDT 06/30/2024 11:19 AM CDT us Jose G Weber MD LAB BLOOD ORDERABLES Fi nal Result [facility] [address] Department [place] [address] * TRANSESOPHAGEAL ECHO (MALCOLM) W DOPPLER/CF WO CONTRAST (06/30/2024 11:02 AM CDT) Pathologist [facility] LV EF 60-65 % CONS SCIMAGE Anatomical Region Laterality Modality Echocardiography 06/30/2024 9:44 AM CDT Narrative 06/30/2024 5:30 PM CDT [facility] [address] [place] [address] TRANSESOPHAGEAL ECHOCARDIOGRAM Patient Name: JULIO ESPINOZA P : 1945 (78y 10m) Gender: M Study Date: 06/30/2024 09:44:15 AM Ht(Inch): 68 Wt(Lb): 228 BSA: 2.23 Customer Energy Specialist: ALENA Location: [facility] Order Provider: Gus BMI: 34.66 BP: 160/96 [...] thrombus seen. Electronically Signed By: Iam Bonner [facility] Card 06/30/2024 5:29:56 PM CDT Procedure Note Iam Bonnre MD - 06/30/2024 [facility] [address] [place] [address] TRANSESOPHAGEAL ECHOCARDIOGRAM Patient Name: JULIO ESPINOZA P : 1945 (78y 10m) Gender: M Study Date: 06/30/2024 09:44:15 AM Ht(Inch): 68 Wt(Lb): 228 BSA: 2.23 Customer Energy Specialist: ALENA Location: [facility] Order Provider: Gus BMI: 34.66 BP: 160/96 [...] thrombus seen. Electronically Signed By: Iam Bonner [facility] Card 06/30/2024 5:29:56 PM CDT Ecommerce Merchandising Manager Darling CARTER CV ECHO PROCEDURE S Final Result * [place] AN ELECTIVE ENDOTRACHEAL AIRWAY, [place] AN PROCEDURE PLACEHOLDER (06/30/2024 10:38 AM CDT) Narrative Rory Dhaliwal CRNA - 06/30/2024 10:38 AM CDT Rory Dhaliwal CRNA 06/30/2024 10:39 AM Airway Patient location: OR Urgency: elective Date/time: 06/30/2024 10:36 AM Indications for airway management: anesthesia Difficult airway: no Staff: Supervising provider: Matt Weston DO Placed by: ORTHODONTIC BAND MAKER: Rory Dhaliwal CRNA Emergent airway documentation: Risks [...] Jose G Weber MD LAB BLOOD ORDERABLES nal Result [facility] [address] Department [place] [address] * (ABNORMAL) Differential, auto (06/30/2024 8:45 AM CDT) Neutrophil abs 5.66 1.50 - 6.50 K/cumm Imm gran abs 0.05 0.00 - 0.10 K/cumm [facility] Lymphocyte abs 2.54 0.80 - 3.30 K/cumm [facility] Monocyte abs 0.87(H) 0.20 - 0.80 K/cumm [facility] Eosinophil abs 0.15 0.00 - 0.50 K/cumm [facility] Basophil abs 0.03 0.00 - 0.10 K/cumm [facility] Neutrophil pct 60.9 % [facility] Comment: Interpretive Data Percent cell count reference ranges are not reported, since discordance with absolute values may lead to misinterpretation of CBC data. Current Interpretive Data was last revised on 2017. Imm gran pct 0.5 % [facility] Comment: Interpretive Data Percent cell count reference ranges are not reported, since discordance with absolute values may lead to misinterpretation of CBC data. Current Interpretive Data was last revised on 2017. Lymphocyte pct 27.3 % [facility] Comment: Interpretive Data Percent cell count reference ranges are not reported, since discordance with absolute values may lead to misinterpretation of CBC data. Current Interpretive Data was last revised on 2017. Monocyte pct 9.4 % [facility] Comment: Interpretive Data Percent cell count reference ranges are not reported, since discordance with absolute values may lead to misinterpretation of CBC data. Current Interpretive Data was last revised on 2017. Eosinophil pct 1.6 % [facility] Comment: Interpretive Data Percent cell count reference ranges are not reported, since discordance with absolute values may lead to misinterpretation of CBC data. Current Interpretive Data was last revised on 2017. Basophil pct 0.3 % [facility] Comment: Interpretive Data Percent cell count reference ranges are not reported, since discordance with absolute values may lead to misinterpretation of CBC data. Current Interpretive Data was last revised on 2017. Blood 06/30/2024 8:45 AM CDT 06/30/2024 8:45 AM CDT Jose G Weber MD LAB BLOOD ORDERABLES Fi nal Result Performing Organization Address City/[facility]/ZIP Co de Phone Number [facility] [address] Department [place] [address] * Check Sample (06/30/2024 8:45 AM CDT) ABO Rh O Positive MBC HCLL OTHER 06/30/2024 8:45 AM CDT 06/30/2024 8:48 AM CDT Jose G Weber MD LAB BLOOD ORDERABLES Fi nal Result Performing Organization Address City/[facility]/ZIP Co de Phone Number [facility] [address] Department [place] [address] [facility] * (ABNORMAL) CBC with auto differential (06/30/2024 8:45 AM CDT) [facility] WBC 9.30 3.80 - 9.90 K/cumm Hgb 14.3 13.0 - 17.5 g/dL [facility] Hct 44.3 38.9 - 50.3 % [facility] Plt 224 150 - 400 K/cumm [facility] MPV 11.2 9.1 - 12.3 fL [facility] RBC 4.76 4.30 - 5.80 M/cumm [facility] MCV 93.1 81.3 - 96.4 fL [facility] MCH 30.0 27.1 - 33.3 pg [facility] MCHC 32.3 32.3 - 35.7 g/dL [facility] RDW CV 14.5 11.1 - 14.9 % [facility] RDW SD 49.5(H) 35.7 - 48.1 fL [facility] NRBC abs 0.00 0.00 - 0.01 K/cumm [facility] Blood 06/30/2024 8:45 AM CDT 06/30/2024 8:45 AM CDT us Jose G Weber MD LAB BLOOD ORDERABLES Fi nal Result [facility] [address] Department [place] [address] * Basic metabolic panel (06/30/2024 8:45 AM CDT) [facility] Sodium 141 135 - 145 mmol/L Potassium, pl 4.1 3.3 - 4.9 mmol/L [facility] Chloride 105 97 - 110 mmol/L [facility] CO2 24 22 - 32 mmol/L [facility] Anion gap 12 2 - 15 mmol/L [facility] BUN 22 6 - 25 mg/dL [facility] Creatinine 1.14 0.80 - 1.30 mg/dL [facility] Glucose 124 70 - 199 mg/dL [facility] Comment: Interpretive Data Fasting glucose >/= 126 [...] 2022. Calcium 8.6 8.5 - 10.3 mg/dL [facility] Blood 06/30/2024 8:45 AM CDT 06/30/2024 8:45 AM CDT Jose G Weber MD LAB BLOOD ORDERABLES Fi nal Result Performing Organization Address [facility] Co de Phone Number [facility] [address] Department [place] [address] * ECG 12 lead (06/30/2024 8:33 AM CDT) 06/30/2024 8:33 AM CDT Narrative [facility] - 06/30/2024 9:13 AM CDT Vent Rate: 93 bpm RR Interval: 640 msec [place] Interval: 0 msec QRS Duration: 98 msec QT Interval: 359 msec QTC Interval: 410 msec P-R-T [place]: 0 - 10 - 29 degrees IMPRESSION: ATRIAL FIBRILLATION ABNORMAL RHYTHM ECG Electronically Signed By: Matt Stephens MD PhD us Jose G Weber MD ECG ORDERABLES Final R esult Performing Organization Address City/[facility] Co de Phone Number [facility] * Type and screen (06/30/2024 8:33 AM CDT) ABO Rh O Positive Maya, indirect Negative [facility] Blood 06/30/2024 8:33 AM CDT 06/30/2024 8:51 AM CDT Narrative C[facility] - 06/30/2024 9:35 AM CDT Has the patient had Daratumumab or Isatuximab in the past 6 months?->Unknown us Jose G Weber MD LAB BLOOD BANK TEST ORD ERABLES Final Result [facility] [address] Department [place] [address] * Lipid panel (11/20/2016 8:13 AM CDT) [...] Most Recently Relevant to Health Maintenance Insurance [id number] [place] [address] MEDICARE ADVANTAGE [facility] MEDIC[facility] Address: [facility] [address] [place] [address] UHC MEDICARE ADVANTAGE [facility] MEDICARE Address: [address] [place], [place] [phone] UHC MEDICARE ADVANTAGE [facility] MEDICARE Address: [address] [address] [place] [id number] R HMO REF [facility] MEDIC[facility] Address: [address] [address] [place] [address] Advance Directives For more information, please contact: [phone] * Full Code (Latest Code Status on File) Date Activated Date Inactivated Comments 09/17/2021 9:52 AM 10/04/2021 9:49 PM * Full Code Date Activated Date Inactivated Comments 09/09/2021 4:36 AM 09/17/2021 9:52 AM Care Teams Can Dragger Relationship Specialty Start Date End Date Isa Ahmadi DO PCP - General Family Medicine 11/23/21
[2024-09-10 12:58] LABS: Albumin Level 4.3 g/dL (3.5-5.1); Anion Gap 7 mmol/L (4-12); Blood Urea Nitrogen 28 mg/dL (9-20); Calcium 8.9 mg/dL (8.4-10.2); Carbon Dioxide 27 mmol/L (22-30); Chloride 105 mmol/L (98-107); Estimated Glomerular Filt Rate 55; Glucose 125 mg/dL (65-110); Potassium 4.7 mmol/L (3.4-5.0); Sodium 139 mmol/L (137-145)
[2024-09-10 13:10] LABS: Total Protein Urine Random 19 mg/dL; Ur Ttl Prot Creatinine Ratio 0.15 mg/mg (0-0.20)
[2024-09-11 08:37] LABS: Creatinine, Random Urine 129 mg/dL (20-320); Total Prot/Creat ratio mg/mg 0.209 (0.025-0.148); Total Protein/Creatinine Ratio 209 mg/g creat (25-148)
[2024-09-14 17:03] LABS: Albumin 4.0 g/dL (3.8-4.8); Gamma Globulin 1.7 g/dL (0.8-1.7)
[2024-09-15 16:14] LABS: ANCA Screen NEGATIVE (NEGATIVE)
[2024-09-18 03:23] LABS: DNA (ds) Antibody. 2 IU/mL
== END 2024-09-10 09:58 | disposition home or self-care (01) ==
PROVIDERS: PCP Family Medicine; Visit Provider Internal Medicine Nephrology
DX: R80.9 Proteinuria, unspecified (principal); I10 Essential (primary) hypertension; E11.9 Type 2 diabetes mellitus without complications
CPT/HCPCS: 36415; 80069; 82570; 83520; 84155; 84156; 84165; 84166; 86036; 86038; 86039; 86160; 86225

== ENCOUNTER 2025-03-08 10:46 | Outpatient (CLI) | payer MEDICARE, SELFPAY ==
--- OUTSIDE RECORDS SUMMARY | 2025-03-08 11:21 | XMS_ITS | Encounter Summary ---
Author Organization [facility] Address [address] [facility] [address] [place] [address] Phone Care Team Providers Care Systems Coordinator Name Role Phone Nadege Cardoza MD Primary Care Provider [phone] Elissa Ballesteros MD Primary Care Provider + Isa Ahmadi DO Primary Care Provider [phone] Encounter Details Date Type Department Care Team (Late st Contact Info) Description 09/19/2021 Documentation [facility] Gastroenterology [address] [facility] Advanced Medicine 12th [place] [address] [place] [address] Ja Davis MD [address] [facility] [id number] [place] [address] Social History Tobacco Use Types Packs/Day Years [...] documented as of this encounter Care Teams Systems Coordinator Relationship Specialty Start Date End Date Nadege Cardoza MD [address] [place], [place] [id number] PCP - General Family Medicine 10/09/16 10/25/21 Elissa Ballesteros MD [address] [place], [place] [id number] PCP - General Family Medicine 10/26/21 11/22/21 Isa Ahmadi DO [address] [place], [place] [id number] PCP - General Family Medicine 11/23/21 documented as of this encounter
--- OUTSIDE RECORDS SUMMARY | 2025-03-08 11:21 | XMS_ITS | Clinical Summary ---
Author Organization [facility] Address [address] [place] [address] Care Team Providers Care Auto Wash Buffer Name Role Phone Unavailable Primary Care Provider Unavailabl e Allergies No known active allergies Medications clopidogrel (PLAVIX) 75 mg Oral Tab Take by mouth daily. 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
--- OUTSIDE RECORDS SUMMARY | 2025-03-08 11:21 | XMS_ITS | Clinical Summary ---
Author Organization [facility] Address [address] [facility] [place] [address] Care Team Providers Care Bottom Ironer Name Role Phone Nadege Cardoza MD Primary Care Provider [phone] Source Comments [facility],non-owned Affiliates and Associated Physician Practices is amultiple site organization consisting of ambulatory clinics and hospital sitesin [place], [place], [place] and [place]. This disclosure is being madepursuant to the Care Everywhere program and may not contain all information available regarding this patient. 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 Gender Identity Not on file Sexual Orientation Not on file Plan of Treatment Health Maintenance Due Date Last Done Comments DTAP/TDAP/TD VACCINES (1 - Tdap) 08/13/1962 PNEUMOCOCCAL VACCINE 50+ (1 of 1 - PCV) 08/13/1993 ZOSTER VACCINE (1 of 2) 08/13/1993 Respiratory Syncytial Virus (RSV) Vaccine Pt: or over 60 yrs (1 - 1-dose 75+ series) 08/13/2018 DEPRESSION SCREENING 03/11/2024 MEDICARE AWV CALENDAR YEAR 2024 COVID-19 VACCINE ( - 2024-2 6 season) 2024 INFLUENZA VACCINE (#1) 2024 HEPATITIS B VACCINE Aged Out No [...] this topic Insurance MANAGED MEDICARE ADV MEDICARE [facility] MANAGED MEDICARE ADV [facility] MANAGED MEDICARE ADV [place] MEDICARE [facility] MANAGED MEDICARE ADV [place] MEDICARE Care Teams Bottom Ironer Relationship Specialty Start Date End Date Nadege Cardoza MD [address] [place] [id number] PCP - General 03/01/20
--- OUTSIDE RECORDS SUMMARY | 2025-03-08 11:21 | XMS_ITS | Encounter Summary ---
Author Organization [facility] Address [address] [place] [address] Care Team Providers Care Photographic Equipment Inspector Name Role Phone Nadege Cardoza MD Primary Care Provider [phone] Encounter Details Date Type Department Care Team (Late st Contact Info) Description 06/11/2023 Lab Requisition [facility] - DermPath Lab [address] [place] [id number] Zackery Quinonez MD [facility] DERMATOLOGY [address] [place] [phone] Neoplasm of uncertain behavior of skin Social History Tobacco Use Types Packs/Day Years Used Date Smoking Tobacco: Never Assessed Sex and Gender Information Value Date Recorded Sex Assigned at Not on file Legal Sex Male 3:[address]GE Gender Identity Not on file Sexual Orientation Not on file documented as of this encounter Plan of Treatment Not on file documented as of this encounter Procedures Procedure Name Priority Date/Time Associated Diagnosis Comments DERMATOPATHOLOGY Routine 06/11/2023 3:33 AM CDT Neoplasm of uncertain behavior of skin documented in this encounter Results * DERMATOPATHOLOGY (06/11/2023 3:33 AM CDT) Case Report Dermatopathology Report Case: [id number] Authorizing Provider: Zackery Quinonez MD Collected: 06/11/2023 03:33 AM Ordering Location: [facility] Physician [facility] - Received: 06/12/2023 12:43 PM DermPath [...] characteristic determined by the Dermatopathology Laboratory at [facility], directed by Dr. Alexis Gay. These tests need not be, and therefore are not, approved by the [place] Food and Drug Administration. The tests are used for clinical purposes. Billing Codes Specimen Charges Stain Charges 35697 1 1:23 PM CDT DERMATOPATHOLOGY LABORATORY Embedded Images 1:23 PM CDT DERMATOPATHOLOGY LABORATORY Pathology/Cytolo gy TISSUE SPECIMEN FROM SKIN / Unknown 06/11/2023 3:33 AM CDT 06/12/2023 12:43 PM CDT Zackery Quinonez MD LAB - PATHOLOGY/CYTOLOGY ORDE UNIQUE Final Result DERMATOPATHOLOGY LABORATORY [facility] - Department of Dermatology [address], [address] [phone] documented in this encounter Visit Diagnoses Diagnosis Neoplasm of uncertain behavior of skin documented in this encounter Care Teams Photographic Equipment Inspector Relationship Specialty Start Date End Date Nadege Cardoza MD [address] [place] [address] PCP - General 03/01/20 documented as of this encounter
--- OUTSIDE RECORDS SUMMARY | 2025-03-08 11:21 | XMS_ITS | Encounter Summary ---
Author Organization [facility] Address [address] [place] [address] Care Team Providers Care Timekeeper Name Role Phone Nadege Cardoza MD Primary Care Provider [phone] Encounter Details Date Type Department Care Team (Late st Contact Info) Description 07/23/2022 Lab Requisition [facility] - DermPath Lab [address] [facility] [address] [place] [address] Zackery Quinonez MD [facility] DERMATOLOGY [address] [place] [phone] Social History Tobacco Use Types Packs/Day Years Used Date Smoking Tobacco: Never Assessed Sex and Gender Information Value Date Recorded Sex Assigned at Not on file Legal Sex 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 [employer] Gender Identity Not on file Sexual Orientation Not on file documented as of this encounter Plan of Treatment Not on file documented as of this encounter Procedures Procedure Name Priority Date/Time Associated Diagnosis Comments DERMATOPATHOLOGY Routine 07/20/2022 3:33 AM CDT documented in this encounter Results * DERMATOPATHOLOGY (07/20/2022 3:33 AM CDT) Case Report Dermatopathology Report Case: [id number] Authorizing Provider: Zackery Quinonez MD Collected: 07/20/2022 03:33 AM Ordering Location: [facility] DermPath Lab Received: 07/23/2022 12:59 PM Pathologist: [...] characteristic determined by the Dermatopathology Laboratory at [facility], directed by Dr. Alexis Gay. These tests need not be, and therefore are not, approved by the [place] Food and Drug Administration. The tests are used for clinical purposes. Billing Codes Specimen Charges Stain Charges 96518 1 3 7:10 PM CDT DERMATOPATHOLOGY LABORATORY Embedded Images 3 7:10 PM CDT DERMATOPATHOLOGY LABORATORY Pathology/Cytolo gy TISSUE SPECIMEN FROM SKIN / Unknown 07/20/2022 3:33 AM CDT 07/23/2022 12:59 PM CDT us Zackery Quinonez MD LAB - PATHOLOGY/CYTOLOGY JOSE CALHOUN Final Result DERMATOPATHOLOGY LABORATORY [facility] - Department of Dermatology [address] [phone] documented in this encounter Visit Diagnoses Not on filedocumented in this encounter Care Teams Timekeeper Relationship Specialty Start Date End Date Nadege Cardoza MD [address] [place], [place] [id number] PCP - General 03/01/20 documented as of this encounter
--- OUTSIDE RECORDS SUMMARY | 2025-03-08 11:21 | XMS_ITS | Clinical Summary ---
Author Organization 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 The patient has a SAR5CF2-NBZs score of 4 (annualized risk of stroke 4%). I have therefore recommended continued anticoagulation for thromboprophylaxis. Typical follow-up is 1 month post cardioversion. Assessment & Plan (05/02/2023 5:09 PM METAL BONDING CRIB ATTENDANT): Symptomatic persistent atrial fibrillation, presently managed with [...] be needed yearly. The patient has a SGF2TT5-YHAj score of 4 (annualized risk of stroke [...] be needed yearly. The patient has a IMO4HR8-PUSt score of 4 (annualized risk of stroke [...] concerns Assessment & Plan (03/21/2022 10:54 AM METAL BONDING CRIB ATTENDANT): - Since last visit patient self discontinued [...] repeat imaging in [address] Stubsb. - Cultures from empyema with NG (final). [...] - Patient reports that he never did knot picker cloth the potassium supplements. stated they thought that [...] potassium chloride for hypokalemia. He was to knot picker cloth and take that night or tomorrow with [...] is with patient today, states they will knot picker cloth prescription on the way home. Closed fracture [...] consulted for MSSA BSI. Patient presented to [facility] on 09/08 after polytrauma due to fall onto his right side on a wooden terrace with mower falling over him. In the ED CT showed right rib fractures, small apical pneumothorax and RUE hematoma. Labs showed DANIEL and leukocytosis 15. He was transferred to [facility] for trauma evaluation. He was admitted to [...] (09/18/2021): Added automatically from request for surgery [id number] Atrial fibrillation, chronic 10/18/2016 Assessment & Plan (02/27/2017 12:52 PM METAL BONDING CRIB ATTENDANT): Impression Atrial fibrillation. Early recurrence after cardioversion [...] pain due to trauma Acute respiratory insufficiency Surgical History Surgery Date Site/Laterality Comments REPLACEMENT TOTAL KNEE Left REPLACEMENT TOTAL HIP LATERA L POSITION Left TONSILLECTOMY KNEE CARTILAGE SURGERY Right US GUIDED THORACENTESIS 09/25/2021 N/A EXCHANGE PICC LINE 09/28/2021 Left COLON SURGERY CARDIAC ELECTROPHYSIOLOGY PROCEDURE 06/30/2024 N/A Procedure: ABLATION ATRIAL FIBRILLATION (A-FIB) VIA PULMONARY VEIN ISOLATION [id number]; Surgeon: Jose G Weber MD; Location: [facility] CARDIAC JUNIOR ACCOUNT EXECUTIVE; Service: Cardiovascular; Laterality: N/A; Medical devices from this surgery are in the Medical Devices section. CARDIAC ELECTROPHYSIOLOGY PROCEDURE 06/30/2024 N/A Procedure: LEFT VENTRICLE PACING AND RECORDING [id number]; Surgeon: Jose G Weber MD; Location: [facility] CARDIAC JUNIOR ACCOUNT EXECUTIVE; Service: Cardiovascular; Laterality: N/A; Medical devices from this surgery are in the Medical Devices section. Medical History Medical History Date Comments Hypertension Hyperlipidemia Arthritis Cholelithiasis Atrial fibrillation (HCC) Diabetes mellitus Chronic kidney disease Bradycardia 2023 Family History [...] alc ohol? 2-4 times a month 06/30/2024 Average Number of Drinks Not on file 025 Frequency of Binge Drinking Not on file 06/10 Personal Safety Answer Date Recorded Have you [...] 08/05/2025 08/05/2024 Medical Devices Implanted Type Area Rod Welder Device Identifier Shelf Expiration Date Model / Serial / Lot [employer] Device Vascular Closure Vascade Mvp Xl 10-12fr Venous Strl [id number] - [id number] - [id number] Implanted:Qty: 1 on 06/30/2024 by Jose G Weber MD at [facility] Vascular Closure Device [employer] 02/17/2026 [id number] / [id number] / [id number] [employer] Vascade Mvp 6-12fr Venous Closure [id number] - [id number] - [id number] Implanted:Qty: 1 on 06/30/2024 by Jose G Weber MD at [facility] Vascular Closure Device [employer] 05/13/2026 800-612C-1 0U / [id number] / [id number] [employer] Vascade Mvp 6-12fr Venous Closure [id number] - [id number] - [id number] Implanted:Qty: 1 on 06/30/2024 by Jose G Weber MD at [facility] Vascular Closure Device [employer] 04/20/2026 800-612C-1 0U / [id number] / [id number] Procedures Procedure Name Priority Date/Time Associated Diagnosis Comments EGFR STAT 06/30/2024 8:45 AM CDT LIPID PANEL Routine 11/20/2016 8:13 AM CDT from Last 3 Months or Most Recently Relevant to Health Maintenance Results * eGFR (06/30/2024 8:45 AM CDT) eGFR [...] MD LAB BLOOD ORDERABLES Fi nal Result [facility] [address] [place] [address] * Lipid panel (11/20/2016 8:13 AM CDT) [...] Most Recently Relevant to Health Maintenance Insurance [facility] MEDICARE [facility]ANT[facility] Address: [address] [place] [phone] MEDICARE ADVANTAGE [facility] Address: [address] [place] [phone] MEDICARE ADVANTAGE [facility] Address: [address] [address] [place] [address] [facility] MDCR HMO REF [facility] Address: [facility] [address] [place] [address] Advance Directives For more information, please contact: [phone] * Full Code (Latest Code Status on File) Date Activated Date Inactivated Comments 09/17/2021 9:52 AM 10/04/2021 9:49 PM * Full Code Date Activated Date Inactivated Comments 09/09/2021 4:36 AM 09/17/2021 9:52 AM Care Teams Custom Stock Maker Relationship Specialty Start Date End Date Isa Ahmadi DO PCP - General Family Medicine 11/23/21
--- OUTSIDE RECORDS SUMMARY | 2025-03-08 11:21 | XMS_ITS | Encounter Summary ---
Author Organization [employer] [facility] Address [address] [place] [address] Care Team Providers Care Auto Parts Handler Name Role Phone Unavailable Primary Care Provider Unavailabl e Encounter Details Date Type Department Care Team (Late st Contact Info) Description 10/24/2008 Emergency [facility] [address] 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
[2025-03-08 13:42] LABS: Hematocrit 41.8 % (42.0-52.0); Hemoglobin 13.2 g/dL (14.0-18.0); Mean Corpuscular HGB Conc 31.6 g/dl (32-36); Mean Corpuscular Hemoglobin 30.6 pg (26-34); Mean Corpuscular Volume 97.0 fl (80-100); Platelet Count Result 241 k/mm3 (150-375); Red Blood Count 4.31 M/mm3 (4.6-6.20); White Blood Count 8.4 K/mm3 (4.5-10.0)
[2025-03-08 13:59] LABS: Alanine Aminotransferase 27 U/L (6-50); Albumin Level 3.8 g/dL (3.5-5.1); Alkaline Phosphatase 101 U/L (38-126); Anion Gap 4 mmol/L (4-12); Aspartate Amino Transferase 43 U/L (17-59); Bilirubin,Total 0.3 mg/dL (0.2-1.3); Blood Urea Nitrogen 18 mg/dL (9-20); Calcium 8.4 mg/dL (8.4-10.2); Carbon Dioxide 27 mmol/L (22-30); Chloride 109 mmol/L (98-107); Cholesterol 125 mg/dL (0-200); Estimated Glomerular Filt Rate > 60; Glucose 124 mg/dL (65-110); HDL Direct 37 mg/dL; Potassium 3.7 mmol/L (3.4-5.0); Sodium 140 mmol/L (137-145); Total Protein 7.4 g/dL (6.3-8.2); Triglycerides 130 mg/dL (<150)
[2025-03-08 14:35] LABS: Thyroid Stimulating Hormone 0.899 uIU/mL (0.465-4.680)
[2025-03-08 14:36] LABS: MALB Creatinine Ratio 239.4 mg/g (0-30)
[2025-03-08 17:14] LABS: Hemoglobin A1C 6.6 % (<5.7)
[2025-03-08 21:32] LABS: Total Protein Urine Random 58 mg/dL; Ur Ttl Prot Creatinine Ratio 0.49 mg/mg (0-0.20)
== END 2025-03-08 10:47 | disposition home or self-care (01) ==
PROVIDERS: Internal Medicine Nephrology; PCP Family Medicine; Visit Provider Nurse Practitioner
DX: R80.9 Proteinuria, unspecified (principal); I10 Essential (primary) hypertension; E78.2 Mixed hyperlipidemia; E11.65 Type 2 diabetes mellitus with hyperglycemia; E03.9 Hypothyroidism, unspecified; E11.29 Type 2 diabetes mellitus with other diabetic kidney complication
CPT/HCPCS: 36415; 80053; 80061; 82043; 82570; 83036; 84156; 84443; 85027